=== PATIENT | female | born 1955 | race Caucasian/White ===

== ENCOUNTER 2018-05-11 17:01 | Emergency (ER) | payer OTHER ==
[2018-05-11 17:56] LABS: Urine Blood NEGATIVE (NEG); Urine Glucose NEGATIVE (NEG); Urine Protein NEGATIVE (NEG); Urine pH 5.5 (5.0-7.0)
--- NOTE | 2018-05-11 18:01 | RAD REPORT ---
EXAM DESCRIPTION: CT - Stone Protocol - 05/11/2018 5:38 pm CLINICAL HISTORY: Abdominal pain. Right flank pain COMPARISON: January 2018 TECHNIQUE: Computed axial tomography of the abdomen pelvis was obtained without oral or IV contrast. Lack of IV and oral contrast limits evaluation of solid organs, bowel, and vessels. Coronal reformat hailey images were obtained and reviewed. All CT scans are performed using dose optimization technique as appropriate and may include automated exposure control or mA/KV adjustment according to patient size. FINDINGS: A renal calculus is not seen. An ureteral calculus is not noted. A bladder calculus is not present. A 35 millimeter cystic left renal mass is unchanged. Smaller right renal cystic mass is sta ble. A small hepatic cyst is unchanged. Spleen, pancreas and adrenals appear grossly normal There is no evidence of diverticulitis. A hysterectomy has been performed. The gallbladder has been r emoved IMPRESSION: Negative for a genitourinary calculus
[2018-05-11] MEDS ORDERED: CEFTRIAXONE 1000 MG/VIAL ONE (18:31)
[2018-05-11] MEDS ORDERED: LIDOCAINE 1% MPF 2 ML AMPULE ONE (18:31)
--- NOTE | 2018-05-11 19:10 | EDPHYS ---
Physician Documentation [facility] Name: Priscila Draper Age: 62 yrs Sex: Female : 1955 Arrival Date: 05/11/2018 Time: 17:04 Bed 26 Private MD: Willi Chino ED Physician Varinder Rocha HPI: 05/11 17:23 This 62 yrs old Female presents to ER via Ambulatory with complaints of jmm Urinary Problem. 17:23 The patient presents with pain that is acute, with no known mechanism of injury. The jmm symptoms are located in the right flank. Onset: The symptoms/episode began/occurred gradually, 1 day(s) ago. The pain does not radiate. Associated signs and symptoms: Pertinent positives: nausea, Pertinent negatives: abdominal pain, fever, urinary retention, vomiting. This is a 62 year old female with a history of right renal mass that presents to the ED with right flank pain and nausea beginning last night. Patient denies fever, abdominal pain or vomiting. . Historical: - Allergies: 18:41 Bactrim; mb3 18:41 Demerol; mb3 18:41 Morphine; mb3 18:41 NSAIDS; mb3 18:41 Toradol; mb3 - Home Meds: 18:41 lisinopril 10 mg Oral tab 1 tab once daily [Active]; metformin 500 mg Oral tab 2 tabs 2 mb3 times per day [Active]; metoprolol tartrate 100 mg Oral tab 1 tab 2 times per day [Active]; Zomig Oral [Active]; - PMHx: 18:41 Crohn's; Depression; Diabetes - NIDDM; Hypertension; Migraines; mb3 - Immunization history:: Adult Immunizations up to date. - Social history:: Smoking status: Patient/guardian denies using tobacco, never smoked. - Ebola Screening: : Patient denies travel to an Ebola-affected area in the 21 days before illness onset No symptoms or risks identified at this time. ROS: 17:23 Constitutional: Negative for fever, chills, and weight loss. jmm 17:23 Abdomen/GI: Positive for nausea, flank pain. 17:23 Back: Positive for flank pain, on the right. 17:23 Back: Positive for 17:23 All other systems are negative. Exam: 17:23 Constitutional: This is a well developed, well nourished patient who is awake, alert, jmm and in no acute distress. Chest/axilla: Normal chest wall appearance and motion. Nontender with no deformity. No lesions are appreciated. Cardiovascular: Regular rate and rhythm. No gallops, murmurs, or rubs. Full/Equal distal pulses. Respiratory: Lungs have equal breath sounds bilaterally, clear to auscultation. 17:23 Neuro: Orientation: is normal, Mentation: is normal, Memory: is normal, Gait: is steady. 17:23 Psych: Behavior/mood is pleasant, cooperative. Vital Signs: 17:09 BP 136 / 69; Pulse 64; Resp 17 S; Temp 98.0; Pulse Ox 98% on R/A; Weight 79.83 kg (R); sg Height 5 ft. 4 in. (162.56 cm); Pain 7/10; 19:43 BP 128 / 69; Pulse 62; Resp 18; Pulse Ox 97% on R/A; mb3 17:09 Body Mass Index 30.21 (79.83 kg, 162.56 cm) MDM: 17:22 Patient medically screened. [facility] 19:08 Data reviewed: vital signs, nurses notes, lab test result(s), radiologic studies, CT [facility] scan. Counseling: I had a detailed discussion with the patient and/or guardian regarding: the historical points, exam findings, and any diagnostic results supporting the discharge/admit diagnosis, lab results, radiology results, the need for outpatient follow up, to return to the emergency department if symptoms worsen or persist or if there are any questions or concerns that arise at home. 05/11 17:23 Order name: Urine Culture [facility] 05/11 17:35 Order name: Urine Dipstick--Ancillary (enter results); Complete Time: 18:01 05/11 17:23 Order name: CT Stone Protocol; Complete Time: 18:04 [facility] 05/11 17:23 Order name: Urine Dipstick-Ancillary (obtain specimen); Complete Time: 17:27 [facility] Administered Medications: 18:35 Drug: Rocephin (cefTRIAXone) 1 grams Route: IM; Site: right gluteus; mb3 19:44 Follow up: Response: No adverse reaction mb3 Disposition: 05/12 07:00 Co-signature as Attending Physician, Varinder Rocha MD. rn Disposition: 05/11/18 19:09 Discharged to Home. Impression: Urinary tract infection, site not specified, Flank Pain. - Condition is Stable. - Discharge Instructions: Urinary Tract Infection. - Prescriptions for Cephalexin 500 mg Oral Capsule - take 1 capsule by ORAL route every 12 hours for 10 days; 20 capsule. Ultram 50 mg Oral Tablet - take 1 tablet by ORAL route every 6 hours As needed; 12 tablet. - Medication Reconciliation Form, Thank You Letter, Antibiotic Education, Prescription Opioid Use form. - Follow up: Willi Chino MD; When: 2 - 3 days; Reason: Continuance of care. Signatures: Dispatcher [employer] EDMS Hansel Orozco PA PA jmm Varinder Rocha MD MD rn Barnett, Mark, RN RN mb3 Corrections: (The following items were deleted from the chart) 05/11 19:44 19:09 05/11/2018 19:09 Discharged to Home. Impression: Urinary tract infection, site mb3 not specified; Flank Pain. Condition is Stable. Forms are Medication Reconciliation Form, Thank You Letter, Antibiotic Education, Prescription Opioid Use. Follow up: Willi Chino; When: 2 - 3 days; Reason: Continuance of care. erlin
--- NOTE | 2018-05-11 19:10 | ER ---
Nurse's Notes [facility] Name: Priscila Draper Age: 62 yrs Sex: Female : 1955 Arrival Date: 05/11/2018 Time: 17:04 Bed 26 Private MD: Willi Chino Diagnosis: Urinary tract infection, site not specified;Flank Pain Presentation: 05/11 17:07 Presenting complaint: Patient states: Right side flank pain that began last night, kept sg me awake all night. Denies urinary symptoms, N/V/D, denies fever, reports that she has a mass on right side of kidney, Dr.Nancy Carter is my Independent Crop Consultant. Transition of care: patient was not received from another setting of care. Onset of symptoms was May 11, 2018. Risk Assessment: Do you want to hurt yourself or someone else? Patient reports no desire to harm self or others. Initial Sepsis Screen: Does the patient meet any 2 criteria? No. Patient's initial sepsis screen is negative. Does the patient have a suspected source of infection? No. Patient's initial sepsis screen is negative. Care prior to arrival: None. 17:07 Method Of Arrival: Ambulatory sg 17:07 Acuity: SHIRA 3 sg Historical: - Allergies: 18:41 Bactrim; mb3 18:41 Demerol; mb3 18:41 Morphine; mb3 18:41 NSAIDS; mb3 18:41 Toradol; mb3 - Home Meds: 18:41 lisinopril 10 mg Oral tab 1 tab once daily [Active]; metformin 500 mg Oral tab 2 tabs 2 mb3 times per day [Active]; metoprolol tartrate 100 mg Oral tab 1 tab 2 times per day [Active]; Zomig Oral [Active]; - PMHx: 18:41 Crohn's; Depression; Diabetes - NIDDM; Hypertension; Migraines; mb3 - Immunization history:: Adult Immunizations up to date. - Social history:: Smoking status: Patient/guardian denies using tobacco, never smoked. - Ebola Screening: : Patient denies travel to an Ebola-affected area in the 21 days before illness onset No symptoms or risks identified at this time. Screenin:39 Abuse screen: Denies threats or abuse. Nutritional screening: No deficits noted. mb3 Tuberculosis screening: No symptoms or risk factors identified. Fall Risk None identified. Assessment: 18:37 General: Appears in no apparent distress. comfortable, Behavior is calm, cooperative, mb3 appropriate for age. Pain: Complains of pain in left low back and right low back. Neuro: No deficits noted. Cardiovascular: No deficits noted. Respiratory: No deficits noted. GI: No deficits noted. : Urine is clear, Reports pain flank(s). EENT: No deficits noted. Vital Signs: 17:09 BP 136 / 69; Pulse 64; Resp 17 S; Temp 98.0; Pulse Ox 98% on R/A; Weight 79.83 kg (R); sg Height 5 ft. 4 in. (162.56 cm); Pain 7/10; 19:43 BP 128 / 69; Pulse 62; Resp 18; Pulse Ox 97% on R/A; mb3 17:09 Body Mass Index 30.21 (79.83 kg, 162.56 cm) ED Course: 17:04 Patient arrived in ED. sb2 17:04 Willi Chino MD is Private Physician. sb2 17:07 Arm band placed on. 17:09 Triage completed. 17:13 Hansel Orozco PA is PHCP. [facility] 17:13 Varinder Rocha MD is Attending Physician. [facility] 17:14 Hussein Jules, RN is Primary Nurse. mb3 17:[address] tn 17:37 CT completed. Patient moved back from CT. tn 17:37 CT Stone Protocol In Process Unspecified. EDMS 18:39 No provider procedures requiring assistance completed. Patient did not have IV access mb3 during this emergency room visit. 18:42 Patient has correct armband on for positive identification. Bed in low position. Call mb3 light in reach. Side rails up X 1. 19:09 Willi Chino MD is Referral Physician. [facility] Administered Medications: 18:35 Drug: Rocephin (cefTRIAXone) 1 grams Route: IM; Site: right gluteus; mb3 19:44 Follow up: Response: No adverse reaction mb3 Outcome: 19:09 Discharge ordered by . erlin 19:43 Discharged to home ambulatory. mb3 19:43 Condition: stable 19:43 Discharge instructions given to patient, Instructed on discharge instructions, follow up and referral plans. medication usage, Demonstrated understanding of instructions, follow-up care, medications, Prescriptions given X 2. 19:44 Patient left the ED. mb3 Addendum: 05/14/2018 11:50 Addendum: Culture Results: Positive urine culture. Bacteria is resistant to, has i w intermediate sensitivity, or is not tested against prescribed antibiotics. Report given to [facility] for further evaluation and then to [facility] for follow up with patient. Phone call Attempt #1 pt did not answer, left voice mail. 12:07 Addendum: Culture Results: Phone call Attempt #2 pt called back, asymptomatic, no i w further orders. Signatures: Dispatcher [employer] EDMS Patricio Martino, RN RN sg Hansel Orozco PA PA jmm Williams, Irene, RN RN Thiago Ricardo Sheri sb2 Hussein Jules RN RN mb3
[2018-05-11 19:48] VITALS: TEMP 98
[2018-05-11 19:49] VITALS: BP 128/69; O2SAT 97
== END 2018-05-11 19:44 | disposition home or self-care (01) ==
LOC: ER 17:01
DX: N39.0 Urinary tract infection, site not specified (principal); I10 Essential (primary) hypertension; E11.9 Type 2 diabetes mellitus without complications; F32.9 Major depressive disorder, single episode, unspecified; Z88.1 Allergy status to other antibiotic agents; Z88.5 Allergy status to narcotic agent; Z88.6 Allergy status to analgesic agent
CPT/HCPCS: 74176; 76377; 81003; 87077; 87086; 87088; 87186; 96372; 99284; J2001

== ENCOUNTER 2018-06-14 21:53 | Emergency (ER) | payer OTHER ==
[2018-06-14 22:58] LABS: Urine Blood NEGATIVE (NEG); Urine Glucose NEGATIVE (NEG); Urine Protein NEGATIVE (NEG); Urine Specific Gravity 1.015 (1.005-1.030); Urine pH 7.5 (5.0-7.0)
[2018-06-14 23:01] LABS: Urine Bacteria <20 /HPF (<20); Urine Culture Reflex Order NOT NEEDED; Urine RBC NONE SEEN /HPF (NONE SEEN)
--- NOTE | 2018-06-14 23:19 | EDPHYS ---
Physician Documentation [facility] Name: Priscila Draper Age: 62 yrs Sex: Female : 1955 Arrival Date: 06/14/2018 Time: 21:59 Bed 16 Private MD: Willi Chnio ED Physician Miguel Ángel Castaneda HPI: 06/14 23:12 This 62 yrs old Female presents to ER via Ambulatory with complaints of mimi Headache, Not sleeping (daughter ). 23:12 The patient complains of pain to the forehead, left side of forehead and right side of mimi forehead. The patient describes the headache as aching. Onset: The symptoms/episode began/occurred 2 day(s) ago. Associated signs and symptoms: The patient has no apparent associated signs or symptoms. Severity of symptoms: At its worst the pain was mild, in the emergency department the pain is unchanged. Headache History: Denies prior headaches. The symptoms are alleviated by sleep, the symptoms are aggravated by stress, daughter just . The patient has experienced similar episodes in the past, a few times. Historical: - Allergies: 22:05 Demerol; aj1 22:05 Bactrim; aj1 22:05 Morphine; aj1 22:05 NSAIDS; aj1 22:05 Toradol; aj1 - Home Meds: 22:05 lisinopril 10 mg Oral tab 1 tab once daily [Active]; metformin 500 mg Oral tab 2 tabs 2 aj1 times per day [Active]; metoprolol tartrate 100 mg Oral tab 1 tab 2 times per day [Active]; Zomig Oral [Active]; - PMHx: 22:05 Crohn's; Depression; Diabetes - NIDDM; Hypertension; Migraines; aj1 - Immunization history:: Flu vaccine is up to date. - Social history:: Smoking status: Patient/guardian denies using tobacco. - Ebola Screening: : No symptoms or risks identified at this time. - Family history:: not pertinent. ROS: 23:12 Constitutional: Negative for fever, chills, and weight loss, Eyes: Negative for injury, mimi pain, redness, and discharge, ENT: Negative for injury, pain, and discharge, Neck: Negative for injury, pain, and swelling, Cardiovascular: Negative for chest pain, palpitations, and edema, Respiratory: Negative for shortness of breath, cough, wheezing, and pleuritic chest pain, Abdomen/GI: Negative for abdominal pain, nausea, vomiting, diarrhea, and constipation, Back: Negative for injury and pain, : Negative for injury, bleeding, discharge, and swelling, MS/Extremity: Negative for injury and deformity, Skin: Negative for injury, rash, and discoloration, Psych: Negative for depression, anxiety, suicide ideation, homicidal ideation, and hallucinations, Allergy/Immunology: Negative for hives, rash, and allergies, Endocrine: Negative for neck swelling, polydipsia, polyuria, polyphagia, and marked weight changes. 23:12 Neuro: Positive for headache. Exam: 23:15 Constitutional: This is a well developed, well nourished patient who is awake, alert, mimi and in no acute distress. Head/Face: Normocephalic, atraumatic. Eyes: Pupils equal round and reactive to light, extra-ocular motions intact. Lids and lashes normal. Conjunctiva and sclera are non-icteric and not injected. Cornea within normal limits. Periorbital areas with no swelling, redness, or edema. ENT: Nares patent. No nasal discharge, no septal abnormalities noted. Tympanic membranes are normal and external auditory canals are clear. Oropharynx with no redness, swelling, or masses, exudates, or evidence of obstruction, uvula midline. Mucous membranes moist. Neck: Trachea midline, no thyromegaly or masses palpated, and no cervical lymphadenopathy. Supple, full range of motion without nuchal rigidity, or vertebral point tenderness. No Meningismus. Chest/axilla: Normal chest wall appearance and motion. Nontender with no deformity. No lesions are appreciated. Cardiovascular: Regular rate and rhythm with a normal S1 and S2. No gallops, murmurs, or rubs. Normal PMI, no JVD. No pulse deficits. Respiratory: Lungs have equal breath sounds bilaterally, clear to auscultation and percussion. No rales, rhonchi or wheezes noted. No increased work of breathing, no retractions or nasal flaring. Abdomen/GI: Soft, non-tender, with normal bowel sounds. No distension or tympany. No guarding or rebound. No evidence of tenderness throughout. Back: No spinal tenderness. No costovertebral tenderness. Full range of motion. Female : Normal external genitalia. Skin: Warm, dry with normal turgor. Normal color with no rashes, no lesions, and no evidence of cellulitis. MS/ Extremity: Pulses equal, no cyanosis. Neurovascular intact. Full, normal range of motion. Neuro: Awake and alert, GCS 15, oriented to person, place, time, and situation. Cranial nerves II-XII grossly intact. Motor strength 5/5 in all extremities. Sensory grossly intact. Cerebellar exam normal. Normal gait. Psych: Awake, alert, with orientation to person, place and time. Behavior, mood, and affect are within normal limits. 23:15 Neck: ROM/movement: is normal, no acute changes, Meningeal signs: are not present, Kernig's sign is negative, Brudzinski's sign is negative. Vital Signs: 22:05 BP 140 / 90; Pulse 91; Resp 18; Temp 100.4(O); Pulse Ox 97% on R/A; Weight 79.38 kg aj1 (R); Height 5 ft. 4 in. (162.56 cm) (R); 22:45 BP 148 / 94 RA Sitting (auto/reg); Pulse 94 RA; Resp 18 S; Temp 98(O); cb2 22:05 Body Mass Index 30.04 (79.38 kg, 162.56 cm) aj1 MDM: 22:04 Patient medically screened. [facility] 23:15 Data reviewed: vital signs, nurses notes, lab test result(s). [facility] 06/14 22:25 Order name: Urine Microscopic Only; Complete Time: 23:12 ma 06/14 22:26 Order name: Urine Dipstick--Ancillary (enter results); Complete Time: 23:12 ma 06/14 23:42 Order name: EKG; Complete Time: 23:42 [facility] 06/14 23:42 Order name: EKG - Nurse/Tech; Complete Time: 00:03 [facility] Administered Medications: 23:58 Drug: Zofran 4 mg Route: PO; jl3 06/15 00:04 Follow up: Response: No adverse reaction ak1 00:03 Drug: Cipro 500 mg Route: PO; ak1 00:04 Follow up: Response: No adverse reaction ak1 Disposition: 06/14/18 23:18 Discharged to Home. Impression: Headache, Insomnia. - Condition is Stable. - Discharge Instructions: General Headache Without Cause, General Headache Without Cause, [id number]. - Prescriptions for Cipro 250 mg Oral Tablet - take 1 tablet by ORAL route every 12 hours; 14 tablet. Restoril 15 mg Oral capsule - take 1 capsule by ORAL route once daily at bedtime as needed; 14 capsule. - Medication Reconciliation Form, Thank You Letter, Antibiotic Education, Prescription Opioid Use form. - Follow up: Willi Chino MD; When: 2 - 3 days; Reason: Recheck today's complaints, Continuance of care, Re-evaluation by your physician. - Problem is new. - Symptoms have improved. Signatures: Dispatcher [employer] EDMS Debbie Price RN RN aj1 Miguel Ángel Castaneda MD MD cha Lowman, John, DATA RECOVERY PLANNER DATA RECOVERY PLANNER jl3 Jazlyn Lowe RN RN ak1 Corrections: (The following items were deleted from the chart) 00:06 08 23:18 06/14/2018 23:18 Discharged to Home. Impression: Headache; Insomnia. ak1 Condition is Stable. Forms are Medication Reconciliation Form, Thank You Letter, Antibiotic Education, Prescription Opioid Use. Follow up: Willi Chino; When: 2 - 3 days; Reason: Recheck today's complaints, Continuance of care, Re-evaluation by your physician. Problem is new. Symptoms have improved. mimi
--- NOTE | 2018-06-14 23:19 | ER ---
Nurse's Notes [facility] Name: Priscila Draper Age: 62 yrs Sex: Female : 1955 Arrival Date: 06/14/2018 Time: 21:59 Bed 16 Private MD: Willi Chino Diagnosis: Headache;Insomnia Presentation: 06/14 22:01 Presenting complaint: Patient states: "My daughter May 06 and her son is the next of aj1 kin and he won't go get her. He said when he gets a day off he'll go get her. I have a headache. I can't sleep" Patient is crying in traige. Transition of care: patient was not received from another setting of care. Onset of symptoms was April 2018. Risk Assessment: Do you want to hurt yourself or someone else? Patient reports no desire to harm self or others. Initial Sepsis Screen: Does the patient meet any 2 criteria? HR > 90 bpm. Does the patient have a suspected source of infection? No. Patient's initial sepsis screen is negative. Care prior to arrival: None. 22:01 Method Of Arrival: Ambulatory 1 22:01 Acuity: SHIRA 4 aj1 Triage Assessment: 22:05 General: Appears uncomfortable, Behavior is cooperative, anxious, crying. Pain: aj1 Complains of pain in face and scalp Pain does not radiate. Pain currently is 7 out of 10 on a pain scale. Neuro: Level of Consciousness is awake, alert, obeys commands, Oriented to person, place, time, situation, Speech is normal, Facial symmetry appears normal. Cardiovascular: Patient's skin is warm and dry. Respiratory: Airway is patent Respiratory effort is even, unlabored, Respiratory pattern is regular, symmetrical. 06/15 00:04 Headache History: The patient has had previous headaches and this one is similar to ak1 previous episodes. Pain: Pain began unknown Also complains of sleeplessness. Historical: - Allergies: 06/14 22:05 Demerol; aj1 22:05 Bactrim; aj1 22:05 Morphine; aj1 22:05 NSAIDS; aj1 22:05 Toradol; aj1 - Home Meds: 22:05 lisinopril 10 mg Oral tab 1 tab once daily [Active]; metformin 500 mg Oral tab 2 tabs 2 aj1 times per day [Active]; metoprolol tartrate 100 mg Oral tab 1 tab 2 times per day [Active]; Zomig Oral [Active]; - PMHx: 22:05 Crohn's; Depression; Diabetes - NIDDM; Hypertension; Migraines; aj1 - Immunization history:: Flu vaccine is up to date. - Social history:: Smoking status: Patient/guardian denies using tobacco. - Ebola Screening: : No symptoms or risks identified at this time. - Family history:: not pertinent. Screenin/03 00:04 Abuse screen: Denies threats or abuse. Denies injuries from another. Nutritional ak1 screening: No deficits noted. Tuberculosis screening: No symptoms or risk factors identified. Fall Risk None identified. Vital Signs: 06/14 22:05 BP 140 / 90; Pulse 91; Resp 18; Temp 100.4(O); Pulse Ox 97% on R/A; Weight 79.38 kg aj1 (R); Height 5 ft. 4 in. (162.56 cm) (R); 22:45 BP 148 / 94 RA Sitting (auto/reg); Pulse 94 RA; Resp 18 S; Temp 98(O); cb2 22:05 Body Mass Index 30.04 (79.38 kg, 162.56 cm) aj1 ED Course: 21:59 Patient arrived in ED. es 21:59 Willi Chino MD is Private Physician. 22:03 Jazlyn Lowe, RN is Primary Nurse. ak1 22:04 Triage completed. aj1 22:04 Miguel Ángel Castaneda MD is Attending Physician. [facility] 22:05 Arm band placed on Patient placed in an exam room. aj1 23:16 Willi Chino MD is Referral Physician. [facility] 08 00:05 Patient has correct armband on for positive identification. Bed in low position. Call ak1 light in reach. Side rails up X 1. Pulse ox on. NIBP on. 00:05 No provider procedures requiring assistance completed. Patient did not have IV access ak1 during this emergency room visit. Administered Medications: 06/14 23:58 Drug: Zofran 4 mg Route: PO; jl3 06/15 00:04 Follow up: Response: No adverse reaction ak1 00:03 Drug: Cipro 500 mg Route: PO; ak1 00:04 Follow up: Response: No adverse reaction ak1 Outcome: 06/14 23:18 Discharge ordered by . mimi 06/15 00:05 Discharged to home ambulatory, with family. ak1 Condition: good Discharge instructions given to patient, Instructed on discharge instructions, follow up and referral plans. no drinking with medication, no driving heavy equipment, medication usage, Demonstrated understanding of instructions, follow-up care, medications, Prescriptions given X 2. 00:06 Patient left the ED. ak1 Signatures: Debbie Price RN RN aj1 Miguel Ángel Castaneda MD MD cha Salyer, Edna es Lowman, John, BASKET BOTTOM MACHINE OPERATOR BASKET BOTTOM MACHINE OPERATOR jl3 Jazlyn Lowe, RN RN ak1 Hipolito Casillas cb2
[2018-06-14] MEDS ORDERED: CIPROFLOXACIN HCL 500 MG TAB ONE (23:35)
[2018-06-14] MEDS ORDERED: ONDANSETRON 4 MG (ODT) TAB ONE (23:43)
[2018-06-15 00:22] VITALS: O2SAT 97
[2018-06-15 00:23] VITALS: BP 148/94; TEMP 98
--- NOTE | 2018-06-15 06:45 | EKG ---
Test Date: 2018-06-14 Test Time: 23:50:39 [facility] [place]: RODRICK MEASUREMENT RESULTS: Intervals: Rate: 95 W[place]: 178 QRSD: 74 QT: 366 QTc: 459 [place]: P: 59 W[place]: 178 QRS: 51 T: 55 INTERPRETIVE STATEMENTS: Normal sinus rhythm Low voltage QRS Cannot rule out Anterior infarct, age undetermined Abnormal ECG Compared to ECG 11/13/2015 22:43:13 Low QRS voltage now present Myocardial infarct finding still present Electronically Signed On 06-15-18 06:45:11 CDT by Allen Marcial
== END 2018-06-15 00:06 | disposition home or self-care (01) ==
LOC: ER 21:53
DX: G47.00 Insomnia, unspecified (principal); I10 Essential (primary) hypertension; E11.9 Type 2 diabetes mellitus without complications; F32.9 Major depressive disorder, single episode, unspecified; Z88.1 Allergy status to other antibiotic agents; Z88.5 Allergy status to narcotic agent; Z88.6 Allergy status to analgesic agent
CPT/HCPCS: 81003; 81015; 93005; 99283

== ENCOUNTER 2018-09-25 16:33 | Emergency (ER) | payer OTHER ==
[2018-09-25 17:11] LABS: Urine Blood NEGATIVE (NEG); Urine Glucose NEGATIVE (NEG); Urine Protein NEGATIVE (NEG); Urine Specific Gravity 1.005 (1.005-1.030)
[2018-09-25 17:29] LABS: Urine Bacteria 20-50 /HPF (<20); Urine Culture Reflex Order NOT NEEDED; Urine RBC <5 /HPF (NONE SEEN)
--- NOTE | 2018-09-25 18:15 | EDPHYS ---
Physician Documentation [facility] Name: Priscila Draper Age: 62 yrs Sex: Female : 1955 Arrival Date: 09/25/2018 Time: 16:35 Bed 17 Private MD: Willi Chino ED Physician Miguel Ángel Castaneda HPI: 09/25 19:22 This 62 yrs old Female presents to ER via Ambulatory with complaints of snw Urinary Problem. 19:22 The patient presents with urinary symptoms, dysuria, frequency, urgency. Onset: The snw symptoms/episode began/occurred suddenly, 2 day(s) ago, and became persistent. Modifying factors: The symptoms are alleviated by nothing. Associated signs and symptoms: Pertinent positives: lower back pain. Associated signs and symptoms: Pertinent positives: nausea. Severity of symptoms: At their worst the symptoms were moderate. The patient has experienced similar episodes in the past. It is unknown whether or not the patient has recently seen a physician. Historical: - Allergies: 16:56 Bactrim; ph 16:56 Demerol; ph 16:56 Morphine; ph 16:56 NSAIDS; ph 16:56 Toradol; ph - Home Meds: 17:07 lisinopril 10 mg Oral tab 1 tab once daily [Active]; metformin 500 mg Oral tab 2 tabs 2 hj times per day [Active]; metoprolol tartrate 100 mg Oral tab 1 tab 2 times per day [Active]; Zomig Oral [Active]; - PMHx: 16:56 Crohn's; Depression; Diabetes - NIDDM; Hypertension; Migraines; ph - Immunization history:: Adult Immunizations up to date. - Social history:: Smoking status: Patient/guardian denies using tobacco, Patient/guardian denies using alcohol. - Ebola Screening: : Patient negative for fever greater than or equal to 101.5 degrees Fahrenheit, and additional compatible Ebola Virus Disease symptoms Patient denies exposure to infectious person Patient denies travel to an Ebola-affected area in the 21 days before illness onset. ROS: 19:21 Constitutional: Negative for fever, chills, and weight loss, Eyes: Negative for injury, snw pain, redness, and discharge, ENT: Negative for injury, pain, and discharge, Neck: Negative for injury, pain, and swelling, Cardiovascular: Negative for chest pain, palpitations, and edema, Respiratory: Negative for shortness of breath, cough, wheezing, and pleuritic chest pain, Abdomen/GI: Negative for abdominal pain, nausea, vomiting, diarrhea, and constipation, MS/Extremity: Negative for injury and deformity, Skin: Negative for injury, rash, and discoloration, Neuro: Negative for headache, weakness, numbness, tingling, and seizure. 19:21 Back: Positive for pain at rest. 19:21 : Positive for urinary symptoms. Exam: 19:22 Constitutional: This is a well developed, well nourished patient who is awake, alert, snw and in no acute distress. Head/Face: Normocephalic, atraumatic. Eyes: Pupils equal round and reactive to light, extra-ocular motions intact. Lids and lashes normal. Conjunctiva and sclera are non-icteric and not injected. Cornea within normal limits. Periorbital areas with no swelling, redness, or edema. ENT: Nares patent. No nasal discharge, no septal abnormalities noted. Tympanic membranes are normal and external auditory canals are clear. Oropharynx with no redness, swelling, or masses, exudates, or evidence of obstruction, uvula midline. Mucous membranes moist. Neck: Trachea midline, no thyromegaly or masses palpated, and no cervical lymphadenopathy. Supple, full range of motion without nuchal rigidity, or vertebral point tenderness. No Meningismus. Chest/axilla: Normal chest wall appearance and motion. Nontender with no deformity. No lesions are appreciated. Cardiovascular: Regular rate and rhythm with a normal S1 and S2. No gallops, murmurs, or rubs. Normal PMI, no JVD. No pulse deficits. Respiratory: Lungs have equal breath sounds bilaterally, clear to auscultation and percussion. No rales, rhonchi or wheezes noted. No increased work of breathing, no retractions or nasal flaring. Abdomen/GI: Soft, non-tender, with normal bowel sounds. No distension or tympany. No guarding or rebound. No evidence of tenderness throughout. Back: No spinal tenderness. No costovertebral tenderness. Full range of motion. Skin: Warm, dry with normal turgor. Normal color with no rashes, no lesions, and no evidence of cellulitis. MS/ Extremity: Pulses equal, no cyanosis. Neurovascular intact. Full, normal range of motion. Neuro: Awake and alert, GCS 15, oriented to person, place, time, and situation. Cranial nerves II-XII grossly intact. Motor strength 5/5 in all extremities. Sensory grossly intact. Cerebellar exam normal. Normal gait. Psych: Awake, alert, with orientation to person, place and time. Behavior, mood, and affect are within normal limits. Vital Signs: 16:56 BP 114 / 62; Pulse 73; Resp 16; Temp 97.6(TE); Pulse Ox 98% on R/A; Weight 77.11 kg; ph Height 5 ft. 4 in. (162.56 cm); Pain 7/10; 18:30 BP 115 / 60; Pulse 72; Resp 18; Pulse Ox 100% on R/A; hj 16:56 Body Mass Index 29.18 (77.11 kg, 162.56 cm) ph MDM: 16:49 Patient medically screened. snw 18:13 ED course: pt states she is able to take Tramadol. snw 19:22 Data reviewed: vital signs, nurses notes. Data interpreted: Pulse oximetry: on room air snw is 100 %. Interpretation: normal. Counseling: I had a detailed discussion with the patient and/or guardian regarding: the historical points, exam findings, and any diagnostic results supporting the discharge/admit diagnosis, lab results, the need for outpatient follow up, to return to the emergency department if symptoms worsen or persist or if there are any questions or concerns that arise at home. Special discussion: Based on the history and exam findings, there is no indication for further emergent testing or inpatient evaluation. I discussed with the patient/guardian the need to see the primary care provider for further evaluation of the symptoms. 09/25 16:41 Order name: Urine Culture snw 09/25 16:41 Order name: Urine Microscopic Only; Complete Time: 17:50 snw 09/25 17:04 Order name: Urine Dipstick--Ancillary (enter results) bd 09/25 17:05 Order name: Urine Dipstick-Ancillary; Complete Time: 17:11 EDMS 09/25 16:41 Order name: Urine Dipstick-Ancillary (obtain specimen); Complete Time: 17:00 snw Administered Medications: 18:12 CANCELLED (other intervention used): Phenergan 6.25 mg IVP once snw 18:13 Drug: Zofran 4 mg Route: PO; hj 18:44 Follow up: Response: No adverse reaction hj 18:13 Drug: Rocephin (cefTRIAXone) 1 grams Route: IM; Site: right gluteus; hj 18:43 Follow up: Response: No adverse reaction hj 18:13 Drug: traMADol 50 mg Route: PO; hj 18:43 Follow up: Response: No adverse reaction hj Disposition: 09/26 07:00 Co-signature as Attending Physician, Miguel Ángel Castaneda MD I agree with the assessment and mimi plan of care. Disposition: 09/25/18 18:15 Discharged to Home. Impression: Urinary tract infection, site not specified. - Condition is Stable. - Discharge Instructions: Urinary Tract Infection, Adult, Rehydration, Adult. - Prescriptions for Zofran 4 mg Oral Tablet - take 1 tablet by ORAL route every 12 hours As needed; 20 tablet. Macrobid 100 mg Oral Capsule - take 1 capsule by ORAL route every 12 hours for 10 days; 20 capsule. - Medication Reconciliation Form, Thank You Letter, Antibiotic Education, Prescription Opioid Use form. - Follow up: Willi Chino MD; When: 2 - 3 days; Reason: Recheck today's complaints, Continuance of care, Re-evaluation by your physician. Follow up: Emergency Department; When: As needed; Reason: Worsening of condition. Signatures: Dispatcher [employer] Miguel Ángel Chowdhury MD MD cha Therrien, Shelly, PIEDAD-C CLINICAL PROGRAM MANAGER-Nallely Devlin RN RN Robe Lentz RN RN Corrections: (The following items were deleted from the chart) 09/25 18:12 18:10 Phenergan 6.25 mg IVP once ordered. snw snw 18:12 18:12 Phenergan 6.25 mg IVP once ordered. snw snw 18:44 18:15 09/25/2018 18:15 Discharged to Home. Impression: Urinary tract infection, site hj not specified. Condition is Stable. Discharge Instructions: Urinary Tract Infection, Adult, Rehydration, Adult. Prescriptions for Augmentin 875-125 mg Oral Tablet - take 1 tablet by ORAL route every 12 hours for 10 days; 20 tablet. and Forms are Medication Reconciliation Form, Thank You Letter, Antibiotic Education, Prescription Opioid Use. Follow up: Willi Chino; When: 2 - 3 days; Reason: Recheck today's complaints, Continuance of care, Re-evaluation by your physician. Follow up: Emergency Department; When: As needed; Reason: Worsening of condition. snw
--- NOTE | 2018-09-25 18:15 | ER ---
Nurse's Notes [facility] Name: Priscila Draper Age: 62 yrs Sex: Female : 1955 Arrival Date: 09/25/2018 Time: 16:35 Bed 17 Private MD: Willi Chino Diagnosis: Urinary tract infection, site not specified Presentation: 09/25 16:54 Presenting complaint: Patient states: Burning w/ urination, nausea, and low back pain, ph denies vomiting, diarrhea or fever. Transition of care: patient was not received from another setting of care. Onset of symptoms was September 25, 2018. Risk Assessment: Do you want to hurt yourself or someone else? Patient reports no desire to harm self or others. Care prior to arrival: None. 16:54 Method Of Arrival: Ambulatory ph 16:54 Acuity: SHIRA 4 ph 17:06 Initial Sepsis Screen: Does the patient meet any 2 criteria? No. Patient's initial hj sepsis screen is negative. Does the patient have a suspected source of infection? No. Patient's initial sepsis screen is negative. Triage Assessment: 17:05 General: Appears in no apparent distress. uncomfortable, Behavior is calm, cooperative, hj appropriate for age. Pain: Complains of pain in back. Historical: - Allergies: 16:56 Bactrim; ph 16:56 Demerol; ph 16:56 Morphine; ph 16:56 NSAIDS; ph 16:56 Toradol; ph - Home Meds: 17:07 lisinopril 10 mg Oral tab 1 tab once daily [Active]; metformin 500 mg Oral tab 2 tabs 2 hj times per day [Active]; metoprolol tartrate 100 mg Oral tab 1 tab 2 times per day [Active]; Zomig Oral [Active]; - PMHx: 16:56 Crohn's; Depression; Diabetes - NIDDM; Hypertension; Migraines; ph - Immunization history:: Adult Immunizations up to date. - Social history:: Smoking status: Patient/guardian denies using tobacco, Patient/guardian denies using alcohol. - Ebola Screening: : Patient negative for fever greater than or equal to 101.5 degrees Fahrenheit, and additional compatible Ebola Virus Disease symptoms Patient denies exposure to infectious person Patient denies travel to an Ebola-affected area in the 21 days before illness onset. Screenin:54 Abuse screen: Denies threats or abuse. Denies injuries from another. Nutritional hj screening: No deficits noted. Tuberculosis screening: No symptoms or risk factors identified. Fall Risk None identified. Assessment: 16:56 General: Appears in no apparent distress. uncomfortable, Behavior is calm, cooperative, hj appropriate for age. Pain: Complains of pain in back. Neuro: Level of Consciousness is awake, alert, obeys commands, Oriented to person, place, time, situation, Appropriate for age. Cardiovascular: Capillary refill < 3 seconds Patient's skin is warm and dry. Respiratory: Airway is patent Respiratory effort is even, unlabored, Respiratory pattern is regular, symmetrical. GI: No signs and/or symptoms were reported involving the gastrointestinal system. : No signs and/or symptoms were reported regarding the genitourinary system. EENT: No signs and/or symptoms were reported regarding the EENT system. Derm: No signs and/or symptoms reported regarding the dermatologic system. Musculoskeletal: Reports pain in back. Vital Signs: 16:56 BP 114 / 62; Pulse 73; Resp 16; Temp 97.6(TE); Pulse Ox 98% on R/A; Weight 77.11 kg; ph Height 5 ft. 4 in. (162.56 cm); Pain 7/10; 18:30 BP 115 / 60; Pulse 72; Resp 18; Pulse Ox 100% on R/A; hj 16:56 Body Mass Index 29.18 (77.11 kg, 162.56 cm) ph ED Course: 16:35 Patient arrived in ED. as 16:35 Willi Chino MD is Private Physician. as 16:38 [facility]C [facility]. snw 16:38 Miguel Ángel Castaneda MD is Attending Physician. snw 16:48 Robe Han RN is Primary Nurse. hj 16:55 Triage completed. ph 16:56 Arm band placed on. ph 17:00 Urine Microscopic Only Sent. hj 17:00 Urine Culture Sent. hj 17:06 Patient has correct armband on for positive identification. Bed in low position. Call hj light in reach. Side rails up X 1. 18:14 Willi Chino MD is Referral Physician. snw 18:43 No provider procedures requiring assistance completed. Patient did not have IV access hj during this emergency room visit. Administered Medications: 18:12 CANCELLED (other intervention used): Phenergan 6.25 mg IVP once snw 18:13 Drug: Zofran 4 mg Route: PO; 18:44 Follow up: Response: No adverse reaction hj 18:13 Drug: Rocephin (cefTRIAXone) 1 grams Route: IM; Site: right gluteus; hj 18:43 Follow up: Response: No adverse reaction hj 18:13 Drug: traMADol 50 mg Route: PO; hj 18:43 Follow up: Response: No adverse reaction Outcome: 18:15 Discharge ordered by MD. snw 18:44 Discharged to home ambulatory. hj 18:44 Condition: stable 18:44 Discharge instructions given to patient, Instructed on discharge instructions, follow up and referral plans. medication usage, Demonstrated understanding of instructions, follow-up care, medications, Prescriptions given X 2. 18:44 Patient left the ED. hj Addendum: 09/29/2018 07:27 Addendum: Culture Results: Positive urine culture. No further action required. Bacteria a a5 sensitive to prescribed antibiotic. Signatures: Kimber Flynn, CARE TECHNICIAN-C CARE TECHNICIAN-Csnw Ariadne Dos Santos Audri RN RN aa5 Nallely Del Toro RN RN Robe Han RN RN
[2018-09-25] MEDS ORDERED: LIDOCAINE 1% MPF 2 ML AMPULE ONE (18:23)
[2018-09-25] MEDS ORDERED: TRAMADOL HCL 50 MG TAB ONE (18:23)
[2018-09-25] MEDS ORDERED: CEFTRIAXONE 1000 MG/VIAL ONE (18:23)
[2018-09-25] MEDS ORDERED: ONDANSETRON 4 MG (ODT) TAB ONE (18:23)
[2018-09-25 18:49] VITALS: TEMP 97.6
[2018-09-25 18:50] VITALS: BP 115/60; O2SAT 100
== END 2018-09-25 18:44 | disposition home or self-care (01) ==
LOC: ER 16:33
DX: N39.0 Urinary tract infection, site not specified (principal); K50.90 Crohn's disease, unspecified, without complications; E11.9 Type 2 diabetes mellitus without complications; I10 Essential (primary) hypertension; G43.909 Migraine, unspecified, not intractable, without status migrainosus; Z79.84 Long term (current) use of oral hypoglycemic drugs; Z79.899 Other long term (current) drug therapy
CPT/HCPCS: 81003; 81015; 87077; 87086; 87088; 87186; 96372; 99283; J2001

== ENCOUNTER 2018-10-18 13:56 | Emergency (ER) | payer OTHER ==
[2018-10-18] MEDS ORDERED: NA CHLORIDE 0.9% 1,000 ML ONE (15:49)
[2018-10-18] MEDS ORDERED: METOCLOPRAMIDE 10 MG/2mL INJ ONE (15:49)
[2018-10-18] MEDS ORDERED: HYDROCODONE/APAP 10/325 TAB ONE (15:49)
[2018-10-18] MEDS ORDERED: DIPHENHYDRAMINE 50 MG/ML VIAL ONE (15:49)
--- NOTE | 2018-10-18 17:08 | EDPHYS ---
Physician Documentation [facility] Name: Priscila Draper Age: 62 yrs Sex: Female : 1955 Arrival Date: 10/18/2018 Time: 14:01 Bed 28 Private MD: Willi Chino ED Physician Varinder Rocha HPI: 10/18 15:46 This 62 yrs old Female presents to ER via Ambulatory with complaints of rn Headache. 15:46 The patient complains of pain to the top of head. The patient describes the headache as rn aching. Onset: The symptoms/episode began/occurred last night. Associated signs and symptoms: Pertinent positives: nausea, Pertinent negatives: altered mental status, fever, neck stiffness, vision changes, vision loss. Severity of symptoms: At its worst the pain was moderate, in the emergency department the pain is unchanged. Headache History: The patient has had previous headaches and this one is similar to previous episodes. The patient has experienced similar episodes in the past. The patient has not recently seen a physician. Historical: - Allergies: 14:21 Bactrim; kr2 14:21 Demerol; kr2 14:21 Morphine; kr2 14:21 NSAIDS; kr2 14:21 Toradol; kr2 - Home Meds: 14:21 lisinopril 10 mg Oral tab 1 tab once daily [Active]; metformin 500 mg Oral tab 2 tabs 2 kr2 times per day [Active]; metoprolol tartrate 100 mg Oral tab 1 tab 2 times per day [Active]; Zomig Oral [Active]; Wellbutrin Oral [Active]; - PMHx: 14:21 Crohn's; Depression; Diabetes - NIDDM; Hypertension; Migraines; kr2 - PSHx: 14:21 Hysterectomy; Appendectomy; left knee replacement; kr2 - Immunization history:: Adult Immunizations up to date. - Social history:: Smoking status: Patient/guardian denies using tobacco. - Ebola Screening: : No symptoms or risks identified at this time. - Family history:: not pertinent. - Hospitalizations: : No recent hospitalization is reported. ROS: 15:46 Constitutional: Negative for fever, chills, and weight loss, Eyes: Negative for injury, rn pain, redness, and discharge, Neck: Negative for injury, pain, and swelling, Cardiovascular: Negative for chest pain, palpitations, and edema, Respiratory: Negative for shortness of breath, cough, wheezing, and pleuritic chest pain, Abdomen/GI: Negative for abdominal pain, vomiting, diarrhea, and constipation, MS/Extremity: Negative for injury and deformity, Skin: Negative for injury, rash, and discoloration, Neuro: Negative for weakness, numbness, tingling, and seizure. Exam: 15:46 Constitutional: This is a well developed, well nourished patient who is awake, alert, rn and in no acute distress. Sitting upright with legs crossed. Head/Face: Normocephalic, atraumatic. Eyes: Pupils equal round and reactive to light, extra-ocular motions intact. Lids and lashes normal. Conjunctiva and sclera are non-icteric and not injected. Cornea within normal limits. Periorbital areas with no swelling, redness, or edema. ENT: MMM Skin: Warm, dry with normal turgor. Normal color with no rashes, no lesions, and no evidence of cellulitis. MS/ Extremity: Pulses equal, no cyanosis. Neurovascular intact. Full, normal range of motion. Equal circumference. Neuro: Awake and alert, GCS 15, oriented to person, place, time, and situation. Cranial nerves II-XII grossly intact. Motor strength 5/5 in all extremities. Sensory grossly intact. Psych: Awake, alert, with orientation to person, place and time. Vital Signs: 14:19 BP 126 / 72; Pulse 72; Resp 19; Temp 97.9; Pulse Ox 98% ; Weight 83.91 kg; Height 5 ft. kr2 4 in. (162.56 cm); Pain 7/10; 16:05 BP 134 / 66; Pulse 73; Resp 15; Pulse Ox 99% on R/A; rv 16:52 Pain 4/10; rv 16:54 BP 157 / 80; Pulse 79; Resp 16; Pulse Ox 99% on R/A; Pain 4/10; rv 17:22 BP 127 / 68; Pulse 71; Resp 16; Pulse Ox 99% on R/A; Pain 3/10; rv 14:19 Body Mass Index 31.75 (83.91 kg, 162.56 cm) kr2 Ciara Coma Score: 17:06 Eye Response: spontaneous(4). Verbal Response: oriented(5). Motor Response: obeys rn commands(6). Total: 15. MDM: 14:50 Patient medically screened. rn 17:06 Differential diagnosis: migraine, tension headache. Data reviewed: vital signs, nurses rn notes, and as a result, I will discharge patient. Counseling: I had a detailed discussion with the patient and/or guardian regarding: the historical points, exam findings, and any diagnostic results supporting the discharge/admit diagnosis, the need for outpatient follow up, to return to the emergency department if symptoms worsen or persist or if there are any questions or concerns that arise at home. Special discussion: I discussed with the patient/guardian in detail that at this point there is no indication for admission to the hospital. It is understood, however, that if the symptoms persist or worsen the patient needs to return immediately for re-evaluation. 17:06 Response to treatment: the patient's symptoms have resolved after treatment, the rn patient's condition has returned to base line, the patient is now symptom free, and as a result, I will discharge patient. 12 15:38 Order name: IV Start; Complete Time: 15:55 rn Administered Medications: 15:54 Drug: Benadryl 12.5 mg Route: IVP; Site: left forearm; rv 16:53 Follow up: Response: No adverse reaction rv 15:54 Drug: Bethel 10 mg-325 mg 1 tabs Route: PO; rv 16:52 Follow up: Pain 4/10 Adult; Response: Pain is decreased rv 15:55 Drug: NS 0.9% 1000 ml Route: IV; Rate: 1000 ml; Site: left forearm; rv 16:53 Follow up: IV Status: Completed infusion; IV Intake: 1000ml rv 15:55 Drug: Reglan 10 mg Route: IVP; Site: left forearm; rv 16:53 Follow up: Response: Pain is decreased rv Disposition: 10/18/18 17:07 Discharged to Home. Impression: Migraine. - Condition is Stable. - Discharge Instructions: Migraine Headache. - Medication Reconciliation Form, Thank You Letter, Antibiotic Education, Prescription Opioid Use form. - Follow up: Private Physician; When: As needed; Reason: Recheck today's complaints, Re-evaluation by your physician. - Problem is new. - Symptoms have improved. Signatures: Varinder Rocha MD MD rn Reaves, Karey, RN RN kr2 Perez, Jordin, RN RN rv Corrections: (The following items were deleted from the chart) 17:23 17:07 10/18/2018 17:07 Discharged to Home. Impression: Migraine. Condition is Stable. rv Forms are Medication Reconciliation Form, Thank You Letter, Antibiotic Education, Prescription Opioid Use. Follow up: Private Physician; When: As needed; Reason: Recheck today's complaints, Re-evaluation by your physician. Problem is new. Symptoms have improved. rn
--- NOTE | 2018-10-18 17:08 | ER ---
Nurse's Notes [facility] Name: Priscila Draper Age: 62 yrs Sex: Female : 1955 Arrival Date: 10/18/2018 Time: 14:01 Bed 28 Private MD: Willi Chino Diagnosis: Migraine Presentation: 10/18 14:17 Presenting complaint: Patient states: I woke up with a migraine at about 3:30 this kr2 morning. I have taken my medicine 3 times since then and have not had any relief. Transition of care: patient was not received from another setting of care. Onset of symptoms was October 18, 2018 at 03:30. Risk Assessment: Do you want to hurt yourself or someone else? Patient reports no desire to harm self or others. Initial Sepsis Screen: Does the patient meet any 2 criteria? No. Patient's initial sepsis screen is negative. Does the patient have a suspected source of infection? No. Patient's initial sepsis screen is negative. Care prior to arrival: Medication(s) given: Zomig 5mg x 3 doses. 14:17 Method Of Arrival: Ambulatory kr2 14:17 Acuity: SHIRA 3 kr2 Triage Assessment: 14:21 Headache History: The patient has had previous headaches and this one is less severe kr2 than previous episodes. General: Appears in no apparent distress. uncomfortable, Behavior is calm, cooperative. Pain: Complains of pain in left side of head Pain does not radiate. Pain currently is 7 out of 10 on a pain scale. Quality of pain is described as throbbing, Pain began at 0330 Also complains of nausea, photophobia. Neuro: Level of Consciousness is awake, alert, obeys commands, Oriented to person, place, time, situation, Appropriate for age Cigarette Inspector are equal bilaterally Facial symmetry appears normal. Historical: - Allergies: 14:21 Bactrim; kr2 14:21 Demerol; kr2 14:21 Morphine; kr2 14:21 NSAIDS; kr2 14:21 Toradol; kr2 - Home Meds: 14:21 lisinopril 10 mg Oral tab 1 tab once daily [Active]; metformin 500 mg Oral tab 2 tabs 2 kr2 times per day [Active]; metoprolol tartrate 100 mg Oral tab 1 tab 2 times per day [Active]; Zomig Oral [Active]; Wellbutrin Oral [Active]; - PMHx: 14:21 Crohn's; Depression; Diabetes - NIDDM; Hypertension; Migraines; kr2 - PSHx: 14:21 Hysterectomy; Appendectomy; left knee replacement; kr2 - Immunization history:: Adult Immunizations up to date. - Social history:: Smoking status: Patient/guardian denies using tobacco. - Ebola Screening: : No symptoms or risks identified at this time. - Family history:: not pertinent. - Hospitalizations: : No recent hospitalization is reported. Screenin:00 Abuse screen: Denies threats or abuse. Denies injuries from another. Nutritional rv screening: No deficits noted. Tuberculosis screening: No symptoms or risk factors identified. Fall Risk None identified. Assessment: 14:58 General: Appears in no apparent distress. uncomfortable, Behavior is calm, cooperative. rv Pain: Complains of pain in left side, headache Pain currently is 7 out of 10 on a pain scale. Pain began 0330H. Neuro: Level of Consciousness is awake, alert, obeys commands, Oriented to person, place, time, situation. Cardiovascular: Capillary refill < 3 seconds. Respiratory: Airway is patent. GI: No signs and/or symptoms were reported involving the gastrointestinal system. : No signs and/or symptoms were reported regarding the genitourinary system. EENT: No signs and/or symptoms were reported regarding the EENT system. Derm: Skin is intact. Musculoskeletal: No signs and/or symptoms reported regarding the musculoskeletal system. 16:53 Reassessment: Patient and/or family updated on plan of care and expected duration. Pain rv level reassessed. Patient is alert, oriented x 3, equal unlabored respirations, skin warm/dry/pink. PATIENT'S PAIN IMPROVED AT THIS TIME (4/10). Vital Signs: 14:19 BP 126 / 72; Pulse 72; Resp 19; Temp 97.9; Pulse Ox 98% ; Weight 83.91 kg; Height 5 ft. kr2 4 in. (162.56 cm); Pain 7/10; 16:05 BP 134 / 66; Pulse 73; Resp 15; Pulse Ox 99% on R/A; rv 16:52 Pain 4/10; rv 16:54 BP 157 / 80; Pulse 79; Resp 16; Pulse Ox 99% on R/A; Pain 4/10; rv 17:22 BP 127 / 68; Pulse 71; Resp 16; Pulse Ox 99% on R/A; Pain 3/10; rv 14:19 Body Mass Index 31.75 (83.91 kg, 162.56 cm) kr2 Ciara Coma Score: 17:06 Eye Response: spontaneous(4). Verbal Response: oriented(5). Motor Response: obeys rn commands(6). Total: 15. ED Course: 14:01 Patient arrived in ED. ag5 14:01 Willi Chino MD is Private Physician. ag5 14:19 Triage completed. kr2 14:30 Arm band placed on left wrist. kr2 14:50 Varinder Rocha MD is Attending Physician. rn 15:00 Patient has correct armband on for positive identification. Bed in low position. Call rv light in reach. Side rails up X 1. Pulse ox on. NIBP on. 15:45 Inserted saline lock: 20 gauge in left forearm, using aseptic technique. Missed rv attempt(s): 20 gauge in left antecubital area. 17:23 No provider procedures requiring assistance completed. IV discontinued, bleeding rv controlled, No redness/swelling at site. Pressure dressing applied. Administered Medications: 15:54 Drug: Benadryl 12.5 mg Route: IVP; Site: left forearm; rv 16:53 Follow up: Response: No adverse reaction rv 15:54 Drug: Verdi 10 mg-325 mg 1 tabs Route: PO; rv 16:52 Follow up: Pain 4/10 Adult; Response: Pain is decreased rv 15:55 Drug: NS 0.9% 1000 ml Route: IV; Rate: 1000 ml; Site: left forearm; rv 16:53 Follow up: IV Status: Completed infusion; IV Intake: 1000ml rv 15:55 Drug: Reglan 10 mg Route: IVP; Site: left forearm; rv 16:53 Follow up: Response: Pain is decreased rv Intake: 16:53 IV: 1000ml; Total: 1000ml. rv Outcome: 17:07 Discharge ordered by . rn 17:23 Discharged to home ambulatory. rv 17:23 Condition: improved 17:23 Discharge instructions given to patient, Instructed on discharge instructions, follow up and referral plans. Demonstrated understanding of instructions, follow-up care. 17:23 Patient left the ED. rv Signatures: Varinder Rocha MD MD rn Reaves, Karey, RN RN kr2 Jordin Todd RN RN Jessica Acosta ag5 Corrections: (The following items were deleted from the chart) 14:30 14:17 Acuity: SHIRA 4 kr2 kr2
[2018-10-18 18:38] VITALS: TEMP 97.9
[2018-10-18 18:39] VITALS: O2SAT 99
[2018-10-18 18:43] VITALS: BP 127/68
== END 2018-10-18 17:23 | disposition home or self-care (01) ==
LOC: ER 13:56
DX: G43.909 Migraine, unspecified, not intractable, without status migrainosus (principal); I10 Essential (primary) hypertension; E11.9 Type 2 diabetes mellitus without complications; F32.9 Major depressive disorder, single episode, unspecified; Z88.1 Allergy status to other antibiotic agents; Z88.5 Allergy status to narcotic agent; Z88.6 Allergy status to analgesic agent
CPT/HCPCS: 96361; 96374; 96375; 99284; J2765; J7030

== ENCOUNTER 2018-11-17 12:52 | Emergency (ER) | payer OTHER ==
[2018-11-17] MEDS ORDERED: ACETAMINOPHEN 500 MG TAB ONE (13:26)
[2018-11-17 15:24] LABS: Absolute Monocytes 0.9 K/uL (0.1-1.3); Absolute Neutrophil 9.6 K/uL (1.8-8.0); Basophils % 0.7 % (0-1.3); Eosinophils % 2.9 % (0-4.4); Hematocrit 38.7 % (36.0-45.0); Lymphocytes % 26.4 % (15.3-44.8); MPV 8.4 fL (7.6-11.3); Monocytes % 6.3 % (3.3-12.3); RBC Red Blood Cell Count 4.25 M/uL (3.86-4.86)
[2018-11-17 15:29] LABS: Protime INR 1.05
[2018-11-17 15:57] LABS: ALT/SGPT 73 U/L (12-78); AST/SGOT 15 U/L (15-37); Albumin 3.9 g/dL (3.4-5.0); Alkaline Phosphatase 100 U/L (45-117); BUN Blood Urea Nitrogen 19 mg/dL (7-18); Bicarbonate 24 mmol/L (21-32); Bilirubin Direct < 0.1 mg/dL (0-0.2); Bilirubin Total 0.1 mg/dL (0.2-1.0); Glucose Level 150 mg/dL (74-106); Magnesium 1.6 mg/dL (1.8-2.4); NT PRO-BNP 73 pg/mL (<125); Potassium 4.1 mmol/L (3.5-5.1); Protein, Total 7.6 g/dL (6.4-8.2); Sodium Level 143 mmol/L (136-145); Troponin (Emerg Dept Use Only) < 0.02 ng/mL (0.0-0.045)
[2018-11-17] MEDS ORDERED: CEFTRIAXONE 1000 MG/VIAL ONE (16:22)
[2018-11-17] MEDS ORDERED: NA CHLORIDE 0.9% 1,000 ML ONE (16:23)
[2018-11-17] MEDS ORDERED: AZITHROMYCIN 500 MG/250 ML BAG ONE (16:23)
[2018-11-17] MEDS ORDERED: NA CHLORIDE 0.9% 100 ML IV ONE (16:23)
[2018-11-17] MEDS ORDERED: ONDANSETRON 4 MG/2 ML VIAL ONE (16:44)
--- NOTE | 2018-11-17 18:12 | RAD REPORT ---
EXAM DESCRIPTION: CT - Chest For Pe Angio - 11/17/2018 5:40 pm CLINICAL HISTORY: Cough and shortness of breath COMPARISON: 2014 TECHNIQUE: Dynamically enhanced axial 3 mm thick images of the chest were obtained during administra tion of <100> mL Isovue 370 IV contrast. Coronal and oblique reconstruction images were generated and reviewed. Exam utilizes a protocol for optimal evaluation of pulmonary arterial tree. Maximum intensity projections 3D imaging was utilized All CT scans are performed using dose optimization technique as appropriate and may include automated exposure control or mA/KV adjustment according to patient size. FINDINGS: A pulmonary embolus is not seen. A thoracic aortic aneurysm is not noted. A pleural effusion is not seen. A pericardial effusion is not seen. A lung consolidation is not present. A 15 millimeter nodule within the left lobe of thyroid gland is unchanged IMPRESSION: Negative for a pulmonary embolism.
--- NOTE | 2018-11-17 18:16 | EDPHYS ---
Physician Documentation [facility] Name: Priscila Draper Age: 63 yrs Sex: Female : 1955 Arrival Date: 11/17/2018 Time: 12:54 Bed 7 Private MD: Willi Chino ED Physician Miguel Ángel Castaneda HPI: 11/17 15:20 This 63 yrs old Female presents to ER via Ambulatory with complaints of mimi Breathing Difficulty. 15:20 The patient has shortness of breath at rest, with light activity. Onset: The mimi symptoms/episode began/occurred 2 day(s) ago. Duration: The symptoms are continuous, and are steadily getting worse. The patient's shortness of breath has no apparent modifying factors. Associated signs and symptoms: Pertinent positives: productive cough. Severity of symptoms: At their worst the symptoms were moderate in the emergency department the symptoms are unchanged. The patient has not experienced similar symptoms in the past. Historical: - Allergies: 13:13 Bactrim; aj 13:13 Demerol; aj 13:13 Morphine; aj 13:13 NSAIDS; aj 13:13 Toradol; aj - Home Meds: 13:13 lisinopril 10 mg Oral tab 1 tab once daily [Active]; metformin 500 mg Oral tab 2 tabs 2 aj times per day [Active]; metoprolol tartrate 100 mg Oral tab 1 tab 2 times per day [Active]; Wellbutrin Oral [Active]; Zomig Oral [Active]; Fioricet 50-325-40 mg Oral tab [Active]; - PMHx: 13:13 Crohn's; Depression; Diabetes - NIDDM; Hypertension; Migraines; aj - PSHx: 13:13 Hysterectomy; Appendectomy; left knee replacement; aj - Immunization history:: Adult Immunizations up to date. - Social history:: Smoking status: Patient/guardian denies using tobacco. - Ebola Screening: : Patient negative for fever greater than or equal to 101.5 degrees Fahrenheit, and additional compatible Ebola Virus Disease symptoms Patient denies exposure to infectious person Patient denies travel to an Ebola-affected area in the 21 days before illness onset No symptoms or risks identified at this time. - Family history:: not pertinent. ROS: 15:20 Constitutional: Negative for fever, chills, and weight loss, Eyes: Negative for injury, mimi pain, redness, and discharge, ENT: Negative for injury, pain, and discharge, Neck: Negative for injury, pain, and swelling, Cardiovascular: Negative for chest pain, palpitations, and edema, Abdomen/GI: Negative for abdominal pain, nausea, vomiting, diarrhea, and constipation, Back: Negative for injury and pain, : Negative for injury, bleeding, discharge, and swelling, MS/Extremity: Negative for injury and deformity, Skin: Negative for injury, rash, and discoloration, Neuro: Negative for headache, weakness, numbness, tingling, and seizure, Psych: Negative for depression, anxiety, suicide ideation, homicidal ideation, and hallucinations, Allergy/Immunology: Negative for hives, rash, and allergies, Endocrine: Negative for neck swelling, polydipsia, polyuria, polyphagia, and marked weight changes, Hematologic/Lymphatic: Negative for swollen nodes, abnormal bleeding, and unusual bruising. 15:20 Respiratory: Positive for cough, shortness of breath, at rest. Exam: 15:20 Constitutional: This is a well developed, well nourished patient who is awake, alert, mimi and in no acute distress. Head/Face: Normocephalic, atraumatic. Eyes: Pupils equal round and reactive to light, extra-ocular motions intact. Lids and lashes normal. Conjunctiva and sclera are non-icteric and not injected. Cornea within normal limits. Periorbital areas with no swelling, redness, or edema. ENT: Nares patent. No nasal discharge, no septal abnormalities noted. Tympanic membranes are normal and external auditory canals are clear. Oropharynx with no redness, swelling, or masses, exudates, or evidence of obstruction, uvula midline. Mucous membranes moist. Neck: Trachea midline, no thyromegaly or masses palpated, and no cervical lymphadenopathy. Supple, full range of motion without nuchal rigidity, or vertebral point tenderness. No Meningismus. Chest/axilla: Normal chest wall appearance and motion. Nontender with no deformity. No lesions are appreciated. Cardiovascular: Regular rate and rhythm with a normal S1 and S2. No gallops, murmurs, or rubs. Normal PMI, no JVD. No pulse deficits. Abdomen/GI: Soft, non-tender, with normal bowel sounds. No distension or tympany. No guarding or rebound. No evidence of tenderness throughout. Back: No spinal tenderness. No costovertebral tenderness. Full range of motion. Female : Normal external genitalia. Skin: Warm, dry with normal turgor. Normal color with no rashes, no lesions, and no evidence of cellulitis. MS/ Extremity: Pulses equal, no cyanosis. Neurovascular intact. Full, normal range of motion. Neuro: Awake and alert, GCS 15, oriented to person, place, time, and situation. Cranial nerves II-XII grossly intact. Motor strength 5/5 in all extremities. Sensory grossly intact. Cerebellar exam normal. Normal gait. Psych: Awake, alert, with orientation to person, place and time. Behavior, mood, and affect are within normal limits. 15:20 Respiratory: mild respiratory distress is noted, Respirations: normal, Breath sounds: rhonchi, that are mild, are scattered, Respiratory rate: 20 18:03 Musculoskeletal/extremity: DVT Exam: No signs of deep vein thrombosis. no pain, no mimi swelling, no tenderness, negative Homans' sign noted on exam, no appreciated bluish discoloration, no erythema, no increased warmth. Vital Signs: 13:13 BP 148 / 86; Pulse 126; Resp 20; Temp 99.6(O); Pulse Ox 98% on R/A; Weight 80.29 kg; aj Height 5 ft. 4 in. (162.56 cm); 14:00 BP 153 / 101; Pulse 117; Resp 20; Pulse Ox 96% ; bp 15:00 BP 118 / 79; Pulse 120; Resp 18; Pulse Ox 99% ; bp 16:00 BP 163 / 66; Pulse 97; Resp 23; Pulse Ox 99% ; bp 19:38 BP 137 / 74; Pulse 100; Resp 19 S; Pulse Ox 100% on R/A; jd3 13:13 Body Mass Index 30.38 (80.29 kg, 162.56 cm) aj MDM: 14:16 Patient medically screened. [facility] 15:22 Data reviewed: vital signs, nurses notes, lab test result(s), EKG, radiologic studies, [facility] plain films. 11/17 15:04 Order name: Basic Metabolic Panel; Complete Time: 17:21 [facility] 11/17 15:04 Order name: CBC with Diff; Complete Time: 17:21 [facility] 11/17 15:04 Order name: LFT's; Complete Time: 17:21 jb11/17 15:04 Order name: Magnesium; Complete Time: 17:21 11/17 15:04 Order name: NT PRO-BNP; Complete Time: 17:21 11/17 15:04 Order name: PT-INR; Complete Time: 17:21 11/17 15:04 Order name: Troponin (emerg Dept Use Only); Complete Time: 17:21 11/17 15:04 Order name: XRAY Chest (1 view); Complete Time: 18:37 11/17 15:05 Order name: Blood Culture Adult (2) 11/17 15:13 Order name: Flu; Complete Time: 17:21 ag 11/17 17:22 Order name: CT Chest For PE Angio; Complete Time: 18:14 mimi 11/17 17:22 Order name: ABG mimi 11/17 15:04 Order name: EKG; Complete Time: 15:05 11/17 15:04 Order name: Cardiac monitoring; Complete Time: 15:08 11/17 15:04 Order name: EKG - Nurse/Tech; Complete Time: 15:08 11/17 15:04 Order name: IV Saline Lock; Complete Time: 15:08 11/17 15:04 Order name: Labs collected and sent; Complete Time: 15:08 11/17 15:04 Order name: O2 Per Protocol; Complete Time: 15:08 11/17 15:04 Order name: O2 Sat Monitoring; Complete Time: 15:08 Administered Medications: 13:17 Drug: Tylenol 1000 mg Route: PO; aj 15:30 Drug: Rocephin - (cefTRIAXone) 1 grams Route: IVPB; Infused Over: 30 mins; Site: left bp antecubital; 15:30 Drug: Zithromax 500 mg Route: IVPB; Infused Over: 1 hrs; Site: left antecubital; bp 15:30 Drug: NS 0.9% 1000 ml Route: IV; Rate: 1 bolus; Site: left antecubital; bp 18:00 Drug: Magnesium Sulfate 2 grams Route: IVPB; Infused Over: 2 hrs; Site: left jd3 antecubital; 19:39 Follow up: Response: No adverse reaction; IV Status: Completed infusion jd3 Disposition: 11/17/18 18:15 Discharged to Home. Impression: Dyspnea, Bronchitis, not specified as acute or chronic, Type 2 diabetes mellitus, Hypomagnesemia. - Condition is Stable. - Discharge Instructions: Acute Bronchitis, Adult, Type 2 Diabetes Mellitus, Diagnosis, Adult, Hypomagnesemia, How to Use an Inhaler, Upper Respiratory Infection, Adult, Acute Bronchitis, [id number], Upper Respiratory Infection, Adult, Geuy-gr-Tuvo, Type 2 Diabetes Mellitus, Diagnosis, Adult, [id number]. - Prescriptions for Medrol (Clay) 4 mg Oral Tablets, Dose Pack - take 1 tablet by ORAL route as directed - follow package instructions; 1 packet. Albuterol Sulfate 90 mcg/actuation - inhale 1-2 puff by INHALATION route every 4-6 hours; 1 Inhaler. Zithromax 500 mg Oral Tablet - take 1 tablet by ORAL route once daily for 5 days; 5 tablet. - Medication Reconciliation Form, Thank You Letter, Antibiotic Education, Prescription Opioid Use form. - Follow up: Willi Chino; When: 2 - 3 days; Reason: Recheck today's complaints, Continuance of care, Re-evaluation by your physician. - Problem is new. - Symptoms have improved. Signatures: Dispatcher [employer] [facility] Steve Daniels jb1 Kelly Tipton, [place] RN Miguel Ángel Sim MD MD cha Davies, Jonathon, RN RN Willi Moser, RN RN bp Corrections: (The following items were deleted from the chart) 15:19 13:15 Chest Pa And Lat (2 Views)+[email or web address] ordered. [facility] 19:40 18:15 11/17/2018 18:15 Discharged to Home. Impression: Dyspnea; Bronchitis, not jd3 specified as acute or chronic; Type 2 diabetes mellitus; Hypomagnesemia. Condition is Stable. Discharge Instructions: Acute Bronchitis, Adult, Type 2 Diabetes Mellitus, Diagnosis, Adult, Hypomagnesemia, How to Use an Inhaler, Upper Respiratory Infection, Adult, Acute Bronchitis, Sjka-rh-Ecwa, Upper Respiratory Infection, Adult, Tocl-yp-[id number], Type 2 Diabetes Mellitus, Diagnosis, Adult, Ulvn-gv-[id number]. Prescriptions for Medrol (Clay) 4 mg Oral Tablets, Dose Pack - take 1 tablet by ORAL route as directed - follow package instructions; 1 packet, Albuterol Sulfate 90 mcg/actuation - inhale 1-2 puff by INHALATION route every 4-6 hours; 1 Inhaler, Zithromax 500 mg Oral Tablet - take 1 tablet by ORAL route once daily for 5 days; 5 tablet. and Forms are Medication Reconciliation Form, Thank You Letter, Antibiotic Education, Prescription Opioid Use. Follow up: Willi Chino; When: 2 - 3 days; Reason: Recheck today's complaints, Continuance of care, Re-evaluation by your physician. Problem is new. Symptoms have improved. mimi
--- NOTE | 2018-11-17 18:16 | ER ---
Nurse's Notes [facility] Name: Priscila Draper Age: 63 yrs Sex: Female : 1955 Arrival Date: 11/17/2018 Time: 12:54 Bed 7 Private MD: Willi Chino Diagnosis: Dyspnea;Bronchitis, not specified as acute or chronic;Type 2 diabetes mellitus;Hypomagnesemia Presentation: 11/17 13:10 Presenting complaint: Patient states: Productive cough and SOB for 4 days. Patient is aj in NAD. Transition of care: patient was not received from another setting of care. Onset of symptoms was November 13, 2018. Risk Assessment: Do you want to hurt yourself or someone else? Patient reports no desire to harm self or others. Initial Sepsis Screen: Does the patient meet any 2 criteria? HR > 90 bpm. Does the patient have a suspected source of infection? No. Patient's initial sepsis screen is negative. Care prior to arrival: None. 13:10 Method Of Arrival: Ambulatory aj 13:10 Acuity: SHIRA 3 aj Triage Assessment: 13:13 General: Appears in no apparent distress. comfortable, Behavior is calm, cooperative. aj Pain: Denies pain. Neuro: Level of Consciousness is awake, alert, obeys commands, Oriented to person, place, time, situation, Appropriate for age. Respiratory: Reports shortness of breath cough that is productive, Airway is patent Respiratory effort is even, unlabored, Respiratory pattern is regular, symmetrical, Onset: The symptoms/episode began/occurred gradually, the patient has mild shortness of breath. Derm: Skin is intact, is healthy with good turgor, Skin is pink, warm \T\ dry. normal. Historical: - Allergies: 13:13 Bactrim; aj 13:13 Demerol; aj 13:13 Morphine; aj 13:13 NSAIDS; aj 13:13 Toradol; aj - Home Meds: 13:13 lisinopril 10 mg Oral tab 1 tab once daily [Active]; metformin 500 mg Oral tab 2 tabs 2 aj times per day [Active]; metoprolol tartrate 100 mg Oral tab 1 tab 2 times per day [Active]; Wellbutrin Oral [Active]; Zomig Oral [Active]; Fioricet 50-325-40 mg Oral tab [Active]; - PMHx: 13:13 Crohn's; Depression; Diabetes - NIDDM; Hypertension; Migraines; aj - PSHx: 13:13 Hysterectomy; Appendectomy; left knee replacement; aj - Immunization history:: Adult Immunizations up to date. - Social history:: Smoking status: Patient/guardian denies using tobacco. - Ebola Screening: : Patient negative for fever greater than or equal to 101.5 degrees Fahrenheit, and additional compatible Ebola Virus Disease symptoms Patient denies exposure to infectious person Patient denies travel to an Ebola-affected area in the 21 days before illness onset No symptoms or risks identified at this time. - Family history:: not pertinent. Screenin:15 Abuse screen: Denies threats or abuse. Denies injuries from another. Nutritional bp screening: No deficits noted. Tuberculosis screening: No symptoms or risk factors identified. Fall Risk None identified. Assessment: 14:15 General: Appears in no apparent distress. comfortable, obese, Behavior is calm, bp cooperative, appropriate for age. Pain: Denies pain. Neuro: Level of Consciousness is awake, alert, obeys commands, Oriented to person, place, time, situation, Appropriate for age. Cardiovascular: Rhythm is sinus tachycardia. Respiratory: Airway is patent Respiratory effort is even, unlabored, Respiratory pattern is regular, symmetrical, Breath sounds with crackles bilaterally. GI: No signs and/or symptoms were reported involving the gastrointestinal system. : No signs and/or symptoms were reported regarding the genitourinary system. EENT: No deficits noted. Derm: No deficits noted. Musculoskeletal: Circulation, motion, and sensation intact. Range of motion: intact in all extremities. 16:00 Reassessment: ST NOTED ON MONITOR, PROVIDER NOTIFIED. IVF INFUSING. bp 18:00 Reassessment: IV ABX INFUSING, DISPO PENDING. bp 19:37 Reassessment: Patient appears in no apparent distress at this time. Patient and/or jd3 family updated on plan of care and expected duration. Pain level reassessed. Patient is alert, oriented x 3, equal unlabored respirations, skin warm/dry/pink. Patient denies pain at this time. Vital Signs: 13:13 BP 148 / 86; Pulse 126; Resp 20; Temp 99.6(O); Pulse Ox 98% on R/A; Weight 80.29 kg; aj Height 5 ft. 4 in. (162.56 cm); 14:00 BP 153 / 101; Pulse 117; Resp 20; Pulse Ox 96% ; bp 15:00 BP 118 / 79; Pulse 120; Resp 18; Pulse Ox 99% ; bp 16:00 BP 163 / 66; Pulse 97; Resp 23; Pulse Ox 99% ; bp 19:38 BP 137 / 74; Pulse 100; Resp 19 S; Pulse Ox 100% on R/A; jd3 13:13 Body Mass Index 30.38 (80.29 kg, 162.56 cm) aj ED Course: 12:54 Patient arrived in ED. rg4 12:55 Willi Chino MD is Private Physician. rg4 13:13 Triage completed. aj 13:13 Arm band placed on left wrist. Patient placed in waiting room, Patient notified of wait aj time. Antipyretics given from triage as ordered by an ER provider. X-ray ordered. 14:16 Miguel Ángel Castaneda MD is Attending Physician. mimi 14:17 Willi Keen, RN is Primary Nurse. bp 14:55 First set of blood cultures drawn by me. jb1 15:06 Initial lab(s) drawn, by me. Inserted saline lock: 22 gauge in left antecubital area, jb1 using aseptic technique. Blood collected. 15:23 XRAY Chest (1 view) In Process Unspecified. EDMS 17:40 CT completed. Patient tolerated procedure well. Patient moved back from CT. kw1 17:41 CT Chest For PE Angio In Process Unspecified. EDMS 18:15 Willi Chino MD is Referral Physician. mimi 19:35 Patient has correct armband on for positive identification. Bed in low position. Call jd3 light in reach. Side rails up X 1. 19:35 No provider procedures requiring assistance completed. IV discontinued, intact, jd3 bleeding controlled, No redness/swelling at site. Pressure dressing applied. Administered Medications: 13:17 Drug: Tylenol 1000 mg Route: PO; aj 15:30 Drug: Rocephin - (cefTRIAXone) 1 grams Route: IVPB; Infused Over: 30 mins; Site: left bp antecubital; 15:30 Drug: Zithromax 500 mg Route: IVPB; Infused Over: 1 hrs; Site: left antecubital; bp 15:30 Drug: NS 0.9% 1000 ml Route: IV; Rate: 1 bolus; Site: left antecubital; bp 18:00 Drug: Magnesium Sulfate 2 grams Route: IVPB; Infused Over: 2 hrs; Site: left jd3 antecubital; 19:39 Follow up: Response: No adverse reaction; IV Status: Completed infusion jd3 Outcome: 18:15 Discharge ordered by MD. le 19:36 Discharged to home ambulatory. jd3 19:36 Condition: stable 19:36 Discharge instructions given to patient, Instructed on discharge instructions, follow up and referral plans. medication usage, Demonstrated understanding of instructions, follow-up care, medications, Prescriptions given X 3. 19:40 Patient left the ED. jd3 Signatures: Dispatcher [employer] Marie jb1 Kelly Tipton RN RN aj Anderson, Corey, MD MD cha Garcia, Rubi 4 Pio Duran RN RN jd3 Peltier, Brian, RN RN bp Wilhelm, Kimberly kw1
[2018-11-17] MEDS ORDERED: Magnesium Sulfate 2gm IVPB 2 G/50 ML BAG IV ONE (18:31)
--- NOTE | 2018-11-17 18:33 | RAD REPORT ---
EXAM DESCRIPTION: Dameon Single View11/17/2018 3:23 pm CLINICAL HISTORY: Chest pain COMPARISON: 2017 FINDINGS: The lungs appear clear of acute infiltrate. The heart is normal size IMPRESSION: No acute abnormalities displayed
[2018-11-17 19:50] VITALS: TEMP 99.6
[2018-11-17 19:55] VITALS: BP 137/74; O2SAT 100
--- NOTE | 2018-11-18 13:32 | EKG ---
Test Date: 2018-11-17 Test Time: 16:36:11 Head Bookkeeper: CLAUDETTE MEASUREMENT RESULTS: Intervals: Rate: 103 NC: 146 QRSD: 78 QT: 332 QTc: 434 [place]: P: 30 NC: 146 QRS: 5 T: 46 INTERPRETIVE STATEMENTS: Sinus tachycardia Possible Anterior infarct, age undetermined Abnormal ECG Compared to ECG 06/14/2018 23:50:39 Sinus rhythm no longer present Myocardial infarct finding still present Electronically Signed On 11-18-18 13:21:56 ASBESTOS REMOVAL SUPERVISOR by Saran Shell
== END 2018-11-17 19:40 | disposition home or self-care (01) ==
LOC: ER 12:52
DX: J40 Bronchitis, not specified as acute or chronic (principal); E83.42 Hypomagnesemia; E11.9 Type 2 diabetes mellitus without complications; I10 Essential (primary) hypertension; F32.9 Major depressive disorder, single episode, unspecified; Z88.1 Allergy status to other antibiotic agents; Z88.5 Allergy status to narcotic agent; Z88.6 Allergy status to analgesic agent
CPT/HCPCS: 36415; 71045; 71275; 80048; 80076; 83735; 83880; 84484; 85025; 85610; 87040 ×2; 87804 ×2; 93005; 96365; 96366; 96375; 99285; J0456; J2405; J3475; J7030; Q9967

== ENCOUNTER 2019-05-02 18:07 | Emergency (ER) | payer OTHER ==
[2019-05-02 19:27] LABS: Urine Blood NEGATIVE (NEG); Urine Glucose NEGATIVE (NEG); Urine Protein NEGATIVE (NEG); Urine Specific Gravity <1.005 (1.005-1.030)
[2019-05-02 20:00] LABS: Absolute Lymphocytes (CBC) 4.8 K/uL (0.7-4.9); Basophils % 0.6 % (0-1.3); Eosinophils % 1.8 % (0-4.4); Hematocrit 41.4 % (36.0-45.0); MPV 8.6 fL (7.6-11.3); Monocytes % 6.7 % (3.3-12.3); RBC Red Blood Cell Count 4.42 M/uL (3.86-4.86)
[2019-05-02 20:12] LABS: ALT/SGPT 34 U/L (12-78); AST/SGOT 21 U/L (15-37); Albumin 4.3 g/dL (3.4-5.0); Alkaline Phosphatase 73 U/L (45-117); BUN Blood Urea Nitrogen 23 mg/dL (7-18); Bicarbonate 19 mmol/L (21-32); Bilirubin Direct < 0.1 mg/dL (0-0.2); Bilirubin Total 0.3 mg/dL (0.2-1.0); Glucose Level 112 mg/dL (74-106); Lipase 123 U/L (73-393); Potassium 4.4 mmol/L (3.5-5.1); Protein, Total 7.9 g/dL (6.4-8.2); Sodium Level 135 mmol/L (136-145)
[2019-05-02] MEDS ORDERED: CEFTRIAXONE/SWI 1gm 1 GM/10 ML SYR ONE (21:11)
[2019-05-02] MEDS ORDERED: DEXAMETHASONE 10 MG/ML VIAL ONE (21:11)
[2019-05-02] MEDS ORDERED: PROMETHAZINE 25 MG/ML VIAL ONE (21:11)
[2019-05-02] MEDS ORDERED: NA CHLORIDE 0.9% 1,000 ML ONE (21:12)
[2019-05-02 21:18] LABS: Urine Bacteria <20 /HPF (<20); Urine Culture Reflex Order REFLEXED; Urine RBC NONE SEEN /HPF (NONE SEEN)
--- NOTE | 2019-05-02 21:24 | ER ---
Nurse's Notes [facility] Name: Priscila Draper Age: 63 yrs Sex: Female : 1955 Arrival Date: 05/02/2019 Time: 18:08 Bed 30 Private MD: Willi Chino Diagnosis: Diarrhea, unspecified;Volume depletion;Dysuria Presentation: 05/02 18:19 Presenting complaint: Patient states: "I have a UTI, I am very sick at my stomach and I aj1 have very bad diarrhea" Patient reports dysuria. Denies fever. Transition of care: patient was not received from another setting of care. Onset of symptoms was May 02, 2019. Risk Assessment: Do you want to hurt yourself or someone else? Patient reports no desire to harm self or others. Initial Sepsis Screen: Does the patient meet any 2 criteria? No. Patient's initial sepsis screen is negative. Does the patient have a suspected source of infection? Yes: Dysuria/Frequency/Urgency/UTI. Care prior to arrival: None. 18:19 Method Of Arrival: Ambulatory aj1 18:19 Acuity: SHIRA 3 aj1 Triage Assessment: 18:21 General: Appears in no apparent distress. uncomfortable, Behavior is calm, cooperative, aj1 appropriate for age. Pain: Denies pain. Neuro: Level of Consciousness is awake, alert, obeys commands. Cardiovascular: Patient's skin is warm and dry. Respiratory: Airway is patent Respiratory effort is even, unlabored, Respiratory pattern is regular, symmetrical. GI: Reports cramping, diarrhea. : Reports burning with urination. Historical: - Allergies: 18:21 Bactrim; aj1 18:21 Demerol; aj1 18:21 Morphine; aj1 18:21 NSAIDS; aj1 18:21 Toradol; aj1 18:21 Augmentin; aj1 - Home Meds: 18:21 Fioricet 50-325-40 mg Oral tab [Active]; lisinopril 10 mg Oral tab 1 tab once daily aj1 [Active]; metformin 500 mg Oral tab 2 tabs 2 times per day [Active]; metoprolol tartrate 100 mg Oral tab 1 tab 2 times per day [Active]; Wellbutrin Oral [Active]; Zomig Oral [Active]; - PMHx: 18:21 Crohn's; Depression; Diabetes - NIDDM; Hypertension; Migraines; aj1 - Immunization history:: Flu vaccine is up to date. - Social history:: Smoking status: Patient/guardian denies using tobacco. - Ebola Screening: : Patient denies travel to an Ebola-affected area in the 21 days before illness onset. Screenin:04 Abuse screen: Denies threats or abuse. Denies injuries from another. Nutritional mg2 screening: No deficits noted. Tuberculosis screening: No symptoms or risk factors identified. Fall Risk None identified. Assessment: 19:44 General: Appears in no apparent distress. comfortable, Behavior is calm, cooperative. mg2 Pain: Complains of pain in back and abdomen Pain does not radiate. Pain currently is 5 out of 10 on a pain scale. Quality of pain is described as aching, Pain began gradually, Is intermittent. Neuro: Level of Consciousness is awake, alert, obeys commands, Oriented to person, place, time, situation. Cardiovascular: Capillary refill < 3 seconds Patient's skin is warm and dry. Respiratory: Airway is patent Respiratory effort is even, unlabored, Respiratory pattern is regular, symmetrical. GI: Reports lower abdominal pain, diarrhea, nausea. : Urine is clear. EENT: No signs and/or symptoms were reported regarding the EENT system. Derm: Skin is intact, is healthy with good turgor, Skin is pink, warm \\T\\ dry. normal. Musculoskeletal: Circulation, motion, and sensation intact. Capillary refill < 3 seconds. 22:10 Reassessment: Patient denies pain at this time. Patient states feeling better. Patient mg2 states symptoms have improved. Vital Signs: 18:21 BP 118 / 66; Pulse 80; Resp 18; Temp 98.2; Pulse Ox 98% on R/A; Weight 80.29 kg (R); aj1 Height 5 ft. 3 in. (160.02 cm) (R); Pain 0/10; 19:45 BP 122 / 64; Pulse 81; Resp 18; Pulse Ox 98% on R/A; mg2 21:13 Pulse 73; Resp 18; Temp 98.1; Pulse Ox 100% on R/A; Pain 2/10; mg2 22:10 BP 122 / 74; Pulse 65; Resp 18; Temp 98; Pulse Ox 100% on R/A; Pain 0/10; mg2 18:21 Body Mass Index 31.35 (80.29 kg, 160.02 cm) aj1 ED Course: 18:08 Patient arrived in ED. as 18:08 Wlili Chino MD is Private Physician. as 18:20 Triage completed. aj1 18:21 Arm band placed on Patient placed in waiting room, Patient notified of wait time. aj1 19:01 Bin Hernandez, [place] is Primary Nurse. mg2 19:27 Kimber Flynn FNP-C is [facility]. snw 19:27 Tho Cottrell MD is Attending Physician. snw 19:45 Patient has correct armband on for positive identification. mg2 19:45 No provider procedures requiring assistance completed. Inserted saline lock: 20 gauge mg2 in left forearm, using aseptic technique. Blood collected. 21:22 Willi Chino MD is Referral Physician. snw 22:10 IV discontinued, intact, bleeding controlled, No redness/swelling at site. Pressure mg2 dressing applied. Administered Medications: 21:12 Drug: Rocephin 1 grams Route: IV; Rate: calculated rate; Site: left forearm; mg2 22:09 Follow up: Response: No adverse reaction; IV Status: Completed infusion mg2 21:12 Drug: Phenergan 6.25 mg Route: IVP; Site: left forearm; mg2 22:09 Follow up: Response: No adverse reaction; Marked relief of symptoms mg2 21:13 Drug: NS 0.9% 1000 ml Route: IV; Rate: 1 bolus; Site: left forearm; mg2 22:09 Follow up: Response: No adverse reaction; IV Status: Completed infusion; IV Intake: mg2 1000ml 21:13 Drug: Decadron - Dexamethasone 10 mg Route: IVP; Site: left forearm; mg2 22:09 Follow up: Response: No adverse reaction; Marked relief of symptoms mg2 Intake: 22:09 IV: 1000ml; Total: 1000ml. mg2 Outcome: 21:23 Discharge ordered by . snw 22:10 Discharged to home ambulatory. mg2 22:10 Condition: stable 22:10 Discharge instructions given to patient, Instructed on discharge instructions, follow up and referral plans. medication usage, Demonstrated understanding of instructions, follow-up care, medications, Prescriptions given X 1. 22:10 Patient left the ED. mg2 Addendum: 05/06/2019 10:54 Addendum: Culture Results: Positive urine culture. Patient was not prescribed s s antibiotics at discharge. Report given to FANY for further evaluation and then to speech and language specialist for follow up with patient. Phone call Attempt #1 spoke with patient who reports she is feeling much better at this time, and still plans to follow up with PCP to recheck complaints. Pt denies any urinary s/s. Signatures: Debbie Price RN RN aj1 Kimber Flynn, EXHIBIT CLEANER-C EXHIBIT CLEANER-Ariadne Santizo Shelby, RN RN ss Bin Hernandez RN RN mg2
--- NOTE | 2019-05-02 21:25 | EDPHYS ---
Physician Documentation [facility] Name: Priscila Draper Age: 63 yrs Sex: Female : 1955 Arrival Date: 05/02/2019 Time: 18:08 Bed 30 Private MD: Willi Chino ED Physician Tho Cottrell HPI: 05/02 20:41 This 63 yrs old Female presents to ER via Ambulatory with complaints of snw Urinary Problem, Nausea, Diarrhea. 20:41 The patient presents with urinary symptoms, dysuria, frequency, urgency. Onset: The snw symptoms/episode began/occurred suddenly, 3 day(s) ago, and became persistent. Modifying factors: the symptoms are aggravated by diarrhea. Associated signs and symptoms: The patient has no apparent associated signs or symptoms. Severity of symptoms: At their worst the symptoms were moderate. The patient has experienced similar episodes in the past. The patient has not recently seen a physician. Historical: - Allergies: 18:21 Bactrim; aj1 18:21 Demerol; aj1 18:21 Morphine; aj1 18:21 NSAIDS; aj1 18:21 Toradol; aj1 18:21 Augmentin; aj1 - Home Meds: 18:21 Fioricet 50-325-40 mg Oral tab [Active]; lisinopril 10 mg Oral tab 1 tab once daily aj1 [Active]; metformin 500 mg Oral tab 2 tabs 2 times per day [Active]; metoprolol tartrate 100 mg Oral tab 1 tab 2 times per day [Active]; Wellbutrin Oral [Active]; Zomig Oral [Active]; - PMHx: 18:21 Crohn's; Depression; Diabetes - NIDDM; Hypertension; Migraines; aj1 - Immunization history:: Flu vaccine is up to date. - Social history:: Smoking status: Patient/guardian denies using tobacco. - Ebola Screening: : Patient denies travel to an Ebola-affected area in the 21 days before illness onset. ROS: 20:39 Constitutional: Negative for fever, chills, and weight loss, Eyes: Negative for injury, snw pain, redness, and discharge, ENT: Negative for injury, pain, and discharge, Neck: Negative for injury, pain, and swelling, Cardiovascular: Negative for chest pain, palpitations, and edema, Respiratory: Negative for shortness of breath, cough, wheezing, and pleuritic chest pain, Abdomen/GI: Negative for abdominal pain, nausea, vomiting, and constipation, + diarrhea, denies melena, or mary blood : Negative for injury, bleeding, discharge, and swelling, MS/Extremity: Negative for injury and deformity, Skin: Negative for injury, rash, and discoloration, Neuro: Negative for headache, weakness, numbness, tingling, and seizure. 20:39 Back: Positive for flank pain, on the right. Exam: 20:39 Constitutional: This is a well developed, well nourished patient who is awake, alert, snw and in no acute distress. Head/Face: Normocephalic, atraumatic. Eyes: Pupils equal round and reactive to light, extra-ocular motions intact. Lids and lashes normal. Conjunctiva and sclera are non-icteric and not injected. Cornea within normal limits. Periorbital areas with no swelling, redness, or edema. ENT: Nares patent. No nasal discharge, no septal abnormalities noted. Tympanic membranes are normal and external auditory canals are clear. Oropharynx with no redness, swelling, or masses, exudates, or evidence of obstruction, uvula midline. Mucous membranes moist. Neck: Trachea midline, no thyromegaly or masses palpated, and no cervical lymphadenopathy. Supple, full range of motion without nuchal rigidity, or vertebral point tenderness. No Meningismus. Chest/axilla: Normal chest wall appearance and motion. Nontender with no deformity. No lesions are appreciated. Cardiovascular: Regular rate and rhythm with a normal S1 and S2. No gallops, murmurs, or rubs. Normal PMI, no JVD. No pulse deficits. Respiratory: Lungs have equal breath sounds bilaterally, clear to auscultation and percussion. No rales, rhonchi or wheezes noted. No increased work of breathing, no retractions or nasal flaring. Abdomen/GI: Soft, non-tender, with normal bowel sounds. No distension or tympany. No guarding or rebound. No evidence of tenderness throughout. Back: No spinal tenderness. No costovertebral tenderness. Full range of motion. Skin: Warm, dry with normal turgor. Normal color with no rashes, no lesions, and no evidence of cellulitis. MS/ Extremity: Pulses equal, no cyanosis. Neurovascular intact. Full, normal range of motion. Neuro: Awake and alert, GCS 15, oriented to person, place, time, and situation. Cranial nerves II-XII grossly intact. Motor strength 5/5 in all extremities. Sensory grossly intact. Cerebellar exam normal. Normal gait. Vital Signs: 18:21 BP 118 / 66; Pulse 80; Resp 18; Temp 98.2; Pulse Ox 98% on R/A; Weight 80.29 kg (R); aj1 Height 5 ft. 3 in. (160.02 cm) (R); Pain 0/10; 19:45 BP 122 / 64; Pulse 81; Resp 18; Pulse Ox 98% on R/A; mg2 21:13 Pulse 73; Resp 18; Temp 98.1; Pulse Ox 100% on R/A; Pain 2/10; mg2 22:10 BP 122 / 74; Pulse 65; Resp 18; Temp 98; Pulse Ox 100% on R/A; Pain 0/10; mg2 18:21 Body Mass Index 31.35 (80.29 kg, 160.02 cm) aj1 MDM: 19:29 Patient medically screened. snw 21:24 Data reviewed: vital signs, nurses notes. Data interpreted: Pulse oximetry: on room air snw is 100 %. Interpretation: normal. Counseling: I had a detailed discussion with the patient and/or guardian regarding: the historical points, exam findings, and any diagnostic results supporting the discharge/admit diagnosis, lab results, the need for outpatient follow up, for definitive care, to return to the emergency department if symptoms worsen or persist or if there are any questions or concerns that arise at home. Special discussion: Based on the history and exam findings, there is no indication for further emergent testing or inpatient evaluation. I discussed with the patient/guardian the need to see the primary care provider for further evaluation of the symptoms. 05/02 19:23 Order name: Basic Metabolic Panel; Complete Time: 20:14 mg2 05/02 19:23 Order name: CBC with Diff; Complete Time: 20:14 mg2 05/02 19:23 Order name: Creatinine for Radiology; Complete Time: 20:14 mg2 05/02 19:23 Order name: Hepatic Function; Complete Time: 20:14 mg2 05/02 19:23 Order name: Lipase; Complete Time: 20:14 mg2 05/02 19:24 Order name: Urine Dipstick--Ancillary (enter results); Complete Time: 19:28 ar5 05/02 19:23 Order name: IV Saline Lock; Complete Time: 19:43 mg2 05/02 19:23 Order name: Labs collected and sent; Complete Time: 19:43 mg2 05/02 20:15 Order name: Urine Microscopic Only; Complete Time: 21:21 snw 05/02 21:20 Order name: Urine Culture EDMS 05/02 19:23 Order name: Urine Dipstick-Ancillary (obtain specimen); Complete Time: 19:43 mg2 Administered Medications: 21:12 Drug: Rocephin 1 grams Route: IV; Rate: calculated rate; Site: left forearm; mg2 22:09 Follow up: Response: No adverse reaction; IV Status: Completed infusion mg2 21:12 Drug: Phenergan 6.25 mg Route: IVP; Site: left forearm; mg2 22:09 Follow up: Response: No adverse reaction; Marked relief of symptoms mg2 21:13 Drug: NS 0.9% 1000 ml Route: IV; Rate: 1 bolus; Site: left forearm; mg2 22:09 Follow up: Response: No adverse reaction; IV Status: Completed infusion; IV Intake: mg2 1000ml 21:13 Drug: Decadron - Dexamethasone 10 mg Route: IVP; Site: left forearm; mg2 22:09 Follow up: Response: No adverse reaction; Marked relief of symptoms mg2 Disposition: 05/03 13:54 Co-signature as Attending Physician, Tho Cottrell MD I agree with the assessment and kdr plan of care. Disposition: 05/02/19 21:23 Discharged to Home. Impression: Diarrhea, unspecified, Volume depletion, Dysuria. - Condition is Stable. - Discharge Instructions: Food Choices to Help Relieve Diarrhea, Adult, Diarrhea, Adult, Dysuria, Rehydration, Adult. - Prescriptions for Zofran 4 mg Oral Tablet - take 1 tablet by ORAL route every 12 hours As needed; 20 tablet. - Medication Reconciliation Form, Thank You Letter, Antibiotic Education, Prescription Opioid Use form. - Follow up: Willi Chino MD; When: 1 - 2 days; Reason: Recheck today's complaints, Continuance of care, Re-evaluation by your physician. Follow up: Emergency Department; When: As needed; Reason: Worsening of condition. Signatures: Dispatcher [employer] EDMS Debbie Price RN RN aj1 Tho Cottrell MD MD kdr Kimber Flynn, DENTAL INTERNSHIP-C DENTAL INTERNSHIP-Csnw Bin Hernandez, RN RN mg2 Corrections: (The following items were deleted from the chart) 05/02 22:10 21:23 05/02/2019 21:23 Discharged to Home. Impression: Diarrhea, unspecified; Volume mg2 depletion; Dysuria. Condition is Stable. Forms are Medication Reconciliation Form, Thank You Letter, Antibiotic Education, Prescription Opioid Use. Follow up: Willi Chino; When: 1 - 2 days; Reason: Recheck today's complaints, Continuance of care, Re-evaluation by your physician. Follow up: Emergency Department; When: As needed; Reason: Worsening of condition. snw
[2019-05-03 01:57] VITALS: O2SAT 100
[2019-05-03 01:59] VITALS: BP 122/74; TEMP 98
== END 2019-05-02 22:10 | disposition home or self-care (01) ==
LOC: ER 18:07
DX: E86.9 Volume depletion, unspecified (principal); R19.7 Diarrhea, unspecified; I10 Essential (primary) hypertension; E11.9 Type 2 diabetes mellitus without complications; F32.9 Major depressive disorder, single episode, unspecified; Z88.1 Allergy status to other antibiotic agents; Z88.5 Allergy status to narcotic agent; Z88.6 Allergy status to analgesic agent
CPT/HCPCS: 96365; 87088; 85025; 87086; 80048; 36415; 80076; 87077; 87186; 83690; 96375; 99284; J2550; J1100; J0696; J7030; 81003; 81015

== ENCOUNTER 2019-10-16 02:31 | Emergency (ER) | payer OTHER ==
[2019-10-16] MEDS ORDERED: MAGNE/ALUM HYDROXD 30 ML UCUP ONE (03:29)
[2019-10-16] MEDS ORDERED: PANTOPRAZOLE 40MG TABLET PO ONE (03:29)
[2019-10-16] MEDS ORDERED: LIDOCAINE VISCOUS 2% SOLN 15 ML UDC ONE (03:30)
[2019-10-16 04:34] LABS: Absolute Lymphocytes (CBC) 3.2 K/uL (0.7-4.9); Basophils % 0.6 % (0-1.3); Lymphocytes % 34.8 % (15.3-44.8); MPV 8.7 fL (7.6-11.3); RBC Red Blood Cell Count 3.35 M/uL (3.86-4.86)
[2019-10-16 04:53] LABS: ALT/SGPT 19 U/L (12-78); AST/SGOT 12 U/L (15-37); Albumin 3.3 g/dL (3.4-5.0); Alkaline Phosphatase 62 U/L (45-117); BUN Blood Urea Nitrogen 18 mg/dL (7-18); Bicarbonate 22 mmol/L (21-32); Bilirubin Direct < 0.1 mg/dL (0-0.2); Bilirubin Total 0.2 mg/dL (0.2-1.0); Glucose Level 223 mg/dL (74-106); Magnesium 1.7 mg/dL (1.8-2.4); NT PRO-BNP 166 pg/mL (<125); Potassium 4.5 mmol/L (3.5-5.1); Protein, Total 5.8 g/dL (6.4-8.2); Sodium Level 145 mmol/L (136-145); Troponin (Emerg Dept Use Only) < 0.02 ng/mL (0.0-0.045)
[2019-10-16 04:59] LABS: Protime INR 0.86
--- NOTE | 2019-10-16 06:18 | EKG ---
Test Date: 2019-10-16 Test Time: 04:09:11 Loss Control Manager: SARAN MEASUREMENT RESULTS: Intervals: Rate: 77 [place]: 184 QRSD: 78 QT: 392 QTc: 443 [place]: P: 44 [place]: 184 QRS: 7 T: 51 INTERPRETIVE STATEMENTS: Normal sinus rhythm Low voltage QRS Borderline ECG Compared to ECG 11/17/2018 16:36:11 Low QRS voltage now present Sinus tachycardia no longer present Myocardial infarct finding no longer present Electronically Signed On 10-16-19 06:17:56 MEDICAL LABORATORY ASSISTANT by Allen Marcial
--- NOTE | 2019-10-16 07:07 | ER ---
Nurse's Notes [facility] Name: Priscila Draper Age: 63 yrs Sex: Female : 1955 Arrival Date: 10/16/2019 Time: 02:33 Bed 18 Private MD: Diagnosis: Gastritis, unspecified, without bleeding Presentation: 10/16 02:40 Presenting complaint: Patient states: "Since 2-3 days ago I've been having indigestion, cc3 I've been taking Tums but it's not going away. Since a couple of days I started to have cough and today I began to have sore throat and difficulty swallowing". Transition of care: patient was not received from another setting of care. Onset of symptoms was October 12, 2019. Risk Assessment: Do you want to hurt yourself or someone else? Patient reports no desire to harm self or others. Initial Sepsis Screen: Does the patient meet any 2 criteria? No. Patient's initial sepsis screen is negative. Does the patient have a suspected source of infection? No. Patient's initial sepsis screen is negative. Care prior to arrival: None. 02:40 Method Of Arrival: Ambulatory cc3 02:40 Acuity: SHIRA 4 cc3 Triage Assessment: 02:40 General: Appears in no apparent distress. comfortable, Behavior is calm, cooperative, cc3 appropriate for age. Pain: Complains of pain in epigastric, sore throat. EENT: Reports difficulty swallowing since today. Neuro: Level of Consciousness is awake, alert, obeys commands, Oriented to person, place, time, situation, Appropriate for age. Cardiovascular: Heart tones S1 S2 present Capillary refill < 3 seconds in bilateral fingers Patient's skin is warm and dry. Respiratory: Airway is patent Respiratory effort is even, unlabored, Respiratory pattern is regular, symmetrical, Breath sounds are clear bilaterally. GI: Abdomen is round obese, Bowel sounds present X 4 quads. Abd is soft and non tender X 4 quads. : No signs and/or symptoms were reported regarding the genitourinary system. Derm: Skin is intact, is healthy with good turgor, Skin is pink, warm \\T\\ dry. normal. Musculoskeletal: Circulation, motion, and sensation intact. Range of motion: intact in all extremities. Historical: - Allergies: 02:40 Augmentin; cc3 02:40 Bactrim; cc3 02:40 Demerol; cc3 02:40 Morphine; cc3 02:40 NSAIDS; cc3 02:40 Toradol; cc3 - Home Meds: 02:40 Fioricet 50-325-40 mg Oral tab [Active]; lisinopril 10 mg Oral tab 1 tab once daily cc3 [Active]; metformin 500 mg Oral tab 2 tabs 2 times per day [Active]; metoprolol tartrate 100 mg Oral tab 1 tab 2 times per day [Active]; Wellbutrin Oral [Active]; Zomig Oral [Active]; - PMHx: 02:40 Crohn's; Depression; Diabetes - NIDDM; Hypertension; Migraines; cc3 - PSHx: 02:40 Hysterectomy; Tonsillectomy; Appendectomy; Cholecystectomy; Knee surgery; cc3 - Immunization history:: Adult Immunizations up to date. - Social history:: Smoking status: Patient/guardian denies using tobacco, never smoked. - Ebola Screening: : No symptoms or risks identified at this time. Screenin:40 Abuse screen: Denies threats or abuse. Denies injuries from another. Nutritional cc3 screening: No deficits noted. Tuberculosis screening: No symptoms or risk factors identified. Fall Risk Ambulatory Aid- None/Bed Rest/Nurse Assist (0 pts). Gait- Normal/Bed Rest/Wheelchair (0 pts) Mental Status- Oriented to own ability (0 pts). Assessment: 02:40 EENT: Throat with gag reflex present. cc3 03:18 Reassessment: Patient appears in no apparent distress at this time. Patient and/or cc3 family updated on plan of care and expected duration. Pain level reassessed. Patient is alert, oriented x 3, equal unlabored respirations, skin warm/dry/pink. 04:05 Reassessment: Patient appears in no apparent distress at this time. Patient and/or cc3 family updated on plan of care and expected duration. Pain level reassessed. Patient is alert, oriented x 3, equal unlabored respirations, skin warm/dry/pink. 05:20 Reassessment: Patient appears in no apparent distress at this time. Patient and/or cc3 family updated on plan of care and expected duration. Pain level reassessed. Patient is alert, oriented x 3, equal unlabored respirations, skin warm/dry/pink. 06:03 Reassessment: Patient appears in no apparent distress at this time. Patient and/or cc3 family updated on plan of care and expected duration. Pain level reassessed. Patient is alert, oriented x 3, equal unlabored respirations, skin warm/dry/pink. 07:00 Reassessment: RECD REPORT FROM VIANEY BHARDWAJ. 63YO WF P/W INDIGESTION/REFLUX. ALL CURRENT bp ORDERS COMPLETED. DISPO PENDING. 07:42 Reassessment: PT D/C HOME AMBULATORY, DX WITH GERD. bp Vital Signs: 02:40 BP 132 / 68; Pulse 83; Resp 18 S; Temp 98.2(O); Pulse Ox 99% on R/A; Weight 79.38 kg cc3 (R); Height 5 ft. 3 in. (160.02 cm) (R); 03:15 BP 130 / 67; Pulse 85; Resp 18 S; Pulse Ox 99% on R/A; cc3 04:18 BP 138 / 65; Pulse 79; Resp 16 S; Pulse Ox 99% on R/A; cc3 05:25 BP 125 / 70; Pulse 73; Resp 16 S; Pulse Ox 98% on R/A; cc3 06:37 BP 133 / 75; Pulse 74; Resp 17 S; Pulse Ox 99% on R/A; Pain 0/10; cc3 07:30 BP 140 / 69; Pulse 74; Resp 16; Pulse Ox 99% ; bp 02:40 Body Mass Index 31.00 (79.38 kg, 160.02 cm) cc3 ED Course: 02:33 Patient arrived in ED. ds1 02:40 Arm band placed on right wrist. Patient notified of wait time. cc3 02:40 Patient has correct armband on for positive identification. Bed in low position. Call cc3 light in reach. Side rails up X2. Pulse ox on. NIBP on. 03:00 Vianey Cross is Primary Nurse. cc3 03:06 Greyson Oseguera MD is Attending Physician. tw4 03:06 Triage completed. cc3 04:00 Inserted saline lock: 22 gauge in left antecubital area, using aseptic technique. Blood cc3 collected. 04:24 XRAY Chest (1 view) In Process Unspecified. EDMS 07:00 Report given to BENTON Márquez. cc3 07:04 Attending Physician role handed off by Greyson Oseguera MD ps1 07:04 Jerry Hernandez MD is Attending Physician. ps1 07:06 Primary Nurse role handed off by Vianey Cross bp 07:06 Willi Keen, RN is Primary Nurse. bp 07:42 No provider procedures requiring assistance completed. IV discontinued, intact, bp bleeding controlled, No redness/swelling at site. Pressure dressing applied. Administered Medications: 03:25 CANCELLED (Duplicate Order): GI Cocktail with - (Maalox Suspension 30 ml, cc3 Lidocaine Liquid 2 % 20 ml, Phenobarbital-Belladonna 10 ml) PO once 03:25 Drug: ProTONIX 40 mg Route: PO; cc3 04:13 Follow up: Response: No adverse reaction cc3 03:25 Drug: GI Cocktail without - (Maalox Suspension 30 ml, Lidocaine Liquid 2 % 15 cc3 ml) Route: PO; 04:12 Follow up: Response: No adverse reaction cc3 Outcome: 07:07 Discharge ordered by . ps1 07:43 Discharged to home ambulatory. bp 07:43 Condition: stable 07:43 Discharge instructions given to patient, Instructed on discharge instructions, follow up and referral plans. medication usage, Demonstrated understanding of instructions, follow-up care, medications, Prescriptions given X 1. 07:43 Patient left the ED. bp Addendum: 10/20/2019 10:07 Addendum: Radiology Result: CXR report reviewed by DEENA Garcia, called to check on pt, i w states her symptoms have completely resolved , no further action needed. Signatures: Dispatcher [facility] Suzi Valle ds1 Katya Cerrato RN RN Willi Keen RN RN Jerry Hernandez MD MD ps1 Greyson Oseguera MD MD tw4 Vianey Cross cc3
--- NOTE | 2019-10-16 07:08 | EDPHYS ---
Physician Documentation [facility] Name: Priscila Draper Age: 63 yrs Sex: Female : 1955 Arrival Date: 10/16/2019 Time: 02:33 Bed 18 Private MD: ED Physician Jerry Hernandez HPI: 10/16 03:55 This 63 yrs old Female presents to ER via Ambulatory with complaints of tw4 Indigestion, Sore Throat. 03:55 The patient presents with sore throat, dysphagia, of both solids and liquids. The tw4 patient describes throat pain as raw, scratchy. Severity of symptoms: 2 day(s) ago, At their worst the symptoms were. Modifying factors: The symptoms are alleviated by nothing, the symptoms are aggravated by swallowing. Associated signs and symptoms: The patient has no apparent associated signs or symptoms. The patient has not experienced similar symptoms in the past. Historical: - Allergies: 02:40 Augmentin; cc3 02:40 Bactrim; cc3 02:40 Demerol; cc3 02:40 Morphine; cc3 02:40 NSAIDS; cc3 02:40 Toradol; cc3 - Home Meds: 02:40 Fioricet 50-325-40 mg Oral tab [Active]; lisinopril 10 mg Oral tab 1 tab once daily cc3 [Active]; metformin 500 mg Oral tab 2 tabs 2 times per day [Active]; metoprolol tartrate 100 mg Oral tab 1 tab 2 times per day [Active]; Wellbutrin Oral [Active]; Zomig Oral [Active]; - PMHx: 02:40 Crohn's; Depression; Diabetes - NIDDM; Hypertension; Migraines; cc3 - PSHx: 02:40 Hysterectomy; Tonsillectomy; Appendectomy; Cholecystectomy; Knee surgery; cc3 - Immunization history:: Adult Immunizations up to date. - Social history:: Smoking status: Patient/guardian denies using tobacco, never smoked. - Ebola Screening: : No symptoms or risks identified at this time. ROS: 03:55 Constitutional: Negative for fever, chills, and weight loss, Eyes: Negative for injury, tw4 pain, redness, and discharge. 03:55 Cardiovascular: Negative for chest pain, palpitations, and edema, Respiratory: Negative for shortness of breath, cough, wheezing, and pleuritic chest pain, Abdomen/GI: Negative for abdominal pain, nausea, vomiting, diarrhea, and constipation, Back: Negative for injury and pain, MS/Extremity: Negative for injury and deformity, Skin: Negative for injury, rash, and discoloration, Neuro: Negative for headache, weakness, numbness, tingling, and seizure. 03:55 ENT: Positive for sore throat. Exam: 03:55 Constitutional: This is a well developed, well nourished patient who is awake, alert, tw4 and in no acute distress. Head/Face: Normocephalic, atraumatic. 03:55 Cardiovascular: Regular rate and rhythm with a normal S1 and S2. No gallops, murmurs, or rubs. Normal PMI, no JVD. No pulse deficits. Respiratory: Lungs have equal breath sounds bilaterally, clear to auscultation and percussion. No rales, rhonchi or wheezes noted. No increased work of breathing, no retractions or nasal flaring. Abdomen/GI: Soft, non-tender, with normal bowel sounds. No distension or tympany. No guarding or rebound. No evidence of tenderness throughout. Back: No spinal tenderness. No costovertebral tenderness. Full range of motion. MS/ Extremity: Pulses equal, no cyanosis. Neurovascular intact. Full, normal range of motion. Neuro: Awake and alert, GCS 15, oriented to person, place, time, and situation. Cranial nerves II-XII grossly intact. Motor strength 5/5 in all extremities. Sensory grossly intact. Cerebellar exam normal. Normal gait. 03:55 ENT: Posterior pharynx: Airway: no evidence of obstruction, Tonsils: are normal in appearance, Uvula: edematous. Vital Signs: 02:40 BP 132 / 68; Pulse 83; Resp 18 S; Temp 98.2(O); Pulse Ox 99% on R/A; Weight 79.38 kg cc3 (R); Height 5 ft. 3 in. (160.02 cm) (R); 03:15 BP 130 / 67; Pulse 85; Resp 18 S; Pulse Ox 99% on R/A; cc3 04:18 BP 138 / 65; Pulse 79; Resp 16 S; Pulse Ox 99% on R/A; cc3 05:25 BP 125 / 70; Pulse 73; Resp 16 S; Pulse Ox 98% on R/A; cc3 06:37 BP 133 / 75; Pulse 74; Resp 17 S; Pulse Ox 99% on R/A; Pain 0/10; cc3 07:30 BP 140 / 69; Pulse 74; Resp 16; Pulse Ox 99% ; bp 02:40 Body Mass Index 31.00 (79.38 kg, 160.02 cm) cc3 MDM: 03:06 Patient medically screened. tw4 03:55 Differential diagnosis: epiglottitis, rivas-rivera virus, tonsillitis, viral syndrome. tw4 Data reviewed: vital signs, nurses notes. Data interpreted: Pulse oximetry: Interpretation: normal. Counseling: I had a detailed discussion with the patient and/or guardian regarding: the historical points, exam findings, and any diagnostic results supporting the discharge/admit diagnosis. 10/16 03:50 Order name: Basic Metabolic Panel; Complete Time: 05:12 tw4 10/16 05:13 Interpretation: Normal except: CL 117; GLUC 223; CRE 1.35; GFR 39. tw10/16 03:50 Order name: CBC with Diff; Complete Time: 05:12 4 10/16 05:13 Interpretation: Normal except: RBC 3.35; HGB 10.9; HCT 32.0. tw4 10/16 03:50 Order name: LFT's; Complete Time: 05:12 4 10/16 05:13 Interpretation: Normal except: AST 12; TP 5.8; ALB 3.3. 4 10/16 03:50 Order name: Magnesium; Complete Time: 05:12 4 10/16 05:13 Interpretation: Normal except: MG 1.7. 10/16 03:50 Order name: NT PRO-BNP; Complete Time: 05:12 4 10/16 05:13 Interpretation: Abnormal: NT PRO-BNP 166. 10/16 03:50 Order name: PT-INR; Complete Time: 05:12 4 10/16 05:13 Interpretation: Within normal limits: PT 10.2. tw10/16 03:50 Order name: Troponin (emerg Dept Use Only); Complete Time: 05:12 4 10/16 03:50 Order name: XRAY Chest (1 view) tw10/16 03:50 Order name: EKG; Complete Time: 03:51 tw4 10/16 03:50 Order name: Cardiac monitoring; Complete Time: 04:12 tw4 10/16 06:28 Order name: Troponin (emerg Dept Use Only); Complete Time: 07:06 ds4 10/16 03:50 Order name: EKG - Nurse/Tech; Complete Time: 04:20 tw4 10/16 03:51 Order name: IV Saline Lock; Complete Time: 04:12 tw4 10/16 03:51 Order name: Labs collected and sent; Complete Time: 04:12 tw4 10/16 03:51 Order name: O2 Per Protocol; Complete Time: 03:55 tw4 10/16 03:51 Order name: O2 Sat Monitoring; Complete Time: 03:55 tw4 EC:36 Rate is 77 beats/min. QRS [place] is Normal. AR interval is normal. QRS interval is tw4 normal. QT interval is normal. No Q waves. T waves are Normal. No ST changes noted. Clinical impression: Normal ECG. Interpreted by me. Reviewed by me. Administered Medications: 03:25 CANCELLED (Duplicate Order): GI Cocktail with - (Maalox Suspension 30 ml, cc3 Lidocaine Liquid 2 % 20 ml, Phenobarbital-Belladonna 10 ml) PO once 03:25 Drug: ProTONIX 40 mg Route: PO; cc3 04:13 Follow up: Response: No adverse reaction cc3 03:25 Drug: GI Cocktail without - (Maalox Suspension 30 ml, Lidocaine Liquid 2 % 15 cc3 ml) Route: PO; 04:12 Follow up: Response: No adverse reaction cc3 Disposition: 10/16/19 07:07 Discharged to Home. Impression: Gastritis, unspecified, without bleeding. - Condition is Stable. - Discharge Instructions: Food Choices for Gastroesophageal Reflux Disease, Adult, Gastritis, Adult, [id number]. - Prescriptions for Protonix 40 mg Oral Tablet - take 1 tablet by ORAL route once daily; 30 tablet. - Medication Reconciliation Form, Thank You Letter, Antibiotic Education, Prescription Opioid Use form. - Follow up: Private Physician; When: Upon discharge from the Emergency Department; Reason: Recheck today's complaints, Continuance of care. - Problem is new. - Symptoms have improved. Signatures: Dispatcher [facility] EDKS Willi Keen RN RN bp Jerry Hernandez MD MD ps1 Greyson Oseguera MD MD tw4 Vianey Cross cc3 Corrections: (The following items were deleted from the chart) 03:25 03:25 GI Cocktail with - (Maalox 30 ml, Lidocaine 20 ml, cc3 Phenobarbital-Belladonna 10 ml) PO once ordered. tw4 07:43 07:07 10/16/2019 07:07 Discharged to Home. Impression: Gastritis, unspecified, without bp bleeding. Condition is Stable. Discharge Instructions: Food Choices for Gastroesophageal Reflux Disease, Adult, Gastritis, Adult, [id number]. Prescriptions for Protonix 40 mg Oral Tablet - take 1 tablet by ORAL route once daily; 30 tablet. and Forms are Medication Reconciliation Form, Thank You Letter, Antibiotic Education, Prescription Opioid Use. Follow up: Private Physician; When: Upon discharge from the Emergency Department; Reason: Recheck today's complaints, Continuance of care. Problem is new. Symptoms have improved. ps1
[2019-10-16 07:59] VITALS: O2SAT 99
[2019-10-16 08:00] VITALS: BP 140/69
--- NOTE | 2019-10-16 08:07 | RAD REPORT ---
EXAM DESCRIPTION: [place] Single View10/16/2019 4:23 am CLINICAL HISTORY: Chest pain COMPARISON: November 2018 FINDINGS: The left base is hazy. Right lung appears clear The heart is normal size IMPRESSION: Left base is hazy which could be secondary to overlying soft tissue or a mild infiltrat e. If clinically indicated further evaluation with PA and lateral chest series could be obtained
== END 2019-10-16 07:43 | disposition home or self-care (01) ==
LOC: ER 02:31
DX: K29.70 Gastritis, unspecified, without bleeding (principal); I10 Essential (primary) hypertension; G43.909 Migraine, unspecified, not intractable, without status migrainosus; E11.9 Type 2 diabetes mellitus without complications; Z88.6 Allergy status to analgesic agent; Z88.1 Allergy status to other antibiotic agents
CPT/HCPCS: 36415; 71045; 80048; 80076; 83735; 83880; 84484; 85025; 85610; 93005; 99284

== ENCOUNTER 2019-10-29 07:42 | Emergency (ER) | payer OTHER ==
[2019-10-29] MEDS ORDERED: PHENAZOPYRIDINE 100MG TAB PO ONE (08:18)
[2019-10-29 08:27] LABS: Urine Blood NEGATIVE (NEG); Urine Glucose NEGATIVE (NEG); Urine Protein NEGATIVE (NEG); Urine Specific Gravity 1.015 (1.005-1.030)
[2019-10-29 08:40] LABS: Urine Bacteria 20-50 /HPF (<20); Urine Culture Reflex Order REFLEXED; Urine RBC <5 /HPF (NONE SEEN)
--- NOTE | 2019-10-29 08:44 | EDPHYS ---
Physician Documentation [facility] Name: Priscila Draper Age: 64 yrs Sex: Female : 1955 Arrival Date: 10/29/2019 Time: 07:43 Bed 25 Private MD: Willi Chino ED Physician Grisel Cardoso HPI: 10/29 08:35 This 64 yrs old Female presents to ER via Ambulatory with complaints of Pain kb With Urination. 08:35 The patient presents with urinary symptoms, dysuria, frequency. Onset: The kb symptoms/episode began/occurred yesterday. Modifying factors: The symptoms are alleviated by nothing, the symptoms are aggravated by urinating. Associated signs and symptoms: Pertinent positives: dysuria, urinary frequency. Severity of symptoms: At their worst the symptoms were moderate, in the emergency department the symptoms are unchanged. The patient has experienced similar episodes in the past, a few times. The patient has not recently seen a physician. Historical: - Allergies: 08:00 Augmentin; ss 08:00 Bactrim; ss 08:00 Demerol; ss 08:00 Morphine; ss 08:00 NSAIDS; ss 08:00 Toradol; ss - PMHx: 08:00 Crohn's; Diabetes - NIDDM; Depression; Hypertension; Migraines; ss - PSHx: 08:00 Hysterectomy; Tonsillectomy; Appendectomy; Cholecystectomy; Knee surgery; ss - Immunization history:: Adult Immunizations up to date. - Social history:: Smoking status: Patient/guardian denies using tobacco. - Ebola Screening: : Patient denies exposure to infectious person Patient denies travel to an Ebola-affected area in the 21 days before illness onset. ROS: 08:32 Constitutional: Negative for fever, chills, and weight loss, ENT: Negative for injury, kb pain, and discharge, Neck: Negative for injury, pain, and swelling, Cardiovascular: Negative for chest pain, palpitations, and edema, Respiratory: Negative for shortness of breath, cough, wheezing, and pleuritic chest pain, Abdomen/GI: Negative for abdominal pain, nausea, vomiting, diarrhea, and constipation, Back: Negative for injury and pain, MS/Extremity: Negative for injury and deformity, Skin: Negative for injury, rash, and discoloration, Neuro: Negative for headache, weakness, numbness, tingling, and seizure. 08:32 : Positive for urinary frequency, burning with urination, foul smelling urine. Exam: 08:32 Constitutional: This is a well developed, well nourished patient who is awake, alert, kb and in no acute distress. Head/Face: Normocephalic, atraumatic. ENT: Nares patent. No nasal discharge, no septal abnormalities noted. Tympanic membranes are normal and external auditory canals are clear. Oropharynx with no redness, swelling, or masses, exudates, or evidence of obstruction, uvula midline. Mucous membranes moist. Neck: Trachea midline, no thyromegaly or masses palpated, and no cervical lymphadenopathy. Supple, full range of motion without nuchal rigidity, or vertebral point tenderness. No Meningismus. Chest/axilla: Normal chest wall appearance and motion. Nontender with no deformity. No lesions are appreciated. Cardiovascular: Regular rate and rhythm with a normal S1 and S2. No gallops, murmurs, or rubs. Normal PMI, no JVD. No pulse deficits. Respiratory: Lungs have equal breath sounds bilaterally, clear to auscultation and percussion. No rales, rhonchi or wheezes noted. No increased work of breathing, no retractions or nasal flaring. Abdomen/GI: Soft, non-tender, with normal bowel sounds. No distension or tympany. No guarding or rebound. No evidence of tenderness throughout. Back: No spinal tenderness. No costovertebral tenderness. Full range of motion. Skin: Warm, dry with normal turgor. Normal color with no rashes, no lesions, and no evidence of cellulitis. MS/ Extremity: Pulses equal, no cyanosis. Neurovascular intact. Full, normal range of motion. Neuro: Awake and alert, GCS 15, oriented to person, place, time, and situation. Cranial nerves II-XII grossly intact. Motor strength 5/5 in all extremities. Sensory grossly intact. Cerebellar exam normal. Normal gait. Vital Signs: 08:00 BP 157 / 67; Pulse 62; Resp 16; Temp 97.4(TE); Pulse Ox 100% on R/A; Weight 81.65 kg; ss Height 5 ft. 3 in. (160.02 cm); Pain 0/10; 08:00 Body Mass Index 31.89 (81.65 kg, 160.02 cm) ss MDM: 07:54 Patient medically screened. kb 08:32 Data reviewed: vital signs, nurses notes. Data interpreted: Pulse oximetry: on room air kb is 100 %. Interpretation: normal. Counseling: I had a detailed discussion with the patient and/or guardian regarding: the historical points, exam findings, and any diagnostic results supporting the discharge/admit diagnosis, lab results, the need for outpatient follow up, a family practitioner, to return to the emergency department if symptoms worsen or persist or if there are any questions or concerns that arise at home. 10/29 07:55 Order name: Urine Microscopic Only kb 10/29 08:06 Order name: Urine Dipstick--Ancillary (enter results) bd 10/29 08:27 Order name: Urine Dipstick-Ancillary; Complete Time: 08:30 EDCT 10/29 08:41 Order name: Urine Microscopic Only; Complete Time: 08:42 EDCT 10/29 07:55 Order name: Urine Dipstick-Ancillary (obtain specimen); Complete Time: 08:05 kb Administered Medications: 08:18 Drug: Pyridium 200 mg Route: PO; ss 08:44 Follow up: Response: No adverse reaction em 09:02 Drug: Macrobid 100 mg Route: PO; em 09:02 Follow up: Response: No adverse reaction; Medication administered at discharge. em Disposition: 17:23 Co-signature as Attending Physician, Grisel Cardoso MD. ma2 Disposition: 10/29/19 08:43 Discharged to Home. Impression: Urinary tract infection, site not specified. - Condition is Stable. - Discharge Instructions: Urinary Tract Infection, Adult, Uzwn-[id number]. - Prescriptions for Pyridium 200 mg Oral Tablet - take 1 tablet by ORAL route every 8 hours for 3 days; 9 tablet. Macrobid 100 mg Oral Capsule - take 1 capsule by ORAL route every 12 hours for 10 days; 20 capsule. - Medication Reconciliation Form, Thank You Letter, Antibiotic Education, Prescription Opioid Use form. - Follow up: Emergency Department; When: As needed; Reason: Worsening of condition. Follow up: Private Physician; When: 2 - 3 days; Reason: Recheck today's complaints, Continuance of care, Re-evaluation by your physician. Signatures: [facility] Janice Ram[facility]rez FNP-C FNP-Ckb Indra Jiang, MANAGER OF LOSS PREVENTION OPERATIONS MANAGER OF LOSS PREVENTION OPERATIONS Heather Guevara, Grisel Torres RN, MD MD ma2 Corrections: (The following items were deleted from the chart) 09:04 08:43 10/29/2019 08:43 Discharged to Home. Impression: Urinary tract infection, site em not specified. Condition is Stable. Forms are Medication Reconciliation Form, Thank You Letter, Antibiotic Education, Prescription Opioid Use. Follow up: Emergency Department; When: As needed; Reason: Worsening of condition. Follow up: Private Physician; When: 2 - 3 days; Reason: Recheck today's complaints, Continuance of care, Re-evaluation by your physician. kb
--- NOTE | 2019-10-29 08:44 | ER ---
Nurse's Notes [facility] Name: Priscila Draper Age: 64 yrs Sex: Female : 1955 Arrival Date: 10/29/2019 Time: 07:43 Bed 25 Private MD: Willi Chino Diagnosis: Urinary tract infection, site not specified Presentation: 10/29 07:57 Presenting complaint: Patient states: burning with urination, frequency and foul ss smelling urine that began yesterday. Denies fever. Transition of care: patient was not received from another setting of care. Onset of symptoms was October 28, 2019. Risk Assessment: Do you want to hurt yourself or someone else? Patient reports no desire to harm self or others. Initial Sepsis Screen: Does the patient meet any 2 criteria? No. Patient's initial sepsis screen is negative. Does the patient have a suspected source of infection? Yes: Dysuria/Frequency/Urgency/UTI. Care prior to arrival: None. 07:57 Method Of Arrival: Ambulatory ss 07:57 Acuity: SHIRA 4 ss Historical: - Allergies: 08:00 Augmentin; ss 08:00 Bactrim; ss 08:00 Demerol; ss 08:00 Morphine; ss 08:00 NSAIDS; ss 08:00 Toradol; ss - PMHx: 08:00 Crohn's; Diabetes - NIDDM; Depression; Hypertension; Migraines; ss - PSHx: 08:00 Hysterectomy; Tonsillectomy; Appendectomy; Cholecystectomy; Knee surgery; ss - Immunization history:: Adult Immunizations up to date. - Social history:: Smoking status: Patient/guardian denies using tobacco. - Ebola Screening: : Patient denies exposure to infectious person Patient denies travel to an Ebola-affected area in the 21 days before illness onset. Screenin:05 Abuse screen: Denies threats or abuse. Denies injuries from another. Nutritional ss screening: No deficits noted. Tuberculosis screening: Never had TB. Fall Risk None identified. Assessment: 08:05 General: Appears in no apparent distress. comfortable, Behavior is calm, cooperative. ss Pain: Denies pain. Neuro: Level of Consciousness is awake, alert, obeys commands, Oriented to person, place, time, situation. Cardiovascular: Capillary refill < 3 seconds is brisk. Respiratory: Airway is patent Respiratory effort is even, unlabored, Respiratory pattern is regular, symmetrical. GI: Patient currently denies nausea. : Reports burning with urination, since yesterday urinary frequency, since yesterday with foul smelling urine. EENT: Oral mucosa is moist. Derm: Skin is intact, is healthy with good turgor, Skin is pink, warm \T\ dry. normal. Musculoskeletal: Circulation, motion, and sensation intact. Range of motion: intact in all extremities. Vital Signs: 08:00 BP 157 / 67; Pulse 62; Resp 16; Temp 97.4(TE); Pulse Ox 100% on R/A; Weight 81.65 kg; ss Height 5 ft. 3 in. (160.02 cm); Pain 0/10; 08:00 Body Mass Index 31.89 (81.65 kg, 160.02 cm) ED Course: 07:43 Patient arrived in ED. rg4 07:44 Willi Chino MD is Private Physician. rg4 07:49 Janice Ramírez FNP-C is [facility] kb 07:49 Grisel Cardoso MD is Attending Physician. kb 07:59 Triage completed. ss 08:00 Arm band placed on right wrist. ss 08:05 Heather Naqvi, [place] is Primary Nurse. ss 08:05 Patient has correct armband on for positive identification. Bed in low position. Call ss light in reach. 08:05 Urine Microscopic Only Sent. ss 08:10 No provider procedures requiring assistance completed. Patient did not have IV access ss during this emergency room visit. Administered Medications: 08:18 Drug: Pyridium 200 mg Route: PO; ss 08:44 Follow up: Response: No adverse reaction em 09:02 Drug: Macrobid 100 mg Route: PO; em 09:02 Follow up: Response: No adverse reaction; Medication administered at discharge. em Outcome: 08:43 Discharge ordered by . kb 09:03 Discharged to home ambulatory. em 09:03 Condition: good 09:03 Discharge instructions given to patient, Instructed on discharge instructions, follow up and referral plans. medication usage, Demonstrated understanding of instructions, follow-up care, medications, Prescriptions given X 2. 09:04 Patient left the ED. em Addendum: 11/01/2019 07:21 Addendum: Culture Results: Positive urine culture. No further action required. Bacteria e b sensitive to prescribed antibiotic. Signatures: Janice Ramírez, PIEDAD-Henok FILTER TANK TENDER HELPER HEAD-Indra Richardson, DANE JACOBN Heather Guevara RN RN Radha Suh4 Dian Quinones
[2019-10-29] MEDS ORDERED: NITROFURAN MACRO 100 MG CAP PO ONE (08:59)
[2019-10-29 09:16] VITALS: BP 157/67; TEMP 97.4; O2SAT 100
== END 2019-10-29 09:04 | disposition home or self-care (01) ==
LOC: ER 07:42
DX: N39.0 Urinary tract infection, site not specified (principal); I10 Essential (primary) hypertension; Z88.1 Allergy status to other antibiotic agents; Z88.5 Allergy status to narcotic agent; Z88.6 Allergy status to analgesic agent
CPT/HCPCS: 81003; 81015; 87077; 87086; 87088; 87186; 99283

== ENCOUNTER 2019-11-07 08:57 | Emergency (ER) | payer OTHER ==
--- NOTE | 2019-11-07 09:59 | RAD REPORT ---
EXAM DESCRIPTION: RAD - Chest Pa And Lat (2 Views) - 11/07/2019 9:52 am CLINICAL HISTORY: COUGH Chest pain. COMPARISON: Chest Single View dated 10/16/2019; Chest Single View dated 11/17/2018; Chest Pa And Lat (2 Views) dated 07/22/2017; CHEST SINGLE VIEW dated 12/17/2014 FINDINGS: The lungs are clear. The heart is mildly enlarged in size. No displaced fractures. IMPRESSION: Mild cardiomegaly.
--- NOTE | 2019-11-07 10:05 | EDPHYS ---
Physician Documentation [facility] Name: Priscila Draper Age: 64 yrs Sex: Female : 1955 Arrival Date: 11/07/2019 Time: 09:01 Bed 18 Private MD: Willi hCino ED Physician Varinder Rocha HPI: 11/07 09:19 This 64 yrs old Female presents to ER via Ambulatory with complaints of Flu rn Symptoms. 09:19 The patient or guardian reports cough, flu symptoms. Onset: The symptoms/episode rn began/occurred yesterday. Severity of symptoms: At their worst the symptoms were mild, in the emergency department the symptoms are unchanged. Associated signs and symptoms: Pertinent positives: fever, rhinorrhea, sore throat. The patient has not experienced similar symptoms in the past. Reports fever, chills, fatigue, headache, runny nose, sore throat, cough. . Historical: - Allergies: 09:14 Augmentin; iw 09:14 Bactrim; iw 09:14 Demerol; iw 09:14 Morphine; iw 09:14 NSAIDS; iw 09:14 Toradol; iw - Home Meds: 09:14 Fioricet 50-325-40 mg Oral tab [Active]; lisinopril 10 mg Oral tab 1 tab once daily iw [Active]; metformin 500 mg Oral tab 2 tabs 2 times per day [Active]; metoprolol tartrate 100 mg Oral tab 1 tab 2 times per day [Active]; Wellbutrin Oral [Active]; Zomig Oral [Active]; - PMHx: 09:14 Crohn's; Depression; Diabetes - NIDDM; Hypertension; Migraines; iw - PSHx: 09:14 Hysterectomy; Tonsillectomy; Appendectomy; Cholecystectomy; Knee surgery; iw - Immunization history:: Adult Immunizations up to date. - Social history:: Smoking status: Patient/guardian denies using tobacco. - Ebola Screening: : Patient negative for fever greater than or equal to 101.5 degrees Fahrenheit, and additional compatible Ebola Virus Disease symptoms Patient denies exposure to infectious person Patient denies travel to an Ebola-affected area in the 21 days before illness onset No symptoms or risks identified at this time. - Family history:: not pertinent. - Hospitalizations: : No recent hospitalization is reported. ROS: 09:19 Constitutional: + fever and chills Eyes: Negative for injury, pain, redness, and hospital internship, ENT: + nasal congestion and sore throat Neck: Negative for injury, pain, and swelling, Cardiovascular: Negative for palpitations, and edema, Respiratory: Negative for shortness of breath, wheezing Abdomen/GI: Negative for abdominal pain, nausea, vomiting, diarrhea, and constipation, MS/Extremity: Negative for injury and deformity, Skin: Negative for injury, rash, and discoloration, Neuro: Negative for weakness, numbness, tingling, and seizure. Exam: :19 Constitutional: This is a well developed, well nourished patient who is awake, alert, rn and in no acute distress. Head/Face: Normocephalic, atraumatic. Eyes: Pupils equal round and reactive to light, extra-ocular motions intact. Lids and lashes normal. Conjunctiva and sclera are non-icteric and not injected. Cornea within normal limits. Periorbital areas with no swelling, redness, or edema. ENT: dry MM, no swelling, no exudate Neck: Trachea midline, no thyromegaly or masses palpated, and no cervical lymphadenopathy. Supple, full range of motion without nuchal rigidity, or vertebral point tenderness. No Meningismus. Cardiovascular: Regular rate and rhythm. No pulse deficits. Respiratory: Clear breath sounds bilaterally. No increased work of breathing, no retractions or nasal flaring. MS/ Extremity: Pulses equal, no cyanosis. Neurovascular intact. Full, normal range of motion. Equal circumference. Neuro: Awake and alert, GCS 15 Vital Signs: 09:14 BP 154 / 96; Pulse 85; Resp 18 S; Temp 98.4(TE); Pulse Ox 97% on R/A; Weight 81.65 kg; iw Height 5 ft. 3 in. (160.02 cm); 10:00 BP 142 / 82; Pulse 84; Resp 18; Pulse Ox 99% on R/A; em 09:14 Body Mass Index 31.89 (81.65 kg, 160.02 cm) iw MDM: 09:05 Patient medically screened. rn 10:02 Differential Diagnosis: Bronchitis Influenza Upper Respiratory Infection Sinusitis rn Pharyngitis Viral Syndrome Pneumonia. Data reviewed: vital signs, nurses notes, lab test result(s), radiologic studies, plain films, and as a result, I will discharge patient. Counseling: I had a detailed discussion with the patient and/or guardian regarding: the historical points, exam findings, and any diagnostic results supporting the discharge/admit diagnosis, lab results, radiology results, the need for outpatient follow up, to return to the emergency department if symptoms worsen or persist or if there are any questions or concerns that arise at home. Response to treatment: the patient's symptoms have mildly improved after treatment. Special discussion: I discussed with the patient/guardian in detail that at this point there is no indication for admission to the hospital. It is understood, however, that if the symptoms persist or worsen the patient needs to return immediately for re-evaluation. 11/07 09:17 Order name: Flu; Complete Time: 10: rn 11/07 09:17 Order name: Strep; Complete Time: : rn 11/07 09:17 Order name: XRAY Chest Pa And Lat (2 Views); Complete Time: : rn 11/07 09:42 Order name: Throat Culture EDMS Administered Medications: 10:11 Drug: Zofran 4 mg Route: PO; em 10:16 Follow up: Response: Medication administered at discharge. em Disposition: 11/07/19 10:04 Discharged to Home. Impression: Acute upper respiratory infection, unspecified. - Condition is Stable. - Discharge Instructions: Upper Respiratory Infection, Adult, Viral Respiratory Infection. - Medication Reconciliation Form, Thank You Letter, Antibiotic Education, Prescription Opioid Use form. - Follow up: Private Physician; When: As needed; Reason: Recheck today's complaints, Re-evaluation by your physician. - Problem is new. - Symptoms have improved. Signatures: Dispatcher [employer] EDNE Indra Jiang, HIRED HELP HIRED HELP em Katya Cerrato RN RN Varinder Rocha MD MD rn care transition: (The following items were deleted from the chart) 09:20 09:19 Constitutional: + fever and chills Eyes: Negative for injury, pain, redness, and hospital internship, ENT: + nasal congestion and sore throat Neck: Negative for injury, pain, and swelling, Cardiovascular: Negative for palpitations, and edema, Respiratory: Negative for shortness of breath, wheezing Abdomen/GI: Negative for abdominal pain, nausea, vomiting, diarrhea, and constipation, MS/Extremity: Negative for injury and deformity, Skin: Negative for injury, rash, and discoloration, Neuro: Negative for headache, weakness, numbness, tingling, and seizure, rn 10:16 10:04 11/07/2019 10:04 Discharged to Home. Impression: Acute upper respiratory em infection, unspecified. Condition is Stable. Forms are Medication Reconciliation Form, Thank You Letter, Antibiotic Education, Prescription Opioid Use. Follow up: Private Physician; When: As needed; Reason: Recheck today's complaints, Re-evaluation by your physician. Problem is new. Symptoms have improved. rn
--- NOTE | 2019-11-07 10:05 | ER ---
Nurse's Notes [facility] Name: Priscila Draper Age: 64 yrs Sex: Female : 1955 Arrival Date: 11/07/2019 Time: 09:01 Bed 18 Private MD: Willi Chino Diagnosis: Acute upper respiratory infection, unspecified Presentation: 11/07 09:11 Presenting complaint: Patient states: cough, headache, chest congestion, chest pain iw with cough, since yesterday, throat was raw today, denies fever. Transition of care: patient was not received from another setting of care. Onset of symptoms was November 06, 2019. Risk Assessment: Do you want to hurt yourself or someone else? Patient reports no desire to harm self or others. Initial Sepsis Screen: Does the patient meet any 2 criteria? No. Patient's initial sepsis screen is negative. Does the patient have a suspected source of infection? No. Patient's initial sepsis screen is negative. Care prior to arrival: None. 09:11 Method Of Arrival: Ambulatory iw 09:11 Acuity: SHIRA 3 iw Historical: - Allergies: 09:14 Augmentin; iw 09:14 Bactrim; iw 09:14 Demerol; iw 09:14 Morphine; iw 09:14 NSAIDS; iw 09:14 Toradol; iw - Home Meds: 09:14 Fioricet 50-325-40 mg Oral tab [Active]; lisinopril 10 mg Oral tab 1 tab once daily iw [Active]; metformin 500 mg Oral tab 2 tabs 2 times per day [Active]; metoprolol tartrate 100 mg Oral tab 1 tab 2 times per day [Active]; Wellbutrin Oral [Active]; Zomig Oral [Active]; - PMHx: 09:14 Crohn's; Depression; Diabetes - NIDDM; Hypertension; Migraines; iw - PSHx: 09:14 Hysterectomy; Tonsillectomy; Appendectomy; Cholecystectomy; Knee surgery; iw - Immunization history:: Adult Immunizations up to date. - Social history:: Smoking status: Patient/guardian denies using tobacco. - Ebola Screening: : Patient negative for fever greater than or equal to 101.5 degrees Fahrenheit, and additional compatible Ebola Virus Disease symptoms Patient denies exposure to infectious person Patient denies travel to an Ebola-affected area in the 21 days before illness onset No symptoms or risks identified at this time. - Family history:: not pertinent. - Hospitalizations: : No recent hospitalization is reported. Screenin:53 Abuse screen: Denies threats or abuse. Nutritional screening: No deficits noted. em Tuberculosis screening: No symptoms or risk factors identified. Fall Risk None identified. Assessment: 09:43 General: Appears in no apparent distress. comfortable, Behavior is calm, cooperative, em Denies fever. Pain: Complains of pain in throat Pain currently is 4 out of 10 on a pain scale. Neuro: Level of Consciousness is awake, alert, obeys commands. Cardiovascular: Capillary refill < 3 seconds Patient's skin is warm and dry. Respiratory: Reports cough that is non-productive, Airway is patent Respiratory effort is even, unlabored, Respiratory pattern is regular, symmetrical, Breath sounds are clear bilaterally. Onset: The symptoms/episode began/occurred yesterday. Derm: Skin is intact, is healthy with good turgor, Skin is pink, warm \T\ dry. Musculoskeletal: Capillary refill < 3 seconds, Range of motion: intact in all extremities. 10:00 Reassessment: reports nausea, provider notified, new medication orders received. em Vital Signs: 09:14 BP 154 / 96; Pulse 85; Resp 18 S; Temp 98.4(TE); Pulse Ox 97% on R/A; Weight 81.65 kg; iw Height 5 ft. 3 in. (160.02 cm); 10:00 BP 142 / 82; Pulse 84; Resp 18; Pulse Ox 99% on R/A; em 09:14 Body Mass Index 31.89 (81.65 kg, 160.02 cm) iw ED Course: 09:01 Patient arrived in ED. rg4 09:02 Willi Chino MD is Private Physician. rg4 09:05 Varinder Rocha MD is Attending Physician. rn 09:14 Triage completed. iw 09:16 Arm band placed on. iw 09:29 Flu and/or RSV swab sent to lab. ms 09:51 XRAY Chest Pa And Lat (2 Views) In Process Unspecified. EDMS 09:52 Indra Jiang LVN is Primary Nurse. em 09:53 Patient has correct armband on for positive identification. Bed in low position. Call em light in reach. 10:13 No provider procedures requiring assistance completed. Patient did not have IV access em during this emergency room visit. Administered Medications: 10:11 Drug: Zofran 4 mg Route: PO; em 10:16 Follow up: Response: Medication administered at discharge. em Outcome: 10:04 Discharge ordered by . rn 10:13 Discharged to home ambulatory. em 10:13 Condition: good 10:13 Discharge instructions given to patient, Instructed on discharge instructions, follow up and referral plans. Demonstrated understanding of instructions, follow-up care. 10:16 Patient left the ED. em Signatures: Dispatcher [employer] EDMS Indra Jiang, INTERIOR DECORATOR PAINTING INTERIOR DECORATOR PAINTING em Katya Cerrato RN RN iw Villarreal, Maria ms Nieto, Roman, MD MD rn Garcia, Rubi rg4 Corrections: (The following items were deleted from the chart) 09:16 09:14 BP 154 / 96; Pulse 85bpm; Resp 18bpm; Spontaneous; Pulse Ox 97% RA; Temp 85F; iw 81.65 kg; Height 5 ft. 3 in.; BMI: 31.8; iw
[2019-11-07] MEDS ORDERED: ONDANSETRON 4 MG (ODT) TAB ONE (10:12)
[2019-11-07 10:26] VITALS: TEMP 98.4
[2019-11-07 10:28] VITALS: BP 142/82; O2SAT 99
== END 2019-11-07 10:16 | disposition home or self-care (01) ==
LOC: ER 08:57
DX: J06.9 Acute upper respiratory infection, unspecified (principal); R50.9 Fever, unspecified; I10 Essential (primary) hypertension; E11.9 Type 2 diabetes mellitus without complications; F32.9 Major depressive disorder, single episode, unspecified; Z88.1 Allergy status to other antibiotic agents; Z88.5 Allergy status to narcotic agent; Z88.6 Allergy status to analgesic agent
CPT/HCPCS: 71046; 87070; 87081; 87804; 99283

== ENCOUNTER 2020-02-20 02:42 | Emergency (ER) | payer OTHER ==
--- NOTE | 2020-02-20 03:06 | EDPHYS ---
Physician Documentation [facility] Name: Priscila Draper Age: 64 yrs Sex: Female : 1955 Arrival Date: 02/20/2020 Time: 02:48 Bed 20 Private MD: ED Physician Varinder Rocha HPI: 02/19 03:02 This 64 yrs old Female presents to ER via Unassigned with complaints of Sore rn Throat. 03:02 The patient presents with sore throat. The patient describes throat pain as ball in rn throat. Onset: The symptoms/episode began/occurred just prior to arrival. Severity of symptoms: At their worst the symptoms were mild, in the emergency department the symptoms are unchanged. Modifying factors: The symptoms are alleviated by nothing, the symptoms are aggravated by nothing. Associated signs and symptoms: Pertinent negatives chest pain, cough, fever, flu-like symptoms, headache, rhinorrhea, shortness of breath. The patient has not experienced similar symptoms in the past. Reports feels like ball in back of throat, no fever, no trauma, no choking episode, no cough/sob. . Historical: - Allergies: 03:07 Augmentin; jd3 03:07 Bactrim; jd3 03:07 Demerol; jd3 03:07 Morphine; jd3 03:07 NSAIDS; jd3 03:07 Toradol; jd3 - Home Meds: 03:07 Fioricet 50-325-40 mg Oral tab [Active]; lisinopril 10 mg Oral tab 1 tab once daily jd3 [Active]; metformin 500 mg Oral tab 2 tabs 2 times per day [Active]; metoprolol tartrate 100 mg Oral tab 1 tab 2 times per day [Active]; Wellbutrin Oral [Active]; Zomig Oral [Active]; - PMHx: 03:07 Depression; Diabetes - NIDDM; Hypertension; Migraines; Crohn's; jd3 - PSHx: 03:07 Hysterectomy; Tonsillectomy; Appendectomy; Cholecystectomy; Knee surgery; jd3 - Immunization history:: Adult Immunizations up to date. - Social history:: Smoking status: Patient denies any tobacco usage or history of. - Family history:: not pertinent. - Hospitalizations: : No recent hospitalization is reported. ROS: 03:02 Constitutional: Negative for fever, chills, and weight loss, ENT: + "ball in throat" rn Neck: Negative for injury, pain, and swelling, Cardiovascular: Negative for chest pain, palpitations, and edema, Respiratory: Negative for shortness of breath, cough, wheezing, and pleuritic chest pain. Exam: 03:02 Constitutional: This is a well developed, well nourished patient who is awake, alert, rn and in no acute distress. ENT: + uvula midline with mild swelling, no tongue swelling, no stridor Neck: Trachea midline, no thyromegaly or masses palpated, and no cervical lymphadenopathy. Supple, full range of motion without nuchal rigidity, or vertebral point tenderness. No Meningismus. Respiratory: Speaking full sentences. No increased work of breathing, no retractions or nasal flaring. Vital Signs: 03:07 BP 145 / 70; Pulse 79; Resp 17 S; Temp 98.1(O); Pulse Ox 100% on R/A; Weight 77.11 kg jd3 (R); Height 5 ft. 3 in. (160.02 cm) (R); Pain 0/10; 03:07 Body Mass Index 30.11 (77.11 kg, 160.02 cm) jd3 MDM: 02:52 Patient medically screened. rn 03:02 Differential diagnosis: uvulitis, viral syndrome. Data reviewed: vital signs, nurses rn notes, and as a result, I will discharge patient. Counseling: I had a detailed discussion with the patient and/or guardian regarding: the historical points, exam findings, and any diagnostic results supporting the discharge/admit diagnosis, the need for outpatient follow up, to return to the emergency department if symptoms worsen or persist or if there are any questions or concerns that arise at home. Special discussion: I discussed with the patient/guardian in detail that at this point there is no indication for admission to the hospital. It is understood, however, that if the symptoms persist or worsen the patient needs to return immediately for re-evaluation. 03:06 ED course: Patient states allergy to augmentin but when asked states is just rough on rn her stomach. No true allergy noted. Asked if she has taken amoxicillin with better results ad she states she believes so. . Administered Medications: 03:16 Drug: Decadron 10 mg Route: IM; Site: right deltoid; jd3 03:33 Follow up: Response: No adverse reaction jd3 Disposition: 02/20/20 03:05 Discharged to Home. Impression: Uvulitis. - Condition is Stable. - Discharge Instructions: Uvulitis. - Prescriptions for Amoxicillin 875 mg Oral Tablet - take 1 tablet by ORAL route every 12 hours for 10 days; 20 tablet. Prednisone 20 mg Oral Tablet - take 3 tablet by ORAL route once daily for 5 days; 15 tablet. - Medication Reconciliation Form, Thank You Letter, Antibiotic Education, Prescription Opioid Use form. - Follow up: Private Physician; When: As needed; Reason: Recheck today's complaints, Re-evaluation by your physician. - Problem is new. - Symptoms are unchanged. Signatures: Varinder Rocha MD MD rn Davies, Jonathon, RN RN jd3 Corrections: (The following items were deleted from the chart) 03:34 03:05 02/20/2020 03:05 Discharged to Home. Impression: Uvulitis. Condition is Stable. jd3 Forms are Medication Reconciliation Form, Thank You Letter, Antibiotic Education, Prescription Opioid Use. Follow up: Private Physician; When: As needed; Reason: Recheck today's complaints, Re-evaluation by your physician. Problem is new. Symptoms are unchanged. rn
--- NOTE | 2020-02-20 03:06 | ER ---
Nurse's Notes [facility] Name: Priscila Draper Age: 64 yrs Sex: Female : 1955 Arrival Date: 02/20/2020 Time: 02:48 Bed 20 Private MD: Diagnosis: Uvulitis Presentation: 02/19 03:03 Chief complaint: Patient states: "I feel like I have a ball in the back of my throat, jd3 no real pain unless I am swallowing.". Coronavirus screen: Proceed with normal triage. Ebola Screen: Patient negative for fever greater than or equal to 101.5 degrees Fahrenheit, and additional compatible Ebola Virus Disease symptoms. Initial Sepsis Screen: Does the patient meet any 2 criteria? No. Patient's initial sepsis screen is negative. Does the patient have a suspected source of infection? No. Patient's initial sepsis screen is negative. Risk Assessment: Do you want to hurt yourself or someone else? Patient reports no desire to harm self or others. Onset of symptoms was February 20, 2020. 03:03 Method Of Arrival: Ambulatory jd3 03:03 Acuity: SHIRA 4 jd3 Historical: - Allergies: 03:07 Augmentin; jd3 03:07 Bactrim; jd3 03:07 Demerol; jd3 03:07 Morphine; jd3 03:07 NSAIDS; jd3 03:07 Toradol; jd3 - Home Meds: 03:07 Fioricet 50-325-40 mg Oral tab [Active]; lisinopril 10 mg Oral tab 1 tab once daily jd3 [Active]; metformin 500 mg Oral tab 2 tabs 2 times per day [Active]; metoprolol tartrate 100 mg Oral tab 1 tab 2 times per day [Active]; Wellbutrin Oral [Active]; Zomig Oral [Active]; - PMHx: 03:07 Depression; Diabetes - NIDDM; Hypertension; Migraines; Crohn's; jd3 - PSHx: 03:07 Hysterectomy; Tonsillectomy; Appendectomy; Cholecystectomy; Knee surgery; jd3 - Immunization history:: Adult Immunizations up to date. - Social history:: Smoking status: Patient denies any tobacco usage or history of. - Family history:: not pertinent. - Hospitalizations: : No recent hospitalization is reported. Screenin:10 Abuse screen: Denies threats or abuse. Nutritional screening: No deficits noted. jd3 Tuberculosis screening: No symptoms or risk factors identified. Fall Risk Ambulatory Aid- None/Bed Rest/Nurse Assist (0 pts). Gait- Normal/Bed Rest/Wheelchair (0 pts) Mental Status- Oriented to own ability (0 pts). Total Oliver Fall Scale indicates No Risk (0-24 pts). Assessment: 03:08 General: Appears in no apparent distress. comfortable, Behavior is calm, cooperative, jd3 appropriate for age. Pain: Complains of pain in throat Quality of pain is described as aching. Neuro: Level of Consciousness is awake, alert, obeys commands, Oriented to person, place, time, situation. Cardiovascular: Denies chest pain, Capillary refill < 3 seconds Patient's skin is warm and dry. Respiratory: Airway is patent Respiratory effort is even, unlabored, Respiratory pattern is regular, symmetrical, Denies cough, shortness of breath. GI: No signs and/or symptoms were reported involving the gastrointestinal system. : No signs and/or symptoms were reported regarding the genitourinary system. EENT: Throat is reddened swollen Uvula noted. Derm: Skin is intact, Skin is dry, Skin is normal, Skin temperature is warm. Musculoskeletal: Circulation, motion, and sensation intact. Range of motion: intact in all extremities. 03:33 Reassessment: Patient appears in no apparent distress at this time. Patient and/or jd3 family updated on plan of care and expected duration. Pain level reassessed. Patient is alert, oriented x 3, equal unlabored respirations, skin warm/dry/pink. reported understanding of discharge instructions, even and steady gait upon discharge. Vital Signs: 03:07 BP 145 / 70; Pulse 79; Resp 17 S; Temp 98.1(O); Pulse Ox 100% on R/A; Weight 77.11 kg jd3 (R); Height 5 ft. 3 in. (160.02 cm) (R); Pain 0/10; 03:07 Body Mass Index 30.11 (77.11 kg, 160.02 cm) jd3 ED Course: 02:48 Patient arrived in ED. ag3 02:52 Varinder Rocha MD is Attending Physician. rn 02:53 Pio Duran RN is Primary Nurse. jd3 03:05 Triage completed. jd3 03:08 Arm band placed on. jd3 03:11 Patient has correct armband on for positive identification. Bed in low position. Call jd3 light in reach. Side rails up X 1. Pulse ox on. NIBP on. 03:31 No provider procedures requiring assistance completed. Patient did not have IV access jd3 during this emergency room visit. Administered Medications: 03:16 Drug: Decadron 10 mg Route: IM; Site: right deltoid; jd3 03:33 Follow up: Response: No adverse reaction jd3 Outcome: 03:05 Discharge ordered by . rn 03:32 Discharged to home ambulatory. jd3 03:32 Condition: stable 03:32 Discharge instructions given to patient, Instructed on discharge instructions, follow up and referral plans. medication usage, Demonstrated understanding of instructions, follow-up care, medications, Prescriptions given X 2. 03:34 Patient left the ED. jd3 Signatures: Varinder Rocha MD MD rn Davies, Jonathon, RN RN jd3 Gomez, Alice ag3 Corrections: (The following items were deleted from the chart) 03:33 03:19 Decadron 10 mg IM in right deltoid jd3 jd3
[2020-02-20] MEDS ORDERED: dexAMETHasone 10 MG/ML VIAL ONE (03:21)
[2020-02-20 03:44] VITALS: BP 145/70; TEMP 98.1; O2SAT 100
== END 2020-02-20 03:34 | disposition home or self-care (01) ==
LOC: ER 02:42
DX: K12.2 Cellulitis and abscess of mouth (principal); I10 Essential (primary) hypertension; E11.9 Type 2 diabetes mellitus without complications; F32.9 Major depressive disorder, single episode, unspecified; Z88.1 Allergy status to other antibiotic agents; Z88.5 Allergy status to narcotic agent; Z88.6 Allergy status to analgesic agent
CPT/HCPCS: 96372; 99283; J1100

== ENCOUNTER 2020-10-16 02:40 | Emergency (ER) | payer OTHER ==
[2020-10-16] MEDS ORDERED: NA CHLORIDE 0.9% 1,000 ML ONE (04:24)
[2020-10-16 04:46] LABS: Absolute Lymphocytes (CBC) 3.3 K/uL (0.7-4.9); Basophils % 0.5 % (0-1.3); Lymphocytes % 22.2 % (15.3-44.8); MPV 8.8 fL (7.6-11.3); RBC Red Blood Cell Count 3.59 M/uL (3.86-4.86)
[2020-10-16 05:01] LABS: Potassium 4.4 mmol/L (3.5-5.1)
[2020-10-16 05:15] LABS: Urine Blood 3+ (NEG); Urine Glucose NEGATIVE (NEG); Urine Protein 1+ (NEG); Urine Specific Gravity 1.015 (1.005-1.030); Urine pH 5.5 (5.0-7.0)
[2020-10-16 05:23] LABS: Urine Bacteria 20-50 /HPF (<20); Urine Mucus 2+ /HPF (NONE SEEN); Urine RBC >50 /HPF (NONE SEEN)
[2020-10-16] MEDS ORDERED: ONDANSETRON 4 MG/2 ML VIAL ONE (05:23)
--- NOTE | 2020-10-16 06:09 | EDPHYS ---
Physician Documentation [facility] Name: Priscila Draper Age: 64 yrs Sex: Female : 1955 Arrival Date: 10/16/2020 Time: 02:45 Bed 15 Private MD: ED Physician Eliel Jones HPI: 10/16 04:42 This 64 yrs old Female presents to ER via Ambulatory with complaints of pkl Vaginal Bleeding. 04:42 The patient presents with urinary symptoms, dysuria, frequency, hematuria, vaginal pkl bleeding that is light. Onset: The symptoms/episode began/occurred 2 day(s) ago. Saw PCP yesterday and started on Microbid. Historical: - Allergies: 03:27 Augmentin; sg 03:27 Bactrim; sg 03:27 Demerol; sg 03:27 Morphine; sg 03:27 NSAIDS; sg 03:27 Toradol; sg - PMHx: 03:27 Crohn's; Depression; Diabetes - NIDDM; Hypertension; Migraines; sg - PSHx: 03:27 Hysterectomy; Tonsillectomy; Appendectomy; Cholecystectomy; Knee surgery; sg - Immunization history:: Adult Immunizations up to date. - Social history:: Smoking status: Patient denies any tobacco usage or history of. ROS: 04:42 Positive for urinary symptoms, urinary frequency, hematuria, vaginal bleeding. pkl 04:42 Eyes: Negative for injury, pain, redness, and discharge, ENT: Negative for injury, pain, and discharge, Neck: Negative for injury, pain, and swelling, Cardiovascular: Negative for chest pain, palpitations, and edema, Respiratory: Negative for shortness of breath, cough, wheezing, and pleuritic chest pain, Abdomen/GI: Negative for abdominal pain, nausea, vomiting, diarrhea, and constipation, Back: Negative for injury and pain, MS/Extremity: Negative for injury and deformity, Skin: Negative for injury, rash, and discoloration, Neuro: Negative for headache, weakness, numbness, tingling, and seizure. Exam: 04:48 Head/Face: Normocephalic, atraumatic. Eyes: Pupils equal round and reactive to light, pkl extra-ocular motions intact. Lids and lashes normal. Conjunctiva and sclera are non-icteric and not injected. Cornea within normal limits. Periorbital areas with no swelling, redness, or edema. ENT: Nares patent. No nasal discharge, no septal abnormalities noted. Tympanic membranes are normal and external auditory canals are clear. Oropharynx with no redness, swelling, or masses, exudates, or evidence of obstruction, uvula midline. Mucous membranes moist. Neck: Trachea midline, no thyromegaly or masses palpated, and no cervical lymphadenopathy. Supple, full range of motion without nuchal rigidity, or vertebral point tenderness. No Meningismus. Chest/axilla: Normal chest wall appearance and motion. Nontender with no deformity. No lesions are appreciated. Cardiovascular: Regular rate and rhythm with a normal S1 and S2. No gallops, murmurs, or rubs. Normal PMI, no JVD. No pulse deficits. Respiratory: Lungs have equal breath sounds bilaterally, clear to auscultation and percussion. No rales, rhonchi or wheezes noted. No increased work of breathing, no retractions or nasal flaring. Abdomen/GI: Soft, non-tender, with normal bowel sounds. No distension or tympany. No guarding or rebound. No evidence of tenderness throughout. Back: No spinal tenderness. No costovertebral tenderness. Full range of motion. 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 04:48 Musculoskeletal/extremity: Exam is negative for acute changes. 04:48 Skin: Exam negative for rash. 04:48 Neuro: Orientation: is normal, Mentation: is normal, Cranial nerves: grossly normal, Motor: is normal. Vital Signs: 03:27 BP 132 / 77; Pulse 72; Resp 16; Temp 97.7; Pulse Ox 97% on R/A; Pain 0/10; sg 04:30 BP 141 / 85; Pulse 70; Resp 19; Pulse Ox 99% ; rr5 05:30 BP 141 / 80; Pulse 80; Resp 17; Pulse Ox 98% ; rr5 06:15 BP 137 / 80; Pulse 79; Resp 16; Pulse Ox 99% ; rr5 MDM: 03:58 Patient medically screened. pkl 06:03 Data reviewed: vital signs, nurses notes, lab test result(s), radiologic studies, CT pkl scan. ED course: Patient feeling better. Discussed lab and CT Scan results. Avised to follow up with Dr. Arnold ( Ob / Stem Frazer ) in 2 to 3 days. Patient understood instructions. 10/16 04:08 Order name: CBC with Diff; Complete Time: 05:04 pkl 10/16 04:08 Order name: Chem 7; Complete Time: 05:03 pkl 10/16 04:18 Order name: Urine Microscopic Only; Complete Time: 05:28 rr5 10/16 04:18 Order name: Urine Culture rr5 10/16 04:39 Order name: Urine Dipstick--Ancillary (enter results); Complete Time: 05:16 tt3 10/16 05:04 Order name: CT Abd/Pelvis - IV Contrast Only pkl 10/16 04:14 Order name: Straight Cath - Urine; Complete Time: 04:18 ea 10/16 04:18 Order name: Urine Dipstick-Ancillary (obtain specimen); Complete Time: 04:18 rr5 Administered Medications: 04:35 Drug: NS 0.9% 1000 ml Route: IV; Rate: 125 ml/hr; Site: right forearm; rr5 06:15 Follow up: Response: No adverse reaction; IV Status: Order to discontinue infusion; IV rr5 Intake: 250ml 05:00 Drug: Zofran (Ondansetron) 4 mg Route: IVP; Site: right forearm; rr5 06:00 Follow up: Response: No adverse reaction rr5 06:00 Drug: Ciprofloxacin 500 mg Route: PO; rr5 06:15 Follow up: Response: No adverse reaction rr5 06:00 Drug: Pyridium 200 mg Route: PO; rr5 06:15 Follow up: Response: No adverse reaction rr5 Disposition: 10/16/20 06:08 Discharged to Home. Impression: Cystitis. Vaginal bleeding. - Condition is Stable. - Prescriptions for Pyridium 200 mg Oral Tablet - take 1 tablet by ORAL route every 8 hours for 3 days; 9 tablet. Cipro 500 mg Oral Tablet - take 1 tablet by ORAL route every 12 hours for 7 days; 14 tablet. - Medication Reconciliation Form, Thank You Letter, Antibiotic Education, Prescription Opioid Use form. - Follow up: Brock Arnold MD; When: 2 - 3 days; Reason: Re-evaluation by your physician. - Problem is new. - Symptoms have improved. Signatures: Dispatcher [employer] EDDE Patricio Martino, [place] Eliel Sampson MD MD pkl Natalie Pinto RN RN Raad Dent RN RN rr5 Corrections: (The following items were deleted from the chart) 06:16 06:08 10/16/2020 06:08 Discharged to Home. Impression: Cystitis. Vaginal bleeding. rr5 Condition is Stable. Forms are Medication Reconciliation Form, Thank You Letter, Antibiotic Education, Prescription Opioid Use. Follow up: Brock Arnold; When: 2 - 3 days; Reason: Re-evaluation by your physician. Problem is new. Symptoms have improved. pkl
--- NOTE | 2020-10-16 06:09 | ER ---
Nurse's Notes [facility] Name: Priscila Draper Age: 64 yrs Sex: Female : 1955 Arrival Date: 10/16/2020 Time: 02:45 Bed 15 Private MD: Diagnosis: Cystitis. Vaginal bleeding Presentation: 10/16 03:27 Chief complaint: Patient states: pt reports having vaginal bleeding with bright red sg clots, states for 1 day now. Also reports having nausea and vomiting, no other symptoms reported for triage at this time. Coronavirus screen: Client denies travel out of the [place] in the last 14 days. At this time, the client does not indicate any symptoms associated with coronavirus-19. Ebola Screen: Patient negative for fever greater than or equal to 101.5 degrees Fahrenheit, and additional compatible Ebola Virus Disease symptoms Patient denies exposure to infectious person. Patient denies travel to an Ebola-affected area in the 21 days before illness onset. No symptoms or risks identified at this time. Initial Sepsis Screen: Does the patient meet any 2 criteria? No. Patient's initial sepsis screen is negative. Does the patient have a suspected source of infection? No. Patient's initial sepsis screen is negative. Risk Assessment: Do you want to hurt yourself or someone else? Patient reports no desire to harm self or others. Onset of symptoms was October 16, 2020. Care prior to arrival: None. Activity prior to arrival: None. Transition of care: patient was not received from another setting of care. 03:27 Acuity: SHIRA 3 sg 03:27 Method Of Arrival: Ambulatory sg 03:27 Note pt reports starting Bactrim yesterday after being seen by PCP and dx with UTI, but sg the bleeding frightened the pt so she wanted to be seen in the ED this morning for evaluation. Historical: - Allergies: 03:27 Augmentin; sg 03:27 Bactrim; sg 03:27 Demerol; sg 03:27 Morphine; sg 03:27 NSAIDS; sg 03:27 Toradol; sg - PMHx: 03:27 Crohn's; Depression; Diabetes - NIDDM; Hypertension; Migraines; sg - PSHx: 03:27 Hysterectomy; Tonsillectomy; Appendectomy; Cholecystectomy; Knee surgery; sg - Immunization history:: Adult Immunizations up to date. - Social history:: Smoking status: Patient denies any tobacco usage or history of. Screenin:15 Abuse screen: Denies threats or abuse. Nutritional screening: No deficits noted. ea Tuberculosis screening: No symptoms or risk factors identified. Fall Risk None identified. Assessment: 03:40 General: Appears in no apparent distress. comfortable, Behavior is calm, cooperative, rr5 appropriate for age. 03:40 Pain: Denies pain. Neuro: Level of Consciousness is awake, alert, obeys commands, rr5 Oriented to person, place, time. Cardiovascular: Capillary refill < 3 seconds Patient's skin is warm and dry. 03:40 Respiratory: Airway is patent Respiratory effort is even, unlabored, Respiratory rr5 pattern is regular, symmetrical. GI: No signs and/or symptoms were reported involving the gastrointestinal system. : Urine is cloudy, Reports vaginal bleeding that is. EENT: No signs and/or symptoms were reported regarding the EENT system. Derm: Skin is intact, is healthy with good turgor, Skin temperature is warm. Musculoskeletal: Circulation, motion, and sensation intact. Capillary refill < 3 seconds. 04:30 Reassessment: Patient appears in no apparent distress at this time. Patient is alert, rr5 oriented x 3, equal unlabored respirations, skin warm/dry/pink. 05:20 Reassessment: Patient appears in no apparent distress at this time. Patient is alert, rr5 oriented x 3, equal unlabored respirations, skin warm/dry/pink. back from Ct scan. 06:15 Reassessment: Patient appears in no apparent distress at this time. Patient is alert, rr5 oriented x 3, equal unlabored respirations, skin warm/dry/pink. discharge instruction given and explained without complaints made. Vital Signs: 03:27 BP 132 / 77; Pulse 72; Resp 16; Temp 97.7; Pulse Ox 97% on R/A; Pain 0/10; sg 04:30 BP 141 / 85; Pulse 70; Resp 19; Pulse Ox 99% ; rr5 05:30 BP 141 / 80; Pulse 80; Resp 17; Pulse Ox 98% ; rr5 06:15 BP 137 / 80; Pulse 79; Resp 16; Pulse Ox 99% ; rr5 ED Course: 02:45 Patient arrived in ED. ag3 03:26 Patricio Martino, RN is Primary Nurse. sg 03:26 Arm band placed on. sg 03:29 Triage completed. sg 03:58 Eliel Jones MD is Attending Physician. pkl 04:14 Straight cath inserted, using sterile technique, 16 Fr. Specimen obtained. ea 04:15 Patient has correct armband on for positive identification. Placed in gown. Bed in low ea position. Call light in reach. Side rails up X 1. Pulse ox on. NIBP on. 04:24 Assist provider with pelvic exam: Set up pelvic tray. Performed by Eliel Jones MD Patient ea tolerated well. 04:35 Inserted saline lock: 20 gauge in right forearm, using aseptic technique. Blood rr5 collected. 05:33 CT Abd/Pelvis - IV Contrast Only In Process Unspecified. EDMS 06:06 Brock Arnold MD is Referral Physician. pkl 06:15 IV discontinued, intact, bleeding controlled, No redness/swelling at site. Pressure rr5 dressing applied. Administered Medications: 04:35 Drug: NS 0.9% 1000 ml Route: IV; Rate: 125 ml/hr; Site: right forearm; rr5 06:15 Follow up: Response: No adverse reaction; IV Status: Order to discontinue infusion; IV rr5 Intake: 250ml 05:00 Drug: Zofran (Ondansetron) 4 mg Route: IVP; Site: right forearm; rr5 06:00 Follow up: Response: No adverse reaction rr5 06:00 Drug: Ciprofloxacin 500 mg Route: PO; rr5 06:15 Follow up: Response: No adverse reaction rr5 06:00 Drug: Pyridium 200 mg Route: PO; rr5 06:15 Follow up: Response: No adverse reaction rr5 Intake: 06:15 IV: 250ml; Total: 250ml. rr5 Outcome: 06:08 Discharge ordered by . pkl 06:15 Discharged to home ambulatory. rr5 06:15 Condition: stable 06:15 Discharge instructions given to patient, Instructed on discharge instructions, follow up and referral plans. medication usage, Demonstrated understanding of instructions, follow-up care, medications, Prescriptions given X 2. 06:16 Patient left the ED. rr5 Signatures: Dispatcher [employer] EDMS Patricio Martino RN RN sg Lam, Pin, MD MD pkNatalie Aguayo RN RN ea Gomez, Alice ag3 Roque, Raymond, RN RN rr5
[2020-10-16] MEDS ORDERED: PHENAZOPYRIDINE 100MG TAB PO ONE (06:18)
[2020-10-16] MEDS ORDERED: CIPROFLOXACIN HCL 500 MG TAB ONE (06:19)
--- NOTE | 2020-10-17 09:31 | RAD REPORT ---
EXAM DESCRIPTION: CT - Abdomen Pelvis W Contrast - 10/16/2020 6:56 am CLINICAL HISTORY: The patient is 64 years old and is Female; ABD PAIN TECHNIQUE: Axial computed tomography images of the abdomen and pelvis with intravenous contrast. S agittal and coronal reformatted images were created and reviewed. This CT exam was performed using one or more of the following dose reduction techniques: automated exposure control, adjustment of t he mA and/or kV according to patient size, and/or use of iterative reconstruction technique. COMPARISON: No relevant prior studies available. FINDINGS: LUNG BASES: Unremarkable. No mass. No consolidation. ABDOMEN: LIVER: Unremarkable. No mass. GALLBLADDER AND BILE DUCTS: Surgical clips are present in the right upper quadrant, consistent wi th previous cholecystectomy. PANCREAS: Mild fatty atrophy of the pancreas is noted. SPLEEN: Unremarkable. ADRENALS: Unremarkable. No mass. KIDNEYS AND URETERS: Exophytic left renal cyst measuring 3 cm is present. The kidneys enhance sym metrically. There is no hydronephrosis or hydroureter of either kidney. No obstructing renal or urete ral calculus is seen. STOMACH AND BOWEL: The stomach is distended with food contents. The small bowel is normal in thelma doreen. A moderate amount of stool is present throughout the colon. There is no mucosal thickening or ev idence of bowel obstruction. PELVIS: APPENDIX: No findings to suggest acute appendicitis. BLADDER: The bladder is well distended. Mild bladder wall thickening is suggested. REPRODUCTIVE: The patient is status post hysterectomy. ABDOMEN and PELVIS: INTRAPERITONEAL SPACE: Unremarkable. No free air. No significant fluid collection. BONES/JOINTS: No acute fracture. SOFT TISSUES: The soft tissues are normal. VASCULATURE: Minimal atherosclerosis of the vasculature is present. No abdominal aortic aneurys m. LYMPH NODES: Unremarkable. No enlarged lymph nodes. IMPRESSION: 1. Mild bladder wall thickening with surrounding inflammatory stranding suggestive of cystitis. 2. Moderate stool burden without obstruction. Electronically signed by: Xiomy Abreu MD 10/16/2020 5:48 AM DOUBLE END PRODUCTION GRINDER Due to temporary technical issues with the PACS/Fluency reporting system, reports are being signed by the in house radiologists without review as a courtesy to insure prompt reporting. The interpreting radiologist is fully responsible for the content of the report.
[2020-10-21 15:59] VITALS: TEMP 97.7
[2020-10-21 16:02] VITALS: BP 137/80; O2SAT 99
== END 2020-10-16 06:16 | disposition home or self-care (01) ==
LOC: ER 02:40
DX: N30.90 Cystitis, unspecified without hematuria (principal); I10 Essential (primary) hypertension; Z88.1 Allergy status to other antibiotic agents; Z88.5 Allergy status to narcotic agent; Z88.6 Allergy status to analgesic agent
CPT/HCPCS: 96361; 87088; 85025; 87086; 80048; 36415; 74177; 51702; 96374; 99284; Q9967; J7030; J2405; 81003; 81015

== ENCOUNTER 2021-02-14 12:00 | Emergency (ER) | payer OTHER ==
[2021-02-14] MEDS ORDERED: HYDROCODONE/APAP 5/325 MG TAB ONE (13:49)
--- NOTE | 2021-02-14 15:14 | RAD REPORT ---
EXAM DESCRIPTION: RAD - Hip Left 2 View - 02/14/2021 2:32 pm CLINICAL HISTORY: PAIN COMPARISON: Hip Left 2 View dated 01/03/2018 FINDINGS: Mild osteoarthritis affects the left hip. No fracture, dislocation or AVN pattern.
--- NOTE | 2021-02-14 15:15 | RAD REPORT ---
EXAM DESCRIPTION: RAD - Chest Pa And Lat (2 Views) - 02/14/2021 2:37 pm CLINICAL HISTORY: CHEST PAIN Chest pain. COMPARISON: Chest Pa And Lat (2 Views) dated 11/07/2019; Chest Single View dated 10/16/2019; Chest Si ngle View dated 11/17/2018; Chest Pa And Lat (2 Views) dated 07/22/2017 FINDINGS: The lungs are clear. The heart is normal in size. No displaced fractures. IMPRESSION: No acute or concerning finding suspected.
[2021-02-14 16:15] LABS: SARS-COV-2 RT PCR NEGATIVE (NEGATIVE)
--- NOTE | 2021-02-14 16:22 | ER ---
Nurse's Notes [facility] Name: Priscila Draper Age: 65 yrs Sex: Female : 1955 Arrival Date: 02/14/2021 Time: 12:01 Bed 8 Private MD: Diagnosis: Acute pharyngitis;Contusion of left hip;Contusion of front wall of thorax;Fall on same level, unspecified Presentation: 02/14 12:31 Chief complaint: Patient states: "I fell and I hit my left side of my chest and abdomen jd3 and now it feels a little harder to breath. I am having a sore throat as well. no LOC reported due to fall.". Coronavirus screen: At this time, the client does not indicate any symptoms associated with coronavirus-19. Ebola Screen: Patient negative for fever greater than or equal to 101.5 degrees Fahrenheit, and additional compatible Ebola Virus Disease symptoms. Initial Sepsis Screen: Does the patient meet any 2 criteria? No. Patient's initial sepsis screen is negative. Does the patient have a suspected source of infection? No. Patient's initial sepsis screen is negative. Risk Assessment: Do you want to hurt yourself or someone else? Patient reports no desire to harm self or others. Onset of symptoms was February 14, 2021. 12:31 Method Of Arrival: Ambulatory jd3 12:31 Acuity: SHIRA 3 jd3 Triage Assessment: 13:00 General: Appears distressed, uncomfortable, Behavior is cooperative, appropriate for bp age, anxious. Pain: Complains of pain in chest and abdomen. EENT: No deficits noted. Neuro: No deficits noted. Cardiovascular: No deficits noted. Respiratory: No deficits noted. GI: No signs and/or symptoms were reported involving the gastrointestinal system. : No signs and/or symptoms were reported regarding the genitourinary system. Derm: No deficits noted. Musculoskeletal: Reports pain in chest and abdomen. Historical: - Allergies: 12:33 Augmentin; jd3 12:33 Demerol; jd3 12:33 Bactrim; jd3 12:33 Morphine; jd3 12:33 NSAIDS; jd3 12:33 Toradol; jd3 - PMHx: 12:33 Crohn's; Depression; Diabetes - NIDDM; Hypertension; Migraines; jd3 - PSHx: 12:33 Hysterectomy; Tonsillectomy; Appendectomy; Cholecystectomy; Knee surgery; jd3 - Immunization history:: Adult Immunizations up to date. - Social history:: Smoking status: Patient denies any tobacco usage or history of. Screenin:36 Abuse screen: Denies threats or abuse. Denies injuries from another. Nutritional bp screening: No deficits noted. Tuberculosis screening: No symptoms or risk factors identified. Fall Risk None identified. Assessment: 13:00 General: SEE TRIAGE NOTE. bp 14:00 Reassessment: No changes from previously documented assessment. Patient and/or family bp updated on plan of care and expected duration. Pain level reassessed. Patient is alert, oriented x 3, equal unlabored respirations, skin warm/dry/pink. 16:00 Reassessment: No changes from previously documented assessment. Patient and/or family bp updated on plan of care and expected duration. Pain level reassessed. Patient is alert, oriented x 3, equal unlabored respirations, skin warm/dry/pink. SWAB RESULTS PENDING. Vital Signs: 12:33 BP 162 / 98; Pulse 102; Resp 18 S; Temp 98.1(O); Pulse Ox 98% on R/A; Weight 72.57 kg jd3 (R); Height 5 ft. 3 in. (160.02 cm) (R); Pain 10/10; 14:00 BP 170 / 93; Pulse 88; Resp 16; Pulse Ox 100% ; bp 16:00 BP 169 / 88; Pulse 81; Resp 15; Pulse Ox 99% ; bp 17:00 BP 117 / 89; Pulse 88; Resp 17; Temp 98.2; Pulse Ox 97% ; bp 12:33 Body Mass Index 28.34 (72.57 kg, 160.02 cm) jd3 ED Course: 12:01 Patient arrived in ED. ds1 12:32 Triage completed. jd3 12:34 Arm band placed on. jd3 13:04 Jose Strange NP is PHCP. pm1 13:04 Grisel Cardoso MD is Attending Physician. pm1 13:33 Willi Keen, [place] is Primary Nurse. bp 13:36 Patient has correct armband on for positive identification. Bed in low position. Call bp light in reach. Side rails up X2. 14:31 Hip Left 2 View XRAY In Process Unspecified. EDMS 14:34 Chest Pa And Lat (2 Views) XRAY In Process Unspecified. EDMS 17:00 No provider procedures requiring assistance completed. Patient did not have IV access bp during this emergency room visit. Administered Medications: 13:30 Drug: Kiel (HYDROcodone-acetaminophen) 5 mg-325 mg 1 tabs Route: PO; bp 16:05 Follow up: Response: Pain is decreased bp Outcome: 16:21 Discharge ordered by MD. pm1 17:00 Discharged to home ambulatory. bp 17:00 Condition: stable 17:00 Discharge instructions given to patient, Instructed on discharge instructions, follow up and referral plans. medication usage, Demonstrated understanding of instructions, follow-up care, medications, Prescriptions given X 1. 17:19 Patient left the ED. bp Signatures: Dispatcher [employer] EDDC Suzi Valle ds1 Jose Strange, DEENA GRID CASTER pm1 Pio Duran RN RN Willi Moser RN RN bp Corrections: (The following items were deleted from the chart) 12:42 12:31 Chief complaint: Patient states: "I fell and I hit my left side of my chest and jd3 abdomen and now it feels a little harder to breath. I am having a sore throat as well." jd3
--- NOTE | 2021-02-14 16:22 | EDPHYS ---
Physician Documentation [facility] Name: Priscila Draper Age: 65 yrs Sex: Female : 1955 Arrival Date: 02/14/2021 Time: 12:01 Bed 8 Private MD: ED Physician Grisel Cardoso HPI: 02/14 13:42 This 65 yrs old Female presents to ER via Ambulatory with complaints of Fall pm1 injury. 13:42 Details of fall: The patient fell from an upright position, while walking. Onset: The pm1 symptoms/episode began/occurred today. Associated injuries: The patient sustained chest, left hip. Severity of symptoms: in the emergency department the symptoms are unchanged. The patient has not experienced similar symptoms in the past. Patient tripped on her cat and fell on to her left side. Pain to ribs underneath her left breast and left hip pain. No headache, head injury, neck pain, or LOC. Historical: - Allergies: 12:33 Augmentin; jd3 12:33 Demerol; jd3 12:33 Bactrim; jd3 12:33 Morphine; jd3 12:33 NSAIDS; jd3 12:33 Toradol; jd3 - PMHx: 12:33 Crohn's; Depression; Diabetes - NIDDM; Hypertension; Migraines; jd3 - PSHx: 12:33 Hysterectomy; Tonsillectomy; Appendectomy; Cholecystectomy; Knee surgery; jd3 - Immunization history:: Adult Immunizations up to date. - Social history:: Smoking status: Patient denies any tobacco usage or history of. ROS: 13:43 Constitutional: Negative for fever, chills, and weight loss. pm1 13:43 Respiratory: Negative for shortness of breath, cough, wheezing, and pleuritic chest pain, Abdomen/GI: Negative for abdominal pain, nausea, vomiting, diarrhea, and constipation, Back: Negative for injury and pain. 13:43 Neck: Negative for injury, pain, and swelling, Skin: Negative for injury, rash, and discoloration, Neuro: Negative for headache, weakness, numbness, tingling, and seizure. 13:43 ENT: Positive for sore throat, Negative for ear pain, rhinorrhea. 13:43 Cardiovascular: Positive for rib pain under left breast. 13:43 MS/extremity: Positive for pain, of the left hip. Exam: 13:42 Constitutional: This is a well developed, well nourished patient who is awake, alert, pm1 and in no acute distress. MS/ Extremity: Pulses equal, no cyanosis. Neurovascular intact. Full, normal range of motion. 13:42 Head/Face: Normocephalic, atraumatic. 13:42 Skin: Warm, dry with normal turgor. Normal color with no rashes, no lesions, and no evidence of cellulitis. 13:42 Neck: Exam negative for acute changes, External neck: is normal, no swelling, no tenderness, C-spine: vertebral tenderness, is not appreciated, ROM/movement: is normal, is supple. 13:42 Chest/axilla: Inspection: normal, Palpation: crepitus, is not appreciated, tenderness, of the focal point tenderness to left of sternum in rib 5 area and left lateral rib rib 7 area, Breasts: tenderness, is not appreciated, of the left breast, Katherine automated equipment engineer technician present for evaluation. 13:42 Cardiovascular: Exam negative for acute changes, Rate: normal, Rhythm: regular, Pulses: no pulse deficits are appreciated. 13:42 Respiratory: Exam negative for acute changes, respiratory distress, shortness of breath. 13:42 Neuro: Orientation: is normal, Mentation: is normal, Motor: is normal, moves all fours, strength is normal, strength is 5/5 in all extremities, Gait: is steady, at a normal pace, without difficulty, Patient able to stand and walk at bedside without difficulty. Vital Signs: 12:33 BP 162 / 98; Pulse 102; Resp 18 S; Temp 98.1(O); Pulse Ox 98% on R/A; Weight 72.57 kg jd3 (R); Height 5 ft. 3 in. (160.02 cm) (R); Pain 10/10; 14:00 BP 170 / 93; Pulse 88; Resp 16; Pulse Ox 100% ; bp 16:00 BP 169 / 88; Pulse 81; Resp 15; Pulse Ox 99% ; bp 17:00 BP 117 / 89; Pulse 88; Resp 17; Temp 98.2; Pulse Ox 97% ; bp 12:33 Body Mass Index 28.34 (72.57 kg, 160.02 cm) jd3 MDM: 13:11 Patient medically screened. pm1 16:20 Data reviewed: vital signs. Data interpreted: Pulse oximetry: on room air is 99 %. pm1 Interpretation: normal. Counseling: I had a detailed discussion with the patient and/or guardian regarding: the historical points, exam findings, and any diagnostic results supporting the discharge/admit diagnosis, lab results, radiology results, the need for outpatient follow up, for definitive care, a family practitioner, to return to the emergency department if symptoms worsen or persist or if there are any questions or concerns that arise at home. 02/14 13:56 Order name: Strep pm1 02/14 13:56 Order name: Flu pm1 02/14 13:56 Order name: COVID-19 : Document "Date of Symptom Onset" if Symptomatic. pm1 02/14 13:57 Order name: Group A Streptococcus Rapid Sc; Complete Time: 16:15 EDMS 02/14 12:35 Order name: Chest Pa And Lat (2 Views) XRAY; Complete Time: 15:19 jd3 02/14 13:26 Order name: Hip Left 2 View XRAY; Complete Time: 15:19 pm1 02/14 16:07 Order name: Throat Culture EDMS 02/14 16:16 Order name: COVID-19/FLU A+B; Complete Time: 16:19 EDMS Administered Medications: 13:30 Drug: [place] (HYDROcodone-acetaminophen) 5 mg-325 mg 1 tabs Route: PO; bp 16:05 Follow up: Response: Pain is decreased bp Disposition: 18:51 Co-signature as Attending Physician, Grisel Cardoso MD. ma2 Disposition: 02/14/21 16:21 Discharged to Home. Impression: Contusion of front wall of thorax, Acute pharyngitis, Contusion of left hip, Fall on same level, unspecified. - Condition is Stable. - Discharge Instructions: Contusion, Rib Contusion, Fall Prevention in the Home, Pharyngitis. - Prescriptions for Tylenol- Codeine #3 300-30 mg Oral Tablet - take 2 tablets by ORAL route every 4-6 hours As needed; 20 tablet. - Medication Reconciliation Form, Thank You Letter, Antibiotic Education, Prescription Opioid Use form. - Follow up: Emergency Department; When: As needed; Reason: Worsening of condition. Follow up: Private Physician; When: 2 - 3 days; Reason: Recheck today's complaints, Continuance of care, Re-evaluation by your physician. - Problem is new. - Symptoms have improved. Signatures: Dispatcher [employer] EDNE Jose Strange, CLINICAL TRIALS MANAGER CLINICAL TRIALS MANAGER pm1 Pio Duran RN RN Willi Moser RN RN Grisel Munoz MD MD ma2 Corrections: (The following items were deleted from the chart) 15:24 13:57 Influenza Screen (A ordered. EDNE EDNE 15:24 13:57 CORONAVIRUS ordered. [facility] EDNE 17:19 16:21 02/14/2021 16:21 Discharged to Home. Impression: Contusion of front wall of bp thoraxAcute pharyngitis; Contusion of left hip; Fall on same level, unspecified. Condition is Stable. Forms are Medication Reconciliation Form, Thank You Letter, Antibiotic Education, Prescription Opioid Use. Follow up: Emergency Department; When: As needed; Reason: Worsening of condition. Follow up: Private Physician; When: 2 - 3 days; Reason: Recheck today's complaints, Continuance of care, Re-evaluation by your physician. Problem is new. Symptoms have improved. pm1
[2021-02-14 17:46] VITALS: BP 117/89; TEMP 98.2; O2SAT 97
== END 2021-02-14 17:19 | disposition home or self-care (01) ==
LOC: ER 12:00
DX: S20.212A Contusion of left front wall of thorax, initial encounter (principal); S70.02XA Contusion of left hip, initial encounter; J02.9 Acute pharyngitis, unspecified; W18.30XA Fall on same level, unspecified, initial encounter; Y93.01 Activity, walking, marching and hiking; Y92.9 Unspecified place or not applicable; Z20.822 Contact with and (suspected) exposure to COVID-19; Z88.1 Allergy status to other antibiotic agents; Z88.5 Allergy status to narcotic agent; Z88.6 Allergy status to analgesic agent; I10 Essential (primary) hypertension
CPT/HCPCS: 87070; 87081; 0240U; 71046; 73502; 99283

== ENCOUNTER 2021-07-22 07:36 | Inpatient (IN) | payer OTHER ==
--- OUTSIDE RECORDS SUMMARY | 2021-07-22 07:39 | XMS REPORT | Continuity of Care Document ---
:1955 Author Organization [facility] t Address [address] [place] [address] Dr. Ulloa[address] [place] [id number] Care Team Providers Name Role Phone Unavailable Unavailable Unavailable Problems This patient has no known problems. Allergies, Adverse Reactions, Alerts This patient has no known allergies or adverse reactions. Medications This patient has no known medications. Procedures This patient has no known procedures. Results This patient has no known results.
--- NOTE | 2021-07-22 08:45 | RAD REPORT ---
EXAM DESCRIPTION: CT - CTHCSPWOC - 07/22/2021 8:26 am CLINICAL HISTORY: AMS, fall, head and neck injury COMPARISON: No comparisons TECHNIQUE: Axial 5 mm thick images of the head were obtained. Axial 2 mm thick images of the cervic al spine were obtained with sagittal and coronal reconstruction images generated and reviewed. All CT scans are performed using dose optimization technique as appropriate and may include automated exposure control or mA/KV adjustment according to patient size. FINDINGS: No intracranial hemorrhage, mass, edema or acute intracranial finding. No suspicion for ac douglas infarction. No cortical edema or sulcal effacement identified. Mild atrophy changes are present. Ventricles are normal size. Mastoid air cells are clear. Small air-fluid level present in the left ma xillary sinus. No additional finding that would suggest this is trauma related. No globe or orbit abn ormality seen. No skull fracture seen. Patient has a small to moderate-sized posterior left parietal scalp hematoma. Cervical body height and alignment are normal. No disk space narrowing. No fracture or acute bony abn ormality. Minimal endplate spurring changes are present. No bony foraminal encroachment from the mild facet degenerative change. Central canal detail is inherently limited. No paraspinal mass or hematoma. IMPRESSION: Posterior left parietal scalp small to moderate hematoma present. Skull is intact. No ac douglas intracranial finding. Negative CT cervical spine examination for acute or significant finding.
[2021-07-22 09:35] LABS: Absolute Lymphocytes (CBC) 1.6 K/uL (0.7-4.9); Basophils % 0.2 % (0-1.3); Hematocrit 37.7 % (36.0-45.0); Lymphocytes % 8.7 % (15.3-44.8); MPV 8.4 fL (7.6-11.3); RBC Red Blood Cell Count 4.21 M/uL (3.86-4.86)
[2021-07-22 09:39] LABS: Protime INR 0.96
--- NOTE | 2021-07-22 09:47 | RAD REPORT ---
EXAM DESCRIPTION: RAD - Chest Single View - 07/22/2021 8:50 am CLINICAL HISTORY: AMS COMPARISON: Two view chest February 2021 TECHNIQUE: AP portable chest image was obtained 07/22/2021 8:50 am . FINDINGS: No peripheral mass or consolidation. Interstitial pattern is accentuated by the low lung v olumes. Heart and vasculature are normal. No measurable pleural effusion and no pneumothorax. No acut e bony abnormality seen. No acute aortic findings suspected. IMPRESSION: Shallow inspiration exam with no acute cardiopulmonary finding. No significant change from comparison study.
--- NOTE | 2021-07-22 09:50 | RAD REPORT ---
EXAM DESCRIPTION: RAD - Humerus Left - 07/22/2021 8:50 am CLINICAL HISTORY: PAIN, fall COMPARISON: No comparisons FINDINGS: Transverse fracture of surgical neck is present with the shaft of the humerus displaced 1 full shaft width anterior and medial to the humeral head. Greater tuberosity fracture is present with several small fracture lines seen. No displacement of the fracture fragments. No dislocation of the humeral head seen. AC joint degenerative changes minimal. No gross rib abnormality seen. IMPRESSION: Left humerus transverse fracture surgical neck with 1 full shaft width displacement of t he distal fracture fragment. Comminuted, nondisplaced greater tuberosity fracture.
[2021-07-22 10:05] LABS: Urine Blood Negative (Negative); Urine Glucose 2+ (Negative); Urine Protein Negative (Negative); Urine Specific Gravity 1.015 (1.005-1.030)
[2021-07-22 10:09] LABS: Urine Appearance CLEAR (Clear); Urine Bilirubin NEGATIVE (Negative); Urine Blood NEGATIVE (Negative); Urine Color YELLOW (Yellow); Urine Glucose 3+ (Negative); Urine Protein NEGATIVE (Negative); Urine Urobilinogen 0.2 mg/dL (0.2-1.0)
[2021-07-22 10:10] LABS: Urine Microscopic Reflex NO UMIC
[2021-07-22 10:16] LABS: ALT/SGPT 26 U/L (12-78); AST/SGOT 16 U/L (15-37); Albumin 4.1 g/dL (3.4-5.0); Alkaline Phosphatase 77 U/L (45-117); BUN Blood Urea Nitrogen 16 mg/dL (7-18); Bicarbonate 23 mmol/L (21-32); Bilirubin Direct < 0.1 mg/dL (0-0.2); Bilirubin Total 0.3 mg/dL (0.2-1.0); Glucose Level 212 mg/dL (74-106); Magnesium 1.5 mg/dL (1.8-2.4); NT PRO-BNP 119 pg/mL (<125); Potassium 3.9 mmol/L (3.5-5.1); Protein, Total 7.8 g/dL (6.4-8.2); Sodium Level 141 mmol/L (136-145); Troponin (Emerg Dept Use Only) < 0.02 ng/mL (0.0-0.045)
[2021-07-22 10:17] LABS: Barbiturates POSITIVE (NEGATIVE); Benzodiazepines NEGATIVE (NEGATIVE); Cocaine NEGATIVE (NEGATIVE); METHAMPHETAM NEGATIVE (NEGATIVE); Methadone NEGATIVE (NEGATIVE); Opiates NEGATIVE (NEGATIVE); Phencyclidine NEGATIVE (NEGATIVE); THC Cannibis POSITIVE (NEGATIVE)
[2021-07-22 10:21] LABS: Blood Morphology Comment NOT SEEN (NOT SEEN); Platelet Estimate ADEQ
[2021-07-22] MEDS ORDERED: ONDANSETRON 4 MG/2 ML VIAL ONE (12:16)
[2021-07-22] MEDS ORDERED: MORPHINE 4 MG/ML SYR ONE (12:16)
[2021-07-22] MEDS ORDERED: FENTANYL CITR 100 MCG/2 ML ONE ×2 (12:20→13:51)
--- NOTE | 2021-07-22 12:55 | ER ---
Nurse's Notes [facility] Name: Priscila Draper Age: 65 yrs Sex: Female : 1955 Arrival Date: 07/22/2021 Time: 07:44 Bed 7 Private MD: Diagnosis: Altered mental status, proximal left comminuted closed humerus fracture, closed head injury, substance abuse (THC, barbiturates) Presentation: 07/22 07:44 Chief complaint: EMS states: FOUND DOWN IN HALLWAY AT [facility]. SPEECH bp SLURRED, NO FOCAL NEURO DEFICITS, H/O ETOH AND RX ABUSE. Coronavirus screen: At this time, the client does not indicate any symptoms associated with coronavirus-19. Ebola Screen: No symptoms or risks identified at this time. Initial Sepsis Screen: Does the patient meet any 2 criteria? Altered Mental Status. No. Patient's initial sepsis screen is negative. Does the patient have a suspected source of infection? No. Patient's initial sepsis screen is negative. Risk Assessment: Do you want to hurt yourself or someone else? Patient reports no desire to harm self or others. Onset of symptoms is unknown. Care prior to arrival: Glucose check: 297. 07:44 Method Of Arrival: EMS: [facility] bp 07:44 Acuity: SHIRA 2 bp Triage Assessment: 07:48 General: Appears distressed, comfortable, obese, Behavior is drowsy. Pain: Unable to bp use pain scale. Does not appear to understand pain scale. EENT: No deficits noted. Neuro: Level of Consciousness is obeys commands, confused, lethargic, Oriented to person, place. Cardiovascular: No deficits noted. Respiratory: No deficits noted. GI: No signs and/or symptoms were reported involving the gastrointestinal system. : No signs and/or symptoms were reported regarding the genitourinary system. Derm: No deficits noted. Musculoskeletal: No deficits noted. Injury Description: NONE FOUND. Historical: - Allergies: 07:48 Augmentin; bp 07:48 Bactrim; bp 07:48 Demerol; bp 07:48 Morphine; bp 07:48 NSAIDS; bp 07:48 Toradol; bp - Home Meds: 07:48 Fioricet 50-325-40 mg Oral tab [Active]; lisinopril 10 mg Oral tab 1 tab once daily bp [Active]; metformin 500 mg Oral tab 2 tabs 2 times per day [Active]; metoprolol tartrate 100 mg Oral tab 1 tab 2 times per day [Active]; Zomig Oral [Active]; Wellbutrin Oral [Active]; - PMHx: 07:48 Crohn's; Depression; Diabetes - NIDDM; Hypertension; Migraines; bp - Immunization history:: Adult Immunizations up to date. - Social history:: Smoking status: unknown. Screenin:55 Abuse screen: Denies threats or abuse. Denies injuries from another. Nutritional bp screening: No deficits noted. Tuberculosis screening: No symptoms or risk factors identified. Fall Risk No fall in past 12 months (0 pts). Assessment: 07:55 General: SEE TRIAGE NOTE. bp 09:32 Reassessment: PT RETURNED FROM RADIOLOGY. LEFT SHOULDER XRAY GROSSLY ABNORMAL. PT bp REMAINS SOMNOLENT. 12:00 Reassessment: No changes from previously documented assessment. Patient and/or family bp updated on plan of care and expected duration. Pain level reassessed. PT INCREASINGLY ALERT BUT REMAINS CONFUSED, STATING HER CAT MUST'VE DRAGGED HER INTO THE GRUBBS FROM INSIDE HER ROOM. Vital Signs: 07:44 BP 140 / 85; Pulse 90; Resp 17; Temp 97.9; Pulse Ox 99% on R/A; bp 10:00 BP 140 / 71; Pulse 79; Resp 16; Pulse Ox 100% ; bp 11:00 BP 135 / 84; Pulse 81; Resp 16; Pulse Ox 100% ; bp 12:00 BP 177 / 79; Pulse 91; Resp 16; Pulse Ox 100% ; bp NIH Stroke Scale Scores: 07:48 NIHSS Score: 3 bp ED Course: 07:44 Patient arrived in ED. bp 07:44 Tho Cottrell MD is Attending Physician. kdr 07:46 Triage completed. bp 07:48 Arm band placed on right wrist. bp 07:55 Patient has correct armband on for positive identification. Bed in low position. Call bp light in reach. Side rails up X2. 07:56 Willi Keen, RN is Primary Nurse. bp 08:26 CT Head C Spine In Process Unspecified. EDMS 08:49 XRAY Chest (1 view) In Process Unspecified. EDMS 08:49 Humerus Left XRAY In Process Unspecified. EDMS 09:15 Inserted saline lock: 18 gauge in right EJ, using aseptic technique. Blood collected. bp 12:53 Raad Rocha MD is Hospitalizing Provider. kdr Administered Medications: 12:01 Not Given (Other Intervention Used): morphine 4 mg IVP once; RASS on ADMIN: Combtv4, bp Very Agttd3, Agttd2, Rstlss1, AlertClm0, Drwsy-1, Lt Sdtn-2, Mod Sdtn-3, Dp Sdtn-4, UnArsble-5 12:01 Drug: fentaNYL (PF) 25 mcg Route: IVP; Site: right jugular; bp 13:34 Follow up: Response: Pain is decreased bp 13:15 Drug: fentaNYL (PF) 50 mcg Route: IVP; Site: right jugular; bp 16:17 Follow up: Response: Pain is decreased bp 14:00 Drug: Ativan (LORazepam) 1 mg Route: IVP; Site: right jugular; bp 16:18 Follow up: Response: Anxiety decreased bp Outcome: 12:55 Decision to Hospitalize by Provider. kdr 20:08 Patient left the ED. mw2 NIH Stroke Scale - NIH Stroke Score Date: 07/22/2021 Time: 07:48 Total Score = 3 1a. Level of Consciousness (LOC) - 1(Not Alert) 1b. Level of Consciousness (LOC) (Month \T\ Age) - 1(One) 1c. LOC Commands (Open \T\ Closes Eyes/Assistant Professor) - 0(Both) 2. Best Gaze (Lateral Gaze Paresis) - 0(Normal) 3. Visual Field Loss - 0(No visual loss) 4. Facial Palsy - 0(Normal) 5a. Left Arm: Motor (10-second hold) - 0(No drift) 5b. Right Arm: Motor (10-second hold) - 0(No drift) 6a. Left Leg: Motor (5-second hold - always test supine) - 0(No drift) 6b. Right Leg: Motor (5-second hold - always test supine) - 0(No drift) 7. Limb Ataxia (finger/nose \T\ heel/mcgovern - test with eyes open) - 0(Absent) 8. Sensory Loss (pinprick arms/legs/face) - 0(Normal) 9. Best Language: Aphasia (description/naming/reading) - 0(No aphasia) 10. Dysarthria (speech clarity - read or repeat words) - 1(Mild to Moderate) 11. Extinction and Inattention (visual/tactile/auditory/spatial/personal) - 0(No abnormality) Initials: bp Signatures: Dispatcher [employer] Tho Guzman MD MD kdr Peltier, Brian, RN RN bp Miguel Koenig mw2
--- NOTE | 2021-07-22 12:56 | EDPHYS ---
Physician Documentation [facility] Name: Priscila Draper Age: 65 yrs Sex: Female : 1955 Arrival Date: 07/22/2021 Time: 07:44 Bed 7 Private MD: ED Physician Tho Cottrell HPI: 07/22 07:57 This 65 yrs old Female presents to ER via EMS with complaints of Altered kdr Mental Status. 07:57 The patient presents with decreased mental status, decreased responsiveness, EMS kdr reports that the patient was found on the ground in her living quarters. Patient is a resident at [facility]. There is no known history of trauma. Patient is reported to have a history of substance abuse, prescription drugs, and alcohol. Onset: The symptoms/episode began/occurred at an unknown time. Possible causes: CVA or TIA, drug use, alcohol, head injury, low blood sugar. Associated signs and symptoms: Pertinent positives: confusion. Current symptoms: In the emergency department the patient's symptoms are unchanged from the initial presentation. Patient's baseline: Neuro: alert and fully oriented, Motor: no deficits, Ambulation: Patient's actual home circumstances are unknown at this time.. The patient has experienced similar episodes in the past, several times. It is unknown whether or not the patient has recently seen a physician. Historical: - Allergies: 07:48 Augmentin; bp 07:48 Bactrim; bp 07:48 Demerol; bp 07:48 Morphine; bp 07:48 NSAIDS; bp 07:48 Toradol; bp - Home Meds: 07:48 Fioricet 50-325-40 mg Oral tab [Active]; lisinopril 10 mg Oral tab 1 tab once daily bp [Active]; metformin 500 mg Oral tab 2 tabs 2 times per day [Active]; metoprolol tartrate 100 mg Oral tab 1 tab 2 times per day [Active]; Zomig Oral [Active]; Wellbutrin Oral [Active]; - PMHx: 07:48 Crohn's; Depression; Diabetes - NIDDM; Hypertension; Migraines; bp - Immunization history:: Adult Immunizations up to date. - Social history:: Smoking status: unknown. ROS: 07:57 Constitutional: Negative for fever, chills, and weight loss -due to the patient's kdr altered mental status, patient is very difficult to interview 07:57 Unable to obtain ROS due to altered mental status. Exam: 07:57 Constitutional: This is a well developed, well nourished patient who is awake, alert, kdr and in no acute distress. Head/Face: Normocephalic, atraumatic. Eyes: Pupils equal round and reactive to light, extra-ocular motions intact. Lids and lashes normal. Conjunctiva and sclera are non-icteric and not injected. Cornea within normal limits. Periorbital areas with no swelling, redness, or edema. Neck: Trachea midline, no thyromegaly or masses palpated, and no cervical lymphadenopathy. Supple, full range of motion without nuchal rigidity, or vertebral point tenderness. No Meningismus. Chest/axilla: Normal chest wall appearance and motion. Nontender with no deformity. No lesions are appreciated. Cardiovascular: Regular rate and rhythm with a normal S1 and S2. No gallops, murmurs, or rubs. Normal PMI, no JVD. No pulse deficits. Respiratory: Lungs have equal breath sounds bilaterally, clear to auscultation and percussion. No rales, rhonchi or wheezes noted. No increased work of breathing, no retractions or nasal flaring. Abdomen/GI: Soft, non-tender, with normal bowel sounds. No distension or tympany. No guarding or rebound. No evidence of tenderness throughout. Back: No spinal tenderness. No costovertebral tenderness. Full range of motion. Skin: Warm, dry with normal turgor. Normal color with no rashes, no lesions, and no evidence of cellulitis. MS/ Extremity: Pulses equal, no cyanosis. Neurovascular intact. Full, normal range of motion except for the left upper extremity. With range of motion, she complains of pain in her upper left humerus region. She is able to move her extremity below the elbow without pain. 07:57 Neuro: Orientation: to person, place, Not oriented to time, situation. 07:57 Psych: Affect is flat, Patient is not awake enough to give coherent answers to questions. Vital Signs: 07:44 BP 140 / 85; Pulse 90; Resp 17; Temp 97.9; Pulse Ox 99% on R/A; bp 10:00 BP 140 / 71; Pulse 79; Resp 16; Pulse Ox 100% ; bp 11:00 BP 135 / 84; Pulse 81; Resp 16; Pulse Ox 100% ; bp 12:00 BP 177 / 79; Pulse 91; Resp 16; Pulse Ox 100% ; bp NIH Stroke Scale Scores: 07:48 NIHSS Score: 3 bp MDM: 07:57 Data reviewed: vital signs, nurses notes, lab test result(s), radiologic studies. kdr Counseling: I had a detailed discussion with the patient and/or guardian regarding: the historical points, exam findings, and any diagnostic results supporting the discharge/admit diagnosis, lab results, radiology results. 12:55 Patient medically screened. kdr 07/22 07:56 Order name: Basic Metabolic Panel kdr 07/22 07:56 Order name: CBC with Diff kdr 07/22 07:56 Order name: LFT's; Complete Time: 11:41 kdr 07/22 07:56 Order name: Magnesium; Complete Time: 11:41 kdr 07/22 07:56 Order name: NT PRO-BNP; Complete Time: 11:41 kdr 07/22 07:56 Order name: PT-INR; Complete Time: 10:12 kdr 07/22 07:56 Order name: Troponin (emerg Dept Use Only); Complete Time: 11:41 kdr 07/22 07:56 Order name: Acetaminophen; Complete Time: 11:41 kdr 07/22 07:56 Order name: ETOH Level; Complete Time: 10:12 kdr 07/22 07:56 Order name: Ptt, Activated; Complete Time: 10:12 kdr 07/22 07:56 Order name: Salicylate; Complete Time: 11:41 kdr 07/22 07:56 Order name: Urine Drug Screen; Complete Time: 11:41 kdr 07/22 07:56 Order name: Urinalysis; Complete Time: 10:12 kdr 07/22 07:56 Order name: Basic Metabolic Panel; Complete Time: 11:41 EDMS 07/22 07:56 Order name: XRAY Chest (1 view); Complete Time: 10:12 kdr 07/22 07:56 Order name: EKG; Complete Time: 07:57 kdr 07/22 07:56 Order name: Cardiac monitoring; Complete Time: 09:31 kdr 07/22 07:56 Order name: CT Head C Spine; Complete Time: 10:12 kdr 07/22 07:56 Order name: Humerus Left XRAY; Complete Time: 10:12 kdr 07/22 07:56 Order name: CBC with Automated Diff; Complete Time: 11:41 EDMS 07/22 10:04 Order name: Urine Dipstick-Ancillary; Complete Time: 10:12 EDMS 07/22 10:20 Order name: SARS-COV-2 RT PCR; Complete Time: 11:41 EDMS 07/22 10:20 Order name: Manual Differential; Complete Time: 11:41 EDMS 07/22 17:26 Order name: Glucose, Ancillary Testing EDMS 07/22 07:56 Order name: IV Saline Lock; Complete Time: 09:31 kdr 07/22 07:56 Order name: Labs collected and sent; Complete Time: 09:31 kdr 07/22 07:56 Order name: O2 Per Protocol; Complete Time: 07:57 kdr 07/22 07:56 Order name: O2 Sat Monitoring; Complete Time: 07:57 kdr 07/22 07:56 Order name: Suicide Screening ([place]); Complete Time: 09:31 kdr 07/22 07:56 Order name: Urine Dipstick-Ancillary (obtain specimen); Complete Time: 16:18 kdr Administered Medications: 12:01 Not Given (Other Intervention Used): morphine 4 mg IVP once; RASS on ADMIN: Combtv4, bp Very Agttd3, Agttd2, Rstlss1, AlertClm0, Drwsy-1, Lt Sdtn-2, Mod Sdtn-3, Dp Sdtn-4, UnArsble-5 12:01 Drug: fentaNYL (PF) 25 mcg Route: IVP; Site: right jugular; bp 13:34 Follow up: Response: Pain is decreased bp 13:15 Drug: fentaNYL (PF) 50 mcg Route: IVP; Site: right jugular; bp 16:17 Follow up: Response: Pain is decreased bp 14:00 Drug: Ativan (LORazepam) 1 mg Route: IVP; Site: right jugular; bp 16:18 Follow up: Response: Anxiety decreased bp Disposition Summary: 07/22/21 12:55 Hospitalization Ordered Hospitalization Status: Observation kdr Provider: Raad Rocha Condition: Fair kdr Problem: new kdr Symptoms: are unchanged kdr Bed/Room Type: Standard kdr Location: Telemetry/MedSurg (observation)(07/22/21 17:09) Room Assignment: 206(07/22/21 17:09) dw Diagnosis - Altered mental status, proximal left comminuted closed humerus fracture, closed kdr head injury, substance abuse (THC, barbiturates) Forms: - Medication Reconciliation Form kdr - SBAR form kdr NIH Stroke Scale - NIH Stroke Score Date: 07/22/2021 Time: 07:48 Total Score = 3 1a. Level of Consciousness (LOC) - 1(Not Alert) 1b. Level of Consciousness (LOC) (Month \T\ Age) - 1(One) 1c. LOC Commands (Open \T\ Closes Eyes/Skiver Welt End) - 0(Both) 2. Best Gaze (Lateral Gaze Paresis) - 0(Normal) 3. Visual Field Loss - 0(No visual loss) 4. Facial Palsy - 0(Normal) 5a. Left Arm: Motor (10-second hold) - 0(No drift) 5b. Right Arm: Motor (10-second hold) - 0(No drift) 6a. Left Leg: Motor (5-second hold - always test supine) - 0(No drift) 6b. Right Leg: Motor (5-second hold - always test supine) - 0(No drift) 7. Limb Ataxia (finger/nose \T\ heel/mcgovern - test with eyes open) - 0(Absent) 8. Sensory Loss (pinprick arms/legs/face) - 0(Normal) 9. Best Language: Aphasia (description/naming/reading) - 0(No aphasia) 10. Dysarthria (speech clarity - read or repeat words) - 1(Mild to Moderate) 11. Extinction and Inattention (visual/tactile/auditory/spatial/personal) - 0(No abnormality) Initials: bp Signatures: Dispatcher [employer] EDMS Marcy Mendez, RN RN Tho Cottrell MD MD kdr Levon, Yash em1 Vero Bateman replaced by [facility] Willi Keen, RN RN bp Corrections: (The following items were deleted from the chart) 08:50 07:57 Shoulder 1 View+RAD.RAD.BRZ ordered. EDLA EDMS 09:25 07:58 CORONAVIRUS+MR.LAB.BRZ ordered. EDLA EDMS 14:57 12:55 Telemetry/MedSurg (observation) [facility] em1 14:57 12:55 kdr em1 17:09 14:57 [facility] ER HOLD em1 3 17: 14:57 ERHOLD- em1 3 17: 17:09 Telemetry/MedSurg (observation) 3 dw 17: 206 3 dw
[2021-07-22] MEDS ORDERED: LORazepam 2 MG/ML VIAL ONE (13:50)
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
[2021-07-22] MEDS ORDERED: ACETAMINOPHEN 500 MG TAB PO PRN (16:10)
[2021-07-22] MEDS: NA CHLORIDE 0.9% 1,000 ML IV SCH ×2 (16:10→23:31)
[2021-07-22] MEDS ORDERED: ONDANSETRON 4 MG/2 ML VIAL IV PRN (16:10)
[2021-07-22] MEDS ORDERED: HYDROCODONE/APAP 5/325 MG TAB PO PRN (16:10)
[2021-07-22] MEDS: INSULIN -REGULAR HUMAN 50 UNIT/0.5 ML ML SQ SCH ×2 (16:30→20:47)
[2021-07-22] MEDS: ENOXAPARIN 40 MG/0.4 ML SQ SCH (17:00)
[2021-07-22] MEDS ORDERED: NA CHLORIDE 0.9% 1,000 ML ONE (18:05)
[2021-07-22] MEDS ORDERED: ENOXAPARIN 40 MG/0.4 ML SQ ONE (18:05)
[2021-07-22 19:07] VITALS: BMI 26.6
[2021-07-23] MEDS ORDERED: FENTANYL CITR 100 MCG/2 ML IV ONE (00:27)
[2021-07-23] MEDS: HYDRALAZINE HCL 20 MG/ML VIAL IV PRN (00:39)
[2021-07-23] MEDS: NA CHLORIDE 0.9% 1,000 ML IV SCH ×3 (02:10→22:10)
[2021-07-23] MEDS: HYDROCODONE/APAP 10/325 TAB PO PRN ×4 (04:18→20:27)
[2021-07-23 06:02] LABS: Absolute Lymphocytes (CBC) 3.5 K/uL (0.7-4.9); Basophils % 0.5 % (0-1.3); Hematocrit 33.2 % (36.0-45.0); Lymphocytes % 29.5 % (15.3-44.8); MPV 8.2 fL (7.6-11.3); RBC Red Blood Cell Count 3.71 M/uL (3.86-4.86)
[2021-07-23 06:11] LABS: Phosphorus 2.4 mg/dL (2.5-4.9); Potassium 3.9 mmol/L (3.5-5.1)
[2021-07-23 06:16] LABS: Magnesium 1.4 mg/dL (1.8-2.4)
[2021-07-23] MEDS: INSULIN -REGULAR HUMAN 50 UNIT/0.5 ML ML SQ SCH ×4 (07:30→20:32)
[2021-07-23] MEDS ORDERED: Magnesium Sulfate 2gm IVPB 2 G/50 ML BAG IV ONE (07:30)
[2021-07-23] MEDS: POTASS/SODIUM PHOSPHATE 1 PKT POWD.PACK PO SCH ×3 (07:49→10:23)
[2021-07-23] MEDS: ENOXAPARIN 40 MG/0.4 ML SQ SCH (07:51)
[2021-07-23] MEDS ORDERED: POTASSIUM CL SA 10 MEQ TAB PO ONE (09:00)
[2021-07-23] MEDS ORDERED: HOME MED 1 EA UNK (Metoprolol Tartrate [Lopressor] 100 MG Tablet) PO SCH (13:36)
[2021-07-23] MEDS ORDERED: ZOLMITRIPTAN 5 MG PO PRN (13:36)
[2021-07-23] MEDS: METOPROLOL TAR 50 MG TAB PO SCH (14:22)
[2021-07-23] MEDS: METFORMIN HCL 500 MG TAB PO SCH (16:23)
--- NOTE | 2021-07-23 18:10 | P.PN ---
Subjective Date of Service: 07/23/21 Chief Complaint: AMS, left humerus fracture Patient has no new complain. I am told a relative reported patient was suicidal. Patient endorsed suicidal ideation. Physical Examination - Vital Signs Temperature: 98.4 F Blood Pressure: 135/76 Pulse: 75 Respirations: 20 Pulse Ox (%): 98 - Physical Exam General: Alert, In no apparent distress HEENT: Mucous membr. moist/pink Neck: Supple, JVD not distended Respiratory: Clear to auscultation bilaterally, Normal air movement Cardiovascular: No edema, Regular rate/rhythm, Normal S1 S2 Gastrointestinal: Normal bowel sounds, Soft and benign, Non-distended, No tenderness Integumentary: No rashes, No erythema Neurological: Normal strength at 5/5 x4 extr Assessment And Plan Physician Review Additional Text: Problem list Acute encephalopathy, likely secondary to drug intoxication/overmedicated Left proximal humeral fracture involving surgical neck, nondisplaced greater tuberosity fracture Hypertension Aft-tqguclk-vfapqkkgf diabetes mellitus type 2 Depression Crohn's disease Suicidal ideation Urine toxicology positive for barbiturates and THC. Nonoperative management for the humerus fracture per Dr. Vallejo. Arm in Sling, nonweightbearing, pain control. Seen by physical therapy. Patient is independent. Requested mental health examination for disposition. Patient may need inpatient psychiatry. Resume home medications including antihypertensives and metformin. VTE: Lovenox Code: full
[2021-07-23] MEDS ORDERED: HOME MED 1 EA UNK (Metformin Hcl [Metformin Hcl] 1,000 MG Tablet) PO SCH (21:00)
[2021-07-24] MEDS: HYDROCODONE/APAP 10/325 TAB PO PRN ×4 (01:11→21:13)
[2021-07-24] MEDS: NA CHLORIDE 0.9% 1,000 ML IV SCH (04:39)
[2021-07-24 06:07] LABS: BUN Blood Urea Nitrogen 11 mg/dL (7-18); Bicarbonate 24 mmol/L (21-32); Glucose Level 124 mg/dL (74-106); Phosphorus 1.8 mg/dL (2.5-4.9); Potassium 4.2 mmol/L (3.5-5.1); Sodium Level 142 mmol/L (136-145)
[2021-07-24] MEDS: INSULIN -REGULAR HUMAN 50 UNIT/0.5 ML ML SQ SCH ×4 (07:23→21:00)
[2021-07-24] MEDS: clonazePAM 1 MG TAB PO PRN ×2 (08:00→21:14)
[2021-07-24] MEDS: METFORMIN HCL 500 MG TAB PO SCH ×2 (08:00→16:59)
[2021-07-24] MEDS: POTASS/SODIUM PHOSPHATE 1 PKT POWD.PACK PO SCH ×3 (08:00→09:54)
[2021-07-24] MEDS: ENOXAPARIN 40 MG/0.4 ML SQ SCH (08:00)
[2021-07-24] MEDS: METOPROLOL TAR 50 MG TAB PO SCH (08:00)
--- NOTE | 2021-07-24 12:46 | P.PN ---
Subjective Date of Service: 07/24/21 Chief Complaint: AMS, left humerus fracture Patient has no new complain today. She ambulated independently with physical therapy and has no physical therapy needs. Physical Examination - Vital Signs Temperature: 98.3 F Blood Pressure: 156/85 Pulse: 64 Respirations: 17 Pulse Ox (%): 100 - Physical Exam General: Alert, In no apparent distress HEENT: Mucous membr. moist/pink Neck: JVD not distended Respiratory: Clear to auscultation bilaterally, Normal air movement Cardiovascular: Regular rate/rhythm, Normal S1 S2 Gastrointestinal: Soft and benign, Non-distended, No tenderness Musculoskeletal: Other (Left arm in a sling) Integumentary: No rashes Neurological: Normal strength at 5/5 x4 extr - Studies Laboratory Data (last 24 hrs) 07/23/21 14:14: Magnesium 2.1 D Assessment And Plan Physician Review Additional Text: Problem list Acute encephalopathy, likely secondary to drug intoxication/overmedicated Left proximal humeral fracture involving surgical neck, nondisplaced greater tuberosity fracture Hypertension Eow-qfyywqw-ajsytspez diabetes mellitus type 2 Depression Crohn's disease Suicidal ideation Urine toxicology positive for barbiturates and THC. Nonoperative management for the humerus fracture per Dr. Vallejo. Arm in Sling, nonweightbearing, pain control. Seen by physical therapy. Patient is independent. Seen by mental health who recommended inpatient psychiatry. Awaiting for substance to inpatient psychiatry. Continue home medications. VTE: Lovenox Code: full
[2021-07-24 18:56] LABS: Urine Appearance CLOUDY (Clear); Urine Bilirubin NEGATIVE (Negative); Urine Blood 1+ (Negative); Urine Color YELLOW (Yellow); Urine Glucose NEGATIVE (Negative); Urine Protein NEGATIVE (Negative); Urine Specific Gravity 1.015 (1.005-1.030); Urine pH 5.5 (5.0-7.0)
[2021-07-24 19:04] LABS: Urine Microscopic Reflex ORDER UMIC
[2021-07-24 20:07] LABS: Urine Bacteria >50 /HPF (<20); Urine RBC <5 /HPF (NONE SEEN)
[2021-07-24] MEDS: HYDRALAZINE HCL 20 MG/ML VIAL IV PRN (21:14)
[2021-07-24] MEDS: lisinopriL 10 MG TAB PO SCH (21:48)
[2021-07-25] MEDS: HYDROCODONE/APAP 10/325 TAB PO PRN ×4 (04:50→21:07)
[2021-07-25 05:47] LABS: Absolute Lymphocytes (CBC) 3.4 K/uL (0.7-4.9); Basophils % 0.6 % (0-1.3); Hematocrit 30.9 % (36.0-45.0); Lymphocytes % 33.3 % (15.3-44.8); MPV 8.5 fL (7.6-11.3); RBC Red Blood Cell Count 3.38 M/uL (3.86-4.86)
[2021-07-25 06:08] LABS: Phosphorus 2.1 mg/dL (2.5-4.9); Potassium 3.9 mmol/L (3.5-5.1)
[2021-07-25] MEDS: INSULIN -REGULAR HUMAN 50 UNIT/0.5 ML ML SQ SCH ×4 (07:30→21:00)
[2021-07-25] MEDS: METFORMIN HCL 500 MG TAB PO SCH ×2 (08:01→16:39)
[2021-07-25] MEDS: ENOXAPARIN 40 MG/0.4 ML SQ SCH (08:20)
[2021-07-25] MEDS: METOPROLOL TAR 50 MG TAB PO SCH (08:20)
[2021-07-25] MEDS: lisinopriL 10 MG TAB PO SCH (08:21)
[2021-07-25] MEDS: POTASS/SODIUM PHOSPHATE 1 PKT POWD.PACK PO SCH ×3 (08:40→10:49)
[2021-07-25] MEDS ORDERED: POTASSIUM CL SA 10 MEQ TAB PO ONE (09:00)
[2021-07-25] MEDS: clonazePAM 1 MG TAB PO PRN ×2 (10:19→21:07)
--- NOTE | 2021-07-25 11:46 | P.PN ---
Subjective Date of Service: 07/25/21 Chief Complaint: AMS, left humerus fracture Patient complaining of dysuria. UA done last night suggested presence of UTI. No fever. Physical Examination - Vital Signs Temperature: 98.0 F Blood Pressure: 153/63 Pulse: 81 Respirations: 18 Pulse Ox (%): 98 - Physical Exam General: Alert, In no apparent distress, Oriented x3 HEENT: Mucous membr. moist/pink Respiratory: Clear to auscultation bilaterally, Normal air movement Cardiovascular: No edema, Regular rate/rhythm, Normal S1 S2 Gastrointestinal: Soft and benign, Non-distended Musculoskeletal: No swelling Integumentary: No rashes Neurological: Other (No focal motor deficit) Assessment And Plan Physician Review Additional Text: Problem list Acute encephalopathy, likely secondary to drug intoxication/overmedicated Left proximal humeral fracture involving surgical neck, nondisplaced greater tuberosity fracture Hypertension Hym-reeuckq-ixyuzrpdl diabetes mellitus type 2 Depression Crohn's disease Suicidal ideation UTI Urine toxicology positive for barbiturates and THC. Nonoperative management for the humerus fracture per Dr. Vallejo. Arm in Sling, nonweightbearing, pain control. Seen by physical therapy. Patient is independent. Seen by mental health who recommended inpatient psychiatry. Awaiting for acceptance to inpatient psychiatry. Continue home medications. Start Levaquin for UTI. Follow urine culture. VTE: Lovenox Code: full
[2021-07-25] MEDS ORDERED: Levofloxacin 750mg IV 750 MG/150 ML BAG IV SCH (12:00)
[2021-07-25] MEDS: levoFLOXacin 750 MG TAB PO SCH (13:52)
[2021-07-25] MEDS ORDERED: ZOLMITRIPTAN 5 MG PO PRN (16:00)
[2021-07-25 22:01] VITALS: O2SAT 98
[2021-07-26 05:53] LABS: BUN Blood Urea Nitrogen 10 mg/dL (7-18); Bicarbonate 24 mmol/L (21-32); Glucose Level 113 mg/dL (74-106); Phosphorus 2.9 mg/dL (2.5-4.9); Potassium 4.3 mmol/L (3.5-5.1); Sodium Level 140 mmol/L (136-145)
[2021-07-26] MEDS: HYDROCODONE/APAP 10/325 TAB PO PRN ×2 (07:10→11:25)
[2021-07-26] MEDS: INSULIN -REGULAR HUMAN 50 UNIT/0.5 ML ML SQ SCH ×2 (07:30→11:30)
[2021-07-26] MEDS: clonazePAM 1 MG TAB PO PRN (08:52)
[2021-07-26] MEDS: METFORMIN HCL 500 MG TAB PO SCH (08:53)
[2021-07-26] MEDS: levoFLOXacin 750 MG TAB PO SCH (08:53)
[2021-07-26] MEDS: lisinopriL 10 MG TAB PO SCH (08:53)
[2021-07-26] MEDS: METOPROLOL TAR 50 MG TAB PO SCH (08:53)
[2021-07-26] MEDS: ENOXAPARIN 40 MG/0.4 ML SQ SCH (08:54)
--- NOTE | 2021-07-26 11:26 | P.DS ---
Admission Date: 07/23/21 Discharge Date: 07/26/21 Disposition: TRANSFR TO OTHER-PSY/CD/REHAB Discharge Condition: FAIR Reason for Admission: AMS, left humerus fracture - Problems (1) Fall Status: Acute (2) Left humeral fracture Status: Acute (3) Acute cystitis without hematuria Status: Acute (4) Suicidal ideation Status: Acute Brief History of Present Illness: 65-year-old woman with a history of hypertension, diabetes mellitus type 2, migraine depression and Crohn's disease was brought to department with a complaint of altered mental status. Patient is a resident in a [facility]. She was found on the floor in her apartment and minimally responsive. Her urine toxicology screen was positive for marijuana and barbiturates. Patient was more awake in the emergency department. She reported her daughter committed suicide a few months ago. She had no recollection of the events that led to her fall. X-ray done in the emergency department demonstrated displaced surgical neck fracture of the left humerus. The patient was hospitalized for further management. Hospital Course: Acute encephalopathy, likely secondary to drug intoxication/overmedicated Left proximal humeral fracture involving surgical neck, nondisplaced greater tuberosity fracture Hypertension Fwt-jjyoibs-voqezccgw diabetes mellitus type 2 Depression Crohn's disease Suicidal ideation UTI Urine toxicology positive for barbiturates and THC. Nonoperative management for the humerus fracture per Dr. Vallejo. Arm was put in a Sling, nonweightbearing, pain control. Seen by physical therapy. Patient noted to be independent with mobility. Her friend reported suicidal ideation. Seen by mental health who recommended inpatient psychiatry. Patient has been accepted to inpatient psychiatry. She is clinically stable for transfer Noted her urine culture grew E. coli. The patient is being treated with Levaquin. Vital Signs/Physical Exam: Temp Pulse Resp BP Pulse Ox 97.8 F 86 16 170/71 H 100 07/26/21 07:59 07/26/21 07:59 07/26/21 11:25 07/26/21 07:59 07/26/21 11:25 General: Alert, In no apparent distress, Oriented x3 HEENT: Mucous membr. moist/pink Neck: JVD not distended Respiratory: Clear to auscultation bilaterally, Normal air movement Cardiovascular: No edema, Regular rate/rhythm, Normal S1 S2 Gastrointestinal: Soft and benign, Non-distended, No tenderness Musculoskeletal: No swelling, Other (Left arm in a sling.) Integumentary: No rashes, No erythema Neurological: Normal strength at 5/5 x4 extr Laboratory Data at Discharge: WBC 10.30 K/uL (4.3-10.9) D 07/25/21 05:09 Hgb 10.4 g/dL (12.0-15.0) L 07/25/21 05:09 Hct 30.9 % (36.0-45.0) L 07/25/21 05:09 Plt Count 267 K/uL (152-406) 07/25/21 05:09 PT 11.0 SECONDS (9.5-12.5) 07/22/21 09:20 INR 0.96 07/22/21 09:20 APTT 18.3 SECONDS (24.3-36.9) L 07/22/21 09:20 Sodium 140 mmol/L (136-145) 07/26/21 05:11 Potassium 4.3 mmol/L (3.5-5.1) 07/26/21 05:11 BUN 10 mg/dL (7-18) 07/26/21 05:11 Creatinine 0.63 mg/dL (0.55-1.3) 07/26/21 05:11 Glucose 113 mg/dL (74-106) H 07/26/21 05:11 Phosphorus 2.9 mg/dL (2.5-4.9) 07/26/21 05:11 Magnesium Cancelled 07/24/21 13:00 Total Bilirubin 0.3 mg/dL (0.2-1.0) 07/22/21 09:20 AST 16 U/L (15-37) 07/22/21 09:20 ALT 26 U/L (12-78) 07/22/21 09:20 Alkaline Phosphatase 77 U/L (45-117) 07/22/21 09:20 Home Medications: Metformin HCl 2,000 mg PO BID 07/23/21 Metoprolol Tartrate [Lopressor] 100 mg PO BID 07/23/21 ZOLMitriptan [Zolmitriptan Odt] 5 mg PO BIDP PRN 07/23/21 clonazePAM [Clonazepam] 0.5 mg PO BIDP PRN 07/23/21 Bupropion *Xl* [Wellbutrin XL*] 300 mg PO DAILY 07/24/21 Lisinopril [Zestril] 10 mg PO DAILY 07/24/21 levoFLOXacin [Levaquin] 500 mg PO DAILY #4 tab 07/26/21 New Medications: levoFLOXacin [Levaquin] 500 mg PO DAILY #4 tab Diet: ADA Activity: Ad alfredo Followup: Edin Hoskins MD [Primary Care Provider] - 1-2 Weeks Time spent managing pt's care (in minutes): 38
[2021-07-26 12:25] VITALS: BP 147/56; TEMP 97.6
== END 2021-07-26 12:01 | DRG 92 ==
LOC: ER 07:36 → ERHOLD 14:42 → 2ND 20:09 → OBSVTOIN 07-23 18:17
PROVIDERS: ADMIT Hospitalist; ATTEND Hospitalist
DX: G92 Toxic encephalopathy (principal); S42.215A Unspecified nondisplaced fracture of surgical neck of left humerus, initial encounter for closed fracture; S42.255A Nondisplaced fracture of greater tuberosity of left humerus, initial encounter for closed fracture; K50.90 Crohn's disease, unspecified, without complications; R45.851 Suicidal ideations; N39.0 Urinary tract infection, site not specified; T40.7X5A Adverse effect of cannabis (derivatives), initial encounter; F13.129 Sedative, hypnotic or anxiolytic abuse with intoxication, unspecified; W06.XXXA Fall from bed, initial encounter; Y92.009 Unspecified place in unspecified non-institutional (private) residence as the place of occurrence of the external cause; I10 Essential (primary) hypertension; E11.9 Type 2 diabetes mellitus without complications; F32.9 Major depressive disorder, single episode, unspecified; B96.20 Unspecified Escherichia coli [E. coli] as the cause of diseases classified elsewhere; Z88.2 Allergy status to sulfonamides; Z20.822 Contact with and (suspected) exposure to COVID-19
CPT/HCPCS: 36415; 70450; 71045; 72125; 80048; 80076; 80307; 80320; 80329; 81003; 81015; 82947; 83735; 83880; 84100; 84145; 84484; 85025; 85610; 85730; 87077; 87086; 87088; 87186; 96374; 96375; 97161; 99284; G0378; J0360; J1650; J2405; J3010; J3475; J7030; U0003

== ENCOUNTER 2022-01-12 12:17 | Inpatient (IN) | payer OTHER ==
--- OUTSIDE RECORDS SUMMARY | 2022-01-12 12:21 | XMS REPORT | Continuity of Care Document ---
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 ZOSTER VACCINE (1 of [facility] Test 21:21:53 2) [code = ZOSTER of Medicin e VACCINE (1 of 2)] Future Scheduled 2021-08-16 Screening for [facility] Col [facility]ge Test 21:21:53 osteoporosis of Medicine (procedure) [code = 616452151] Future Scheduled 2021-08-16 PNEUMOVAX >=65 [facility] Test 21:21:53 (PPSV23) [code = of Medicine PNEUMOVAX >=65 (PPSV23)] Future Scheduled 2021-08-16 MEDICARE IPPE [facility] Col lege Test 21:21:53 (WELCOME TO of Medicine MEDICARE) [code = MEDICARE IPPE (WELCOME TO MEDICARE)] Future Scheduled 2021-08-16 FLU VACCINE > 6 Postponed from [facility] Test 21:21:53 MONTHS [code = FLU 06/13/2021 of Medici ne VACCINE > 6 MONTHS] (Postpone Reason: Patient declined today) Future Scheduled 2021-08-16 FALL SCREEN [code = [facility] [place] Test 21:21:53 FALL SCREEN] of Medicine Future Scheduled 2021-08-13 ID SLINGS [code = Ordered: [facility] Test 08:55:33 A4565] 08/13/2021 of Medicine Future Scheduled 2021-08-13 ID SLINGS [code = Ordered: [facility] Test 08:55:33 A4565] 08/13/2021 of Medicine Future Scheduled 2021-08-12 ORT - XR HUMERUS Ordered: [facility] Test 15:25:08 LEFT 2V (CHARGE 08/12/2021 of Medicine ONLY) [code = 80365] Future Scheduled 2021-08-12 ORT - XR FOREARM Ordered: [facility] Test 15:25:08 LEFT 2V (CHARGE 08/12/2021 of Medicine ONLY) [code = 80176] Future Scheduled 2021-08-12 ORT - XR HUMERUS Ordered: [facility] Test 15:25:08 LEFT 2V (CHARGE 08/12/2021 of Medicine ONLY) [code = 30381] Future Scheduled 2021-08-12 ORT - XR FOREARM Ordered: [facility] Test 15:25:08 LEFT 2V (CHARGE 08/12/2021 of Medicine ONLY) [code = 35545] Encounters Start End Encounter Admission Attending Care Care Encounter Source Date/Time Date/Time Type Type Clinicians Facility Department ID 2021-12-08 [facility] [id number] [facility] 13:53:41 Willi [address] [facility] 2021-11-04 2021-11-04 Office Antonii, BCM [id number] [facility] 14:10:00 15:25:35 Visit Tha Aicha AMBULATOR 350.1.13.21 College Y 0.2.7.2.686 of [id number] Medi mann 600 e 2021-09-30 2021-09-30 Office ANTONII, [facility] [id number] [facility] 13:47:14 16:16:55 Visit THA AMBULATOR 350.1.13.21 College Y 0.2.7.2.686 of [id number] Medi mann 600 e 2021-09-30 2021-09-30 Outpatient [facility] [id number] [facility] 14:05:28 14:05:28 Colleg e of Medicin e 2021-09-09 2021-09-09 Office Antonii, [facility] [id number] [facility] 14:00:34 15:47:31 Visit Tha Aicha AMBULATOR 350.1.13.21 College Y 0.2.7.2.686 of [id number] Medi mann 600 e 2021-09-09 2021-09-09 Outpatient [facility] [id number] [facility] 14:23:58 14:23:58 Colleg e of Medicin e 2021-08-19 2021-08-21 Outpatient EL ATASSI, [facility] Surgery [id number] [facility] 05:55:00 09:56:00 THA 2021-08-19 2021-08-19 Outpatient [facility] [id number] [facility] 05:55:00 23:59:00 Colleg e of Medicin e 2021-08-19 2021-08-19 Outpatient [facility] [id number] [facility] 00:00:00 05:54:00 Colleg e of Medicin e 2021-08-12 2021-08-12 Office MICHEL [facility] [id number] [facility] 15:07:25 16:23:59 Visit THA AMBULATOR 350.1.13.21 College Y 0.2.7.2.686 [id number] [facility] mann 600 e 2021-08-12 2021-08-12 Outpatient [facility] [id number] [facility] 15:27:40 15:27:40 Colleg e of Medicin e 2021-06-19 2021-06-20 Emergency [facility] [id number] [facility] 22:50:00 07:02:00 [facility] [id number] [facility] 084 Branch 2021-06-19 2021-06-19 Emergency X [facility] ERT [id number] [facility] 22:50:00 22:50:00 GRISELDA [facility] 2020-06-23 2020-06-23 Outpatient Raju_P [facility] [id number] [place] 12:25:00 12:25:00 08[facility] Results Test Description Test Time Test Comments Results Result Comments Source POCT-GLUCOSE METER 2021-08-20 22:34:45 Test Item Value Reference Range Interpretation Comme nts POC-GLUCOSE METER (BEAKER) 110 mg/dL 70-110 : TESTED AT [facility] [address]TAY (test code = 1538) JOHN [place], [address]: Inspector Salvage/Techni dante ID = [id number] for NIKOLE PAIGE HEMOGLOBIN AND [id number] 21:10:22 Test Item Value Reference Range Interpretation Comments HEMOGLOBIN (JULIENNE) (test code = 9.8 GM/DL 11.2-15.7 L 410) HEMATOCRIT (JULIENNE) (test code = 30.5 % 34.1-44.9 L 411) Inspector Salvage ID - [id number]-GLUCOSE [id number] 23:24:02 Test Item Value Reference Range Interpretation Comments POC-GLUCOSE METER 152 mg/dL 70-110 H : TESTED A T [facility] 67[address] (JULIENNE) (test code = JUNAID [place], 1538) [address]: Inspector Salvage/Techni danet ID = [id number] for No rman, Fernando [place], FLUORO, NON-SPECIFIC, UP TO 1 [id number] 11:28:00Reason for exam:- >[facility] : 1955 Sex: FFluoroscopic unit utilized for a procedure performed in the OR. No interpretation was requested. Refer to the operative report for findings. Refer to PACS for patient radiation dose information.SARS-COV2/RT-PCR ([facility])2021-08-19 07:59:00 Test Item Value Reference Range Interpretation Comments SARS-COV2/RT-PCR Negative Negative The SARS-Co V-2 target (test code = nucleic acids a re not 4087483) detected in thi s specimen. Negative result s do not preclude SARS-C oV-2 infection and s hould not be used as the colin e basis for patient managem ent decisions. Nega tive results must be combine d with clinical observ ations, patient history , and epidemiological information. A false negativ e result may occur if a spec imen is improperly tito ected, transported or handled. This SARS CoV-2 test is a rapid, real-zoila e RT-PCR test intended for th e qualitative detection of nu cleic acid from SARS-CoV-2 in a nasopharyngeal swab specimen collected from individuals suspected of CO VID-19 by their healthcar e provider. This test has been authorized by FDA under an EUA for use by authorized laboratories. This test is only authorized for the duration of the declaration that circumstances exist justifying the authorization of emergency use of in vitro diagnostic tests for detection and/or diagnosis of COVID-19 under Section 564(b)(1) of the Federal Food, Drug and Cosmetic Act, 21 U.S.C. 360bbb- 3(b)(1), unless the authorization is terminated or revoked sooner. Fact Sheet for Healthcare Providers: https://www.[employer]/Documents/Xpert%20Xpress%20SARS%20CoV-2/Fact%20Sheets/302-3802%20SARS-COV -2%20HEALTHCARE%20PROVIDERS%20FACT%20SHEET.pdf Fact Sheet for Healthcare Patients: https://www.[employer]/Documents/Xpert %20Xpress%20SARS%20CoV-2/Fact%20Sheets/302-3801%10HLQL-BGN-2%20PATIENT%20FACT%20 SHEET.pdfBASI METABOLIC [id number] 07:57:58 Test Item Value Reference Range Interpretation Comments SODIUM (BEAKER) 138 meq/L 136-145 (test code = 381) POTASSIUM (BEAKER) 4.2 meq/L 3.5-5.1 (test code = 379) CHLORIDE (BEAKER) 107 meq/L 98-107 (test code = 382) CO2 (BEAKER) (test 21 meq/L 22-29 L code = 355) BLOOD UREA NITROGEN 14 mg/dL 7-21 (BEAKER) (test code = 354) CREATININE (BEAKER) 0.93 mg/dL 0.57-1.25 (test code = 358) GLUCOSE RANDOM 110 mg/dL 70-105 H (BEAKER) (test code = 652) CALCIUM (BEAKER) 8.9 mg/dL 8.4-10.2 (test code = 697) EGFR (BEAKER) (test 60 mL/min/1.73 ESTIMA CHARI GFR IS code = 1092) sq m NOT ACCURATE CREATININE CLEARANCE IN PREDICTING GLOMERULAR FILTRATION RATE . ESTIMATED GFR I S NOT APPLICABLE FOR DIALYSIS PATIEN TS. Inspector Salvage ID - PIAYA LPOCT-GLUCOSE [id number] 07:51:17 Test Item Value Reference Range Interpretation Comments POC-GLUCOSE METER 100 mg/dL 70-110 : TESTED A T [facility] 6720 (BEAKER) (test code = JUNAID [place], 1538) [address]: Inspector Salvage/Techni dante ID = [id number] for MONSTER BARILLAS [id number] 07:35:31 Test Item Value Reference Range Interpretation Comments HEMOGLOBIN (BEAKER) (test code = 10.6 GM/DL 11.2-15.7 L 410) Inspector Salvage ID - [id number] 10:59:30 Test Item Value Reference Range Interpretation Comments APPEARANCE (test code = Clear Clear 6541968245) COLOR (test code = Yellow Yellow 5631848672) PH (test code = 4.8-8.0 3442939851) SP GRAVITY (test code = 1.003-1.030 9781347240) GLU U QUAL (test code = Normal Normal 6990196838) BLOOD (test code = Negative Negative 1160973175) KETONES (test code = Negative Negative 3528954033) PROTEIN (test code = Negative Negative 2887-8) UROBILIN (test code = Normal Normal 1755171042) BILIRUBIN (test code = Negative Negative 7966381837) NITRITE (test code = Negative Negative 0726762494) LEUK ALE (test code = Negative Negative 9359129935) RBC/HPF (test code = See_Comment [Autom ated message] 7445946819) The system [employer] generated this result transmitted ref erence range: 0 - 3 HP F. The reference range was not used to int erpret this result as normal/abnormal . WBC/HPF (test code = See_Comment [Autom ated message] 0536662476) The system [employer] generated this result transmitted ref erence range: 0 - 5 HP F. The reference range was not used to int erpret this result as normal/abnormal . BACTERIA (test code = Negative Negative 4967317238) MUCOUS (test code = Slight Negative LPF A 7989152305) Lab Interpretation (test Abnormal code = 83464-4) [facility] [id number] 05:32:53 Test Item Value Reference Interpretation Comments Range TROPONIN I (test 0.001 ng/mL See_Comment [Automated code = 7880592367) message] The system which generated this result transmitted reference range : <=0.034. The reference range was not used to interpret this result as normal/abnormal . PATRICIA (test code = Reference (Normal) PATRICIA) Range (defined by the 99th percentile reference limit): <= 0.034 ng/mL Note: Cardiac troponin begins to rise 3-4 hours after the onset of ischemia. Repeat in 4-6 hours if the sample was drawn within 3-4 hours of the onset of the symptom and found normal. Diagnosis of myocardial injury is made with acute changes in cTn concentrations with at least one serial sample above the 99th percentile upper reference limit (URL), taken together with the patient's clinical presentation. Biotin has been reported to cause a negative bias, interpret results relative to patient's use of biotin. Lab Interpretation Normal (test code = 68729-2) [facility] WITH [id number] 05:21:59 Test Item Value Reference Range Interpretation Comments WBC (test code = See_Comment [Automated 2385-2) message] The sy stem which generated this result transmitted reference range : 4.30 - 11.10 10*3/?L. The reference range was not used to interpret this result as normal/abnormal . RBC (test code = See_Comment [Automated 599-8) message] The sy stem which generated this result transmitted reference range : 3.93 - 5.25 10*6/?L. The reference range was not used to interpret this result as normal/abnormal . HGB (test code = 14.1 g/dL 11.6-15.0 718-7) HCT (test code = 44.1 % 35.7-45.2 4544-3) MCV (test code = 91.9 fL 80.6-95.5 787-2) MCH (test code = 29.4 pg 25.9-32.8 785-6) MCHC (test code = 32.0 g/dL 31.6-35.1 786-4) RDW-SD (test code = 49.1 fL 39.0-49.9 62174-6) RDW-CV (test code = 14.6 % 12.0-15.5 788-0) PLT (test code = See_Comment [Automated 777-3) message] The sy stem which generated this result transmitted reference range : 166 - 358 10*3/ ?L. The reference r francheska was not used to interpret this result as normal/abnormal . MPV (test code = 9.8 fL 9.5-12.9 33195-9) NRBC/100 WBC (test See_Comment [Automat ed code = 0631856547) message] The system which generated this result transmitted reference range : 0.0 - 10.0 /100 WBCs. The refer ence range was not u sed to interpret th is result as normal/abnormal . NRBC x10^3 (test code <0.01 See_Comment [Auto mated = 2421573507) message] The s ystem which generated this result transmitted reference range : 10*3/?L. The reference range was not used to interpret this result as normal/abnormal . GRAN MAT (NEUT) % 40.1 % (test code = 770-8) IMM GRAN % (test code 0.10 % = 8714393101) LYMPH % (test code = 49.7 % 736-9) MONO % (test code = 6.7 % 5905-5) EOS % (test code = 2.9 % 713-8) BASO % (test code = 0.5 % 706-2) GRAN MAT x10^3(ANC) 3.35 10*3/uL 1.88-7.09 (test code = 3888615709) IMM GRAN x10^3 (test <0.03 0.00-0.06 code = 9294360153) LYMPH x10^3 (test code 4.15 10*3/uL 1.32-3.29 H = 731-0) MONO x10^3 (test code 0.56 10*3/uL 0.33-0.92 = 742-7) EOS x10^3 (test code = 0.24 10*3/uL 0.03-0.39 711-2) BASO x10^3 (test code 0.04 10*3/uL 0.01-0.07 = 704-7) Lab Interpretation Abnormal (test code = 77065-6) [facility]. METABOLIC PANEL (85268)2021-06-20 05:21:34 Test Item Value Reference Range Interpretation Comments NA (test code = 143 mmol/L 135-145 3339917365) K (test code = 4.1 mmol/L 3.5-5.0 6946471198) CL (test code = 106 mmol/L 98-108 0103767683) CO2 TOTAL (test code = 27 mmol/L 23-31 8744631672) AGAP (test code = 2-16 4963870260) BUN (test code = 17 mg/dL 7-23 1027905676) GLUCOSE (test code = 130 mg/dL 70-110 H 3938819815) CREATININE (test code = 1.11 mg/dL 0.50-1.04 H 8395042103) TOTAL BILI (test code = 0.4 mg/dL 0.1-1.1 6460886572) CALCIUM (test code = 10.1 mg/dL 8.6-10.6 1668041628) T PROTEIN (test code = 7.9 g/dL 6.3-8.2 1050835772) ALBUMIN (test code = 4.8 g/dL 3.5-5.0 7636208285) ALK PHOS (test code = 91 U/L 34-122 3000448128) ALTv (test code = 17 U/L 5-35 1742-6) AST(SGOT) (test code = 22 U/L 13-40 7000261468) eGFR (test code = mL/min/1.73m2 0928696648) PATRICIA (test code = PATRICIA) Association of Glomerular Filtration Rate (GFR) and Staging of Kidney Disease* + --+ --+ ------+| GFR (mL/min/1.73 m2) ?| With Kidney Damage ?| ?Without Kidney Damage+ --------+ --------+ +| ?>90 ?| ?Stage one ?| ? Normal ?+ ---+ ---+ -------+| ?60-89 ?| ?Stage two ?| ? Decreased GFR ? + --+ --+ ------+| ?30-59 ?| ?Stage three ?| ? Stage three ? + --+ --+ ------+| ?15-29 ?| ?Stage four ? | ? Stage four ?+ ---+ ---+ -------+| ?<15 (or dialysis) ? ?| ?Stage five ? | ? Stage five ?+ ---+ ---+ -------+ *Each stage assumes the associated GFR level has been in effect for at least three months. ?Stages 1 to 5, with or without kidney disease, indicate chronic kidney disease. Notes: Determination of stages one and two (with eGFR >59mL/min/1.73 m2) requires estimation of kidney damage for at least three months as defined by structural or functional abnormalities of the kidney, manifested by either:Pathological abnormalities or Markers of kidney damage (including abnormalities in the composition of the blood or urine or abnormalities in imaging tests). Lab Interpretation Abnormal (test code = 24413-4) [facility] 05:20:54 Test Item Value Reference Range Interpretation Comments LIPASE (test code = 6188286543) 34 U/L 0-220 Lab Interpretation (test code = Normal 62328-6) [facility] AllianceCOVID-19 (ID NOW RAPID TESTING)2021-06-20 05:07:29 Test Item Value Reference Range Interpretation Comments SARS-CoV-2 Rapid ID NOW Not Detected Not Detected (test code = 53975-5) PATRICIA (test code = PATRICIA) ID NOW COVID-19 Assay is an isothermal nucleic acid amplification test intended for the qualitative detection of nucleic acid from SARS-CoV-2 viral RNA in nasopharyngeal (DUMPSTER OPERATOR) specimens. It is used under Emergency Use Authorization (EUA) by FDA. The limit of detection (LOD) of the assay is 125 Genome Equivalents/mL. A positive result is indicative of the presence of SARS-CoV-2 RNA. ?Clinical correlation with patient history and other diagnostic information is necessary to determine patient infection status. A negative (Not Detected) result does not preclude SARS-CoV-2 infection. In patients with clinical symptoms and other tests that are consistent with SARS-CoV-2 infection, negative results should be treated as presumptive negative and a new specimen should be tested with alternative PCR molecular test. Invalid: Please collect a new specimen for repeat patient testing if clinically indicated. Lab Interpretation Normal (test code = 79209-3) [facility] GLUCOSE (AUTOMATED)2021-06-20 05:02:02 Test Item Value Reference Range Interpretation Comments POCT GLU (test code = 0277272724) 132 mg/dL 70-110 H Lab Interpretation (test code = Abnormal 62763-1) [facility] GLUCOSE(AGE >30DAYS)2021-06-20 05:02:00 Test Item Value Reference Range Interpretation Comments POCT Glu (age>30days) (test code = 132 mg/dL 70-110 A 3342) Lab Interpretation (test code = Abnormal 40223-5) [facility]
[2022-01-12 13:03] LABS: Urine Blood Negative (Negative); Urine Glucose Trace (Negative); Urine Protein Negative (Negative); Urine pH 5.5 (5.0-7.0)
[2022-01-12 13:13] LABS: Absolute Lymphocytes (CBC) 2.5 K/uL (0.7-4.9); Hematocrit 30.7 % (36.0-45.0); Lymphocytes % 32.9 % (15.3-44.8); MPV 8.7 fL (7.6-11.3); RBC Red Blood Cell Count 3.81 M/uL (3.86-4.86)
[2022-01-12 13:23] LABS: Protime INR 0.94
--- NOTE | 2022-01-12 13:25 | RAD REPORT ---
EXAM DESCRIPTION: CT - Head Brain Wo Cont - 01/12/2022 1:14 pm CLINICAL HISTORY: HEADACHE Headache, drowsiness. COMPARISON: HEAD BRAIN W O CONTRAST dated 03/26/2014; HEAD BRAIN W O CONTRAST dated 06/04/2008 TECHNIQUE: All CT scans are performed using dose optimization technique as appropriate and may inclu de automated exposure control or mA/KV adjustment according to patient size. FINDINGS: No intracranial hemorrhage, hydrocephalus or extra-axial fluid collection.Moderate general ized brain atrophy.No areas of brain edema or evidence of midline shift. The paranasal sinuses and mastoids are clear. The calvarium is intact. IMPRESSION: No acute intracranial abnormality.
[2022-01-12 13:33] LABS: ALT/SGPT 19 U/L (12-78); AST/SGOT 10 U/L (15-37); Albumin 3.4 g/dL (3.4-5.0); Alkaline Phosphatase 76 U/L (45-117); BUN Blood Urea Nitrogen 22 mg/dL (7-18); Bicarbonate 23 mmol/L (21-32); Bilirubin Total 0.2 mg/dL (0.2-1.0); Glucose Level 157 mg/dL (74-106); Magnesium 1.8 mg/dL (1.8-2.4); NT PRO-BNP 235 pg/mL (<125); Potassium 4.5 mmol/L (3.5-5.1); Protein, Total 6.6 g/dL (6.4-8.2); Sodium Level 143 mmol/L (136-145)
--- NOTE | 2022-01-12 13:36 | RAD REPORT ---
EXAM DESCRIPTION: RAD - Chest Single View - 01/12/2022 1:20 pm CLINICAL HISTORY: CHEST PAIN Chest pain. COMPARISON: Chest Single View dated 07/22/2021; Chest Pa And Lat (2 Views) dated 02/14/2021; Chest Pa An d Lat (2 Views) dated 11/07/2019; Chest Single View dated 10/16/2019 FINDINGS: Portable technique limits examination quality. The lungs are grossly clear. The heart is upper limit of normal in size. No displaced fractures.Hardw are is present proximal left humerus. IMPRESSION: No acute intrathoracic process suspected.
[2022-01-12 13:37] LABS: Bilirubin Direct < 0.1 mg/dL (0-0.2)
[2022-01-12] MEDS ORDERED: CEFTRIAXONE 1000 MG/VIAL ONE (13:56)
[2022-01-12] MEDS ORDERED: NA CHLORIDE 0.9% 1,000 ML ONE (13:57)
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
[2022-01-12] MEDS ORDERED: ACETAMINOPHEN 500 MG TAB PO PRN (16:17)
[2022-01-12] MEDS ORDERED: ONDANSETRON 4 MG/2 ML VIAL IV PRN (16:17)
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
[2022-01-12] MEDS ORDERED: INSULIN -REGULAR HUMAN 50 UNIT/0.5 ML ML SQ SCH (16:30)
[2022-01-12 16:35] LABS: Barbiturates NEGATIVE (NEGATIVE); Benzodiazepines NEGATIVE (NEGATIVE); Cocaine NEGATIVE (NEGATIVE); METHAMPHETAM NEGATIVE (NEGATIVE); Methadone NEGATIVE (NEGATIVE); Opiates NEGATIVE (NEGATIVE); Phencyclidine NEGATIVE (NEGATIVE); THC Cannibis POSITIVE (NEGATIVE)
--- NOTE | 2022-01-12 16:54 | RAD REPORT ---
EXAM DESCRIPTION: CTAbdomen Pelvis W Contrast - 01/12/2022 4:35 pm CLINICAL HISTORY: Abdominal pain. lower back pain. IV contrast only, no PO COMPARISON: Abdomen Pelvis W Contrast dated 10/16/2020 TECHNIQUE: Biphasic CT imaging of the abdomen and pelvis was performed with 100 ml non-ionic IV cont rast. All CT scans are performed using dose optimization technique as appropriate and may include automated exposure control or mA/KV adjustment according to patient size. FINDINGS: The lung bases are clear.Cholecystectomy clips. The liver, spleen, pancreas, adrenal glands are within normal limits. Benign appearing right renal cy sts are noted. Slightly complex appearing left renal cystic lesion is noted measuring 27 mm laterally . This does not appear significantly different in 2020 comparative study. No bowel obstruction, free air, free fluid or abscess. Appendectomy. Prominent fecal retention is se en throughout the colon. There is a mild thickened appearance to the rectosigmoid colon. No evidence of significant lymphadenopathy. No suspicious bony findings. IMPRESSION: Mild rectosigmoid colitis is possible. There is significant fecal retention proximal col on.
[2022-01-12] MEDS ORDERED: LORazepam 2 MG/ML VIAL ONE (16:59)
[2022-01-12] MEDS ORDERED: NA CHLORIDE 0.9% 1,000 ML IV SCH (17:00)
[2022-01-12] MEDS ORDERED: ENOXAPARIN 40 MG/0.4 ML SQ SCH ×2 (17:00→21:00)
[2022-01-12] MEDS ORDERED: Levofloxacin 750mg IV 750 MG/150 ML BAG IV SCH ×2 (17:00→22:00)
[2022-01-12 21:44] VITALS: O2SAT 100
[2022-01-12] MEDS ORDERED: TRAMADOL HCL 50 MG TAB PO ONE (22:03)
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
[2022-01-12 23:25] VITALS: BP 170/87; TEMP 97.9
== END 2022-01-12 22:15 | disposition left against medical advice (07) | DRG 690 ==
LOC: ER 12:17 → ERHOLD 17:02 → 2ND 20:58
PROVIDERS: ADMIT Hospitalist; ATTEND Hospitalist
DX: N39.0 Urinary tract infection, site not specified (principal); K50.90 Crohn's disease, unspecified, without complications; E11.9 Type 2 diabetes mellitus without complications; F32.A Depression, unspecified; I10 Essential (primary) hypertension; Z88.1 Allergy status to other antibiotic agents; Z88.5 Allergy status to narcotic agent; Z88.8 Allergy status to other drugs, medicaments and biological substances; Z79.84 Long term (current) use of oral hypoglycemic drugs; Z79.899 Other long term (current) drug therapy; Z53.29 Procedure and treatment not carried out because of patient's decision for other reasons; Z90.710 Acquired absence of both cervix and uterus; Z87.891 Personal history of nicotine dependence; Z20.822 Contact with and (suspected) exposure to COVID-19; Z66 Do not resuscitate
CPT/HCPCS: 36415; 70450; 71045; 74177; 80048; 80076; 80307; 81003; 82947; 83735; 83880; 84145; 84484; 85025; 85610; 87086; 87088; 93005; 96365; 99285; J1650; J7030; U0003

== ENCOUNTER 2022-08-04 09:34 | Observation (INO) | payer OTHER ==
--- OUTSIDE RECORDS SUMMARY | 2022-08-04 09:41 | XMS REPORT | Continuity of Care Document ---
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 Scheduled 2021-08-16 COVID-19 Vaccine (1) [facility] Test 21:21:53 [code = COVID-19 of Medicine Vaccine (1)] Future Scheduled 2021-08-16 TETANUS SHOT (ADULT) [facility] Test 21:21:53 [code = TETANUS SHOT of Medi cine (ADULT)] Future Scheduled 2021-08-16 BMI FOLLOW UP PLAN [facility] Test 21:21:53 [code = BMI FOLLOW UP of Med icine PLAN] Future Scheduled 2021-08-16 Hepatitis C screening [facility] Test 21:21:53 (procedure) [code = of Medic ine 062467870] Future Scheduled 2021-08-16 ZOSTER VACCINE (1 of [facility] Test 21:21:53 2) [code = ZOSTER of Medicin e VACCINE (1 of 2)] Future Scheduled 2021-08-16 Screening for [facility] Test 21:21:53 osteoporosis of Medicine (procedure) [code = 695138820] Future Scheduled 2021-08-16 PNEUMOVAX >=65 [facility] [employer] Test 21:21:53 (PPSV23) [code = of Medicine PNEUMOVAX >=65 (PPSV23)] Future Scheduled 2021-08-16 MEDICARE IPPE [facility] Test 21:21:53 (WELCOME TO MEDICARE) of Med icine [code = MEDICARE IPPE (WELCOME TO MEDICARE)] Future Scheduled 2021-08-16 FLU VACCINE > 6 Postponed from [facility] Test 21:21:53 MONTHS [code = FLU 06/13/2021 of Medici ne VACCINE > 6 MONTHS] (Postpone Reason: Patient declined today) Future Scheduled 2021-08-16 FALL SCREEN [code = [employer] [facility] 21:21:53 FALL SCREEN] of Medicine Future Scheduled 2021-08-13 OH SLINGS [code = Ordered: [facility] Test 08:55:33 A4565] 08/13/2021 of Medicine Future Scheduled 2021-08-13 [place] SLINGS [code = Ordered: [facility] Test 08:55:33 A4565] 08/13/2021 of Medicine Future Scheduled 2021-08-12 ORT - XR HUMERUS LEFT Ordered: [employer] [facility] [employer] Test 15:25:08 2V (CHARGE ONLY) 08/12/2021 of Medicine [code = 71606] Future Scheduled 2021-08-12 ORT - XR FOREARM LEFT Ordered: [employer] [employer] Test 15:25:08 2V (CHARGE ONLY) 08/12/2021 of Medicine [code = 29244] Future Scheduled 2021-08-12 ORT - XR HUMERUS LEFT Ordered: [employer] [employer] Test 15:25:08 2V (CHARGE ONLY) 08/12/2021 of Medicine [code = 28271] Future Scheduled 2021-08-12 ORT - XR FOREARM LEFT Ordered: [employer] [employer] Test 15:25:08 2V (CHARGE ONLY) 08/12/2021 of Medicine [code = 40265] Future Scheduled 2018 PNEUMOCOCCAL 65+ YRS [facility] Test 00:00:00 (1 - PCV) [code = Medical Ce nter PNEUMOCOCCAL 65+ YRS (1 - PCV)] Future Scheduled 2003 SHINGLES VACCINES ([address] [facility] Test 00:00:00 of 2) [code = Medical Center SHINGLES VACCINES (1 of 2)] Future Scheduled 1972 DTAP/TDAP/TD VACCINES [facility] Test 00:00:00 (1 - Tdap) [code = Medical C enter DTAP/TDAP/TD VACCINES (1 - Tdap)] Future Scheduled 1971 HEPATITIS C SCRE[facility]ING [facility] Test 00:00:00 [code = HEPATITIS C [facility] SCREENING] Future Scheduled 1954-04-20 COVID-19 VACCINE (#1) [facility] Test 00:00:00 [code = COVID-[address] VACCINE (#1)] Future Scheduled [address] [facility] Test 00:00:00 malignant neoplasm of Medica l Center breast (procedure) [code = 158309721] Future Scheduled [address] [facility] Test 00:00:00 (combo) [code = CT Medical C enter Colonography (combo)] Future Scheduled [address] [facility] Test 00:00:00 malignant neoplasm of Medica l Center colon (procedure) [code = 563001407] Future Scheduled [address] [facility] Test 00:00:00 malignant neoplasm of Medica l Center colon (procedure) [code = 613707444] Future Scheduled 1955 DXA SCAN [code = DXA [facility] Test 00:00:00 SCAN] [facility] Future Scheduled [address] [facility] Test 00:00:00 malignant neoplasm of Medica l Center colon (procedure) [code = 370675164] Future Scheduled [address] [facility] Test 00:00:00 malignant neoplasm of Medica l Center colon (procedure) [code = 182346819] Future Scheduled 1955 Sigmoidoscopy [code = [facility] Test 00:00:00 Sigmoidoscopy] Medical Cente r Encounters Start End Encounter Admission Attending Care Care Encounter Source Date/Time Date/Time Type Type Clinicians Facility Department ID 2021-12-08 Outpatient Matti, STLMLC [facility] [id number] Common 13:53:41 Willi [id number] [facility] - [facility] 2021-11-04 2021-11-04 Office NIYAH Hitchcock [id number] [facility] 14:10:00 15:25:35 Visit Thamarc Alexandre AMBULATOR 350.1.13.21 College Y 0.2.7.2.686 of [id number] Medi mann 600 e 2021-09-30 2021-09-30 Office NIYAH HITCHCOCK [id number] [facility] 13:47:14 16:16:55 Visit THA AMBULATOR 350.1.13.21 College Y 0.2.7.2.686 of [id number] Medi mann 600 e 2021-09-30 2021-09-30 Outpatient BCM BCM [id number] [facility] 14:05:28 14:05:28 Colleg e of Medicin e 2021-09-09 2021-09-09 Office NIYAH Hitchcock [id number] [facility] 14:00:34 15:47:31 Visit Tha Alexandre AMBULATOR 350.1.13.21 College Y 0.2.7.2.686 of [id number] [facility] mann 600 e 2021-09-09 2021-09-09 Outpatient BCM [facility] [id number] [facility] 14:23:58 14:23:58 Colleg e of Medicin e 2021-08-19 2021-08-21 [facility] [id number] 05:55:00 09:56:00 Encounter [facility] 2021-08-19 2021-08-21 Outpatient [facility] Surgery [id number] [facility] 05:55:00 09:56:00 BOOKER 2021-08-19 2021-08-19 Outpatient BCM [facility] [id number] [facility] 05:55:00 23:59:00 [facility] Medicin e 2021-08-19 2021-08-19 Anesthesia Landy Guillen [facility] [id number] [facility] 08[facility]44[facility]00 12:55[facility]00 [facility]-19 2021-08-19 Surgery [facility] [id number] 09:00:00 12:41:00 [facility] 2021-08-19 2021-08-19 Outpatient BCM [facility] [id number] [facility] 00:00:00 05:54:00 [facility] Medicin e 2021-08-19 2021-08-19 Travel [facility] [id number] [facility] 00:00:00 00:00:00 [facility] 2021-08-12 2021-08-12 Office NALDO NIYAH [id number] [facility] 15:07:25 16:23:59 Visit THA AMBULATOR 350.1.13.21 College Y 0.2.7.2.686 [id number] [facility] mann 600 e 2021-08-12 2021-08-12 Outpatient [facility] [id number] [facility] 15:27:40 15:27:40 [facility] Medicin e 2021-06-19 2021-06-20 Emergency [facility] [id number] [id number] [facility] 22:50:00 07:02:00 Griselda Rose [place] [facility].10 [facility] 4.2.7.2.686 [facility] [id number] [facility] [address] 2021-06-19 2021-06-19 Emergency X [facility] ERT [id number] [facility] 22:50:00 22:50:00 GRISELDA gilmore [facility] 2020-06-23 2020-06-23 Outpatient Raju_P MMG MMG [id number] [place] 12:25:00 12:25:00 0811 [facility] Results Test Description Test Time Test Comments Results Result Comments Source POC-Glucose meter 2021-08-20 22:34:45 Test Item Value Reference Range Interpretation Comme nts POC-Glucose Meter (test code = 110 mg/dL 70-110 : TESTED AT [facility] [address] 1538) [facility], 770 30: Network Programmer/Techni dante ID = [id number] for NKIOLE PAIGE Lab Interpretation (test code = Normal 08063-8) [facility] [id number] 22:34:45 Test Item Value Reference Range Interpretation Comments POC-GLUCOSE METER 110 mg/dL 70-110 : TESTED A T [facility] [address]20 (BEAKER) (test code = JUNAID Adames [facility], 1538) [address]: Network Programmer/Techni dante ID = [id number] for [place] NIKOLE HERNÁNDEZ Hemoglobin and [id number] 21:10:22 Test Item Value Reference Range Interpretation Comments Hemoglobin (test code 9.8 See_Comment L [Auto mated = 786-4) message] The system which generated this result transmit chari reference range : 11.2 - 15.7 GM/ DL. The reference range was not u sed to interpret th is result as normal/abnormal . Hematocrit (test code 30.5 % 34.1-44.9 L = 4544-3) PATRICIA (test code = PATRICIA) Network Programmer ID - [id number] Lab Interpretation Abnormal (test code = 25070-6) [facility] AND [id number] 21:10:22 Test Item Value Reference Range Interpretation Comments HEMOGLOBIN (BEAKER) (test code = 9.8 GM/DL 11.2-15.7 L 410) HEMATOCRIT (BEAKER) (test code = 30.5 % 34.1-44.9 L 411) Network Programmer ID - [id number]-GLUCOSE [id number] 23:24:02 Test Item Value Reference Range Interpretation Comments POC-GLUCOSE METER 152 mg/dL 70-110 H : TESTED A T [facility] 6720 (BEAKER) (test code = BERTSID Adames [facility], 1538) [address]: Network Programmer/Techni datne ID = [id number] for No rman, Fernando [place], FLUORO, NON-SPECIFIC, UP TO 1 [id number] 11:28:00Reason for exam:- >ORIF [facility] : 1955 Sex: FFluoroscopic unit utilized for a procedure performed in the OR. No interpretation was requested. Refer tothe operative report for findings. Refer to PACS for patient radiation dose information.ABORH, [id number] 10:52:00 Test Item Value Reference Range Interpretation Comments ABO Grouping (test code = 2588) A Rh Factor (test code = 2589) POS [facility]Type and screen, [id number] 08:19:00 Test Item Value Reference Range Interpretation Comments ABO/RH AUTOMATED (BEAKER) (test A POSITIVE code = 2260) Ab Scrn (test code = 890-4) NEGATIVE [facility] (Asymptomatic ONLY)2021-08-19 07:59:00 Test Item Value Reference Interpretation Comments Range SARS-COV2/RT-PCR Negative Negative The SARS-Co V-2 (test code = target nucleic 64172-4) acids are not detected in thi s specimen. Negat sharri results do not preclude SARS-C oV-2 infection and should not be u sed as the sole bas is for patient management decisions. Nega tive results must be combined with clinical observations, patient history , and epidemiolog ical information. A false negative result may occu r if a specimen is improperly collected, transported or handled. This S ARS CoV-2 test is a rapid, real-zoila e RT-PCR test intended for th e qualitative detection of nucleic acid fr om SARS-CoV-2 in a nasopharyngeal swab specimen collec chari from individual s suspected of COVID-19 by the ir healthcare provider. PATRICIA (test code = This test has been PATRICIA) authorized by FDA under an EUA for use by authorized laboratories. This test is only authorized for the duration of the declaration that circumstances exist justifying the authorization of emergency use of in vitro diagnostic tests for detection and/or diagnosis of COVID-19 under Section 564(b)(1) of the Federal Food, Drug and Cosmetic Act, 21 U.S.C. 360bbb-3(b)(1), unless the authorization is terminated or revoked sooner. Fact Sheet for Healthcare Providers: https://www.Akimbo.com/Documents/Xp ert%20Xpress%20SAR S%20CoV-2/Fact%20S heets/302-3802%20S ARS-COV-2%20HEALTH CARE%20PROVIDERS%2 0FACT%20SHEET.pdf Fact Sheet for Healthcare Patients: https://www.Kibin/Documents/Xp ert%20Xpress%20SAR S%20CoV-2/Fact%20S heets/302-3801%20S ARS-COV-2%20PATIEN T%20FACT%20SHEET.p df Lab Interpretation Normal (test code = 47084-3) [facility] ([facility])2021-08-19 07:59:00 Test Item Value Reference Range Interpretation Comments SARS-COV2/RT-PCR Negative Negative The SARS-Co V-2 target (test code = nucleic acids a re not 8910825) detected in thi s specimen. Negative result [...] This SARS CoV-2 test is a rapid, real-time RT-PC R test intended for th e qualitative detection [...] Food, Drug and Cosmetic Act, 21 U.S.C. 360bbb-3(b)(1), unless the authorization is terminated or revoked sooner. Fact Sheet for Healthcare Providers: https://www.Xray Imatek m/Documents/Xpert%20Xpress%20SARS%20CoV-2/Fact%20Sheets/302-3802%15DEAR-NLL-7%20 HEALTHCARE%20PROVIDERS%20FACT%20SHEET.pdf Fact Sheet for Healthcare Patients: https://www.[employer]/Documents/Xpert%20Xp ress%20SARS%20CoV-2/Fact%20Sheets/302-3801%83EZWV-AMJ-7%20PATIENT%20FACT%20SHEET .pdfNatchaug Hospital Metabolic [id number] 07:57:58 Test Item Value Reference Range Interpretation Comments Sodium (test code = 138 meq/L 337-828 8698-2) Potassium (test code = 4.2 meq/L 3.5-5.1 2823-3) Chloride (test code = 107 meq/L 98-107 2075-0) CO2 (test code = 21 meq/L 22-29 L 2028-9) BUN (test code = 14 mg/dL 7-21 3094-0) Creatinine (test code 0.93 mg/dL 0.57-1.25 = 2160-0) Glucose (test code = 110 mg/dL 70-105 H 2345-7) Calcium (test code = 8.9 mg/dL 8.4-10.2 16400-2) EGFR (test code = 60 mL/min/1.73 [place] [address]-0) NOT ACCURATE CREATININE CLEARANCE IN PREDICTING GLOMERULAR FILTRATION RATE . ESTIMATED GFR I S NOT APPLICABLE FOR DIALYSIS PATIENTS. PATRICIA (test code = PATRICIA) Network Programmer ID - PIAYA L Lab Interpretation Abnormal (test code = 55817-6) [facility] METABOLIC [id number] 07:57:58 Test Item Value Reference Range Interpretation [...] S NOT APPLICABLE FOR DIALYSIS PATIEN TS. Network Programmer ID - PIPIPPA LPOCT-GLUCOSE [id number] 07:51:17 Test Item Value Reference Range Interpretation Comments POC-GLUCOSE METER 100 mg/dL 70-110 : TESTED A T [facility] 6720 (BEAKER) (test code = JUNAID LOPEZ [place], 1538) [address]: Network Programmer/Techni dante ID = [id number] for MONSTER BARILLAS [id number] 07:35:31 Test Item Value Reference Range Interpretation Comments Hemoglobin (test code 10.6 See_Comment L [Auto mated = 786-4) message] The system which generated this result transmit chari reference range : 11.2 - 15.7 GM/ DL. The reference range was not u sed to interpret th is result as normal/abnormal . PATRICIA (test code = PATRICIA) Network Programmer ID - [id number] Lab Interpretation Abnormal (test code = 93473-2) [facility]IN2021-10-07 07:35:31 Test Item Value Reference Range Interpretation Comments HEMOGLOBIN (BEAKER) (test code = 10.6 GM/DL 11.2-15.7 L 410) Network Programmer ID - [id number] 10:59:30 Test Item Value Reference Range Interpretation Comments APPEARANCE (test code = Clear Clear 3889525805) COLOR (test code = Yellow Yellow 1643240219) PH (test code = 4.8-8.0 4238892866) SP GRAVITY (test code = 1.003-1.030 5191471426) GLU U QUAL (test code = Normal Normal 8083840654) BLOOD (test code = Negative Negative 2235770569) KETONES (test code = Negative Negative 4961587258) PROTEIN (test code = Negative Negative 2887-8) UROBILIN (test code = Normal Normal 9551232193) BILIRUBIN (test code = Negative Negative 4153130438) NITRITE (test code = Negative Negative 2646236006) LEUK ALE (test code = Negative Negative 9612951878) RBC/HPF (test code = See_Comment [Autom ated message] 3762169749) The system Axial generated this result transmitted ref erence range: 0 - 3 HP F. The reference range was not used to int erpret this result as normal/abnormal . WBC/HPF (test code = See_Comment [Autom ated message] 8330931642) The system Axial generated this result transmitted ref erence range: 0 - 5 HP F. The reference range was not used to int erpret this result as normal/abnormal . BACTERIA (test code = Negative Negative 6371057109) MUCOUS (test code = Slight Negative LPF A 0512161220) Lab Interpretation (test Abnormal code = 56948-7) [facility] [id number] 05:32:53 Test Item Value Reference Interpretation Comments Range TROPONIN I (test 0.001 ng/mL See_Comment [Automated code = 6940289419) message] The system which generated this result [...] biotin. Lab Interpretation Normal (test code = 18611-6) [facility] WITH [id number] 05:21:59 Test Item Value Reference Range Interpretation Comments WBC (test code = See_Comment [Automated 6690-2) message] The sy stem which generated this result transmitted reference range : 4.30 - 11.10 10*3/?L. The reference range was not used to interpret this result as normal/abnormal . RBC (test code = See_Comment [Automated 789-8) message] The sy stem which generated this [...] RDW-SD (test code = 49.1 fL 39.0-49.9 78137-9) RDW-CV (test code = 14.6 % 12.0-15.5 788-0) PLT (test code = See_Comment [Automated 777-3) message] The sy stem which generated this result transmitted reference range : 166 - 358 10*3/ ?L. The reference r francheska was not used to interpret this result as normal/abnormal . MPV (test code = 9.8 fL 9.5-12.9 77540-5) NRBC/100 WBC (test See_Comment [Automat ed code = 6839217849) message] The system which generated this result transmitted reference range : 0.0 - 10.0 /100 WBCs. The refer ence range was not u sed to interpret th is result as normal/abnormal . NRBC x10^3 (test code <0.01 See_Comment [Auto mated = 4086477996) message] The s ystem which generated this result transmitted reference range : 10*3/?L. The reference range was not used to interpret this result as normal/abnormal . GRAN MAT (NEUT) % 40.1 % (test code = 770-8) IMM GRAN % (test code 0.10 % = 9890416708) LYMPH % (test code = 49.7 % 736-9) MONO % (test code = 6.7 % 5905-5) EOS % (test code = 2.9 % 713-8) BASO % (test code = 0.5 % 706-2) GRAN MAT x10^3(ANC) 3.35 10*3/uL 1.88-7.09 (test code = 9544677851) IMM GRAN x10^3 (test <0.03 0.00-0.06 code = 9675160467) LYMPH x10^3 (test code 4.15 10*3/uL 1.32-3.29 H = 731-0) MONO x10^3 (test code 0.56 10*3/uL 0.33-0.92 = 742-7) EOS x10^3 (test code = 0.24 10*3/uL 0.03-0.39 711-2) BASO x10^3 (test code 0.04 10*3/uL 0.01-0.07 = 704-7) Lab Interpretation Abnormal (test code = 05315-3) [facility]. METABOLIC PANEL (93183)2021-06-20 05:21:34 Test Item Value Reference Range Interpretation Comments NA (test code = 143 mmol/L 135-145 3510568777) K (test code = 4.1 mmol/L 3.5-5.0 4216223861) CL (test code = 106 mmol/L 98-108 3243119471) CO2 TOTAL (test code = 27 mmol/L 23-31 6203150872) AGAP (test code = 2-16 7573954606) BUN (test code = 17 mg/dL 7-23 1422608851) GLUCOSE (test code = 130 mg/dL 70-110 H 7852675019) CREATININE (test code = 1.11 mg/dL 0.50-1.04 H 6116259590) TOTAL BILI (test code = 0.4 mg/dL 0.1-1.3 0986544707) CALCIUM (test code = 10.1 mg/dL 8.6-10.6 4674668561) T PROTEIN (test code = 7.9 g/dL 6.3-8.2 1492209311) ALBUMIN (test code = 4.8 g/dL 3.5-5.0 9860812913) ALK PHOS (test code = 91 U/L 34-122 1523696433) ALTv (test code = 17 U/L 5-35 1742-6) AST(SGOT) (test code = 22 U/L 13-40 0553220633) eGFR (test code = mL/min/1.73m2 2738838176) PATRICIA (test code = PATRICIA) Association of [...] tests). Lab Interpretation Abnormal (test code = 31500-0) [facility] 05:20:54 Test Item Value Reference Range Interpretation Comments LIPASE (test code = 5138928687) 34 U/L 0-220 Lab Interpretation (test code = Normal 52814-9) [facility] (ID NOW RAPID TESTING)2021-06-20 05:07:29 Test Item Value Reference Range Interpretation Comments SARS-CoV-2 Rapid ID NOW Not Detected Not Detected (test code = 81031-1) PTARICIA (test code = PATRICIA) ID NOW COVID-19 Assay is an isothermal nucleic acid amplification test intended for the qualitative detection of nucleic acid from SARS-CoV-2 viral RNA in nasopharyngeal (ALTERNATIVE MEDICINE PRACTITIONER) specimens. It is used under Emergency Use [...] indicated. Lab Interpretation Normal (test code = 46849-1) [facility] GLUCOSE (AUTOMATED)2021-06-20 05:02:02 Test Item Value Reference Range Interpretation Comments POCT GLU (test code = 9129508502) 132 mg/dL 70-110 H Lab Interpretation (test code = Abnormal 45576-6) [facility] GLUCOSE(AGE >30DAYS)2021-06-20 05:02:00 Test Item Value Reference Range Interpretation Comments POCT Glu (age>30days) (test code = 132 mg/dL 70-110 A 3342) Lab Interpretation (test code = Abnormal 71988-2) [facility]
[2022-08-04] MEDS ORDERED: FAMOTIDINE 20 MG/2 ML VIAL IV ONE (10:24)
[2022-08-04] MEDS ORDERED: ONDANSETRON 4 MG/2 ML VIAL ONE ×3 (10:24→20:36)
[2022-08-04] MEDS ORDERED: NA CHLORIDE 0.9% 1,000 ML ONE (10:24)
[2022-08-04 10:37] LABS: SARS-CoV-2 Antigen Rapid Res Negative (Negative)
[2022-08-04 10:40] LABS: Absolute Lymphocytes (CBC) 1.6 K/uL (0.7-4.9); Hematocrit 41.8 % (36.0-45.0); Lymphocytes % 12.4 % (15.3-44.8); MCV 89.5 fL (80-100); MPV 8.7 fL (7.6-11.3); RBC Red Blood Cell Count 4.67 M/uL (3.86-4.86)
[2022-08-04 10:56] LABS: Protime INR 0.93
--- NOTE | 2022-08-04 11:00 | RAD REPORT ---
EXAM DESCRIPTION: RAD - Chest Single View - 08/04/2022 10:25 am CLINICAL HISTORY: ABDOMINAL DISTENTION Chest pain. COMPARISON: Chest Single View dated 01/12/2022; Chest Single View dated 07/22/2021; Chest Pa And Lat (2 Views) dated 02/14/2021; Chest Pa And Lat (2 Views) dated 11/07/2019 FINDINGS: Portable technique limits examination quality. The lungs are grossly clear. The heart is normal in size. No displaced fractures. Hardware is present proximal left humerus. IMPRESSION: No acute intrathoracic process suspected.
[2022-08-04 11:05] LABS: Albumin 3.9 g/dL (3.4-5.0); Bilirubin Direct 0.1 mg/dL (0-0.2); Bilirubin Total 0.2 mg/dL (0.2-1.0); Magnesium 1.8 mg/dL (1.8-2.4); Potassium 4.4 mmol/L (3.5-5.1); Protein, Total 7.9 g/dL (6.4-8.2); Troponin High Sensitivity 9.2 pg/mL (<58.9)
--- NOTE | 2022-08-04 11:42 | RAD REPORT ---
EXAM DESCRIPTION: CTAbdomen Pelvis W Contrast - 08/04/2022 11:28 am CLINICAL HISTORY: Abdominal pain. Abdominal pain, acute, nonlocalized COMPARISON: Abdomen Pelvis W Contrast dated 01/12/2022; Abdomen Pelvis W Contrast dated 10/16/2020 TECHNIQUE: Biphasic CT imaging of the abdomen and pelvis was performed with 100 ml non-ionic IV cont rast. All CT scans are performed using dose optimization technique as appropriate and may include automated exposure control or mA/KV adjustment according to patient size. FINDINGS: The lung bases are clear. Tiny low-density hepatic lesions are likely benign cysts. Cholecystectomy. Common bile duct measures up to 7 mm. The spleen, adrenal glands are normal. Pancreatic parenchyma is unremarkable. Kidneys susu w bilateral renal cysts. No solid mass or hydronephrosis. There is moderate edema in the wall of the duodenal C-loop which appears thickened up to 11 mm with s urrounding inflammation. No bowel obstruction, free air, free fluid or abscess. Appendectomy. No evidence of significant lym phadenopathy. No suspicious bony findings. IMPRESSION: There is moderate inflammation and thickening involving the duodenal C-loop. This may be related to infection or inflammation. Although no ulcer is seen, ulcer disease or could also result in this appearance. Recommend upper endoscopy for direct visualization of this region.
--- NOTE | 2022-08-04 12:43 | ER ---
Nurse's Notes [facility] Name: Priscila Draper Age: 66 yrs Sex: Female : 1955 Arrival Date: 08/04/2022 Time: 09:38 Bed 28 Private MD: Diagnosis: Acute peptic ulcer, site unspecified, without hemorrhage or perforation;Epigastric abdominal tenderness;Vomiting Presentation: 08/04 09:45 Chief complaint: Patient states: unable to tolerate food for 2 days, pt reports nausea aa5 and vomiting since Monday, reports diarrhea the first few days but none for 2 days. Pt states "my stomach feels like there is gas trapped in there". 09:45 Coronavirus screen: nausea, vomiting. Ebola Screen: Patient denies travel to an [facility] Ebola-affected area in the 21 days before illness onset. Initial Sepsis Screen: Does the patient meet any 2 criteria? No. Patient's initial sepsis screen is negative. Does the patient have a suspected source of infection? No. Patient's initial sepsis screen is negative. Risk Assessment: Do you want to hurt yourself or someone else? Patient reports no desire to harm self or others. Onset of symptoms was July 2022. 09:45 Method Of Arrival: Ambulatory aa5 09:45 Acuity: SHIRA 3 aa5 Historical: - Allergies: 09:51 Augmentin; aa5 09:51 Bactrim; aa5 09:51 Demerol; aa5 09:51 Morphine; aa5 09:51 NSAIDS; aa5 09:51 Toradol; aa5 - PMHx: 09:51 Crohn's; Depression; Diabetes - NIDDM; Hypertension; Migraines; Schizophrenia; aa5 - PSHx: 09:52 Tonsillectomy; Appendectomy; hysterectomy; Cholecystectomy; knee sx; aa5 - Immunization history:: Adult Immunizations unknown. - Social history:: Smoking status: Patient denies any tobacco usage or history of. - Family history:: not pertinent. Screenin:00 Abuse screen: Denies threats or abuse. Denies injuries from another. Nutritional mb8 screening: No deficits noted. Tuberculosis screening: No symptoms or risk factors identified. Fall Risk None identified. Assessment: 10:00 Pain: Complains of pain in abdomen. GI: Abdomen is flat, non-distended, Abd is soft and mb8 non tender Reports nausea, vomiting. 10:01 General: Appears uncomfortable, Behavior is calm, cooperative, appropriate for age. mb8 12:04 Reassessment: Patient and/or family updated on plan of care and expected duration. Pain mb8 level reassessed. Patient is alert, oriented x 3, equal unlabored respirations, skin warm/dry/pink. 16:43 Reassessment: Patient and/or family updated on plan of care and expected duration. Pain mb8 level reassessed. Patient is alert, oriented x 3, equal unlabored respirations, skin warm/dry/pink. Patient states feeling better. 17:06 Reassessment: Patient and/or family updated on plan of care and expected duration. Pain mb8 level reassessed. Patient is alert, oriented x 3, equal unlabored respirations, skin warm/dry/pink. Patient states feeling better. Vital Signs: 09:45 BP 186 / 87; Pulse 68; Resp 18 S; Temp 97.6(O); Pulse Ox 99% on R/A; Weight 75.3 kg aa5 (R); Height 5 ft. 3 in. (160.02 cm) (R); 12:03 BP 157 / 67; Pulse 59; Resp 16; Pulse Ox 100% ; mb8 14:56 BP 139 / 56; Pulse 57; Resp 16; Pulse Ox 99% ; Pain 8/10; mb8 17:06 BP 190 / 75; Pulse 54; Resp 16; Temp 98.7; Pulse Ox 99% ; Pain 4/10; mb8 09:45 Body Mass Index 29.41 (75.30 kg, 160.02 cm) aa5 ED Course: 09:38 Patient arrived in ED. rg4 09:45 Arm band placed on Patient placed in an exam room, on a stretcher. aa5 09:46 Miguel Ángel Castaneda MD is Attending Physician. mimi 09:48 Emile Flores RN is Primary Nurse. mb8 09:51 Triage completed. aa5 10:00 Patient has correct armband on for positive identification. mb8 10:00 No provider procedures requiring assistance completed. mb8 10:00 Missed attempt(s): 20 gauge in right forearm. mb8 10:05 Missed attempt(s): 20 gauge in right forearm. mb8 10:27 XRAY Chest (1 view) In Process Unspecified. EDMS 10:27 SARS RAPID Sent. mb8 10:30 Missed attempt(s): 22 gauge in left forearm. Bleeding controlled, band aid applied, aa5 catheter tip intact. 10:30 Initial lab(s) drawn, by me, sent to lab. aa5 10:35 Missed attempt(s): 22 gauge in right forearm. Bleeding controlled, band aid applied, aa5 catheter tip intact. 10:40 Missed attempt(s): 22 gauge in right forearm. Bleeding controlled, band aid applied, iw catheter tip intact. 11:18 Inserted saline lock: 22 gauge in right antecubital area, using aseptic technique. iw 11:30 CT Abd/Pelvis - IV Contrast Only In Process Unspecified. EDMS 12:41 Grisel Kunz MD is Hospitalizing Provider. mimi 19:28 Primary Nurse role handed off by Emile Flores RN ll3 19:28 Keegan Jones RN is Primary Nurse. ll3 08/05 08:22 Primary Nurse role handed off by Keegan Jones RN eb 14:52 Mary Martínez RN is Primary Nurse. kr3 16:16 Patient admitted, IV remains in place. kr3 Administered Medications: 08/04 11:20 Drug: Zofran (Ondansetron) 4 mg Route: IVP; Site: right antecubital; mb8 12:44 Follow up: Response: No adverse reaction mb8 11:20 Drug: Pepcid (famotidine) 20 mg Route: IVP; Site: right antecubital; mb8 12:44 Follow up: Response: No adverse reaction mb8 11:21 Drug: NS 0.9% 1000 ml Route: IV; Rate: 1 bolus; Site: right antecubital; mb8 14:40 Follow up: IV Status: Infusion continued mb8 13:17 Drug: ProTONIX (pantoprazole) 40 mg Route: IVP; Site: right antecubital; mb8 14:39 Follow up: Response: No adverse reaction mb8 13:18 Drug: Cipro (ciprofloxacin) 400 mg Volume: 200 ml; Route: IVPB; Infused Over: 60 mins; mb8 Site: right antecubital; 14:40 Follow up: IV Status: Completed infusion mb8 13:18 Drug: ProTONIX (pantoprazole) 40 mg Route: IVP; Site: right antecubital; mb8 14:39 Follow up: Response: No adverse reaction mb8 14:39 Drug: Flagyl (metroNIDAZOLE) 500 mg Volume: 100 ml; Route: IVPB; Rate: 200 ml/hr; mb8 Infused Over: 30 mins; Site: left antecubital; 15:44 Follow up: IV Status: Infusion continued mb8 15:05 Drug: Dilaudid (HYDROmorphone) 0.5 mg Route: IVP; Site: left antecubital; mb8 15:44 Follow up: Response: No adverse reaction; Pain is decreased mb8 15:05 Drug: Zofran (Ondansetron) 4 mg Route: IVP; Site: left antecubital; mb8 15:43 Follow up: Response: No adverse reaction; Nausea is decreased mb8 08/05 00:59 Not Given (not given by previos shiftt): Dilaudid (HYDROmorphone) 0.5 mg IVP once tw5 Medication: 08/04 10:00 VIS not applicable for this client. mb8 Outcome: 12:42 Decision to Hospitalize by Provider. mimi 08/05 15:50 Admitted to Med/surg accompanied by tech, via stretcher, Report called to Charles 3 15:50 Instructed on the need for admit. kr3 16:00 Patient left the ED. ll1 16:16 Condition: stable kr3 Signatures: Dispatcher [employer] Miguel Ángel Chowdhury MD MD cha Williams, Irene, RN Kaylee Gregg RN RN Radha Fierro Elizabeth eb Lewis, Lynsay, RN RN ll1 Keegan Jones RN RN ll3 Mary Martínez RN RN kr3 Emile Flores RN RN mb8 Landy Neves tw5
--- NOTE | 2022-08-04 12:43 | EDPHYS ---
Physician Documentation [facility] Name: Priscila Draper Age: 66 yrs Sex: Female : 1955 Arrival Date: 08/04/2022 Time: 09:38 Bed 28 Private MD: Miguel Ángel Watkins HPI: 08/04 11:16 This 66 yrs old Female presents to ER via Ambulatory with complaints of mimi Vomiting/Diarrhea. 11:16 The patient presents to the emergency department with nausea, vomiting, abdominal pain, mimi of the right upper quadrant, left upper quadrant, right lower quadrant and left lower quadrant. Onset: The symptoms/episode began/occurred 2 day(s) ago. Possible causes: unknown. The symptoms are aggravated by nothing. The symptoms are alleviated by nothing. Associated signs and symptoms: The patient has no apparent associated signs or symptoms. Severity of symptoms: At their worst the symptoms were. The patient has experienced similar episodes in the past, a few times. Historical: - Allergies: 09:51 Augmentin; aa5 09:51 Bactrim; aa5 09:51 Demerol; aa5 09:51 Morphine; aa5 09:51 NSAIDS; aa5 09:51 Toradol; aa5 - PMHx: 09:51 Crohn's; Depression; Diabetes - NIDDM; Hypertension; Migraines; Schizophrenia; aa5 - PSHx: 09:52 Tonsillectomy; Appendectomy; hysterectomy; Cholecystectomy; knee sx; aa5 - Immunization history:: Adult Immunizations unknown. - Social history:: Smoking status: Patient denies any tobacco usage or history of. - Family history:: not pertinent. ROS: 11:16 Constitutional: Negative for fever, chills, and weight loss, Eyes: Negative for injury, mimi pain, redness, and discharge, ENT: Negative for injury, pain, and discharge, Neck: Negative for injury, pain, and swelling, Cardiovascular: Negative for chest pain, palpitations, and edema, Respiratory: Negative for shortness of breath, cough, wheezing, and pleuritic chest pain, Back: Negative for injury and pain, : Negative for injury, bleeding, discharge, and swelling, MS/Extremity: Negative for injury and deformity, Skin: Negative for injury, rash, and discoloration, Neuro: Negative for headache, weakness, numbness, tingling, and seizure, Psych: Negative for depression, anxiety, suicide ideation, homicidal ideation, and hallucinations, Allergy/Immunology: Negative for hives, rash, and allergies, Endocrine: Negative for neck swelling, polydipsia, polyuria, polyphagia, and marked weight changes, Hematologic/Lymphatic: Negative for swollen nodes, abnormal bleeding, and unusual bruising. 11:16 Abdomen/GI: Positive for abdominal pain, nausea and vomiting. Exam: 11:16 Constitutional: This is a well developed, well nourished patient who is awake, alert, mimi and in no acute distress. Head/Face: Normocephalic, atraumatic. Eyes: Pupils equal round and reactive to light, extra-ocular motions intact. Lids and lashes normal. Conjunctiva and sclera are non-icteric and not injected. Cornea within normal limits. Periorbital areas with no swelling, redness, or edema. ENT: Nares patent. No nasal discharge, no septal abnormalities noted. Tympanic membranes are normal and external auditory canals are clear. Oropharynx with no redness, swelling, or masses, exudates, or evidence of obstruction, uvula midline. Mucous membranes moist. Neck: Trachea midline, no thyromegaly or masses palpated, and no cervical lymphadenopathy. Supple, full range of motion without nuchal rigidity, or vertebral point tenderness. No Meningismus. Chest/axilla: Normal chest wall appearance and motion. Nontender with no deformity. No lesions are appreciated. Cardiovascular: Regular rate and rhythm with a normal S1 and S2. No gallops, murmurs, or rubs. Normal PMI, no JVD. No pulse deficits. Respiratory: Lungs have equal breath sounds bilaterally, clear to auscultation and percussion. No rales, rhonchi or wheezes noted. No increased work of breathing, no retractions or nasal flaring. Back: No spinal tenderness. No costovertebral tenderness. Full range of motion. Female : Normal external genitalia. Skin: Warm, dry with normal turgor. Normal color with no rashes, no lesions, and no evidence of cellulitis. MS/ Extremity: Pulses equal, no cyanosis. Neurovascular intact. Full, normal range of motion. Neuro: Awake and alert, GCS 15, oriented to person, place, time, and situation. Cranial nerves II-XII grossly intact. Motor strength 5/5 in all extremities. Sensory grossly intact. Cerebellar exam normal. Normal gait. Psych: Awake, alert, with orientation to person, place and time. Behavior, mood, and affect are within normal limits. 11:16 Abdomen/GI: Inspection: abdomen appears normal, distension, that is mild, Bowel sounds: normal, Palpation: soft, mild abdominal tenderness, in the right upper quadrant and left upper quadrant, mass, is not appreciated. 11:24 ECG was reviewed by the Attending Physician. [facility] Vital Signs: 09:45 BP 186 / 87; Pulse 68; Resp 18 S; Temp 97.6(O); Pulse Ox 99% on R/A; Weight 75.3 kg aa5 (R); Height 5 ft. 3 in. (160.02 cm) (R); 12:03 BP 157 / 67; Pulse 59; Resp 16; Pulse Ox 100% ; mb8 14:56 BP 139 / 56; Pulse 57; Resp 16; Pulse Ox 99% ; Pain 8/10; mb8 17:06 BP 190 / 75; Pulse 54; Resp 16; Temp 98.7; Pulse Ox 99% ; Pain 4/10; mb8 09:45 Body Mass Index 29.41 (75.30 kg, 160.02 cm) aa5 MDM: 09:46 Patient medically screened. [facility] 11:19 Differential diagnosis: Nonspecific abd pain, gastritis, cholecystitis, diverticulitis, mimi viral gastroenteritis, gastroenteritis. Data reviewed: vital signs, nurses notes, lab test result(s), EKG, radiologic studies, CT scan, plain films. Data interpreted: compress engineer: rate is 68 beats/min, rhythm is regular, Pulse oximetry: on room air is 99 %. Test interpretation: by ED physician or midlevel provider: ECG, plain radiologic studies. Counseling: I had a detailed discussion with the patient and/or guardian regarding: the historical points, exam findings, and any diagnostic results supporting the discharge/admit diagnosis, lab results, radiology results. 08/04 09:58 Order name: Basic Metabolic Panel; Complete Time: 11:15 [facility] 08/04 09:58 Order name: CBC with Diff; Complete Time: 11:15 [facility] 08/04 09:58 Order name: LFT's; Complete Time: 11:15 [facility] 08/04 09:58 Order name: Magnesium; Complete Time: 11:15 [facility] 08/04 09:58 Order name: NT PRO-BNP; Complete Time: 11:15 [facility] 08/04 09:58 Order name: PT-INR; Complete Time: 11:15 [facility] 08/04 09:58 Order name: Troponin HS; Complete Time: 11:15 [facility] 08/04 09:58 Order name: Lipase; Complete Time: 11:15 [facility] 08/04 09:58 Order name: SARS RAPID; Complete Time: 11:15 [facility] 08/04 13:18 Order name: Urine Dipstick-Ancillary; Complete Time: 14:58 [facility] 08/04 16:57 Order name: CBC with Automated Diff [facility] 08/04 16:57 Order name: CBC with Automated Diff [facility] 08/04 16:57 Order name: Comprehensive Metabolic Panel [facility] 08/04 16:57 Order name: Comprehensive Metabolic Panel [facility] 08/04 09:58 Order name: XRAY Chest (1 view); Complete Time: 11:15 [facility] 08/04 09:58 Order name: EKG; Complete Time: 09:59 [facility] 08/04 09:58 Order name: Cardiac monitoring; Complete Time: 10:27 [facility] 08/04 09:58 Order name: CT Abd/Pelvis - IV Contrast Only; Complete Time: 12:32 [facility] 08/04 16:57 Order name: Clear Liquid [facility] 08/04 16:57 Order name: CONS Physician Consult [facility] 08/04 09:58 Order name: EKG - Nurse/Tech; Complete Time: 10:47 [facility] 08/04 09:58 Order name: IV Saline Lock; Complete Time: 10:27 [facility] 08/04 09:58 Order name: Labs collected and sent; Complete Time: 10:40 [facility] 08/04 09:58 Order name: O2 Per Protocol; Complete Time: 10:27 [facility] 08/04 09:58 Order name: O2 Sat Monitoring; Complete Time: 10:28 [facility] 08/04 09:58 Order name: Urine Dipstick-Ancillary (obtain specimen); Complete Time: 14:54 [facility] EC:24 Rate is 57 beats/min. Rhythm is regular. QRS [place] is Normal. [place] interval is normal. QRS mimi interval is normal. QT interval is normal. No Q waves. T waves are Normal. No ST changes noted. Clinical impression: Sinus bradycardia. Interpreted by me. Reviewed by me. Administered Medications: 11:20 Drug: Zofran (Ondansetron) 4 mg Route: IVP; Site: right antecubital; mb8 12:44 Follow up: Response: No adverse reaction mb8 11:20 Drug: Pepcid (famotidine) 20 mg Route: IVP; Site: right antecubital; mb8 12:44 Follow up: Response: No adverse reaction mb8 11:21 Drug: NS 0.9% 1000 ml Route: IV; Rate: 1 bolus; Site: right antecubital; mb8 14:40 Follow up: IV Status: Infusion continued mb8 13:17 Drug: ProTONIX (pantoprazole) 40 mg Route: IVP; Site: right antecubital; mb8 14:39 Follow up: Response: No adverse reaction mb8 13:18 Drug: Cipro (ciprofloxacin) 400 mg Volume: 200 ml; Route: IVPB; Infused Over: 60 mins; mb8 Site: right antecubital; 14:40 Follow up: IV Status: Completed infusion mb8 13:18 Drug: ProTONIX (pantoprazole) 40 mg Route: IVP; Site: right antecubital; mb8 14:39 Follow up: Response: No adverse reaction mb8 14:39 Drug: Flagyl (metroNIDAZOLE) 500 mg Volume: 100 ml; Route: IVPB; Rate: 200 ml/hr; mb8 Infused Over: 30 mins; Site: left antecubital; 15:44 Follow up: IV Status: Infusion continued mb8 15:05 Drug: Dilaudid (HYDROmorphone) 0.5 mg Route: IVP; Site: left antecubital; mb8 15:44 Follow up: Response: No adverse reaction; Pain is decreased mb8 15:05 Drug: Zofran (Ondansetron) 4 mg Route: IVP; Site: left antecubital; mb8 15:43 Follow up: Response: No adverse reaction; Nausea is decreased mb8 08/05 00:59 Not Given (not given by previos shiftt): Dilaudid (HYDROmorphone) 0.5 mg IVP once tw5 Disposition Summary: 08/04/22 12:42 Hospitalization Ordered Hospitalization Status: Inpatient Admission mimi Provider: Grisel Kunz cha Condition: Fair mimi Problem: new mimi Symptoms: have improved mimi Bed/Room Type: Standard mmii Location: Telemetry/MedSurg (Inpatient)(08/05/22 14:36) dw Room Assignment: 425(08/05/22 14:36) dw Diagnosis - Acute peptic ulcer, site unspecified, without hemorrhage or perforation mimi - Epigastric abdominal tenderness mimi - Vomiting mimi Forms: - Medication Reconciliation Form mimi - SBAR form mimi Signatures: Dispatcher [employer] Marcy Peterson RN RN Miguel Ángel Williamson MD MD cha Calderon, Audri, RN RN aa5 Miguel Koenig 2 Emile Flores RN RN mb8 Landy Neves 5 Corrections: (The following items were deleted from the chart) 08/04 23:01 12:42 Telemetry/MedSurg (Inpatient) mimi 2 23: 12:42 mimi 2 08/05 14:36 08/04 23:01 [facility] ER HOLD mw2 dw 08/05 14:36 08/04 23:01 ERHOLD- mw2 dw
[2022-08-04] MEDS ORDERED: PANTOPRAZOLE 40 MG INJ ONE (13:14)
[2022-08-04] MEDS ORDERED: METRONIDAZOLE 500mg IVPB 500 MG/100 ML BAG IV ONE (13:14)
[2022-08-04] MEDS ORDERED: CIPROFLOXACIN 400mg IV 400 MG/200 ML BAG IV ONE (13:14)
[2022-08-04] MEDS ORDERED: NA CHLORIDE 0.9% 100 ML ONE (13:14)
[2022-08-04 13:18] LABS: Urine Blood Negative (Negative); Urine Glucose Negative (Negative); Urine Protein Negative (Negative)
--- NOTE | 2022-08-04 13:36 | EKG ---
Test Date: 2022-08-04 Test Time: 10:44:13 German Tutor: MEASUREMENT RESULTS: Intervals: Rate: 57 LA: 158 QRSD: 76 QT: 460 QTc: 447 [place]: P: 47 LA: 158 QRS: 10 T: 6 INTERPRETIVE STATEMENTS: Sinus bradycardia Low voltage QRS Cannot rule out Anterior infarct, age undetermined Abnormal ECG Compared to ECG 01/12/2022 12:36:42 Low QRS voltage now present Sinus rhythm no longer present Fusion complex(es) no longer present Ventricular premature complex(es) no longer present Myocardial infarct finding still present Electronically Signed On 08-04-22 13:36:07 CDT by Vijay Medeiros
[2022-08-04] MEDS ORDERED: HYDROMORPHONE HCL 0.5 MG/0.5 ML INJ ONE (15:09)
[2022-08-04] MEDS ORDERED: ACETAMINOPHEN 500 MG TAB PO PRN (16:54)
[2022-08-04] MEDS: NA CHLORIDE 0.9% 1,000 ML IV SCH (17:00)
[2022-08-04 17:10] VITALS: BMI 29.4
[2022-08-04] MEDS ORDERED: ACETAMINOPHEN 500 MG TAB ONE ×2 (20:19→22:26)
[2022-08-04] MEDS: HYDRALAZINE HCL 20 MG/ML VIAL IV PRN (20:34)
[2022-08-04] MEDS: ONDANSETRON 4 MG/2 ML VIAL IV PRN (20:34)
[2022-08-04] MEDS: clonazePAM 0.5 MG TAB PO PRN (20:34)
[2022-08-04] MEDS ORDERED: clonazePAM 0.5 MG TAB ONE (20:36)
[2022-08-04] MEDS ORDERED: HYDRALAZINE HCL 20 MG/ML VIAL ONE (20:36)
[2022-08-05] MEDS: DIPHENHYDRAMINE 50 MG/ML VIAL IV ONE ×2 (01:05→01:10)
[2022-08-05] MEDS: MORPHINE 2 MG/ML SYR IV PRN ×2 (01:10→20:13)
[2022-08-05] MEDS ORDERED: DIPHENHYDRAMINE 50 MG/ML VIAL ONE (01:21)
[2022-08-05] MEDS ORDERED: MORPHINE 2 MG/ML SYR ONE (01:21)
[2022-08-05] MEDS: NA CHLORIDE 0.9% 1,000 ML IV SCH (03:00)
[2022-08-05] MEDS ORDERED: NA CHLORIDE 0.9% 1,000 ML ONE ×2 (04:33→16:56)
[2022-08-05 04:39] LABS: Absolute Lymphocytes (CBC) 3.6 K/uL (0.7-4.9); Hematocrit 33.9 % (36.0-45.0); Lymphocytes % 39.9 % (15.3-44.8); MPV 8.5 fL (7.6-11.3); RBC Red Blood Cell Count 3.72 M/uL (3.86-4.86)
[2022-08-05 04:56] LABS: Albumin 3.2 g/dL (3.4-5.0); Bilirubin Total 0.3 mg/dL (0.2-1.0); Potassium 3.9 mmol/L (3.5-5.1); Protein, Total 6.5 g/dL (6.4-8.2)
[2022-08-05] MEDS ORDERED: HYDRALAZINE HCL 20 MG/ML VIAL ONE (05:48)
[2022-08-05] MEDS ORDERED: clonazePAM 0.5 MG TAB ONE (08:29)
[2022-08-05] MEDS: METOPROLOL TAR 25 MG TAB PO SCH ×2 (10:22→18:00)
[2022-08-05] MEDS ORDERED: clonazePAM 0.5 MG TAB PO ONE (10:23)
[2022-08-05] MEDS ORDERED: HYDROCODONE/APAP 10/325 TAB PO PRN (10:23)
[2022-08-05] MEDS ORDERED: SODIUM CHLORIDE 0.9% 10ML INJ IV PRN (10:24)
[2022-08-05] MEDS ORDERED: PANTOPRAZOLE 40 MG INJ IVP ONE (10:24)
[2022-08-05] MEDS: metroNIDAZOLE 500 MG TABLET PO SCH ×2 (12:00→18:00)
[2022-08-05] MEDS ORDERED: METOPROLOL TAR 25 MG TAB ONE (14:22)
[2022-08-05] MEDS ORDERED: PANTOPRAZOLE 40 MG INJ ONE (14:22)
[2022-08-05] MEDS ORDERED: metroNIDAZOLE 500 MG TABLET ONE (14:24)
[2022-08-05] MEDS: PANTOPRAZOLE 40MG TABLET PO SCH (16:30)
[2022-08-05] MEDS ORDERED: propofoL 200 MG/20 ML VIAL IV ONE (18:25)
--- NOTE | 2022-08-05 19:29 | ENDO RPT ---
[address], [address] EGD PROCEDURE REPORT EXAM DATE: 08/05/2022 PATIENT NAME: Priscila Draper MR#: [id number] BIRTHDATE: 1955 ATTENDING: Edin Sandoval Dr STATUS: inpatient - 7 PACKAGING LINE ATTENDANT: Petra Martel RN and Evy Mccrary INDICATIONS: The patient is a 66 yr old Female here for an EGD due to mid epigastric > general abdominal pain, nausea, and abnormal CT abdomen/pelvis -> revealing moderate inflammation of the duodenal C-loop PROCEDURE PERFORMED: EGD with biopsy MEDICATIONS: Per Anesthesia. TOPICAL ANESTHETIC: none CONSENT: The patient understands the risks and benefits of the procedure and understands that these risks include, but are not limited to: sedation, allergic reaction, infection, perforation and/or bleeding. Alternative means of evaluation and treatment include, among others: physical exam, x-rays, and/or surgical intervention. The patient elects to proceed with this endoscopic procedure. DESCRIPTION OF PROCEDURE: During intra-op preparation period all mechanical medical equipment was checked for proper function. Hand hygiene and appropriate measures for infection prevention was taken. Procedure, possible complications, and alternatives including but not limited to the possibility of bleeding, perforation, tear, infection, sepsis, need for surgery, need for blood transfusion, and anesthesia related complications were explained to the patient. After the risks, benefits and alternatives of the procedure were thoroughly explained, Informed consent was verified, confirmed and timeout was successfully executed by the treatment team. The patient was placed in the left lateral position. The patient was anesthetized with topical anesthesia. Through the anesthetized oropharyngeal area, the scope was passed without any difficulty. The EC-[id number] ([id number]) and [id number] ([id number]) endoscope was introduced through the mouth and advanced to the third portion of the duodenum. Retroflexed views revealed a small hiatal hernia. The gastroscope was then slowly withdrawn and removed. A small hiatal hernia was found Mild gastritis was found in the body and the antrum of the stomach. Multiple biopsies were obtained and sent to pathology. Duodenitis was found in the bulb and descending duodenum. Multiple (6) 4-7 mm clean-based ulcers with minor bleeding after abrasion with endoscope were found in the bulb and descending duodenum. ADVERSE EVENTS: There were no complications. IMPRESSIONS: 1. Small hiatal hernia 2. Mild gastritis in the body and the antrum of the stomach, s/p biopsies 3. Duodenitis in the bulb and descending duodenum 4. Multiple (6) 4-7 mm clean-based ulcers with minor bleeding after abrasion with endoscope in the bulb and descending duodenum RECOMMENDATIONS: 1. await biopsy results 2. acid suppression therapy REPEAT EXAM: Edin Sandoval Dr eSigned: Edin Sandoval Dr 08/05/2022 7:28 PM cc: Grisel Kunz M.D. CPT CODES: ICD9 CODES: PATIENT NAME: Priscila Draper MR#: [id number]
[2022-08-05] MEDS: ONDANSETRON 4 MG/2 ML VIAL IV PRN (20:11)
[2022-08-05] MEDS: HYDRALAZINE HCL 20 MG/ML VIAL IV PRN (20:14)
[2022-08-05] MEDS: clonazePAM 0.5 MG TAB PO PRN (21:44)
[2022-08-06] MEDS ORDERED: MELATONIN 5 MG TABLET PO PRN (00:02)
[2022-08-06] MEDS: metroNIDAZOLE 500 MG TABLET PO SCH ×3 (00:34→12:49)
[2022-08-06] MEDS: METOPROLOL TAR 25 MG TAB PO SCH (05:45)
[2022-08-06] MEDS: PANTOPRAZOLE 40MG TABLET PO SCH (08:03)
[2022-08-06] MEDS: HYDRALAZINE HCL 20 MG/ML VIAL IV PRN (08:04)
--- NOTE | 2022-08-06 14:05 | P.HP ---
Certification for Inpatient Patient admitted to: Observation With expected LOS: <2 Midnights Patient will require the following post-hospital care: None Practitioner: I am a practitioner with admitting privileges, knowledge of patient current condition, hospital course, and medical plan of care. Services: Services provided to patient in accordance with Admission requirements found in Title 42 Section 412.3 of the Code of Federal Regulations Patient History Date of Service: 08/04/22 Reason for admission: Intractable nausea and vomiting History of Present Illness: Patient is a 66-year-old female who came to the hospital with abdominal pain and intractable nausea and vomiting. Patient symptoms were mainly in the epigastric region. She was not feeling well so she came to the ER for further evaluation. CT scan revealed possible duodenal ulcer. Also with possible duodenal lesion. Patient will be admitted to the hospital for further evaluation. Having a hard time eating at this time. We will consult GI for direct visualization. Allergies cephalexin [From Keflex] Allergy (Verified 07/22/21 20:49) unknown ketorolac tromethamine [From Toradol] Allergy (Verified 07/22/21 20:31) Hives meperidine HCl [From Demerol] Allergy (Verified 07/22/21 20:31) Nausea/Vomiting morphine Allergy (Verified 07/22/21 20:31) Unknown NSAIDS (Non-Steroidal Anti-Inflamma Allergy (Verified 07/22/21 20:31) Shortness of breath Sulfa (Sulfonamide Antibiotics) Allergy (Verified 07/22/21 20:31) Unknown sulfamethoxazole [From Bactrim] Allergy (Verified 07/22/21 20:31) Hives/Rash trimethoprim [From Bactrim] Allergy (Verified 07/22/21 20:31) Hives/Rash Home Medications: Metformin HCl 1,000 mg PO BID 07/23/21 Metoprolol Tartrate [Lopressor] 100 mg PO BID 07/23/21 ZOLMitriptan [Zolmitriptan Odt] 5 mg PO BIDP PRN 07/23/21 clonazePAM [Clonazepam] 0.5 mg PO BIDP PRN 07/23/21 Bupropion *Xl* [Wellbutrin XL*] 300 mg PO DAILY 07/24/21 Lisinopril [Zestril] 10 mg PO DAILY 07/24/21 levoFLOXacin [Levaquin*] 500 mg PO DAILY #4 tab 07/26/21 - Past Medical/Surgical History Diabetic: Yes -: HTN -: DEPRESSION -: PREVIOUS OD/DRUG ABUSE/POISONING -: MIGRAINES -: DM -: CROHNS -: TONSILLECTOMY -: HYSTERECTOMY -: APPY -: LEFT KNEE SX - Family History Father Family History: Reviewed- Non-Contributory - Social History Smoking Status: Former smoker Alcohol use: No CD- Drugs: No Caffeine use: Yes Review of Systems 10-point ROS is otherwise unremarkable Physical Examination - Vital Signs Temperature: 97.2 F Blood Pressure: 148/60 Pulse: 86 Respirations: 14 Pulse Ox (%): 98 - Physical Exam General: Alert, In no apparent distress, Oriented x3 HEENT: Atraumatic, PERRLA, Mucous membr. moist/pink, EOMI, Sclerae nonicteric Neck: Supple, 2+ carotid pulse no bruit, No LAD, Without JVD or thyroid abnormality Respiratory: Clear to auscultation bilaterally, Normal air movement Cardiovascular: Regular rate/rhythm, Normal S1 S2, No murmurs Gastrointestinal: Normal bowel sounds, Soft and benign, Non-distended, Tenderness Musculoskeletal: No clubbing, No swelling, No tenderness Integumentary: No rashes Neurological: Normal gait, Normal speech, Normal strength at 5/5 x4 extr, Normal tone, Cranial nerves 3-12 intact, Normal affect Lymphatics: No axilla or inguinal lymphadenopathy Assessment & Plan - Problems (Diagnosis) (1) Duodenal ulcer Current Visit: Yes Status: Acute (2) Diabetes Current Visit: No Status: Acute - Plan -IV PPI -IV fluids -GI consultation -CBC, CMP, lipase, stool cultures -N.p.o. -Repeat abdominal film -Antiemetics Discharge Plan: Home Plan to discharge in: Greater than 2 days - Advance Directives Does patient have a Living Will: No Does patient have a Durable POA for Healthcare: No - Code Status/Comfort Care Code Status Assessed: Yes Code Status: Full Code Critical Care: No Time Spent Managing PTS Care (In Minutes): 45
--- NOTE | 2022-08-06 14:07 | P.PN ---
Subjective Date of Service: 08/05/22 Subjective: No new changes, No C/O voiced, Improving Review of Systems 10-point ROS is otherwise unremarkable Physical Examination - Vital Signs Temperature: 97.2 F Blood Pressure: 148/60 Pulse: 86 Respirations: 14 Pulse Ox (%): 98 - Physical Exam General: Alert, In no apparent distress, Oriented x3 HEENT: Atraumatic, PERRLA, EOMI Neck: Supple, JVD not distended Respiratory: Clear to auscultation bilaterally, Normal air movement Cardiovascular: Regular rate/rhythm, Normal S1 S2 Gastrointestinal: Normal bowel sounds, No tenderness Musculoskeletal: No tenderness Integumentary: No rashes Neurological: Normal speech, Normal tone, Normal affect Lymphatics: No axilla or inguinal lymphadenopathy - Studies Medications List Reviewed: Yes Assessment & Plan - Problems (Diagnosis) (1) Duodenal ulcer Current Visit: Yes Status: Acute (2) Diabetes Current Visit: No Status: Acute - Plan -IV PPI -IV fluids -GI consultation appreciated; endoscopy today -Start clear liquid diet if no worrisome findings on EGD -Antiemetics as needed Discharge Plan: Home Plan to discharge in: 24 Hours - Advance Directives Does patient have a Living Will: No Does patient have a Durable POA for Healthcare: No - Code Status/Comfort Care Code Status: Full Code Critical Care: No Time Spent Managing PTS Care (In Minutes): 45
--- NOTE | 2022-08-06 14:14 | P.DS ---
Discharge Date: 08/06/22 Disposition: ROUTINE DISCHARGE Discharge Condition: GOOD Reason for Admission: Intractable nausea and vomiting Consultations: Gastroenterology - Problems (1) Duodenal ulcer Current Visit: Yes Status: Acute (2) Diabetes Current Visit: No Status: Acute Brief History of Present Illness: Patient is a 66-year-old female who came to the hospital with abdominal pain and intractable nausea and vomiting. Patient symptoms were mainly in the epigastric region. She was not feeling well so she came to the ER for further evaluation. CT scan revealed possible duodenal ulcer. Also with possible duodenal lesion. Patient will be admitted to the hospital for further evaluation. Having a hard time eating at this time. We will consult GI for direct visualization. Hospital Course: Patient has done well during hospital stay. EGD revealed multiple ulcers as well as a bleeding ulcer. We will small. Hemoglobin is stable. Patient tolerating liquid diet. Advised to be on liquid diet for the next 48 hours. Patient is stable for discharge with outpatient follow-up. Vital Signs/Physical Exam: Temp Pulse Resp BP Pulse Ox 97.2 F 86 14 148/60 H 98 08/06/22 14:07 08/06/22 14:07 08/06/22 14:07 08/06/22 14:07 08/06/22 14:07 General: Alert, In no apparent distress, Oriented x3 Laboratory Data at Discharge: WBC 9.00 K/uL (4.3-10.9) 08/05/22 04:03 Hgb 11.9 g/dL (12.0-15.0) L D 08/05/22 04:03 Hct 33.9 % (36.0-45.0) L 08/05/22 04:03 Plt Count 216 K/uL (152-406) 08/05/22 04:03 PT 11.1 SECONDS (9.2-12.8) 08/04/22 10:30 INR 0.93 08/04/22 10:30 Sodium 139 mmol/L (136-145) 08/05/22 04:03 Potassium 3.9 mmol/L (3.5-5.1) 08/05/22 04:03 BUN 18 mg/dL (7-18) 08/05/22 04:03 Creatinine 0.72 mg/dL (0.55-1.3) 08/05/22 04:03 Glucose 97 mg/dL (74-106) 08/05/22 04:03 Magnesium 1.8 mg/dL (1.8-2.4) 08/04/22 10:30 Total Bilirubin 0.3 mg/dL (0.2-1.0) 08/05/22 04:03 AST 16 U/L (15-37) 08/05/22 04:03 ALT 19 U/L (12-78) 08/05/22 04:03 Alkaline Phosphatase 64 U/L (45-117) D 08/05/22 04:03 Lipase 144 U/L (73-393) 08/04/22 10:30 Home Medications: Metformin HCl 1,000 mg PO BID 07/23/21 Metoprolol Tartrate [Lopressor] 100 mg PO BID 07/23/21 ZOLMitriptan [Zolmitriptan Odt] 5 mg PO BIDP PRN 07/23/21 clonazePAM [Clonazepam] 0.5 mg PO BIDP PRN 07/23/21 Bupropion *Xl* [Wellbutrin XL*] 300 mg PO DAILY 07/24/21 Lisinopril [Zestril] 10 mg PO DAILY 07/24/21 levoFLOXacin [Levaquin*] 500 mg PO DAILY #4 tab 07/26/21 Clarithromycin 250 mg PO Q12H #28 tab 08/06/22 Pantoprazole [Protonix Tab*] 40 mg PO BIDAC #60 tab 08/06/22 metroNIDAZOLE [Metronidazole] 250 mg PO Q12H #28 tab 08/06/22 New Medications: Clarithromycin 250 mg PO Q12H #28 tab metroNIDAZOLE [Metronidazole] 250 mg PO Q12H #28 tab Pantoprazole [Protonix Tab*] 40 mg PO BIDAC #60 tab Physician Discharge Instructions: -DC IV and DC home -Follow-up with PCP in 1 to 2 weeks -Follow-up with GI in 1 to 2 weeks -Please call Dr. Kunz at [phone] if any questions regarding hospital stay -Please call nursing station at [phone] if any nursing or medication questions -Return to the emergency room if symptoms worsen Diet: ADA Activity: Fall precautions Followup: Edin Hoskins MD [Primary Care Provider] - Time spent managing pt's care (in minutes): 35
--- NOTE | 2022-08-06 19:55 | CON ---
Date of Consultation: 08/05/2022 Reason For Consultation: Midepigastric pain, greater than right upper quadrant pain with nausea. History Of Present Illness: The patient was admitted to the hospital due to intractable nausea and v omiting. She states now she does not have much in way of vomiting currently or much before admission , it was mainly nausea. In the emergency room a CT scan revealed moderate inflammation of the duoden al C loop and the patient was admitted to hospital for further evaluation and therapy. GI is consult ed. Past Medical History: Significant for diabetes, hypertension, hyperlipidemia, hysterectomy, appendec luke, cholecystectomy, left total knee replacement and left upper extremity plate and pin from what l ooks like some type of accident in the past. Also previous overdose and drug abuse and poisoning, it appears by chart review. Depression and also possible Crohn's as well on her chart review. Home Medications: Include metformin, Lopressor, zolmitriptan, clonazepam, Wellbutrin, lisinopril, an d Levaquin. Allergies: KEFLEX, TORADOL, DEMEROL, MORPHINE, NSAID, SULFA, AND BACTRIM. Social History: She is , 2 children. Daughter of suicide in the past 3 years and works at the [employer]. No tobacco. No alcohol. She also reports that her sister's recently and she had to console her sister and her divorce was 6 years ago and still having problems with that. Family History: Father is alive at 88 of diabetes. Mother is alive with hypertension, chronic kidne y disease, and back degenerative joint disease. Review of Systems: The patient has midepigastric greater than right upper quadrant pain, nausea, vomiting though she say s mainly nausea. No vomiting currently. No melena, hematochezia, hematemesis, coffee-ground emesis, hematuria, dysuria, polydipsia, chest pain, shortness of breath, seizure, syncope. She does have so me muscle aches and backache from her degenerative joint back pain that she reports and she has depre ssion and anxiety as well. Physical Examination: Vital Signs: Patient is 5 feet, 366 pounds. BMI of 29.4 kg/sq m. She has a temperature of 98.8 deg aman Fahrenheit, pulse 70, respirations 16, blood pressure 158/70, O2 saturation 99%. General: Obese female lying in bed, in no acute distress. HEENT: Normocephalic, atraumatic. Anicteric. Pupils are equal, round, and reactive to light. Extr aocular movements are intact. Oropharynx is clear. Neck: Supple. No masses. Respirations: Clear to auscultation bilaterally. Cardiac: Regular rate and rhythm. Gastrointestinal: Positive bowel sounds. Soft, nondistended, obese. Pain generalized, mainly in th e midepigastric area, but also in the right and left upper quadrants and right and left lower quadran ts as well. No peritoneal signs, but she did have some mild guarding. No hepatosplenomegaly, but ob michele. Extremities: No clubbing, cyanosis, or edema. 2+ pulses. Neuro: Oriented x3. Grossly nonfocal. 5/5 motor. Sensation is intact to light touch. Laboratory Data: The patient has a white count of 9.0 down from 12.9 yesterday, hemoglobin 11.9 down from 14.5 yesterday, hematocrit 33.9, MCV of 91, platelet count of 216, polys of 51%, lymphocytes 4% , monocytes 8%, eosinophils 0.3%. PT of 11.1, INR 0.93. Chemistry: Sodium 139, potassium 3.9, chlo ride 111, bicarb 20, BUN 18, creatinine of 0.72, glucose of 97, calcium 8.5, total bilirubin 0.3, AST 16, ALT of 19, alkaline phosphatase 64. Troponin I of 9.2. B-type natriuretic peptide 676. Total protein 6.5, albumin 3.2, globulin 3.3. Lipase normal at 144. UA: Trace ketones, positive nitrites , trace leukocyte esterase otherwise negative. Serology: COVID-19 testing negative. Imaging: CT abdomen and pelvis showed moderate inflammation of the duodenal C loop otherwise negativ e. Impression: 1.Midepigastric pain, greater than right upper quadrant pain with nausea and report of emesis per art review, probably due to duodenal inflammation. 2.Abnormal CT scan revealing moderate inflammation in the duodenal C loop. Of note, patient's last EGD was approximately 10 years ago, which was negative in [place] with Dr. Ferro. She says l ast colonoscopy about 6 years ago revealed colon polyps. Recommendation: 1.We will proceed with EGD. 2.Continue PPI therapy. 3.IV fluids. 4.Continue p.r.n. pain medications and antiemetics. AUGUSTINE/OLY Voice ID: [id number] Report ID: [id number]
[2022-08-07 04:26] VITALS: O2SAT 99
[2022-08-07 04:29] VITALS: BP 190/75; TEMP 98.7
== END 2022-08-06 16:09 | disposition home or self-care (01) ==
LOC: ER 09:34 → ERHOLD 16:54 → 4TH 08-05 15:16
PROVIDERS: ADMIT Hospitalist; ATTEND Hospitalist
PROC: 0DB68ZX Excision of Stomach, Via Natural or Artificial Opening Endoscopic, Diagnostic (ICD-10-PCS; principal; 2022-08-05 17:45)
DX: K29.50 Unspecified chronic gastritis without bleeding (principal); K26.9 Duodenal ulcer, unspecified as acute or chronic, without hemorrhage or perforation; K29.80 Duodenitis without bleeding; K44.9 Diaphragmatic hernia without obstruction or gangrene; E11.9 Type 2 diabetes mellitus without complications; Z88.6 Allergy status to analgesic agent; Z88.2 Allergy status to sulfonamides; Z88.8 Allergy status to other drugs, medicaments and biological substances; Z88.1 Allergy status to other antibiotic agents
CPT/HCPCS: 93005; 85025 ×2; 80048; 36415; 83735; 88312; 85610; 82947 ×4; 80076; 88305; 81003; 84484; 83690; 80053; 83880; 74177; 71045; 99285; 87811; 43239; Q9967; J0360 ×3; J2704; J1200; C9113 ×2; J2270 ×2; J1170; G0378 ×5; J7030 ×4; J2405 ×4; J0744

== ENCOUNTER 2024-07-14 16:56 | Emergency (ER) | payer OTHER ==
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
[2024-07-14 17:52] VITALS: BP 131/67; TEMP 98.1; O2SAT 98
== END 2024-07-14 17:21 | disposition home or self-care (01) ==
LOC: ER 16:56
DX: L03.115 Cellulitis of right lower limb (principal)
CPT/HCPCS: 99283

== ENCOUNTER 2024-07-18 07:28 | Emergency (ER) | payer OTHER ==
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
[2024-07-18] MEDS ORDERED: LIDOCAINE HCL JELLY 2% 6 ML SYRINGE TOP ONE (08:05)
[2024-07-18 08:36] VITALS: BP 176/91; TEMP 97.8; O2SAT 100
== END 2024-07-18 07:51 | disposition home or self-care (01) ==
LOC: ER 07:28
DX: T24.201A Burn of second degree of unspecified site of right lower limb, except ankle and foot, initial encounter (principal)
CPT/HCPCS: 99282

== ENCOUNTER 2024-11-21 08:38 | Emergency (ER) | payer OTHER ==
[2024-11-21] MEDS ORDERED: ONDANSETRON 4 MG/2 ML VIAL ONE (09:14)
[2024-11-21 09:20] LABS: Absolute Basophils 0.1 K/uL (0-0.5); Absolute Eosinophils 0.3 K/uL (0-0.5); Absolute Lymphocytes (CBC) 3.1 K/uL (0.7-4.9); Absolute Monocytes 0.5 K/uL (0.1-1.3); Absolute Neutrophil 3.4 K/uL (1.8-8.0); Basophils % 0.7 % (0-1.3); Eosinophils % 4.6 % (0-4.4); Hematocrit 27.8 % (36.0-45.0); Lymphocytes % 41.7 % (15.3-44.8); MCH 25.6 pg (27.0-35.0); MCHC 32.3 g/dL (32.0-36.0); MCV 79.3 fL (80-100); MPV 7.7 fL (7.6-11.3); Monocytes % 7.3 % (3.3-12.3); Neutrophils % 45.7 % (41.7-73.7); Nucleated Red Blood Cells % 0.1 % (0-0); Platelets 328 thou/uL (152-406); RBC Red Blood Cell Count 3.51 M/uL (3.86-4.86); Red Cell Distribution Width 16.2 % (12.1-15.2)
[2024-11-21 09:34] LABS: Albumin 3.2 g/dL (3.4-5.0); Albumin/Globulin Ratio 0.9 (1.1-1.8); Anion Gap 11.7 mEq/L (5.0-15.0); Bilirubin Total 0.2 mg/dL (0.2-1.0); Globulin 3.6 g/dL (2.3-3.5); Potassium 3.7 mEq/L (3.5-5.1); Protein, Total 6.8 g/dL (6.4-8.2)
[2024-11-21] MEDS ORDERED: NA CHLORIDE 0.9% 1,000 ML ONE (09:47)
--- NOTE | 2024-11-21 10:27 | RAD REPORT ---
EXAMINATION: CT Abdomen Pelvis W Contrast CLINICAL INDICATION: Female, 69 years old. lower abd pain, nausea, diarrhea TECHNIQUE: CT abdomen and pelvis was performed, after the administration of IV contrast, as per [facility] protocol. Axial, sagittal and coronal reconstructions were obtained. One or more of the following dose reduction techniques were used: Automated exposure control, adjustment of the mA and k V according to patient size, and iterative reconstruction. Unless otherwise specified, incidental findings do not require dedicated imaging follow-up. COMPARISON: 07/19/2024 FINDINGS: LOWER CHEST: The visualized lung bases are clear. LIVER: Normal in size and contour. Peripheral right lobe 6-7 mm lesion on axial image 14 stable, prob ably benign. No other suspicious focal lesion. BILIARY SYSTEM: Diffuse prominence of the common bile duct and central intrahepatic biliary radicals, probably relates to status post cholecystectomy. SPLEEN: Normal size. No focal lesion. PANCREAS: No mass, ductal dilation, or kelly-pancreatic fluid. ADRENALS: Normal; no mass. KIDNEYS: Normal size and contour. No hydronephrosis. Exophytic left renal interpolar 3.2 cm cyst and other subcentimeter cortical hypoattenuating lesions, difficult to characterize, but overall stable. URINARY BLADDER: Unremarkable. GASTROINTESTINAL TRACT: Wall prominence of the sigmoid colon and rectum with mild adjacent fat strand ing, findings which could relate to underdistention or segmental colitis No evidence of free air, significant intra-abdominal free fluid, bowel obstruction or abscess. APPENDIX: Appendix not visualized, but no inflammatory changes in region of appendix. LYMPH NODES: No lymphadenopathy. MUSCULOSKELETAL: No acute or suspicious osseous abnormality. ADDITIONAL FINDINGS: None. IMPRESSION: Segmental wall prominence of the sigmoid colon and rectum, could relate to underdistention or segment al infectious or inflammatory colitis. Other stable findings as above.
--- NOTE | 2024-11-21 11:07 | EDPHYS ---
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 09:57 The patient presents to the emergency department with nausea, diarrhea, abdominal pain. rn Onset: The symptoms/episode began/occurred 4 day(s) ago. Possible causes: unknown. The symptoms are aggravated by nothing. The symptoms are alleviated by nothing. Severity of symptoms: At their worst the symptoms were moderate in the emergency department the symptoms have improved. The patient has not experienced similar symptoms in the past. Patient reports sent by PCP for IV fluids and to check her blood work again. Patient reports 4 days of nonbloody diarrhea and nausea with lower abdominal pain and cramping. PCP obtained blood work yesterday that showed anemia and dehydration so directed here for evaluation. Patient reports has had hemorrhoids and small amount of intermittent bleeding when wiping for years now, sees Dr. Sandoval for this, no intervention recommended. Has been anemic before and no active bleeding at this time. Patient reports feeling generalized weakness and dizziness but no syncope. No shortness of breath or chest pain.. Historical: - Allergies: 08:55 Augmentin; ss 08:55 Bactrim; ss 08:55 Demerol; ss 08:55 Morphine; ss 08:55 NSAIDS; ss 08:55 Toradol; ss - PMHx: 08:55 Crohn's; Depression; Diabetes - NIDDM; Hypertension; Migraines; ss - PSHx: 08:55 Appendectomy; Cholecystectomy; hysterectomy; knee sx; Tonsillectomy; ss - Family history:: not pertinent. - Hospitalizations: : No recent hospitalization is reported. ROS: 09:57 Constitutional: Negative for fever, chills, and weight loss, Cardiovascular: Negative rn for chest pain, palpitations, and edema, Respiratory: Negative for shortness of breath, cough, wheezing, and pleuritic chest pain, Abdomen/GI: + for abd pain with nausea/diarrhea MS/Extremity: Negative for injury and deformity, Neuro: Negative for headache, numbness, tingling, and seizure, Exam: 10:00 Constitutional: This is a well developed, well nourished patient who is awake, alert, rn and in no acute distress. Ambulatory to room without difficulty or assistance. Cardiovascular: Regular rate and rhythm. No pulse deficits. Respiratory: No increased work of breathing, no retractions or nasal flaring. Abdomen/GI: soft, mild suprapubic tenderness, no rebound, no masses MS/ Extremity: Pulses equal, no cyanosis. Neuro: Awake and alert, GCS 15 Vital Signs: 08:53 BP 148 / 77; Pulse 69; Resp 16; Temp 97.9(TE); Pulse Ox 100% on R/A; ss 09:08 Weight 71.21 kg; Height 5 ft. 3 in. ; Pain 5/10; ss 09:53 BP 111 / 61; Pulse 60; Resp 16 S; Pulse Ox 100% on R/A; kc6 09:08 Body Mass Index 27.81 (71.21 kg, 160.02 cm) ss 09:08 Pain Scale: Adult ss MDM: 08:44 Medical Screening Exam initiated rn 11:05 Differential diagnosis: Nonspecific abd pain, viral gastroenteritis, gastroenteritis, rn Colitis, dehydration, anemia. Data reviewed: vital signs, nurses notes, lab test result(s), radiologic studies, CT scan, and as a result, I will discharge patient. Counseling: I had a detailed discussion with the patient and/or guardian regarding the historical points, exam findings, and any diagnostic results supporting the discharge/admit diagnosis, lab results, radiology results, the need for outpatient follow up, to return to the emergency department if symptoms worsen or persist or if there are any questions or concerns that arise at home. Response to treatment: the patient's symptoms have markedly improved after treatment, and as a result, I will discharge patient. Special discussion: I discussed with the patient/guardian in detail that at this point there is no indication for admission to the hospital. It is understood, however, that if the symptoms persist or worsen the patient needs to return immediately for re-evaluation. ED course: CT shows mild colitis. Hemoglobin is 9, does not require blood transfusion. Feels much better after symptomatic treatment and IV fluids. Will discharge home with return precautions.. 11/21 09:00 Order name: CBC with Diff; Complete Time: 09:31 rn 11/21 09:00 Order name: CMP; Complete Time: 09:34 rn 11/21 09:00 Order name: Lipase; Complete Time: 09:34 rn 11/21 09:00 Order name: CT Abd/Pelvis - IV Contrast Only; Complete Time: 10:38 rn 11/21 09:00 Order name: IV Start; Complete Time: 09:12 rn 11/21 09:00 Order name: Labs collected and sent; Complete Time: 09:11 rn Administered Medications: 09:17 Drug: Ondansetron IVP 4 mg IVP once; over 2 minutes Route: IVP; Site: right forearm; kc6 09:53 Follow up: Response: No adverse reaction; Nausea is decreased kc6 09:53 Drug: NS 0.9% IV 1000 ml IV at 1000 ml once; to be given as a bolus over 60 minutes kc6 Route: IV; Rate: 1000 ml; Site: right wrist; 12:03 Follow up: Response: No adverse reaction; IV Status: Completed infusion; IV Intake: kc6 1000ml 12:02 Drug: Ciprofloxacin PO 500 mg PO once Route: PO; kc6 12:03 Drug: metroNIDAZOLE PO 500 mg PO once Route: PO; kc6 Disposition Summary: 11/21/24 11:06 Discharge Ordered Notes: Location: Home rn Problem: new rn Symptoms: have improved rn Condition: Stable rn Diagnosis - Left sided colitis without complications rn - Anemia, unspecified rn Followup: rn - With: Private Physician - When: As needed - Reason: Recheck today's complaints, Re-evaluation by your physician Discharge Instructions: - Discharge Summary Sheet rn - Anemia rn - Colitis rn Forms: - Medication Reconciliation Form rn - Antibiotic laborer car barn - Prescription Opioid Use rn - Patient Portal Instructions rn - Leadership Thank You Letter rn Prescriptions: - ondansetron 4 mg Oral Tablet,disintegrating - take 1 tablet ORAL route every 8 hours As needed; 12 tablet; Refills: 0, rn Product Selection Permitted - Cipro 500 mg Oral Tablet - take 1 tablet ORAL route every 12 hours for 10 days; 20 tablet; Refills: 0, rn Product Selection Permitted - Flagyl 500 mg Oral Tablet - take 1 tablet ORAL route every 8 hours for 10 days; 30 tablet; Refills: 0, rn Product Selection Permitted Signatures: Dispatcher MedHoPresbyterian HospitalVarinder uMrphy MD MD rn Blanchard, Shelby, RN RN ss Marcelina Cottrell, RN RN kc6
--- NOTE | 2024-11-21 11:07 | ER ---
[facility] Name: Priscila Draper Age: 69 yrs Sex: Female : 1955 Arrival Date: 11/21/2024 Time: 08:38 Bed 7 Private MD: Diagnosis: Left sided colitis without complications;Anemia, unspecified Presentation: 11/21 08:53 Chief complaint: Patient states: diarrhea since Monday. Sent by PCP for evaluation and ss treatment of dehydration and possible anemia. Pt reports her hemorrhoid has been irritated with some bleeding. Coronavirus screen: Client denies travel out of the [place] in the last 14 days. Ebola Screen: Patient denies exposure to infectious person. Patient denies travel to an Ebola-affected area in the 21 days before illness onset. Initial Sepsis Screen: Does the patient meet any 2 criteria? No. Patient's initial sepsis screen is negative. Does the patient have a suspected source of infection? No. Patient's initial sepsis screen is negative. Risk Assessment: Do you want to hurt yourself or someone else? Patient reports no desire to harm self or others. Onset of symptoms was November 17, 2024. 08:53 Method Of Arrival: Ambulatory ss 08:53 Acuity: SHIRA 3 ss Historical: - Allergies: 08:55 Augmentin; ss 08:55 Bactrim; ss 08:55 Demerol; ss 08:55 Morphine; ss 08:55 NSAIDS; ss 08:55 Toradol; ss - PMHx: 08:55 Crohn's; Depression; Diabetes - NIDDM; Hypertension; Migraines; ss - PSHx: 08:55 Appendectomy; Cholecystectomy; hysterectomy; knee sx; Tonsillectomy; ss - Family history:: not pertinent. - Hospitalizations: : No recent hospitalization is reported. Screenin:12 [facility] ED Fall Risk Assessment (Adult) History of falling in the last 3 months, kc6 including since admission No falls in past 3 months (0 pts) Confusion or Disorientation No (0 pts) Intoxicated or Sedated No (0 pts) Impaired Gait No (0 pts) Mobility Assist Device Used No (0 pt) Altered Elimination No (0 pt) Score/Fall Risk Level 0 - 2 = Low Risk Oriented to surroundings, Maintained a safe environment, Educated pt \T\ family on fall prevention, incl call for assistance when getting out of bed. Abuse screen: Denies threats or abuse. Denies injuries from another. Nutritional screening: No deficits noted. Tuberculosis screening: No symptoms or risk factors identified. Vital Signs: 08:53 BP 148 / 77; Pulse 69; Resp 16; Temp 97.9(TE); Pulse Ox 100% on R/A; ss 09:08 Weight 71.21 kg; Height 5 ft. 3 in. ; Pain 5/10; ss 09:53 BP 111 / 61; Pulse 60; Resp 16 S; Pulse Ox 100% on R/A; kc6 09:08 Body Mass Index 27.81 (71.21 kg, 160.02 cm) ss 09:08 Pain Scale: Adult ss ED Course: 08:42 Patient arrived in ED. ra3 08:44 Varinder Rocha MD is Attending Physician. rn 08:46 Willi Keen RN is Primary Nurse. bp 08:55 Triage completed. ss 08:55 Arm band placed on right wrist. ss 09:12 Patient has correct armband on for positive identification. Placed in gown. Bed in low kc6 position. Call light in reach. Side rails up X 1. Pulse ox on. NIBP on. Door closed. Noise minimized. Lights dimmed. Warm blanket given. Pillow given. 09:12 Inserted saline lock: 20 gauge in right forearm, using aseptic technique. Blood kc6 collected. Flushed with 10 mL NS. Patient maintains SpO2 saturation greater than 95% on room air. 09:50 CT Abd/Pelvis - IV Contrast Only In Process Unspecified. EDMS 12:25 No provider procedures requiring assistance completed. IV discontinued, intact, kc6 bleeding controlled, No redness/swelling at site. Pressure dressing applied. Administered Medications: 09:17 Drug: Ondansetron IVP 4 mg IVP once; over 2 minutes Route: IVP; Site: right forearm; kc6 09:53 Follow up: Response: No adverse reaction; Nausea is decreased kc6 09:53 Drug: NS 0.9% IV 1000 ml IV at 1000 ml once; to be given as a bolus over 60 minutes kc6 Route: IV; Rate: 1000 ml; Site: right wrist; 12:03 Follow up: Response: No adverse reaction; IV Status: Completed infusion; IV Intake: kc6 1000ml 12:02 Drug: Ciprofloxacin PO 500 mg PO once Route: PO; kc6 12:03 Drug: metroNIDAZOLE PO 500 mg PO once Route: PO; kc6 Medication: 12:25 VIS not applicable for this client. kc6 Intake: 12:03 IV: 1000ml; Total: 1000ml. kc6 Outcome: 11:06 Discharge ordered by . rn 12:25 Discharged to home ambulatory, kc6 12:25 Condition: good 12:25 Discharge instructions given to patient, Instructed on discharge instructions, follow up and referral plans. medication usage, Demonstrated understanding of instructions, follow-up care, medications, Prescriptions given X 3, 12:25 Patient left the ED. kc6 Signatures: Dispatcher [employer] EDMS Varinder Rocha MD MD rn Blanchard, Shelby, RN RN ss Peltier, Brian, RN RN bp Campbell, Kaitlyn, RN RN kc6 Sophia Bustamante ra3
[2024-11-21] MEDS ORDERED: CIPROFLOXACIN HCL 500 MG TAB ONE (11:52)
[2024-11-21] MEDS ORDERED: metroNIDAZOLE 500 MG TABLET ONE (11:52)
[2024-11-21 12:31] VITALS: TEMP 97.9; O2SAT 100
[2024-11-21 12:33] VITALS: BP 111/61
== END 2024-11-21 12:25 | disposition home or self-care (01) ==
LOC: ER 08:38
DX: K51.50 Left sided colitis without complications (principal); D64.9 Anemia, unspecified
CPT/HCPCS: 96361; 85025; 36415; 83690; 80053; 74177; 96374; 99284; Q9967; J2405; J7030

== ENCOUNTER 2024-11-26 09:25 | Emergency (ER) | payer OTHER ==
[2024-11-26] MEDS ORDERED: ONDANSETRON 4 MG (ODT) TAB ONE (09:53)
[2024-11-26] MEDS ORDERED: HYDROCODONE/APAP 7.5/325 MG TAB ONE (09:53)
--- NOTE | 2024-11-26 11:26 | EDPHYS ---
Physician Documentation [facility] Name: Priscila Draper Age: 69 yrs Sex: Female : 1955 Arrival Date: 11/26/2024 Time: 09:25 Bed 8 Private MD: ARIEL Physician Miguel Ángel Castaneda HPI: 11/26 10:45 This 69 yrs old Female presents to ER via Wheelchair with complaints of Knee mimi Pain - After pop, Leg Pain. 10:45 The patient presents with decreased range of motion, pain, that is acute. The mimi complaints affect the right knee. Context: resulted from a mis-step, the patient can partially bear weight, the patient is able to ambulate, with mild difficulty. Onset: The symptoms/episode began/occurred yesterday. Modifying factors: The symptoms are alleviated by elevating leg, remaining still, the symptoms are aggravated by movement, weight bearing. Associated signs and symptoms: The patient has no apparent associated signs or symptoms. Severity of symptoms: At their worst the symptoms were moderate, in the emergency department the symptoms are unchanged. Historical: - Allergies: 09:44 Augmentin; ph 09:44 Bactrim; ph 09:44 Demerol; ph 09:44 Morphine; ph 09:44 NSAIDS; ph 09:44 Toradol; ph - PMHx: 09:44 Crohn's; Depression; Diabetes - NIDDM; Hypertension; Migraines; ph - PSHx: 09:44 Appendectomy; Cholecystectomy; hysterectomy; knee sx; Tonsillectomy; ph - Immunization history:: Adult Immunizations unknown. - Infectious Disease History:: Denies. - Social history:: Smoking status: unknown. - Family history:: not pertinent. ROS: 10:45 Constitutional: Negative for fever, chills, and weight loss, Eyes: Negative for injury, mimi pain, redness, and discharge, ENT: Negative for injury, pain, and discharge, Neck: Negative for injury, pain, and swelling, Cardiovascular: Negative for chest pain, palpitations, and edema, Respiratory: Negative for shortness of breath, cough, wheezing, and pleuritic chest pain, Abdomen/GI: Negative for abdominal pain, nausea, vomiting, diarrhea, and constipation, Back: Negative for injury and pain, : Negative for injury, bleeding, discharge, and swelling, Skin: Negative for injury, rash, and discoloration, Neuro: Negative for headache, weakness, numbness, tingling, and seizure, Psych: Negative for depression, anxiety, suicide ideation, homicidal ideation, and hallucinations, Allergy/Immunology: Negative for hives, rash, and allergies, Endocrine: Negative for neck swelling, polydipsia, polyuria, polyphagia, and marked weight changes, Hematologic/Lymphatic: Negative for swollen nodes, abnormal bleeding, and unusual bruising, 10:45 MS/extremity: Positive for decreased range of motion, pain, swelling, tenderness, of the right knee, Exam: 10:45 Constitutional: This is a well developed, well nourished patient who is awake, alert, mimi and in no acute distress. Head/Face: Normocephalic, atraumatic. Eyes: Pupils equal round and reactive to light, extra-ocular motions intact. Lids and lashes normal. Conjunctiva and sclera are non-icteric and not injected. Cornea within normal limits. Periorbital areas with no swelling, redness, or edema. ENT: Nares patent. No nasal discharge, no septal abnormalities noted. Tympanic membranes are normal and external auditory canals are clear. Oropharynx with no redness, swelling, or masses, exudates, or evidence of obstruction, uvula midline. Mucous membranes moist. Neck: Trachea midline, no thyromegaly or masses palpated, and no cervical lymphadenopathy. Supple, full range of motion without nuchal rigidity, or vertebral point tenderness. No Meningismus. Chest/axilla: Normal chest wall appearance and motion. Nontender with no deformity. No lesions are appreciated. Cardiovascular: Regular rate and rhythm with a normal S1 and S2. No gallops, murmurs, or rubs. Normal PMI, no JVD. No pulse deficits. Respiratory: Lungs have equal breath sounds bilaterally, clear to auscultation and percussion. No rales, rhonchi or wheezes noted. No increased work of breathing, no retractions or nasal flaring. Abdomen/GI: Soft, non-tender, with normal bowel sounds. No distension or tympany. No guarding or rebound. No evidence of tenderness throughout. Back: No spinal tenderness. No costovertebral tenderness. Full range of motion. Skin: Warm, dry with normal turgor. Normal color with no rashes, no lesions, and no evidence of cellulitis. Neuro: Awake and alert, GCS 15, oriented to person, place, time, and situation. Cranial nerves II-XII grossly intact. Motor strength 5/5 in all extremities. Sensory grossly intact. Cerebellar exam normal. Normal gait. Psych: Awake, alert, with orientation to person, place and time. Behavior, mood, and affect are within normal limits. 10:45 Musculoskeletal/extremity: ROM: limited active range of motion due to pain, limited passive range of motion due to pain, in the right knee, Compartment Syndrome exam of affected extremity: is normal. 10:45 Neuro: Orientation: is normal, appropriate for stated age, no acute changes, Mentation: is normal, appropriate for stated age, no acute changes, Memory: is normal, appropriate for stated age, no acute changes, Cranial nerves: grossly normal, is grossly normal based on the patient's age, no acute changes, Vital Signs: 09:41 BP 113 / 54; Pulse 69; Resp 18; Temp 97.8; Pulse Ox 99% on R/A; Weight 77.11 kg; Height ph 5 ft. 3 in. ; 12:08 BP 114 / 56; Pulse 67; Resp 18; Temp 97.5; Pulse Ox 100% on R/A; ph 09:41 Body Mass Index 30.11 (77.11 kg, 160.02 cm) ph MDM: 09:31 Medical Screening Exam initiated mimi 10:47 Differential diagnosis: closed fracture, contusion, tendonitis. Data reviewed: vital mimi signs, nurses notes, radiologic studies. Consideration of Admission/Observation Escalation of care including admission/observation considered. I considered the following discharge prescriptions or medication management in the emergency department Medications were administered in the Emergency Department. See MAR. Independent interpretation of the following test(s) in the Emergency Department X-Ray: My interpretation is right knee. Historians other than the Patient: Spouse/Significant Other: well informed. Care significantly affected by the following chronic conditions: Diabetes, Hypertension, Obesity, crohns , migraines. 11/26 10:55 Order name: Knee Right 3 View EDSC 11/26 09:50 Order name: Ice pack; Complete Time: 09:59 mimi 11/26 09:50 Order name: Knee Immobilizer; Complete Time: 11:27 mimi 11/26 10:51 Order name: Greg wrap-joint; Complete Time: 11:27 mimi Administered Medications: 09:59 Drug: Hydrocodone-Acetaminophen PO (7.5 mg-325 mg) 1 tabs PO once Route: PO; ph 10:30 Follow up: Response: No adverse reaction ph 09:59 Drug: Ondansetron Oral Disintegrating Tablet Oral Disintegrating Tablet 4 mg PO once ph Route: PO; 10:30 Follow up: Response: No adverse reaction ph Disposition Summary: 11/26/24 11:25 Discharge Ordered Notes: Location: Home [facility] Problem: new [facility] Symptoms: have improved [facility] Condition: Stable [facility] Diagnosis - Pain in right knee mimi - Other internal derangements of right knee [facility] Followup: mimi - With: Private Physician - When: 2 - 3 days - Reason: Recheck today's complaints, Continuance of care, Re-evaluation by your physician Followup: [facility] - With: Patricio Mackay MD - When: 2 - 3 days - Reason: Recheck today's complaints, Re-evaluation by your physician Discharge Instructions: - Discharge Summary Sheet [facility] - Joint Pain [facility] - Arthritis [facility] - How to Use a Knee Brace [facility] - Musculoskeletal Pain [facility] - RICE Therapy for Routine Care of Injuries [facility] - RICE Therapy for Routine Care of Injuries, Vduf-yh-Qwae [facility] - Arthritis, Dyyi-kc-Vrhz [facility] - Acute Knee Pain, Adult, Xoht-mg-Yney [facility] Forms: - Medication Reconciliation Form [facility] - Antibiotic Education [facility] - Prescription Opioid Use [facility] - Patient Portal Instructions [facility] - Leadership Thank You Letter [facility] Prescriptions: - Tylenol 325 mg Oral tablet - take 2 tablets ORAL route every 6 hours as needed; 36 tablet; Refills: 0, mimi Product Selection Permitted Signatures: Dispatcher [employer] Miguel Ángel Chowdhury MD MD cha Hall, Patricia, RN RN ph
--- NOTE | 2024-11-26 11:26 | ER ---
Nurse's Notes [facility] Name: Priscila Draper Age: 69 yrs Sex: Female : 1955 Arrival Date: 11/26/2024 Time: 09:25 Bed 8 Private MD: Diagnosis: Pain in right knee;Other internal derangements of right knee Presentation: 11/26 09:41 Chief complaint: Patient states: Was walking upstairs, felt and heard a loud pop in the ph R knee, now unable to bear weight on R leg d/t pain 08/22. Coronavirus screen: Vaccine status: Patient reports receiving the 2nd dose of the covid vaccine. Ebola Screen: No symptoms or risks identified at this time. Initial Sepsis Screen: Does the patient meet any 2 criteria? No. Patient's initial sepsis screen is negative. Does the patient have a suspected source of infection? No. Patient's initial sepsis screen is negative. Risk Assessment: Do you want to hurt yourself or someone else? Patient reports no desire to harm self or others. Onset of symptoms was November 26, 2024. 09:41 Method Of Arrival: Wheelchair 09:41 Acuity: SHIRA 4 ph Triage Assessment: 09:44 General: Appears in no apparent distress. Behavior is calm, cooperative. Pain: ph Complains of pain in right knee. Neuro: Level of Consciousness is awake, alert, obeys commands, Oriented to person, place, time, situation. Derm: Skin is pink, warm \T\ dry. Musculoskeletal: Circulation, motion, and sensation intact. Range of motion: intact in all extremities. Historical: - Allergies: 09:44 Augmentin; ph 09:44 Bactrim; ph 09:44 Demerol; ph 09:44 Morphine; ph 09:44 NSAIDS; ph 09:44 Toradol; ph - PMHx: 09:44 Crohn's; Depression; Diabetes - NIDDM; Hypertension; Migraines; ph - PSHx: 09:44 Appendectomy; Cholecystectomy; hysterectomy; knee sx; Tonsillectomy; ph - Immunization history:: Adult Immunizations unknown. - Infectious Disease History:: Denies. - Social history:: Smoking status: unknown. - Family history:: not pertinent. Screenin:45 [facility] ED Fall Risk Assessment (Adult) History of falling in the last 3 months, ph including since admission No falls in past 3 months (0 pts) Confusion or Disorientation No (0 pts) Intoxicated or Sedated No (0 pts) Impaired Gait Yes (1 pt) Mobility Assist Device Used Yes (1 pt) Altered Elimination No (0 pt) Score/Fall Risk Level 0 - 2 = Low Risk Oriented to surroundings, Maintained a safe environment, Hourly rounding (assess needs \T\ fall precautionary measures) done, Used ambulatory aids as needed (educated on \T\ assisted with). Abuse screen: Denies threats or abuse. Denies injuries from another. Nutritional screening: No deficits noted. Tuberculosis screening: No symptoms or risk factors identified. Assessment: 11:00 General: SEE TRIAGE ASSESSMET. ph Vital Signs: 09:41 BP 113 / 54; Pulse 69; Resp 18; Temp 97.8; Pulse Ox 99% on R/A; Weight 77.11 kg; Height ph 5 ft. 3 in. ; 12:08 BP 114 / 56; Pulse 67; Resp 18; Temp 97.5; Pulse Ox 100% on R/A; ph 09:41 Body Mass Index 30.11 (77.11 kg, 160.02 cm) ph ED Course: 09:29 Patient arrived in ED. ra3 09:31 Miguel Ángel Castaneda MD is Attending Physician. mimi 09:41 Nallely Del Toro RN is Primary Nurse. ph 09:44 Triage completed. ph 09:45 Arm band placed on Patient placed in an exam room, on a stretcher, on pulse oximetry. ph 09:59 Patient has correct armband on for positive identification. Bed in low position. Call ph light in reach. Side rails up X 1. Pulse ox on. NIBP on. Door closed. Noise minimized. Warm blanket given. Pillow given. Ice pack to injury. 11:25 Patricio Mackay MD is Referral Physician. mimi 11:44 Knee Right 3 View In Process Unspecified. EDMS 12:07 No provider procedures requiring assistance completed. Patient did not have IV access ph during this emergency room visit. Knee immobilizer applied on right knee. Administered Medications: 09:59 Drug: Hydrocodone-Acetaminophen PO (7.5 mg-325 mg) 1 tabs PO once Route: PO; ph 10:30 Follow up: Response: No adverse reaction ph 09:59 Drug: Ondansetron Oral Disintegrating Tablet Oral Disintegrating Tablet 4 mg PO once ph Route: PO; 10:30 Follow up: Response: No adverse reaction ph Medication: 09:59 VIS not applicable for this client. ph Outcome: 11:25 Discharge ordered by . mimi 12:08 Discharged to home via wheelchair, with significant other, ph 12:08 Condition: good 12:08 Discharge instructions given to patient, Instructed on discharge instructions, follow up and referral plans. medication usage, Demonstrated understanding of instructions, follow-up care, medications, Prescriptions given X 1, 12:08 Patient left the ED. ph Signatures: Dispatcher [employer] EDNJ Miguel Ángel Castaneda MD MD cha Hall, Patricia, RN RN Sophia Subramanian ra3
--- NOTE | 2024-11-26 12:10 | RAD REPORT ---
EXAMINATION: XR RIGHT KNEE CLINICAL INDICATION: Female, 69 years old. RT KNEE PAIN TECHNIQUE: Multiple views of the right knee were obtained. COMPARISON: 02/18/2013 FINDINGS: [id number] medial joint compartment space narrowing most compatible with osteoarthrit is. Small suprapatellar joint effusion. No acute fracture or dislocation seen. Nonemergent MRI follow-up would be suggested to assess for internal derangement.
[2024-11-29 01:18] VITALS: BP 114/56; TEMP 97.5; O2SAT 100
== END 2024-11-26 12:08 | disposition home or self-care (01) ==
LOC: ER 09:25
DX: M23.8X1 Other internal derangements of right knee (principal)
CPT/HCPCS: 73562; 99284; Q0162

== ENCOUNTER 2024-12-22 15:07 | Inpatient (IN) | payer OTHER ==
[2024-12-22] MEDS ORDERED: NA CHLORIDE 0.9% 1,000 ML ONE ×2 (15:40→17:07)
[2024-12-22] MEDS ORDERED: FAMOTIDINE 20 MG/2 ML VIAL IV ONE (15:40)
[2024-12-22] MEDS ORDERED: ONDANSETRON 4 MG/2 ML VIAL ONE (15:40)
[2024-12-22 15:42] LABS: Absolute Lymphocytes (CBC) 1.1 K/uL (0.7-4.9); Absolute Monocytes 0.7 K/uL (0.1-1.3); Basophils % 0.2 % (0-1.3); Hematocrit 35.3 % (36.0-45.0); Hemoglobin 11.3 g/dL (12.0-15.0); Lymphocytes % 9.6 % (15.3-44.8); MCH 24.6 pg (27.0-35.0); MCHC 32.1 g/dL (32.0-36.0); MCV 76.6 fL (80-100); MPV 8.1 fL (7.6-11.3); Monocytes % 5.6 % (3.3-12.3); Neutrophils % 84.6 % (41.7-73.7); Nucleated Red Blood Cells % 0.1 % (0-0); Platelets 414 thou/uL (152-406); RBC Red Blood Cell Count 4.61 M/uL (3.86-4.86); Red Cell Distribution Width 17.2 % (12.1-15.2)
[2024-12-22 15:55] LABS: PT Prothrombin Time 12.4 SECONDS (9.4-12.5); PTT, Activated Partial Thromb 26.8 SECONDS (24.3-36.9); Protime INR 1.18
[2024-12-22 16:04] LABS: ALT/SGPT 34 U/L (13-56); AST/SGOT 22 U/L (15-37); Albumin 3.6 g/dL (3.4-5.0); Albumin/Globulin Ratio 0.8 (1.1-1.8); Alkaline Phosphatase 125 U/L (45-117); Anion Gap 17.2 mEq/L (5.0-15.0); BUN Blood Urea Nitrogen 15 mg/dL (7-18); Bicarbonate 18 mEq/L (21-32); Bilirubin Total 0.3 mg/dL (0.2-1.0); Globulin 4.8 g/dL (2.3-3.5); Glomerular Filtration Rate 44 ml/min (=/>90); Glucose Level 312 mg/dL (74-106); Lipase 23 U/L (13-75); Potassium 3.2 mEq/L (3.5-5.1); Protein, Total 8.4 g/dL (6.4-8.2); Sodium Level 134 mEq/L (136-145)
[2024-12-22 16:05] LABS: Bilirubin Direct < 0.2 mg/dL (0-0.2); Bilirubin Indirect, Calculated 0.1 mg/dL (0.2-0.8)
[2024-12-22] MEDS ORDERED: droPERidol 5 MG/2 ML VIAL ONE (17:06)
[2024-12-22] MEDS ORDERED: INSULIN REGULAR (HUMAN) 100 UNIT/ML ONE ×2 (17:07→19:01)
--- NOTE | 2024-12-22 17:38 | RAD REPORT ---
EXAM: CT brain without contrast HISTORY: AMS, vomiting COMPARISON: None TECHNIQUE: Multiple contiguous axial images were obtained and a CT of the brain without contrast. Sag ittal and coronal reformats were performed. One or more of the following dose reduction techniques were used: Automated exposure control, adjust ment of the mA and/or kV according to patient size, and/or iterative reconstruction. FINDINGS: No evidence of hydrocephalus, intracranial hemorrhage, or extra-axial fluid collection. Kgpq-ua-[id number] frontal atrophy. No evidence of midline shift or areas of brain edema. The calvarium is intact. The visualized paranasal sinuses and mastoid air cells are essentially clear . IMPRESSION: No evidence of acute intracranial abnormality.
--- NOTE | 2024-12-22 17:45 | RAD REPORT ---
EXAMINATION: CT ABDOMEN AND PELVIS WITH CONTRAST CLINICAL INDICATION: ABD PAIN TECHNIQUE: CT abdomen and pelvis was performed, after the administration of IV contrast, as per [facility] protocol. Axial, sagittal and coronal reconstructions were obtained. One or more of the following dose reduction techniques were used: Automated exposure control, adjustment of the mA and k V according to patient size, and iterative reconstruction. Unless otherwise specified, incidental findings do not require dedicated imaging follow-up. COMPARISON: No prior exam. FINDINGS: LOWER CHEST: The visualized lung bases are clear. Moderate thickening of the distal esophagus. LIVER: Mild fatty liver is present. Small low-density lesions in the right lobe of the liver likely b enign. No pathologic biliary dilatation is seen. Cholecystectomy clips. SPLEEN: Normal size. No focal lesion. PANCREAS: No mass, ductal dilation, or kelly-pancreatic fluid. ADRENALS: Normal; no mass. KIDNEYS: Normal size and contour. No hydronephrosis. 3.2 cm benign left renal cyst. GASTROINTESTINAL TRACT: No evidence of free air, significant intra-abdominal free fluid, bowel obstru ction or abscess. APPENDIX: Appendix not visualized, but no inflammatory changes in region of appendix. LYMPH NODES: No lymphadenopathy. MUSCULOSKELETAL: Mild multilevel spinal degenerative changes. ADDITIONAL FINDINGS: None. IMPRESSION: No acute or concerning abnormalities seen in the abdomen or pelvis. There is significant thickening of the distal esophagus. This would suggest esophagitis. Follow-up up per endoscopy recommended. Mild fatty liver.
--- NOTE | 2024-12-22 18:27 | ER ---
Nurse's Notes [facility] Name: Priscila Draper Age: 69 yrs Sex: Female : 1955 Arrival Date: 12/22/2024 Time: 15:07 Bed 6 Private MD: Diagnosis: Intractable vomiting;Esophagitis, unspecified;Diabetes mellitus due to underlying condition with hyperglycemia;Acidosis Presentation: 12/22 15:26 Chief complaint: EMS states: EMS called for lift assist, pt found outside of apartment, ph prone on the ground in a unresponsive/catatonic state. Bystander reports that pt's wrejlfdl-[id number]-khf was taken off of life support yesterday. Pt's only complaint was nausea, pt is also known to reportedly use barbiturates and THC. VSS other than tachycardia, 25 mg phenergan given IV. Coronavirus screen: Vaccine status: unable to obtain. Ebola Screen: No symptoms or risks identified at this time. Initial Sepsis Screen: Does the patient meet any 2 criteria? No. Patient's initial sepsis screen is negative. Does the patient have a suspected source of infection? No. Patient's initial sepsis screen is negative. Risk Assessment: Do you want to hurt yourself or someone else? Patient reports no desire to harm self or others. Onset of symptoms was December 22, 2024. 15:26 Method Of Arrival: EMS: [facility] ph 15:26 Acuity: SHIRA 2 ph Historical: - Allergies: 15:30 Augmentin; ph 15:30 Bactrim; ph 15:30 Demerol; ph 15:30 Morphine; ph 15:30 NSAIDS; ph 15:30 Toradol; ph - PMHx: 15:30 Crohn's; Depression; Diabetes - NIDDM; Hypertension; Migraines; ph - PSHx: 15:30 Appendectomy; Cholecystectomy; hysterectomy; knee sx; Tonsillectomy; ph - Immunization history:: Adult Immunizations unknown. - Infectious Disease History:: Denies. - Family history:: not pertinent. - Social history:: Smoking status: unknown. - Hospitalizations: : No recent hospitalization is reported. Screenin:30 [facility] ED Fall Risk Assessment (Adult) History of falling in the last 3 months, jb4 including since admission No falls in past 3 months (0 pts) Confusion or Disorientation No (0 pts) Intoxicated or Sedated No (0 pts) Impaired Gait Yes (1 pt) Mobility Assist Device Used No (0 pt) Altered Elimination No (0 pt) Score/Fall Risk Level 0 - 2 = Low Risk Oriented to surroundings, Maintained a safe environment. Abuse screen: Denies threats or abuse. Nutritional screening: No deficits noted. Tuberculosis screening: No symptoms or risk factors identified. Assessment: 15:30 General: Appears in no apparent distress. uncomfortable, Behavior is calm, cooperative. jb4 Pain: Denies pain. Neuro: Level of Consciousness is awake, alert, obeys commands, Oriented to person, place, time, situation. Cardiovascular: Patient's skin is warm and dry. Respiratory: Airway is patent Respiratory effort is even, unlabored, Respiratory pattern is regular, symmetrical. GI: Reports nausea, dry heaves. Derm: Skin is intact, Skin is pink, warm \T\ dry. Musculoskeletal: Circulation, motion, and sensation intact. Range of motion: intact in all extremities. Vital Signs: 15:26 BP 183 / 77; Pulse 125; Resp 18; Pulse Ox 98% on R/A; ph 16:13 BP 156 / 72; Pulse 121; Resp 24; Pulse Ox 98% on R/A; jb4 19:17 BP 156 / 74; Pulse 116; Resp 18; Pulse Ox 99% ; cp4 ED Course: 15:08 Patient arrived in ED. rn 15:08 Varinder Rocha MD is Attending Physician. rn 15:30 Triage completed. ph 15:30 Patient has correct armband on for positive identification. Bed in low position. Call jb4 light in reach. Side rails up X 1. Provided Education on: plan of care. 15:30 Maintain EMS IV. Dressing intact. Good blood return noted. Site clean \T\ dry. Gauge \T\ gage 4 site: 20g left hand. 15:31 Arm band placed on Patient placed in an exam room, on a stretcher. ph 15:49 Acetaminophen Sent. jb4 15:49 ETOH Level Sent. jb4 15:49 Hepatic Function Sent. jb4 15:49 PT-INR Sent. jb4 15:49 Ptt, Activated Sent. jb4 15:49 Salicylate Sent. jb4 15:49 CMP Sent. jb4 15:49 Lipase Sent. jb4 15:50 Matt Hawley, [place] is Primary Nurse. jb4 16:42 Radiology exam delayed due to IV insertion attempt and/or patient not having sm9 appropriate IV at this time. 17:30 CT Abd/Pelvis - IV Contrast Only In Process Unspecified. EDMS 17:30 CT Head Brain wo Cont In Process Unspecified. EDMS 18:25 Doug Ku MD is Hospitalizing Provider. rn 19:13 No provider procedures requiring assistance completed. Patient admitted, IV remains in cp4 place. Administered Medications: 15:50 Drug: Famotidine IVP 20 mg IVP once; dilute with 10 mL 0.9% NaCl; give over 2 minutes jb4 Route: IVP; Site: left hand; 15:50 Drug: Ondansetron IVP 4 mg IVP once; over 2 minutes Route: IVP; Site: left hand; jb4 15:50 Drug: NS 0.9% IV 1000 ml IV at 1 bolus Per protocol; to be given as a bolus over 60 jb4 minutes Route: IV; Rate: 1 bolus; Site: left hand; 17:15 Drug: Insulin Regular Human Sub-Q 5 units Sub-Q once {Co-Signature: iw (Katya Cerrato4 RN).} Route: Sub-Q; Site: right lower abdomen; 17:15 Drug: Droperidol IVP 1.25 mg IVP once Route: IVP; Site: left hand; jb4 17:43 Drug: NS 0.9% IV 1000 ml IV at 1000 ml once; to be given as a bolus over 60 minutes jb4 Route: IV; Rate: 1000 ml; Site: left antecubital; 19:06 Drug: Insulin Regular Human Sub-Q 5 units Sub-Q once {Co-Signature: br2 (L[facility] Sylvia RN).} Route: Sub-Q; Site: left upper abdomen; Medication: 15:30 VIS not applicable for this client. jb4 Outcome: 18:26 Decision to Hospitalize by Provider. rn 21:00 Admitted to Med/surg accompanied by tech, via stretcher, with chart, cp4 21:00 Condition: stable 21:00 Instructed on the need for admit, 21:05 Patient left the ED. cp4 Signatures: Dispatcher [employer] EDMS Varinder Rocha MD MD rn Hall, Patricia, RN RN ph Bryson, James, RN RN jb4 Cherri High cp4 Mary Ashby sm9 Katya Cerrato RN iw Sylvia Pimentel RN br2
--- NOTE | 2024-12-22 18:27 | EDPHYS ---
Physician Documentation [facility] Name: Priscila Draper Age: 69 yrs Sex: Female : 1955 Arrival Date: 12/22/2024 Time: 15:07 Bed 6 Private MD: ED Physician Varinder Rocha HPI: 12/22 15:19 This 69 yrs old Female presents to ER via Unassigned with complaints of AMS, nausea. rn 15:19 The patient presents with decreased responsiveness. Onset: The symptoms/episode rn began/occurred at an unknown time. Possible causes: Bad news. Associated signs and symptoms: Pertinent positives: nausea. Current symptoms: In the emergency department the patient's symptoms have improved. The patient has not experienced similar symptoms in the past. Patient reports just found out recently that her family member . Patient states felt fine prior to the news and after the news started to feel sick to her stomach. Reports feeling nauseated but no vomiting. Reports mild abdominal pain. No trauma. Today found prone on floor with decreased responsiveness and without intervention is waking up now. Denies focal neurological deficit. Denies attempt to harm herself or overdose.. Historical: - Allergies: 15:30 Augmentin; ph 15:30 Bactrim; ph 15:30 Demerol; ph 15:30 Morphine; ph 15:30 NSAIDS; ph 15:30 Toradol; ph - PMHx: 15:30 Crohn's; Depression; Diabetes - NIDDM; Hypertension; Migraines; ph - PSHx: 15:30 Appendectomy; Cholecystectomy; hysterectomy; knee sx; Tonsillectomy; ph - Immunization history:: Adult Immunizations unknown. - Infectious Disease History:: Denies. - Family history:: not pertinent. - Social history:: Smoking status: unknown. - Hospitalizations: : No recent hospitalization is reported. ROS: 15:19 Constitutional: Negative for fever, chills, and weight loss, Neck: Negative for injury, rn pain, and swelling, Cardiovascular: Negative for chest pain, palpitations, and edema, Respiratory: Negative for shortness of breath, cough, wheezing, and pleuritic chest pain, Abdomen/GI: Positive for nausea MS/Extremity: Negative for injury and deformity, Skin: Negative for injury, rash, and discoloration, Neuro: Positive for generalized weakness Exam: 15:19 Constitutional: This is a well developed, well nourished patient who is awake, alert, rn and in no acute distress. Cardiovascular: Regular rate and rhythm. No pulse deficits. Respiratory: No increased work of breathing, no retractions or nasal flaring. Abdomen/GI: Soft, non-tender MS/ Extremity: Pulses equal, no cyanosis. Neuro: Awake and alert, GCS 15, oriented to person, place, and situation. Cranial nerves II-XII grossly intact. Motor strength 4/5 in all extremities. Sensory grossly intact. 19:22 ECG was reviewed by the Attending Physician. mimi Vital Signs: 15:26 BP 183 / 77; Pulse 125; Resp 18; Pulse Ox 98% on R/A; ph 16:13 BP 156 / 72; Pulse 121; Resp 24; Pulse Ox 98% on R/A; jb4 19:17 BP 156 / 74; Pulse 116; Resp 18; Pulse Ox 99% ; cp4 MDM: 15:08 Medical Screening Exam initiated rn 18:23 Differential Diagnosis: volume depletion, Esophagitis, gastritis, acute stress rn disorder. Data reviewed: vital signs, nurses notes, lab test result(s), radiologic studies, CT scan, and as a result, I will admit patient. Consideration of Admission/Observation Patient was admitted/placed on observation. Escalation of care including admission/observation considered. Counseling: I had a detailed discussion with the patient and/or guardian regarding the historical points, exam findings, and any diagnostic results supporting the discharge/admit diagnosis, lab results, radiology results, the need for further work-up and treatment in the hospital. Response to treatment: the patient's symptoms have mildly improved after treatment, and as a result, I will admit patient. ED course: CT shows esophagitis, still vomiting, is hyperglycemic with mild acidosis and anion gap of 14. Will admit to hospitalist service for further care. Given insulin subcutaneous. Will defer insulin drip to hospitalist service.. 12/22 15:16 Order name: CBC with Diff; Complete Time: 16:52 rn 12/22 15:16 Order name: CMP; Complete Time: 16:52 rn 12/22 15:16 Order name: Lipase; Complete Time: 16:52 rn 12/22 15:16 Order name: Urinalysis w/ reflexes rn 12/22 15:16 Order name: Urine Drug Screen rn 12/22 15:16 Order name: Acetaminophen; Complete Time: 16:52 rn 02/ 15:16 Order name: ETOH Level; Complete Time: 16:52 rn 12/22 15:16 Order name: Hepatic Function; Complete Time: 16:52 rn / 15:16 Order name: PT-INR; Complete Time: 16:52 rn 12/22 15:16 Order name: Ptt, Activated; Complete Time: 16:52 rn 12/22 15:16 Order name: Salicylate; Complete Time: 16:52 rn 12/22 17:19 Order name: Glucose, Ancillary Testing; Complete Time: 17:49 EDMS 12/22 18:34 Order name: Basic Metabolic Panel EDMS 12/22 18:34 Order name: Urinalysis w/ reflexes EDMS 12/22 18:34 Order name: CBC with Automated Diff EDMS 12/22 18:34 Order name: CBC with Automated Diff EDMS 12/22 18:34 Order name: Comprehensive Metabolic Panel EDMS 12/22 18:34 Order name: Comprehensive Metabolic Panel EDMS 12/22 18:34 Order name: Magnesium EDMS 12/22 18:34 Order name: Magnesium EDMS 12/22 18:34 Order name: Phosphorus EDMS 12/22 18:34 Order name: Phosphorus EDMS 12/22 19:02 Order name: Glucose, Ancillary Testing EDMS 12/22 20:33 Order name: Glucose, Ancillary Testing EDMS 12/22 15:16 Order name: CT Abd/Pelvis - IV Contrast Only; Complete Time: 17:49 rn 12/22 15:16 Order name: CT Head Brain wo Cont; Complete Time: 17:49 rn 12/22 15:16 Order name: EKG; Complete Time: 15:17 rn 12/22 18:35 Order name: CONS Physician Consult EDMS 12/22 15:16 Order name: IV Saline Lock; Complete Time: 15:49 rn 12/22 15:16 Order name: Labs collected and sent; Complete Time: 15:49 rn 12/22 15:16 Order name: EKG - Nurse/Tech; Complete Time: 15:49 rn EC:22 Rate is 128 beats/min. Rhythm is regular. QRS Refugio is Normal. NC interval is shortened mimi at 80 msec. QRS interval is normal. QT interval is normal. No Q waves. T waves are Normal. No ST changes noted. Clinical impression: Sinus tachycardia and No evidence of ischemia. Interpreted by me. Reviewed by me. Administered Medications: 15:50 Drug: Famotidine IVP 20 mg IVP once; dilute with 10 mL 0.9% NaCl; give over 2 minutes jb4 Route: IVP; Site: left hand; 15:50 Drug: Ondansetron IVP 4 mg IVP once; over 2 minutes Route: IVP; Site: left hand; jb4 15:50 Drug: NS 0.9% IV 1000 ml IV at 1 bolus Per protocol; to be given as a bolus over 60 jb4 minutes Route: IV; Rate: 1 bolus; Site: left hand; 17:15 Drug: Insulin Regular Human Sub-Q 5 units Sub-Q once {Co-Signature: iw (Katya Cerrato RN).} Route: Sub-Q; Site: right lower abdomen; 17:15 Drug: Droperidol IVP 1.25 mg IVP once Route: IVP; Site: left hand; jb4 17:43 Drug: NS 0.9% IV 1000 ml IV at 1000 ml once; to be given as a bolus over 60 minutes jb4 Route: IV; Rate: 1000 ml; Site: left antecubital; 19:06 Drug: Insulin Regular Human Sub-Q 5 units Sub-Q once {Co-Signature: br2 (azra Pimentel RN).} Route: Sub-Q; Site: left upper abdomen; Disposition Summary: 12/22/24 18:26 Hospitalization Ordered Notes: Hospitalization Status: Inpatient Admission rn Provider: Doug Ku [facility]n [facility] Condition: Stable rn Problem: new rn Symptoms: are unchanged rn Bed/Room Type: Standard rn Room Assignment: 409(12/22/24 18:46) eb Diagnosis - Intractable vomiting rn - Esophagitis, unspecified rn - Diabetes mellitus due to underlying condition with hyperglycemia rn - Acidosis rn Forms: - Medication Reconciliation Form rn - SBAR form rn - Leadership Thank You Letter rn Signatures: Dispatcher [employer] Miguel Ángel Chowdhury MD MD cha Nieto, Roman, MD MD rn Hall, Patricia, RN RN Matt Fernandez RN RN [email or web address] Dian Quinones Irene RN iw Sylvia Pimentel RN br2 Corrections: (The following items were deleted from the chart) 18:46 18:26 rn eb
[2024-12-22] MEDS ORDERED: SODIUM CHLORIDE 0.9% 10ML INJ IV PRN (18:33)
[2024-12-22] MEDS ORDERED: GLUCAGON 1 MG/VIAL IM PRN (18:34)
[2024-12-22] MEDS ORDERED: D10W 125 ML IV PRN (18:34)
--- NOTE | 2024-12-22 18:35 | P.HP ---
Certification for Inpatient Patient admitted to: Inpatient With expected LOS: >2 Midnights Practitioner: I am a practitioner with admitting privileges, knowledge of patient current condition, hospital course, and medical plan of care. Services: Services provided to patient in accordance with Admission requirements found in Title 42 Section 412.3 of the Code of Federal Regulations Patient History Date of Service: 12/22/24 Reason for admission: Intractable Nausea and Vomiting History of Present Illness: 69 yrs old Female with past medical history of diabetes, hypertension, migraines, Crohn's disease, depression was brought to ER with altered mental status and nausea . Patient reports just found out recently that her family member . Patient states felt fine prior to the news and after the news started to feel sick to her stomach. Reports feeling nauseated but no vomiting . Complains of abdominal pain and decreased responsiveness associated with generalized weakness and fatigue. Denies any focal neurologic deficit Patient was assessed in the ER and is admitted for further management . Allergies cephalexin [From Keflex] Allergy (Verified 07/22/21 20:49) unknown ketorolac tromethamine [From Toradol] Allergy (Verified 07/22/21 20:31) Hives meperidine HCl [From Demerol] Allergy (Verified 07/22/21 20:31) Nausea/Vomiting morphine Allergy (Verified 07/22/21 20:31) Unknown NSAIDS (Non-Steroidal Anti-Inflamma Allergy (Verified 07/22/21 20:31) Shortness of breath Sulfa (Sulfonamide Antibiotics) Allergy (Verified 07/22/21 20:31) Unknown sulfamethoxazole [From Bactrim] Allergy (Verified 07/22/21 20:31) Hives/Rash trimethoprim [From Bactrim] Allergy (Verified 07/22/21 20:31) Hives/Rash Home medications list reviewed: Yes Home Medications: Metformin HCl 1,000 mg PO BID 07/23/21 Metoprolol Tartrate [Lopressor] 100 mg PO BID 07/23/21 ZOLMitriptan [Zolmitriptan Odt] 5 mg PO BIDP PRN 07/23/21 clonazePAM [Clonazepam] 0.5 mg PO BIDP PRN 07/23/21 Bupropion *Xl* [Wellbutrin XL*] 300 mg PO DAILY 07/24/21 Lisinopril [Zestril] 10 mg PO DAILY 07/24/21 Pantoprazole [Protonix Tab*] 40 mg PO BIDAC #60 tab 08/06/22 - Past Medical/Surgical History Diabetic: Yes Past Medical History: Reviewed- Non-Contributory -: HTN -: DEPRESSION -: PREVIOUS OD/DRUG ABUSE/POISONING -: MIGRAINES -: DM -: CROHNS Past Surgical History: Reviewed- Non-Contributory -: TONSILLECTOMY -: HYSTERECTOMY -: APPY -: LEFT KNEE SX - Family History Family History: Reviewed- Non-Contributory - Social History Smoking Status: Never smoker Alcohol use: No CD- Drugs: No Caffeine use: Yes Review of Systems 10-point ROS is otherwise unremarkable Physical Examination - Vital Signs Temperature: 98.2 F Blood Pressure: 182/78 Pulse: 118 Respirations: 18 Pulse Ox (%): 94 - Physical Exam General: Alert, Oriented x2, Mild distress, Confused HEENT: Atraumatic, Normocephalic Neck: Supple, 2+ carotid pulse no bruit Respiratory: Clear to auscultation bilaterally, Normal air movement Cardiovascular: Normal pulses, Regular rate/rhythm, Normal S1 S2 Capillary refill: <2 Seconds Gastrointestinal: Soft and benign, W/out hepatosplenomegaly Musculoskeletal: No clubbing, No swelling Integumentary: No rashes Neurological: Other (Drowsy, Arousable ) Lymphatics: No axilla or inguinal lymphadenopathy - Studies Laboratory Data (last 24 hrs) 12/22/24 12/22/24 12/22/24 15:34 15:34 15:34 WBC 11.80 H Hgb 11.3 L Hct 35.3 L Plt Count 414 H PT 12.4 INR 1.18 APTT 26.8 Sodium 134 L Potassium 3.2 L BUN 15 Creatinine 1.31 H Glucose 312 H Total Bilirubin 0.3 AST 22 ALT 34 Alkaline Phosphatase 125 H Lipase 23 Assessment and Plan - Plan Esophagitis Started on Protonix Monitor closely IV fluids GI consulted Hypokalemia Hyponatremia Electrolytes monitor and replace accordingly Hypertension Antihypertensives titrated Continue home medications and titrate as needed Hydralazine as needed WILLI Monitor renal parameters Electrolytes monitor and replace accordingly Diabetes Insulin sliding scale Accu-Chek before every meal and at bedtime GI/DVT prophylaxis Advanced directive full code Discharge Plan: Home Plan to discharge in: 48 Hours - Advance Directives Does patient have a Living Will: No Does patient have a Durable POA for Healthcare: No - Code Status/Comfort Care Code Status: Full Code Time Spent Managing Pts Care (In Minutes): 48
[2024-12-22 20:33] VITALS: BMI 31.4
[2024-12-22] MEDS: PANTOPRAZOLE 40 MG INJ IVP SCH (22:08)
[2024-12-22] MEDS: METOPROLOL TAR 50 MG TAB PO SCH (22:08)
[2024-12-22] MEDS: ONDANSETRON 4 MG/2 ML VIAL IV PRN (22:08)
[2024-12-23] MEDS: INSULIN REGULAR (HUMAN) 100 UNIT/ML SQ SCH
[2024-12-23 00:48] LABS: Anion Gap 12.5 mEq/L (5.0-15.0); Potassium 3.5 mEq/L (3.5-5.1)
[2024-12-23] MEDS: METOCLOPRAMIDE 10 MG/2mL INJ IV PRN (01:54)
[2024-12-23 06:13] LABS: Absolute Lymphocytes (CBC) 1.9 K/uL (0.7-4.9); Absolute Monocytes 0.9 K/uL (0.1-1.3); Absolute Neutrophil 10.4 K/uL (1.8-8.0); Basophils % 0.2 % (0-1.3); Hematocrit 28.5 % (36.0-45.0); Hemoglobin 9.1 g/dL (12.0-15.0); Lymphocytes % 14.1 % (15.3-44.8); MCH 24.5 pg (27.0-35.0); MCV 76.7 fL (80-100); MPV 7.8 fL (7.6-11.3); Monocytes % 7.1 % (3.3-12.3); Neutrophils % 78.6 % (41.7-73.7); Nucleated Red Blood Cells % 0.1 % (0-0); Platelets 399 thou/uL (152-406); RBC Red Blood Cell Count 3.71 M/uL (3.86-4.86); Red Cell Distribution Width 17.3 % (12.1-15.2)
[2024-12-23 06:25] LABS: Albumin 3.1 g/dL (3.4-5.0); Albumin/Globulin Ratio 0.8 (1.1-1.8); Anion Gap 11.5 mEq/L (5.0-15.0); Bilirubin Total 0.4 mg/dL (0.2-1.0); Globulin 3.7 g/dL (2.3-3.5); Magnesium 1.5 mg/dL (1.6-2.4); Potassium 3.5 mEq/L (3.5-5.1); Protein, Total 6.8 g/dL (6.4-8.2)
[2024-12-23 06:27] LABS: Phosphorus 1.2 mg/dL (2.5-4.9)
[2024-12-23] MEDS: clonazePAM 0.5 MG TAB PO PRN (06:29)
[2024-12-23] MEDS: POTASSIUM PHOS IN 0.9 % NACL 15 MMOL/250 ML BAG IV ONE (08:44)
[2024-12-23] MEDS: Magnesium Sulfate 2gm IVPB 2 G/50 ML BAG IV ONE (08:44)
[2024-12-23] MEDS: ENOXAPARIN 40 MG/0.4 ML SQ SCH (08:44)
[2024-12-23] MEDS: ACETAMINOPHEN 325 MG TABLET PO PRN (12:14)
[2024-12-23] MEDS: NA CHLORIDE 0.9% 500 ML ONE (14:15)
[2024-12-23] MEDS ORDERED: propofoL 200 MG/20 ML VIAL IV ONE (14:20)
--- NOTE | 2024-12-23 16:33 | P.PN ---
Date of Service: 12/23/24 Subjective Awake, feeling sad about the loss of her daughter in-law EGD today, CLD started ROS 10 point ROS as noted above, otherwise negative Physical Exam General: Alert, Oriented x2, NAD HEENT: Atraumatic, Normocephalic Neck: Supple, 2+ carotid pulse no bruit Respiratory: Clear to auscultation bilaterally, Normal air movement, on RA Cardiovascular: Normal pulses, RRR, Normal S1 S2 Capillary refill: <2 Seconds Gastrointestinal: Soft and benign on palpation, ND/NT Musculoskeletal: No clubbing, No swelling Integumentary: No rashes Neurological: Other (Drowsy, Arousable ) Lymphatics: No axilla or inguinal lymphadenopathy Vitals Reviewed Problem list Esophagitis History of Crohn's disease Hypokalemia Hyponatremia Hypophosphatemia Hypertension WILLI Diabetes Mellitus Assessment and Plan Esophagitis History of Crohn's disease Continue Protonix Dr. Sandoval -EGD reports esophagitis and hemorrhagic gastritis Monitor H/H Continue IV fluids Hypokalemia Hyponatremia Hypophosphatemia Electrolytes monitor replace PRN Hypertension Continue home medications and titrate as needed Hydralazine as needed WILLI Monitor renal parameters Electrolytes monitor and replace accordingly Diabetes Mellitus Insulin sliding scale Accu-Chek before every meal and at bedtime DVT prophylaxis SCD Advanced directive full code Discharge Plan: Home Plan to discharge in: 48 Hours
[2024-12-23] MEDS: HYDRALAZINE HCL 20 MG/ML VIAL IV PRN (16:36)
[2024-12-23] MEDS ORDERED: HYDRALAZINE HCL 20 MG/ML VIAL IV PRN (18:37)
--- NOTE | 2024-12-23 19:28 | CON ---
Date of Consultation: 12/23/2024 Reason For Consultation: Intractable nausea, vomiting, esophagitis with abnormal CT. History Of Present Illness: The patient is a 69-year-old white female with history of diabetes, hype rtension, depression, migraine headaches, Crohn's disease. The patient presented to the hospital wit h intractable nausea, vomiting, and pain in the midepigastric right upper quadrant and left upper ariadna drant area, 7/10, now down to [address] abdomen and pelvis revealed esophagitis in the distal esophagus with recommendation of upper endoscopy for further evaluation. Also mild fatty live r and small low attenuation lesions within the liver. Past Medical History: Significant for diabetes, hypertension, depression, migraine headaches, Crohn' s disease, tonsillectomy, hysterectomy, appendectomy, left knee surgery. Allergies: TO KEFLEX, TORADOL, DEMEROL, MORPHINE, NSAIDS, SULFA, AND BACTRIM. Home Medications: Include metformin, metoprolol, sumatriptan, clonazepam, Wellbutrin, Zestril, lisin opril, and Protonix. Social History: She is , 2 children, 1 of myocardial infarction at age 39, her daughter . No tobacco. She has rare alcohol on her birthdays with [employer] [employer]. She says she takes 1 to 2 sip s and gives to her father after that. Family History: Father alive with hyperlipidemia. Mother alive with hypertension, hyperlipidemia, c ongestive heart failure. Review of Systems: The patient has midepigastric right upper quadrant and left upper quadrant pain with intractable naus ea, vomiting. No melena, hematochezia, hematemesis, coffee-ground emesis, chest pain, shortness of b reath, seizure, syncope, muscle aches, joint aches, backaches, anxiety, depression. Physical Examination: Vital Signs: The patient is 5 foot 2 inches, 171 pounds, BMI of 31.4 kg m. Temperature is 98.2 degr ees Fahrenheit, pulse 63, respirations 16, blood pressure 145/66, O2 saturation 99%. HEENT: Normocephalic, atraumatic. Anicteric. Pupils equal, round, and reactive to light. Extraocu lar movements intact. Oropharynx is clear. Neck: Supple. No masses. Respirations: Clear to auscultation bilaterally. Cardiac: Regular rate and rhythm. Gastrointestinal: Positive bowel sounds. Soft. Some mild tenderness in the midepigastric area. No peritoneal or Gallardo sign. No rebound. No guarding. Extremities: No clubbing, cyanosis, or edema. 2+ pulses. Neuro: Alert and oriented x3. Grossly nonfocal. 5/5 motor. Sensation intact to light touch. Laboratory Data: The patient has white count of 13.3, up from 11.8 yesterday, hemoglobin of 9.1 down from 11.3 yesterday, hematocrit of 29, MCV of 77 which is low, platelet count 399, polys of 79% down from 85% yesterday, lymphocytes 14%, monocytes 7%, PT of 12.4, INR of 1.2, PTT of 26.8. The patient has sodium of 139, potassium 3.5, chloride 111, bicarb 20, BUN 13, creatinine of 1.0, glucose of 160 , calcium 7.5, phosphorus 1.2 low, magnesium 1.5 low, total bilirubin 0.4, AST 20, ALT 28, alkaline p hosphatase 93, total protein 6.8, albumin 3.1, lipase 23 yesterday. UA is pending. Toxicology; no T ylenol, no salicylates, otherwise negative. Plasma alcohol level less than 10. CT abdomen and pelvi s reveals esophagitis in the distal esophagus, mild fatty liver, and small low density lesions within the liver. Impression: 1. Esophagitis with CT revealing esophagitis in distal esophagus. Recommendation for upper endoscopy for further evaluation. Also mild fatty liver disease and small low density lesions within the live r. 2. Intractable nausea and vomiting with midepigastric right upper quadrant and left upper quadrant pa in, maximum 7/10, now down to 0, on pain medicines and antiemetics in hospital. 3. Many low density lesions within the liver. 4. Fatty liver. 5. History of diabetes, hypertension, depression, migraine headaches, Crohn's disease, tonsillectomy, hysterectomy, appendectomy, left knee surgery. Recommendations: 1. Continue IV fluids. 2. Continue p.r.n. pain medicines and antiemetics. 3. Keep the patient n.p.o. 4. EGD. 5. Workup fatty liver as outpatient. 6. Check MRI of liver and alpha-fetoprotein due to many low density lesions in the liver of unknown s ignificance. WS/MODL Voice ID: [id number] Report ID: [id number]
[2024-12-24] MEDS: clonazePAM 0.5 MG TAB PO ONE (03:34)
[2024-12-24 06:26] LABS: Anion Gap 11.6 mEq/L (5.0-15.0); Magnesium 2.2 mg/dL (1.6-2.4); Phosphorus 1.9 mg/dL (2.5-4.9); Potassium 3.6 mEq/L (3.5-5.1)
[2024-12-24] MEDS: INSULIN REGULAR (HUMAN) 100 UNIT/ML SQ SCH (07:27)
[2024-12-24] MEDS: POTASSIUM PHOS IN 0.9 % NACL 15 MMOL/250 ML BAG IV ONE (08:39)
[2024-12-24] MEDS: VALACYCLOVIR 500 MG TAB PO SCH (11:35)
--- NOTE | 2024-12-24 11:47 | P.PN ---
Date of Service: 12/24/24 Subjective Awake, tolerating liquids No acute events overnight ROS 10 point ROS as noted above, otherwise negative Physical Exam General: Alert, Oriented x2, NAD HEENT: Atraumatic, Normocephalic Neck: Supple, 2+ carotid pulse no bruit Respiratory: Clear to auscultation bilaterally, Normal air movement, on RA Cardiovascular: Normal pulses, RRR, Normal S1 S2 Capillary refill: <2 Seconds Gastrointestinal: Soft and benign on palpation, ND/NT Musculoskeletal: No clubbing, No swelling Integumentary: No rashes Neurological: Other (Drowsy, Arousable ) Lymphatics: No axilla or inguinal lymphadenopathy Vitals Reviewed Problem list Hemorrhagic gastritis/esophagitis History of Crohn's disease Hypokalemia Hyponatremia Hypophosphatemia Hypertension WILLI Diabetes Mellitus Plan Hemorrhagic gastritis/esophagitis History of Crohn's disease Continue Protonix BID Dr. Sandoval -EGD reports esophagitis and hemorrhagic gastritis Monitor H/H, repeat this afternoon Advance diet as tolerated Hypokalemia Hyponatremia Hypophosphatemia Electrolytes monitor replace PRN Hypertension Continue home medications and titrate as needed Hydralazine as needed WILLI Improving Monitor renal parameters Diabetes Mellitus Insulin sliding scale Accu-Chek before every meal and at bedtime DVT prophylaxis SCD Advanced directive full code Discharge Plan: Home Plan to discharge in: 48 Hours
--- NOTE | 2024-12-24 12:47 | EKG ---
Test Date: 2024-12-22 Test Time: 15:47:14 Squirrel Worker: LUDIVINA MEASUREMENT RESULTS: Intervals: Rate: 128 FL: 80 QRSD: 68 QT: 402 QTc: 586 [place]: P: FL: 80 QRS: -3 T: 57 INTERPRETIVE STATEMENTS: Sinus tachycardia with short FL Low voltage QRS Nonspecific ST and T wave abnormality Abnormal ECG Compared to ECG 08/04/2022 10:44:13 Short FL interval now present ST (T wave) deviation now present Sinus bradycardia no longer present Myocardial infarct finding no longer present Electronically Signed On 12-24-24 12:42:41 LUMBER SORTER MACHINE by Omega White
--- NOTE | 2024-12-24 15:38 | RAD REPORT ---
EXAMINATION: MRI ABDOMEN WITHOUT AND WITH CONTRAST CLINICAL INDICATION: Female, 69 years old. Many low density lesions in liver TECHNIQUE: Multiplanar, multi sequence imaging of the abdomen was performed before and after administ ration of gadolinium-based IV contrast. Unless otherwise specified, incidental findings do not require dedicated imaging follow-up. Unless otherwise specified, incidental findings do not require d edicated imaging follow-up. [id number]. COMPARISON: 12/22/2016, CT 08/21/2025 FINDINGS: LOWER CHEST: No pleural effusion or consolidation. LIVER: Subcentimeter T2 hyperintense lesions present in the right hepatic lobe, the largest measuring 7 mm. These lesions do not enhance.. They are consistent with cysts. GALLBLADDER: Surgically absent. BILE DUCTS: Mild extrahepatic biliary duct dilatation is likely related to the post cholecystectomy s reeves. PANCREAS: Normal T1 hyperintense signal. No mass, ductal dilation, or eklly-pancreatic fluid. SPLEEN: Normal size. No focal lesion. ADRENALS: Normal; no mass. KIDNEYS AND URETERS: Multiple T2 hyperintense renal lesions bilaterally. The largest measures 3.1 cm and left kidney. These are consistent with either simple or minimally complicated cysts. No hydronephrosis. VISUALIZED GASTROINTESTINAL TRACT: Normal course and caliber. LYMPH NODES: No lymphadenopathy. ABDOMINAL AORTA AND OTHER VESSELS: Normal caliber aorta. IVC patent. MUSCULOSKELETAL: No marrow signal abnormality. ADDITIONAL FINDINGS: None. IMPRESSION: Benign liver and renal lesions. No imaging follow-up required.
[2024-12-24] MEDS: MAGNESIUM HYDROXIDE 8% 30 ML PO ONE (17:44)
[2024-12-24 18:21] LABS: Specific Gravity 1.023 (1.005-1.030); Sqamous Epithelial <5 /HPF (None Seen); Urine Bacteria None Seen /HPF (<20); Urine Bilirubin NEGATIVE (Negative); Urine Blood Negative (Negative); Urine Clarity Extremely Turbid (Clear); Urine Color Light-Yellow (Yellow); Urine Crystals Unidentified Few /HPF (None Seen); Urine Culture Reflex Order REFLEXED; Urine Glucose NEGATIVE (Negative); Urine Ketones NEGATIVE (Negative); Urine Microscopic Reflex YN ORDER UMIC; Urine Mucus Slight /HPF (None Seen); Urine Nitrite 2+ (Negative); Urine Protein TRACE (Negative); Urine RBC <5 /HPF (None Seen); Urine Urobilinogen Normal (Normal); Urine WBC >50 /HPF (<5); Urine WBC Clump Occasional /HPF (None Seen); Urine Yeast (Budding) Trace /HPF (None Seen)
[2024-12-24] MEDS: LOPERAMIDE HCL 2 MG CAPSULE PO PRN (22:40)
[2024-12-25 06:16] LABS: Hematocrit 30.9 % (36.0-45.0); Hemoglobin 9.8 g/dL (12.0-15.0); MCH 24.4 pg (27.0-35.0); MCHC 31.6 g/dL (32.0-36.0); MCV 77.2 fL (80-100); MPV 7.6 fL (7.6-11.3); Platelets 395 thou/uL (152-406); Red Cell Distribution Width 17.5 % (12.1-15.2)
[2024-12-25 06:36] LABS: Anion Gap 9.7 mEq/L (5.0-15.0); Magnesium 2.3 mg/dL (1.6-2.4); Phosphorus 2.3 mg/dL (2.5-4.9); Potassium 3.7 mEq/L (3.5-5.1)
[2024-12-25 08:05] VITALS: TEMP 98.6
[2024-12-25] MEDS: POTASSIUM PHOS IN 0.9 % NACL 15 MMOL/250 ML BAG IV ONE (08:50)
[2024-12-25] MEDS: POTASSIUM CL SA 10 MEQ TAB PO ONE (09:34)
[2024-12-25] MEDS: POTASS/SODIUM PHOSPHATE 1 PKT POWD.PACK PO SCH (09:35)
[2024-12-25 11:59] VITALS: BP 174/74
[2024-12-25 12:26] VITALS: O2SAT 98
--- NOTE | 2024-12-25 14:27 | P.PN ---
Subjective Date of Service: 12/25/24 Chief Complaint: Intractable Nausea and Vomiting, KIAN/RUQ/LUQ pain, abn CT esophagitis Subjective: Improving (Feels much better. No N/V. Much improved mood, somewhat cheerful. Tolerating po diet.) Review of Systems 10-point ROS is otherwise unremarkable Gastrointestinal: Abdominal Pain (Improved.) Physical Examination - Vital Signs Temperature: 98.6 F Blood Pressure: 174/74 Pulse: 70 Respirations: 17 Pulse Ox (%): 97 - Physical Exam General: Alert, In no apparent distress, Oriented x3, Cooperative HEENT: Atraumatic, Normocephalic, PERRLA, EOMI Neck: Supple Respiratory: Normal air movement Cardiovascular: Normal pulses, Regular rate/rhythm Gastrointestinal: Soft and benign, No tenderness, No rebound, No guarding Neurological: Normal speech, Normal strength at 5/5 x4 extr Assessment And Plan - Current Problems (Diagnosis) (1) Intractable nausea and vomiting Status: Acute Comment: Improved. Better mood today. Extreme stress/distraught over of daughter in law on day before admission and prior of her daugter. (2) Epigastric abdominal pain Status: Acute (3) RUQ abdominal pain Status: Acute (4) LUQ abdominal pain Status: Acute - Plan REC: 1) continue PPI therapy 2) grief counseling
--- NOTE | 2024-12-25 16:01 | P.DS ---
Admission Date: 12/22/24 Discharge Date: 12/25/24 Disposition: ROUTINE DISCHARGE Discharge Condition: GOOD Reason for Admission: Intractable Nausea and Vomiting, KIAN/RUQ/LUQ pain, abn CT esophagitis Brief History of Present Illness: 69 yrs old Female with past medical history of diabetes, hypertension, migraines, Crohn's disease, depression was brought to ER with altered mental status and nausea . Patient reports just found out recently that her family member . Patient states felt fine prior to the news and after the news started to feel sick to her stomach. Reports feeling nauseated but no vomiting . Complains of abdominal pain and decreased responsiveness associated with generalized weakness and fatigue. Denies any focal neurologic deficit Patient was assessed in the ER and is admitted for further management . Hospital Course: Problem list Hemorrhagic gastritis/esophagitis History of Crohn's disease Hypokalemia Hyponatremia Hypophosphatemia Hypertension WILLI Diabetes Mellitus Patient was admitted to the hospital for intractable nausea and vomiting. CT of her abdomen and pelvis showed significant thickening of the distal esophagus whi ch would suggest esophagitis. She was seen by GI who performed EGD, EGD showed reflux esophagitis, moderate striped acute hemorrhagic gastritis. Biopsies were taken and results are pending, GI recommends acid suppression therapy with twice daily PPI/Protonix. After this patient's diet was slowly advanced, she has been tolerating a soft diet now. Additionally there were some small cyst noted on the CT, follow-up abdominal MRI was ordered by gastroenterology which showed benign liver and renal lesions with no imaging follow-up required. Patient did develop some loose stools overnight which she reports she has intermittently/chronically at home secondary her to Crohn's. She took her home medication hyoscyamine with improvement in her symptoms as well as Imodium. Her hemoglobin has been stable and she is stable for discharge and outpatient follow-up with GI. Continue your home medications including Protonix twice daily Call Dr. Reynoso's office to schedule follow-up appointment Vital Signs/Physical Exam: Temp Pulse Resp BP Pulse Ox 98.6 F 70 17 174/74 H 97 12/25/24 14:27 12/25/24 14:27 12/25/24 14:27 12/25/24 14:27 12/25/24 14:27 General: Alert, In no apparent distress, Oriented x3 HEENT: Atraumatic, PERRLA Neck: Supple, JVD not distended Respiratory: Clear to auscultation bilaterally, Normal air movement Cardiovascular: Regular rate/rhythm, Normal S1 S2 Gastrointestinal: Normal bowel sounds, No tenderness Musculoskeletal: No tenderness Integumentary: No rashes Neurological: Normal speech, Normal affect Laboratory Data at Discharge: WBC 7.10 thou/uL (4.3-10.9) 12/25/24 05:48 Hgb 9.8 g/dL (12.0-15.0) L 12/25/24 05:48 Hct 30.9 % (36.0-45.0) L 12/25/24 05:48 Plt Count 395 thou/uL (152-406) 12/25/24 05:48 PT 12.4 SECONDS (9.4-12.5) 12/22/24 15:34 INR 1.18 12/22/24 15:34 APTT 26.8 SECONDS (24.3-36.9) 12/22/24 15:34 Sodium 139 mEq/L (136-145) 12/25/24 05:48 Potassium 3.7 mEq/L (3.5-5.1) 12/25/24 05:48 BUN 10 mg/dL (7-18) 12/25/24 05:48 Creatinine 0.90 mg/dL (0.55-1.02) 12/25/24 05:48 Glucose 139 mg/dL (74-106) H 12/25/24 05:48 Phosphorus 2.3 mg/dL (2.5-4.9) L 12/25/24 05:48 Magnesium 2.3 mg/dL (1.6-2.4) 12/25/24 05:48 Total Bilirubin 0.4 mg/dL (0.2-1.0) 12/23/24 05:38 AST 20 U/L (15-37) 12/23/24 05:38 ALT 28 U/L (13-56) 12/23/24 05:38 Alkaline Phosphatase 93 U/L (45-117) D 12/23/24 05:38 Lipase 23 U/L (13-75) 12/22/24 15:34 Home Medications: Metformin HCl 1,000 mg PO BID 07/23/21 Metoprolol Tartrate [Lopressor] 100 mg PO BID 07/23/21 ZOLMitriptan [Zolmitriptan Odt] 5 mg PO BIDP PRN 07/23/21 clonazePAM [Clonazepam] 0.5 mg PO BIDP PRN 07/23/21 Bupropion *Xl* [Wellbutrin XL*] 300 mg PO DAILY 07/24/21 lisinopriL [Zestril] 10 mg PO DAILY 07/24/21 Hyoscyamine Sulfate 0.125 mg PO Q4H PRN 12/25/24 Pantoprazole [Protonix Tab*] 40 mg PO BIDAC #60 tab 12/25/24 New Medications: Pantoprazole [Protonix Tab*] 40 mg PO BIDAC #60 tab Physician Discharge Instructions: Patient was admitted to the hospital for intractable nausea and vomiting. CT of her abdomen and pelvis showed significant thickening of the distal esophagus which would suggest esophagitis. She was seen by GI who performed EGD, EGD showed reflux esophagitis, moderate striped acute hemorrhagic gastritis. Biopsies were taken and results are pending, GI recommends acid suppression therapy with twice daily PPI/Protonix. After this patient's diet was slowly advanced, she has been tolerating a soft diet now. Additionally there were some small cyst noted on the CT, follow-up abdominal MRI was ordered by gastroenterology which showed benign liver and renal lesions with no imaging follow-up required. Patient did develop some loose stools overnight which she reports she has intermittently/chronically at home secondary her to Crohn's. She took her home medication hyoscyamine with improvement in her symptoms as well as Imodium. Her hemoglobin has been stable and she is stable for discharge and outpatient follow-up with GI. Continue your home medications including Protonix twice daily Call Dr. Reynoso's office to schedule follow-up appointment Diet: Regular Activity: Ad alfredo Followup: NONE,NONE [Primary Care Provider] - 1-2 Weeks Edin Sandoval MD [ASSOCIATE-ACTIVE - CAN ADMIT] - 1-2 Weeks Time spent managing pt's care (in minutes): 45
== END 2024-12-25 12:45 | disposition home or self-care (01) | DRG 368 ==
LOC: ER 15:07 → ERHOLD 18:29 → 4TH 19:43
PROVIDERS: ADMIT Family Medicine; ATTEND Hospitalist
PROC: 0DB78ZX Excision of Stomach, Pylorus, Via Natural or Artificial Opening Endoscopic, Diagnostic (ICD-10-PCS; 2024-12-23)
PROC: 0DB68ZX Excision of Stomach, Via Natural or Artificial Opening Endoscopic, Diagnostic (ICD-10-PCS; principal; 2024-12-23 14:00)
DX: K21.01 Gastro-esophageal reflux disease with esophagitis, with bleeding (principal); K29.01 Acute gastritis with bleeding; E87.20 Acidosis, unspecified; E87.1 Hypo-osmolality and hyponatremia; N17.9 Acute kidney failure, unspecified; K50.90 Crohn's disease, unspecified, without complications; I10 Essential (primary) hypertension; E11.65 Type 2 diabetes mellitus with hyperglycemia; E87.6 Hypokalemia; K76.0 Fatty (change of) liver, not elsewhere classified; E83.39 Other disorders of phosphorus metabolism; Z88.5 Allergy status to narcotic agent; Z88.1 Allergy status to other antibiotic agents; Z63.4 Disappearance and death of family member; Z79.84 Long term (current) use of oral hypoglycemic drugs; Z90.49 Acquired absence of other specified parts of digestive tract; Z79.899 Other long term (current) drug therapy; Z90.710 Acquired absence of both cervix and uterus
CPT/HCPCS: 36415; 70450; 74177; 74183; 80048; 80053; 80143; 80179; 81001; 82077; 82105; 82248; 82378; 82947; 83690; 83735; 84100; 85018; 85025; 85027; 85610; 85730; 87077; 87086; 87088; 87186; 88305; 88312; 93005; 96372; 96374; 96375; 99285; A9577; J0360; J1650; J1790; J2405; J2470; J2704; J2765; J3475; J7030; J7040; Q9967

== ENCOUNTER 2025-01-24 06:44 | Emergency (ER) | payer OTHER ==
[2025-01-24] MEDS ORDERED: FENTANYL CITR 100 MCG/2 ML ONE (07:37)
--- NOTE | 2025-01-24 07:49 | RAD REPORT ---
EXAMINATION: XR RIGHT HUMERUS HISTORY: RT SHOULDER PAIN TECHNIQUE: Multiple views of the right humerus performed. COMPARISON: None FINDINGS: Moderately displaced fracture proximal right humerus with overriding. No dislocation seen.
--- NOTE | 2025-01-24 08:05 | EDPHYS ---
Physician Documentation [facility] Name: Priscila Draper Age: 69 yrs Sex: Female : 1955 Arrival Date: 01/24/2025 Time: 06:44 Bed 5 Private MD: ED Physician Mahin Lassiter HPI: 01/24 07:16 This 69 yrs old Female presents to ER via Ambulatory with complaints of Fall Injury, rt Arm Injury, RT ARM. 07:16 Patient presents to the ED with an injury to the right shoulder. Patient had trip and rt fall, landing on the shoulder. Denies other injury, other acute complaints, is concerned that she broke her arm. Symptoms are moderate in severity, aching nature, nonradiating, no other aggravating or alleviating factors.. Historical: - Allergies: 06:58 Augmentin; bm8 06:58 Bactrim; bm8 06:58 Demerol; bm8 06:58 Morphine; bm8 06:58 NSAIDS; bm8 06:58 Toradol; bm8 - Home Meds: 06:58 Fioricet 50-325-40 mg Oral tab [Active]; lisinopril 10 mg Oral tab 1 tab once daily bm8 [Active]; metformin 500 mg Oral tab 2 tabs 2 times per day [Active]; metoprolol tartrate 100 mg Oral tab 1 tab 2 times per day [Active]; Wellbutrin Oral [Active]; Zomig Oral [Active]; - PMHx: 06:58 Crohn's; Depression; Diabetes - NIDDM; Hypertension; Migraines; bm8 - PSHx: 06:58 Appendectomy; hysterectomy; Cholecystectomy; knee sx; Tonsillectomy; bm8 - Immunization history:: Adult Immunizations up to date. - Infectious Disease History:: Denies. - Social history:: Smoking status: Patient denies any tobacco usage or history of. - Family history:: not pertinent. ROS: 07:16 Constitutional: Negative for fever, chills, and weight loss, Cardiovascular: Negative rt for chest pain, palpitations, and edema, Respiratory: Negative for shortness of breath, cough, wheezing, and pleuritic chest pain, Abdomen/GI: Negative for abdominal pain, nausea, vomiting, diarrhea, and constipation, Skin: Negative for injury, rash, and discoloration, Neuro: Negative for headache, weakness, numbness, tingling, and seizure, 07:16 MS/extremity: Positive for decreased range of motion, pain, Exam: 07:16 Constitutional: This is a well developed, well nourished patient who is awake, alert, rt and in no acute distress. Head/Face: Normocephalic, atraumatic. Chest/axilla: Normal chest wall appearance and motion. Nontender with no deformity. No lesions are appreciated. Cardiovascular: Regular rate and rhythm with a normal S1 and S2. No gallops, murmurs, or rubs. Normal PMI, no JVD. No pulse deficits. Respiratory: Lungs have equal breath sounds bilaterally, clear to auscultation and percussion. No rales, rhonchi or wheezes noted. No increased work of breathing, no retractions or nasal flaring. Abdomen/GI: Soft, non-tender, with normal bowel sounds. No distension or tympany. No guarding or rebound. No evidence of tenderness throughout. Skin: Warm, dry with normal turgor. Normal color with no rashes, no lesions, and no evidence of cellulitis. Neuro: Awake and alert, GCS 15, oriented to person, place, time, and situation. Cranial nerves II-XII grossly intact. Motor strength 5/5 in all extremities. Sensory grossly intact. Cerebellar exam normal. Normal gait. 07:16 Musculoskeletal/extremity: Tenderness with swelling to the right shoulder, no other focal areas of tenderness to the right arm, pulses, motor, sensation are intact. Vital Signs: 06:56 BP 125 / 70; Pulse 68; Resp 17; Temp 97.8; Pulse Ox 100% ; Weight 77.11 kg; Height 5 bm8 ft. 3 in. ; Pain 9/10; 09:26 BP 131 / 65; Pulse 71; Resp 16; Pulse Ox 100% ; bp 06:56 Body Mass Index 30.11 (77.11 kg, 160.02 cm) bm8 06:56 Pain Scale: Adult bm8 MDM: 07:03 Medical Screening Exam initiated rt 08:22 Differential diagnosis: Fracture, contusion. Data reviewed: vital signs, nurses notes, rt radiologic studies. Management of patient was discussed with the following: Gold Reclaimer: Discussed with Dr. Charles, will follow-up patient in clinic.. I considered the following discharge prescriptions or medication management in the emergency department Medications were administered in the Emergency Department. See MAR. Independent interpretation of the following test(s) in the Emergency Department X-Ray: My interpretation is Proximal humerus fracture seen on interpretation of x-ray image. Test considered but Not performed: CT: Denies head trauma, CT scan of the head is not indicated. Care significantly affected by the following chronic conditions: Diabetes. Counseling: I had a detailed discussion with the patient and/or guardian regarding the historical points, exam findings, and any diagnostic results supporting the discharge/admit diagnosis, radiology results, the need for outpatient follow up, to return to the emergency department if symptoms worsen or persist or if there are any questions or concerns that arise at home. Response to treatment: the patient's symptoms have mildly improved after treatment. 01/24 07:23 Order name: Humerus Right; Complete Time: 07:51 EDMS Administered Medications: 07:40 Drug: fentaNYL (PF) IM 75 mcg IM once Route: IM; Site: left gluteus; bp 09:30 Follow up: Response: No adverse reaction bp Disposition Summary: 01/24/25 08:03 Discharge Ordered Notes: Location: Home rt Problem: new rt Symptoms: are unchanged rt Condition: Stable rt Diagnosis - Fracture to right proximal humerus rt Followup: rt - With: Levi Charles MD - When: 5 - 6 days - Reason: Discharge Instructions: - Discharge Summary Sheet rt - Humerus Fracture Treated With Immobilization rt Forms: - Medication Reconciliation Form rt - Antibiotic Education rt - Prescription Opioid Use rt - Patient Portal Instructions rt - Leadership Thank You Letter rt Prescriptions: - Tylenol-Codeine #3 300mg-30mg Oral tablet - take 1 tablet ORAL route every 4 hours As needed; 18 tablet; Refills: 0, rt Product Selection Permitted Signatures: Dispatcher [employer] Willi Dixon RN RN bp Mahin Lassiter MD MD rt Sedrick Charles RN RN bm8
--- NOTE | 2025-01-24 08:05 | ER ---
Nurse's Notes [facility] Name: Priscila Draper Age: 69 yrs Sex: Female : 1955 Arrival Date: 01/24/2025 Time: 06:44 Bed 5 Private MD: Diagnosis: Fracture to right proximal humerus Presentation: 01/24 06:56 Chief complaint: Patient states: I got up to go to the restroom and tripped over my bm8 black cat falling on my right shoulder and i think I broke my arm. Coronavirus screen: Vaccine status: At this time, the client does not indicate any symptoms associated with coronavirus-19. Ebola Screen: Patient negative for fever greater than or equal to 101.5 degrees Fahrenheit, and additional compatible Ebola Virus Disease symptoms Patient denies exposure to infectious person. Patient denies travel to an Ebola-affected area in the 21 days before illness onset. No symptoms or risks identified at this time. Initial Sepsis Screen: Does the patient meet any 2 criteria? No. Patient's initial sepsis screen is negative. Does the patient have a suspected source of infection? No. Patient's initial sepsis screen is negative. Risk Assessment: Do you want to hurt yourself or someone else? Patient reports no desire to harm self or others. Onset of symptoms was January 24, 2025 at 05:00. 06:56 Method Of Arrival: Ambulatory 8 06:56 Acuity: SHIRA 3 bm8 Triage Assessment: 06:58 General: Appears in no apparent distress. comfortable, Behavior is calm, cooperative, bm8 appropriate for age. Pain: Complains of pain in right arm Pain currently is 9 out of 10 on a pain scale. Quality of pain is described as aching, crampy. EENT: No deficits noted. No signs and/or symptoms were reported regarding the EENT system. Neuro: No deficits noted. Level of Consciousness is awake, alert, obeys commands, Oriented to person, place, time, situation, Appropriate for age. Cardiovascular: Denies chest pain, Heart tones S1 S2 present Capillary refill < 3 seconds in bilateral fingers Patient's skin is warm and dry. Respiratory: Airway is patent Respiratory effort is even, unlabored, Respiratory pattern is regular, symmetrical, Breath sounds are clear bilaterally. GI: No signs and/or symptoms were reported involving the gastrointestinal system. : No signs and/or symptoms were reported regarding the genitourinary system. Derm: No signs and/or symptoms reported regarding the dermatologic system. Musculoskeletal: Capillary refill < 3 seconds, in bilateral fingers. Range of motion: limited in right shoulder and right elbow Swelling present in right arm Tenderness present in right arm Reports pain in right arm since this morning after the fall. Historical: - Allergies: 06:58 Augmentin; bm8 06:58 Bactrim; bm8 06:58 Demerol; bm8 06:58 Morphine; bm8 06:58 NSAIDS; bm8 06:58 Toradol; bm8 - Home Meds: 06:58 Fioricet 50-325-40 mg Oral tab [Active]; lisinopril 10 mg Oral tab 1 tab once daily bm8 [Active]; metformin 500 mg Oral tab 2 tabs 2 times per day [Active]; metoprolol tartrate 100 mg Oral tab 1 tab 2 times per day [Active]; Wellbutrin Oral [Active]; Zomig Oral [Active]; - PMHx: 06:58 Crohn's; Depression; Diabetes - NIDDM; Hypertension; Migraines; bm8 - PSHx: 06:58 Appendectomy; hysterectomy; Cholecystectomy; knee sx; Tonsillectomy; bm8 - Immunization history:: Adult Immunizations up to date. - Infectious Disease History:: Denies. - Social history:: Smoking status: Patient denies any tobacco usage or history of. - Family history:: not pertinent. Screenin:26 [facility] ED Fall Risk Assessment (Adult) History of falling in the last 3 months, bp including since admission Yes- single mechanical fall (1 pt) Confusion or Disorientation No (0 pts) Intoxicated or Sedated No (0 pts) Impaired Gait No (0 pts) Mobility Assist Device Used No (0 pt) Altered Elimination No (0 pt) Score/Fall Risk Level 0 - 2 = Low Risk Oriented to surroundings. Abuse screen: Denies threats or abuse. Denies injuries from another. Nutritional screening: No deficits noted. Tuberculosis screening: No symptoms or risk factors identified. Assessment: 07:00 General: Appears in no apparent distress. uncomfortable, Behavior is calm, cooperative, bp appropriate for age. 09:26 Reassessment: DC HOME VIA WHEELCHAIR. bp Vital Signs: 06:56 BP 125 / 70; Pulse 68; Resp 17; Temp 97.8; Pulse Ox 100% ; Weight 77.11 kg; Height 5 bm8 ft. 3 in. ; Pain 9/10; 09:26 BP 131 / 65; Pulse 71; Resp 16; Pulse Ox 100% ; bp 06:56 Body Mass Index 30.11 (77.11 kg, 160.02 cm) bm8 06:56 Pain Scale: Adult bm8 ED Course: 06:44 Patient arrived in ED. [id number] 06:58 Mahni Lassiter MD is Attending Physician. rt 06:58 Triage completed. bm8 06:58 Arm band placed on left wrist. bm8 07:14 Willi Keen, RN is Primary Nurse. bp 07:45 Humerus Right In Process Unspecified. EDMS 08:03 Levi Charles MD is Referral Physician. rt 09:26 Patient has correct armband on for positive identification. Provided Education on: NA. bp 09:26 No provider procedures requiring assistance completed. Patient did not have IV access bp during this emergency room visit. Sling applied to right arm. Administered Medications: 07:40 Drug: fentaNYL (PF) IM 75 mcg IM once Route: IM; Site: left gluteus; bp 09:30 Follow up: Response: No adverse reaction bp Medication: 09:26 VIS not applicable for this client. bp Outcome: 08:03 Discharge ordered by . rt 09:26 Discharged to home via wheelchair, with family, bp 09:26 Condition: stable 09:26 Discharge instructions given to patient, Instructed on discharge instructions, follow up and referral plans. medication usage, Demonstrated understanding of instructions, follow-up care, medications, Prescriptions given X 1, 09:31 Patient left the ED. bp Signatures: Dispatcher [employer] EDMS Willi Keen, RN RN bp Tova Christie [email or web address] Mahin Lassiter MD MD rt Sedrick Charles, RN RN bm8
[2025-01-24 09:35] VITALS: TEMP 97.8; O2SAT 100
[2025-01-24 09:36] VITALS: BP 131/65
== END 2025-01-24 09:31 | disposition home or self-care (01) ==
LOC: ER 06:44
DX: S42.201A Unspecified fracture of upper end of right humerus, initial encounter for closed fracture (principal); W01.0XXA Fall on same level from slipping, tripping and stumbling without subsequent striking against object, initial encounter
CPT/HCPCS: 73060; 96372; 99284; J3010

== ENCOUNTER 2025-02-19 15:54 | Inpatient (IN) | payer OTHER ==
[2025-02-19 17:10] LABS: Protime INR 1.24
[2025-02-19 17:11] LABS: PTT, Activated Partial Thromb 22.2 SECONDS (27.2-37.4)
[2025-02-19 17:22] LABS: Absolute Lymphocytes (CBC) 0.9 K/uL (0.7-4.9); Absolute Monocytes 1.1 K/uL (0.1-1.3); Absolute Neutrophil 16.4 K/uL (1.8-8.0); Basophils % 0.2 % (0-1.3); MCH 23.2 pg (27.0-35.0); MCHC 31.9 g/dL (32.0-36.0); MCV 72.8 fL (80-100); MPV 7.3 fL (7.6-11.3); Monocytes % 5.8 % (3.3-12.3); Nucleated RBC Absolute Count 0.1 (0-0); Nucleated Red Blood Cells % 0.4 % (0-0); Platelets 310 thou/uL (152-406); RBC Red Blood Cell Count 3.43 M/uL (3.86-4.86); Red Cell Distribution Width 17.2 % (12.1-15.2)
[2025-02-19 17:29] LABS: Albumin 3.7 g/dL (3.4-5.0); Anion Gap 15.3 mEq/L (5.0-15.0); Bilirubin Total 0.4 mg/dL (0.2-1.0); Globulin 3.8 g/dL (2.3-3.5); Potassium 3.3 mEq/L (3.5-5.1); Protein, Total 7.5 g/dL (6.4-8.2)
--- NOTE | 2025-02-19 17:54 | RAD REPORT ---
EXAMINATION: ONE VIEW CHEST XR CLINICAL INDICATION: Female, 69 years old.,FEVER TECHNIQUE: Frontal chest projection is submitted. Examination is limited by patient positioning and t echnique. COMPARISON: 08/04/2022 FINDINGS: The lungs are well inflated and clear. No pneumothorax or sizable effusion. The heart is normal in s ize. Mediastinal contours are unremarkable. IMPRESSION: No acute intrathoracic abnormalities.
--- NOTE | 2025-02-19 17:54 | RAD REPORT ---
EXAM: CT Head Brain Wo Cont HISTORY: CONFUSED COMPARISON: 12/22/2024 TECHNIQUE: Multiple contiguous axial images were obtained for a CT of the brain without contrast. Sag ittal and coronal reformats were performed. One or more of the following dose reduction techniques were used: Automated exposure control, adjus tment of the mA and kV according to patient size, and iterative reconstruction. Unless otherwise specified, incidental findings do not require dedicated imaging follow-up. FINDINGS: No evidence of hydrocephalus, intracranial hemorrhage, or extra-axial fluid collection. The brain is normal in morphology. The calvarium is intact. The visualized paranasal sinuses and mastoid air cells are essentially clear . IMPRESSION: No evidence of acute intracranial abnormality.
[2025-02-19] MEDS ORDERED: METOPROLOL TARTRATE 5 MG/5 ML INJ IV ONE (18:37)
[2025-02-19] MEDS ORDERED: ONDANSETRON 4 MG/2 ML VIAL ONE ×2 (18:37→22:39)
[2025-02-19] MEDS ORDERED: CEFTRIAXONE 1000 MG/VIAL ONE (18:37)
[2025-02-19] MEDS ORDERED: NA CHLORIDE 0.9% 2,000 ML ONE (18:38)
[2025-02-19] MEDS ORDERED: NA CHLORIDE 0.9% 50 ML ONE (18:38)
[2025-02-19 19:42] LABS: Blood Morphology Comment NOTED (NOT SEEN); Differential Total Cells Count 100; Lymphocytes 6 % (15-42); Monocytes 4 % (0-10); Platelet Estimate ADEQ; Segmented Neutrophils 90 % (40-80)
[2025-02-19 19:43] LABS: Anisocytosis 1+; Microcytosis 1+; Ovalocytes SLIGHT; Poikilocytosis SLIGHT; Polychromasia 1+
--- NOTE | 2025-02-19 19:48 | RAD REPORT ---
EXAMINATION: CT Abdomen Pelvis W Contrast CLINICAL INDICATION: Female, 69 years old. ABD PAIN TECHNIQUE: CT abdomen and pelvis was performed, after the administration of IV contrast, as per [facility] protocol. Axial, sagittal and coronal reconstructions were obtained. One or more of the following dose reduction techniques were used: Automated exposure control, adjustment of the mA and k V according to patient size, and iterative reconstruction. Unless otherwise specified, incidental findings do not require dedicated imaging follow-up. COMPARISON: 12/22/2024 FINDINGS: LOWER CHEST: The visualized lung bases are clear. LIVER: Normal in size and contour. No suspicious focal lesion. Hypoattenuating foci less than 1 cm, a long the peripheral right lobe, not well characterized but may represent small cysts. BILIARY SYSTEM: Status post cholecystectomy. SPLEEN: Normal size. No focal lesion. PANCREAS: Diffuse edematous changes with peripancreatic fat stranding. No appreciable fluid collectio ns No focal mass, or ductal dilation. ADRENALS: Normal; no mass. KIDNEYS: Normal size and contour. No hydronephrosis. Bilateral cortical cysts including left interpol ar 3.4 cm cyst, and right lower pole cysts up to 1.5 cm, stable, and benign in appearance. URINARY BLADDER: Unremarkable. GASTROINTESTINAL TRACT: No evidence of free air, significant intra-abdominal free fluid, bowel obstru ction or abscess. APPENDIX: Normal appendix. LYMPH NODES: No lymphadenopathy. MUSCULOSKELETAL: No acute or suspicious osseous abnormality. ADDITIONAL FINDINGS: None. IMPRESSION: Findings of acute interstitial diffuse pancreatitis, without evidence of complications. Stable incidental findings as above. THIS REPORT CONTAINS FINDINGS THAT MAY BE CRITICAL TO PATIENT CARE. The findings were verbally commun icated via telephone to PIEDAD Gonzalez on 02/19/2025 7:43 PM.
[2025-02-19 21:42] LABS: Specific Gravity > 1.030 (1.005-1.030); Sqamous Epithelial None Seen /HPF (None Seen); Urine Bacteria None Seen /HPF (<20); Urine Bilirubin NEGATIVE (Negative); Urine Blood 3+ (Negative); Urine Clarity Clear (Clear); Urine Color Colorless (Yellow); Urine Culture Reflex Order NOT NEEDED; Urine Glucose 2+ (Negative); Urine Ketones NEGATIVE (Negative); Urine Microscopic Reflex YN ORDER UMIC; Urine Nitrite 2+ (Negative); Urine Protein 1+ (Negative); Urine RBC <5 /HPF (None Seen); Urine Urobilinogen Normal (Normal); Urine WBC <5 /HPF (<5)
--- NOTE | 2025-02-19 21:51 | ER ---
Nurse's Notes [facility] Name: Priscila Draper Age: 69 yrs Sex: Female : 1955 Arrival Date: 02/19/2025 Time: 15:54 Bed 15 Private MD: Diagnosis: Severe sepsis with septic shock;Other acute pancreatitis without necrosis or infection;Altered mental status, unspecified Presentation: 02/19 16:13 Chief complaint: EMS states: Toned out for AMS, pt lives at home with 2 roommates, jl7 unable to provide LKW, reports pt is normally A\T\Ox4 and independent and was behaving normally yesterday unknown what time yesterday, BP elevated at 180 SBP, HR elevated at 140s, BGL 356, 99.6 temp. Coronavirus screen: At this time, the client does not indicate any symptoms associated with coronavirus-19. Ebola Screen: No symptoms or risks identified at this time. Initial Sepsis Screen: Does the patient meet any 2 criteria? HR > 90 bpm. No. Patient's initial sepsis screen is negative. Does the patient have a suspected source of infection? No. Patient's initial sepsis screen is negative. Risk Assessment: Do you want to hurt yourself or someone else? Patient reports no desire to harm self or others. Onset of symptoms is unknown. Care prior to arrival: Medication(s) given: Normal saline infusion, 500 mL, IV initiated. 22 GA, in the right wrist, Glucose check: 356. 16:13 Method Of Arrival: EMS: [facility] jl7 16:13 Acuity: SHIRA 2 jl7 Triage Assessment: 16:18 General: Appears in no apparent distress. uncomfortable, Behavior is calm, cooperative. jl7 Pain: Denies pain. Neuro: Level of Consciousness is awake, alert, confused, Oriented to person, place. Historical: - Allergies: 16:18 Augmentin; jl7 16:18 Bactrim; jl7 16:18 Demerol; jl7 16:18 Morphine; jl7 16:18 NSAIDS; jl7 16:18 Toradol; jl7 - PMHx: 16:18 Crohn's; Depression; Diabetes - NIDDM; Hypertension; Migraines; jl7 - PSHx: 16:18 Appendectomy; Cholecystectomy; hysterectomy; knee sx; Tonsillectomy; jl7 - Immunization history:: Adult Immunizations unknown. - Infectious Disease History:: unable to obtain. - Social history:: Smoking status: unknown. Screenin:00 [facility] ED Fall Risk Assessment (Adult) History of falling in the last 3 months, db including since admission Yes- single mechanical fall (1 pt) Confusion or Disorientation Yes (5 pts) Intoxicated or Sedated No (0 pts) Impaired Gait Yes (1 pt) Mobility Assist Device Used Yes (1 pt) Altered Elimination No (0 pt) Score/Fall Risk Level 3 or more points = High Risk Oriented to surroundings, Maintained a safe environment, Hourly rounding (assess needs \T\ fall precautionary measures) done. Abuse screen: Denies threats or abuse. Denies injuries from another. Nutritional screening: No deficits noted. Tuberculosis screening: No symptoms or risk factors identified. Assessment: 17:00 Reassessment: Patient appears in no apparent distress at this time. Patient and/or db family updated on plan of care and expected duration. Pain level reassessed. General: Appears in no apparent distress. comfortable, Behavior is calm, cooperative, appropriate for age. Neuro: Level of Consciousness is awake, alert, obeys commands, Oriented to person, place, time, situation. Respiratory: Airway is patent Respiratory effort is even, unlabored, Respiratory pattern is regular, symmetrical. 18:00 Reassessment: Patient appears in no apparent distress at this time. Patient and/or db family updated on plan of care and expected duration. Pain level reassessed. Patient is alert, oriented x 3, equal unlabored respirations, skin warm/dry/pink. General: Appears in no apparent distress. comfortable. 19:00 General: Appears in no apparent distress. comfortable, Behavior is cooperative. Pain: al5 Denies pain. Neuro: Level of Consciousness is awake, alert, obeys commands, confused, Oriented to person, place, time, situation, slow to response, answers questions appropriately, but is not acting like normal self.. Cardiovascular: Capillary refill < 3 seconds Patient's skin is warm and dry. Rhythm is sinus tachycardia. Respiratory: Airway is patent Respiratory effort is even, unlabored, Respiratory pattern is regular, symmetrical. GI: No signs and/or symptoms were reported involving the gastrointestinal system. : No signs and/or symptoms were reported regarding the genitourinary system. EENT: No signs and/or symptoms were reported regarding the EENT system. Derm: wound dressing to R shoulder, patient post shoulder surgery. Musculoskeletal: generalized weakness. 19:30 Reassessment: patient self removed both IV access along with monitor and clothes, vc1 exited the bed with both bed rails up and urinated on the floor. patient escorted back to bed. patient redressed and placed back on the monitor and educated the patient that she cannot get up without assistance due to being a fall risk. patient educated on purewick purpose. notified charge nurse of situation. 21:04 Reassessment: Patient appears in no apparent distress at this time. No changes from al5 previously documented assessment. Patient and/or family updated on plan of care and expected duration. Pain level reassessed. Patient is alert, oriented x 3, equal unlabored respirations, skin warm/dry/pink. 22:15 Reassessment: Patient appears in no apparent distress at this time. No changes from al5 previously documented assessment. Patient and/or family updated on plan of care and expected duration. Pain level reassessed. Patient is alert, oriented x 3, equal unlabored respirations, skin warm/dry/pink. patient attempted to remove vital signs machine and clothes, attempted to get out of bed. educated patient that she is not allowed out of the bed due to being a fall risk. 23:20 Reassessment: Patient appears in no apparent distress at this time. No changes from vc1 previously documented assessment. Patient and/or family updated on plan of care and expected duration. Pain level reassessed. Patient is alert, oriented x 3, equal unlabored respirations, skin warm/dry/pink. patient got out of bed, tore self off of monitor and took of clothes along with urinated on the floor. patient cleaned up, redressed, and placed in bed. moved patient from room 2 to room 3. educated on fall risk precautions. notified charge nurse, charge nurse aware. Vital Signs: 16:13 BP 190 / 93; Pulse 140; Resp 17; Temp 98.9(O); Pulse Ox 96% ; jl7 17:00 BP 198 / 104; Pulse 145; Resp 20; Pulse Ox 96% ; db 18:00 BP 200 / 91; Pulse 150; Resp 22; Pulse Ox 97% ; db 18:47 Weight 77.11 kg; Height 5 ft. 3 in. ; db 19:00 BP 211 / 88; Pulse 139; Resp 20; Pulse Ox 95% ; db 19:05 BP 188 / 87; Pulse 137; Pulse Ox 96% ; db 19:05 BP 188 / 87; Pulse 137; db 19:10 BP 179 / 81; Pulse 107; Resp 18; Pulse Ox 100% ; db 19:30 BP 180 / 94; Pulse 95; Resp 18; Pulse Ox 99% ; al5 20:00 BP 183 / 95; Pulse 116; Resp 16; Pulse Ox 98% ; al5 20:30 BP 177 / 92; Pulse 122; Resp 13; Pulse Ox 98% ; al5 21:00 BP 173 / 89; Pulse 121; Resp 16; Pulse Ox 100% ; al5 21:30 BP 140 / 96; Pulse 108; Resp 16; Pulse Ox 100% ; al5 22:00 BP 158 / 105; Pulse 112; Resp 16; Pulse Ox 98% ; al5 22:15 BP 166 / 87; Pulse 115; Resp 20; Pulse Ox 100% ; al5 22:50 BP 161 / 87; Pulse 116; Resp 19; Pulse Ox 100% ; vc1 23:00 BP 174 / 83; Pulse 113; Resp 16; Pulse Ox 97% ; vc1 23:30 BP 176 / 86; Pulse 111; Resp 18; Pulse Ox 97% ; vc1 18:47 Body Mass Index 30.11 (77.11 kg, 160.02 cm) db ED Course: 15:56 Patient arrived in ED. kb 15:56 [facility]C [facility] kb 15:56 Cory Alex DO is Attending Physician. kb 16:18 Triage completed. jl7 16:18 Arm band placed on right wrist. jl7 16:25 CT Head Brain wo Cont In Process Unspecified. EDMS 16:45 Initial lab(s) drawn, by me, sent to lab. EKG done, by ED staff. Inserted saline lock: db 20 gauge in right forearm, using aseptic technique. Blood collected. Flushed with 10 mL NS. 17:00 Patient has correct armband on for positive identification. Bed in low position. Call db light in reach. Side rails up X2. Client placed on continuous cardiac and pulse oximetry monitoring. NIBP monitoring applied. eyeglass frames polisher on. Pulse ox on. NIBP on. Warm blanket given. 17:23 Chest Single View XRAY In Process Unspecified. EDMS 18:30 Lizeth Rueda, RN is Primary Nurse. db 18:[address] via stretcher. db 18:53 CT Abd/Pelvis - IV Contrast Only In Process Unspecified. EDMS 19:[address] Patient moved back from CT. db 19:04 Primary Nurse role handed off by Lizeth Rueda, RN rv1 19:14 Report given to MICHELLE. db 19:35 No provider procedures requiring assistance completed. patient self removed both IV al5 accesses. charge nurse notified. 19:51 Missed attempt(s): 20 gauge in left forearm. Bleeding controlled, band aid applied, al5 catheter tip intact. 20:08 Missed attempt(s): 22 gauge in right forearm. Bleeding controlled, band aid applied, al5 catheter tip intact. 20:30 Michelle Arita, [place] is Primary Nurse. al5 20:38 Missed attempt(s): 22 gauge in right forearm. Bleeding controlled, band aid applied, vc1 catheter tip intact. 20:38 Missed attempt(s): 22 gauge in left forearm. Bleeding controlled, band aid applied, vc1 catheter tip intact. 21:27 Chest Single View XRAY In Process Unspecified. EDMS 21:50 Dong Arizmendi MD is Hospitalizing Provider. kb 22:21 Provided Education on: need for admission, fall risk education . al5 Administered Medications: 18:15 Drug: NS 0.9% IV (30 ml/kg) 30 ml/kg IV at bolus once; Sepsis Protocol; to be given as db a bolus over 90 minutes Route: IV; Rate: bolus; Site: right antecubital; 19:30 Follow up: IV Pause: 02/19/2025 19:30; IV Pause Reason: Limited IV access/Medication al5 interaction; patient self removed IV, attempting to obtain new IV access 21:30 Follow up: Response: No adverse reaction; IV Status: Completed infusion; IV Intake: al5 2313ml 19:00 Drug: Rocephin IV 1 grams IV at calculated rate once; Given slow IV push per pharmacy db instructions Route: IV; Rate: calculated rate; Site: right wrist; 19:30 Follow up: Response: No adverse reaction; IV Status: Completed infusion; IV Intake: al5 100ml 19:00 Drug: Ondansetron IVP 4 mg IVP once; over 2 minutes Route: IVP; Site: right forearm; db 22:18 Follow up: Response: No adverse reaction al5 19:00 Drug: Metoprolol IVP 5 mg IVP every 5 minutes; Hold for SBP < 100 or HR < 60. x3 Route: db IVP; Site: right forearm; 19:10 Drug: Metoprolol IVP 5 mg IVP every 5 minutes; Hold for SBP < 100 or HR < 60. x3 Route: db IVP; Site: right forearm; 21:10 Drug: Metoprolol IVP 5 mg IVP every 5 minutes; Hold for SBP < 100 or HR < 60. x3 Route: al5 IVP; Site: right jugular; 22:18 Follow up: Response: No adverse reaction; No adverse reaction, HR decreased but still al5 above 100. BP still elevated 22:49 Drug: Ondansetron IVP 4 mg IVP once; over 2 minutes Route: IVP; Site: right jugular; al5 23:39 Follow up: Response: No adverse reaction; Nausea is decreased vc1 22:49 Drug: Diazepam PO 5 mg PO once Route: PO; al5 23:39 Follow up: Response: No adverse reaction; No change in condition; RASS: Restless (+1) vc1 23:39 Drug: Geodon IM 20 mg IM once Route: IM; Site: left deltoid; vc1 02/20 00:41 Follow up: Response: No adverse reaction rg5 Medication: 02/19 22:20 VIS not applicable for this client. al5 Intake: 19:30 IV: 100ml; Total: 100ml. al5 21:30 IV: 2313ml; Total: 2413ml. al5 Outcome: 21:50 Decision to Hospitalize by Provider. kb 02/20 00:00 Admitted to ER Hold. Please see [facility] for further documentation. rg5 Condition: stable 00:00 Instructed on the need for admit, rg5 13:20 Patient left the ED. iw Signatures: Dispatcher [employer] EDJanice Ho, DRIVER'S LICENSE REVIEWING OFFICER-C DRIVER'S LICENSE REVIEWING OFFICER-CkKatya Chun RN RN iw Antonietta Coon RN RN jl7 Vidhya Fisher RN RN vc1 Lizeth Rueda RN RN Alfreda Dozier1 Mitzy Dos Santos RN RN cm10 Vik Marie RN RN rg5 Michelle Arita RN RN al5 Corrections: (The following items were deleted from the chart) 02/19 16:18 16:12 Chief complaint: cm10 jl7 23:41 23:20 Reassessment: Patient appears in no apparent distress at this time. No changes vc1 from previously documented assessment. Patient and/or family updated on plan of care and expected duration. Pain level reassessed. Patient is alert, oriented x 3, equal unlabored respirations, skin warm/dry/pink. patient got out of bed, tore self off of monitor and took of clothes along with urinated on the floor. patient cleaned up, redressed, and placed in bed. moved patient from room 2 to room 3. educated on fall risk precautions. vc1 23:42 19:30 Reassessment: patient self removed both IV access along with monitor and clothes, vc1 exited the bed with both bed rails up. patient escorted back to bed. patient redressed and placed back on the monitor and educated the patient that she cannot get up without assistance due to being a fall risk. notified charge nurse of situation al5
--- NOTE | 2025-02-19 21:51 | EDPHYS ---
Physician Documentation [facility] Name: Priscila Draper Age: 69 yrs Sex: Female : 1955 Arrival Date: 02/19/2025 Time: 15:54 Bed 15 Private MD: ED Physician Cory Alex HPI: 02/19 21:30 This 69 yrs old Female presents to ER via EMS with complaints of Altered Mental Status. kb 21:30 Patient is a 69-year-old female who was brought in for altered mental status, vomiting, kb abdominal pain, tachycardia. Symptoms began sometime last night per . Patient has not been able to tolerate anything by mouth today. Patient complains of diffuse abdominal pain. Oriented to self and place. Patient lives in an assisted living facility.. Historical: - Allergies: 16:18 Augmentin; jl7 16:18 Bactrim; jl7 16:18 Demerol; jl7 16:18 Morphine; jl7 16:18 NSAIDS; jl7 16:18 Toradol; jl7 - PMHx: 16:18 Crohn's; Depression; Diabetes - NIDDM; Hypertension; Migraines; jl7 - PSHx: 16:18 Appendectomy; Cholecystectomy; hysterectomy; knee sx; Tonsillectomy; jl7 - Immunization history:: Adult Immunizations unknown. - Infectious Disease History:: unable to obtain. - Social history:: Smoking status: unknown. ROS: 17:41 Constitutional: As per HPI kb Exam: 21:28 Constitutional: This is a well developed, well nourished patient who is awake, alert, kb and in no acute distress. Head/Face: Normocephalic, atraumatic. ENT: Moist Mucous membranes Cardiovascular: Regular rate Respiratory: Respirations even and unlabored. No increased work of breathing. Talking in full sentences Back: No spinal tenderness. No costovertebral tenderness. Full range of motion. Skin: Warm, dry with normal turgor. Normal color. MS/ Extremity: Pulses equal, no cyanosis. Neurovascular intact. Full, normal range of motion. 21:28 Abdomen/GI: Inspection: abdomen appears normal, Bowel sounds: normal, Palpation: soft, in all quadrants, moderate abdominal tenderness, in all quadrants, 21:28 Skin: Surgical incision with margarita intact to right shoulder, healing well without erythema, swelling, warmth, drainage. 21:28 Neuro: Orientation: to person, place, Mentation: is normal, Vital Signs: 16:13 BP 190 / 93; Pulse 140; Resp 17; Temp 98.9(O); Pulse Ox 96% ; jl7 17:00 BP 198 / 104; Pulse 145; Resp 20; Pulse Ox 96% ; db 18:00 BP 200 / 91; Pulse 150; Resp 22; Pulse Ox 97% ; db 18:47 Weight 77.11 kg; Height 5 ft. 3 in. ; db 19:00 BP 211 / 88; Pulse 139; Resp 20; Pulse Ox 95% ; db 19:05 BP 188 / 87; Pulse 137; Pulse Ox 96% ; db 19:05 BP 188 / 87; Pulse 137; db 19:10 BP 179 / 81; Pulse 107; Resp 18; Pulse Ox 100% ; db 19:30 BP 180 / 94; Pulse 95; Resp 18; Pulse Ox 99% ; al5 20:00 BP 183 / 95; Pulse 116; Resp 16; Pulse Ox 98% ; al5 20:30 BP 177 / 92; Pulse 122; Resp 13; Pulse Ox 98% ; al5 21:00 BP 173 / 89; Pulse 121; Resp 16; Pulse Ox 100% ; al5 21:30 BP 140 / 96; Pulse 108; Resp 16; Pulse Ox 100% ; al5 22:00 BP 158 / 105; Pulse 112; Resp 16; Pulse Ox 98% ; al5 22:15 BP 166 / 87; Pulse 115; Resp 20; Pulse Ox 100% ; al5 22:50 BP 161 / 87; Pulse 116; Resp 19; Pulse Ox 100% ; vc1 23:00 BP 174 / 83; Pulse 113; Resp 16; Pulse Ox 97% ; vc1 23:30 BP 176 / 86; Pulse 111; Resp 18; Pulse Ox 97% ; vc1 18:47 Body Mass Index 30.11 (77.11 kg, 160.02 cm) db Procedures: 20:38 Central Line: the site was prepped with Betadine, in sterile fashion, a triple lumen sp4 catheter was inserted, in the right internal jugular vein, in 1 attempts. placement was verified, by CXR, by blood return, the site was dressed with 4X4s, Tegaderm, foam tape, using sterile technique, the patient tolerated the procedure, well, Ultrasound guided central line. MDM: 15:56 Medical Screening Exam initiated kb 19:09 ED course: sepsis reevaluation complete. kb 21:29 Differential Diagnosis: electrolyte abnormality, intracranial bleed, sepsis, UTI, kb volume depletion. Data reviewed: vital signs, nurses notes. Consideration of Admission/Observation Patient was admitted/placed on observation. Escalation of care including admission/observation considered. Historians other than the Patient: EMS: [facility]. Counseling: I had a detailed discussion with the patient and/or guardian regarding the historical points, exam findings, and any diagnostic results supporting the discharge/admit diagnosis, lab results, radiology results, the need for further work-up and treatment in the hospital. 21:42 ED course: 1 view chest after central line -right internal jugular CVL appears to be in sp4 proper position at the level of the superior vena cava versus right atrium. 21:50 Management of patient was discussed with the following: Hospitalist: Dr Arizmendi accepts pt kb for admission. 02/19 15:59 Order name: Blood Culture Adult (2) kb 02/19 15:59 Order name: CBC with Diff; Complete Time: 19:44 kb 02/19 15:59 Order name: CMP; Complete Time: 17:31 kb 02/19 15:59 Order name: Lactate w/ 2H reflex if indic.; Complete Time: 17:28 kb 02/19 15:59 Order name: Protime (+inr); Complete Time: 17:12 kb 02/19 15:59 Order name: Ptt, Activated; Complete Time: 17:12 kb 02/19 15:59 Order name: Urinalysis w/ reflexes; Complete Time: 21:44 kb 02/19 17:30 Order name: Ghost Lactate-NO COLLECT Timer; Complete Time: 19:27 EDMS 02/19 19:43 Order name: Manual Differential; Complete Time: 19:44 EDMS 02/19 19:44 Order name: Lipase; Complete Time: 21:26 kb 02/19 21:55 Order name: Lactate Sepsis 2 HR Follow-up; Complete Time: 21:56 EDMS 02/19 22:24 Order name: Basic Metabolic Panel EDMS 02/19 22:24 Order name: Basic Metabolic Panel; Complete Time: 10:24 EDMS 02/19 22:24 Order name: CBC with Automated Diff EDMS 02/19 22:24 Order name: CBC with Automated Diff; Complete Time: 10:24 EDMS 02/19 22:24 Order name: Lipid Profile EDMS 02/19 22:24 Order name: Lipid Profile; Complete Time: 10:24 EDMS 02/20 01:57 Order name: Lactate w/ 2H reflex if indic.; Complete Time: 10:24 EDMS 02/20 02:30 Order name: Glucose, Ancillary Testing; Complete Time: 10:24 EDMS 02/20 03:57 Order name: Ghost Lactate-NO COLLECT Timer; Complete Time: 10:24 EDMS 02/20 09:37 Order name: Lactate Sepsis 2 HR Follow-up; Complete Time: 10:24 EDMS 02/20 12:13 Order name: Glucose, Ancillary Testing EDMS 02/19 15:59 Order name: Chest Single View XRAY; Complete Time: 17:56 kb 02/19 16:04 Order name: CT Head Brain wo Cont; Complete Time: 17:56 kb 02/19 17:28 Order name: CT Abd/Pelvis - IV Contrast Only; Complete Time: 19:54 kb 02/19 21:09 Order name: Chest Single View XRAY; Complete Time: 21:59 sp4 02/19 15:59 Order name: Accucheck; Complete Time: 18:48 kb 02/19 15:59 Order name: Cardiac monitoring; Complete Time: 18:48 kb 02/19 15:59 Order name: EKG - Nurse/Tech; Complete Time: 18:48 kb 02/19 15:59 Order name: IV Saline Lock - Large Bore; Complete Time: 18:48 kb 02/19 15:59 Order name: Labs collected and sent; Complete Time: 18:48 kb 02/19 15:59 Order name: O2 Per Protocol; Complete Time: 18:48 kb 02/19 15:59 Order name: O2 Sat Monitoring; Complete Time: 18:48 kb 02/19 15:59 Order name: Vital Signs; Complete Time: 18:48 kb 02/19 19:27 Order name: Misc. Order: please collect repeat lactate; Complete Time: 21:22 kb 02/19 20:40 Order name: Central Line Dressing Kit; Complete Time: 21:21 sp4 02/19 20:40 Order name: Central Line Kit; Complete Time: 21:21 sp4 02/19 20:40 Order name: Chlorhexidine prep; Complete Time: 21: sp4 02/19 20:40 Order name: Consent for central line completed; Complete Time: : sp4 02/19 20:40 Order name: Line Caps x3; Complete Time: : sp4 02/19 20:40 Order name: NS Flushes x3; Complete Time: 21: sp4 02/19 20:40 Order name: Sterile Gloves; Complete Time: : sp4 02/19 20:40 Order name: Sterile Probe Cover; Complete Time: : sp4 02/19 21:45 Order name: Vital Signs; Complete Time: 22:23 kb Administered Medications: 18:15 Drug: NS 0.9% IV (30 ml/kg) 30 ml/kg IV at bolus once; Sepsis Protocol; to be given as db a bolus over 90 minutes Route: IV; Rate: bolus; Site: right antecubital; 19:30 Follow up: IV Pause: 02/19/2025 19:30; IV Pause Reason: Limited IV access/Medication al5 interaction; patient self removed IV, attempting to obtain new IV access 21:30 Follow up: Response: No adverse reaction; IV Status: Completed infusion; IV Intake: al5 2313ml 19:00 Drug: Rocephin IV 1 grams IV at calculated rate once; Given slow IV push per pharmacy db instructions Route: IV; Rate: calculated rate; Site: right wrist; 19:30 Follow up: Response: No adverse reaction; IV Status: Completed infusion; IV Intake: al5 100ml 19:00 Drug: Ondansetron IVP 4 mg IVP once; over 2 minutes Route: IVP; Site: right forearm; db 22:18 Follow up: Response: No adverse reaction al5 19:00 Drug: Metoprolol IVP 5 mg IVP every 5 minutes; Hold for SBP < 100 or HR < 60. x3 Route: db IVP; Site: right forearm; 19:10 Drug: Metoprolol IVP 5 mg IVP every 5 minutes; Hold for SBP < 100 or HR < 60. x3 Route: db IVP; Site: right forearm; 21:10 Drug: Metoprolol IVP 5 mg IVP every 5 minutes; Hold for SBP < 100 or HR < 60. x3 Route: al5 IVP; Site: right jugular; 22:18 Follow up: Response: No adverse reaction; No adverse reaction, HR decreased but still al5 above 100. BP still elevated 22:49 Drug: Ondansetron IVP 4 mg IVP once; over 2 minutes Route: IVP; Site: right jugular; al5 23:39 Follow up: Response: No adverse reaction; Nausea is decreased vc1 22:49 Drug: Diazepam PO 5 mg PO once Route: PO; al5 23:39 Follow up: Response: No adverse reaction; No change in condition; RASS: Restless (+1) vc1 23:39 Drug: Geodon IM 20 mg IM once Route: IM; Site: left deltoid; vc1 02/20 00:41 Follow up: Response: No adverse reaction rg5 Disposition: 02/19 21:51 Critical Care:. kb 22:13 I was immediately available on-site in the Emergency Department for consultation in the ms3 care of the patient. Disposition Summary: 02/19/25 21:50 Hospitalization Ordered Notes: Hospitalization Status: Inpatient Admission kb Provider: Dong Arizmendi Condition: Stable kb Problem: new kb Symptoms: are unchanged kb Bed/Room Type: Standard kb Location: Intensive Care Unit(02/20/25 12:25) 6 Room Assignment: 2-(02/20/25 12:25) [facility] Diagnosis - Severe sepsis with septic shock kb - Other acute pancreatitis without necrosis or infection kb - Altered mental status, unspecified kb Forms: - Medication Reconciliation Form kb - SBAR form kb - Leadership Thank You Letter kb Critical care time excluding procedures: 21:51 Critical care time: Bedside Care: 10 minutes, Consultation: 10 minutes, Family kb Intervention: 10 minutes. Total time: 30 minutes Signatures: Dispatcher [employer] EDJanice Ho, RETAIL DISTRICT MANAGER-C RETAIL DISTRICT MANAGER-Ckb Antonietta Coon RN RN jl7 Cory Alex DO DO ms3 Vidhya Fisher RN RN vc1 Lizeth Rueda, RN RN db Yissel Sarmiento bc6 Evan Gray MD MD sp4 Kelly Arita RN RN al5 Vik Marie RN rg5 Corrections: (The following items were deleted from the chart) 16:00 16:00 BLOOD CULTURE*+BA.LAB.BRZ ordered. EDMS EDMS 16:00 16:00 CBC+H.LAB.BRZ ordered. EDMS EDMS 16:00 16:00 COMPREHENSIVE METABOLIC PANEL+C.LAB.BRZ ordered. EDMS EDMS 16:00 16:00 LACTATE+C.LAB.BRZ ordered. EDMS EDMS 16:00 16:00 PROTIME (+INR)+COAG.LAB.BRZ ordered. EDMS EDMS 16:00 16:00 PTT, ACTIVATED+COAG.LAB.BRZ ordered. EDMS EDMS 16:00 16:00 Urinalysis+U.LAB.BRZ ordered. EDMS EDMS 16:00 16:00 Chest Single View+RAD.RAD.BRZ ordered. EDMS EDMS 22:11 21:50 Telemetry/MedSurg (Inpatient) kb 1 22:11 21:50 kb vc1 02/20 01:02 01:02 LACTATE+C.LAB.BRZ ordered. EDMS EDMS 12:25 02/19 22:11 [facility] ER HOLD 1 bc6 02/20 12:25 02/19 22:11 ERHOLD- vc1 bc6
--- NOTE | 2025-02-19 21:56 | RAD REPORT ---
EXAMINATION: ONE VIEW CHEST XR CLINICAL INDICATION: Female, 69 years old.,check CVL placement TECHNIQUE: Frontal chest projection is submitted. Examination is limited by patient positioning and t echnique. COMPARISON: 02/19/2025 FINDINGS: Right IJ CVC with catheter tip reaching the upper right atrium. The lungs are well inflated and clear apart from mild left basilar atelectasis. No pneumothorax or sizable effusion. The heart is normal in size. Mediastinal contours are unremarkable. IMPRESSION: Right IJ CVC as above.
[2025-02-19] MEDS ORDERED: MORPHINE 2 MG/ML SYR IV PRN (22:21)
[2025-02-19] MEDS ORDERED: ONDANSETRON 4 MG/2 ML VIAL IV PRN (22:21)
--- NOTE | 2025-02-19 22:23 | P.HP ---
Patient History Date of Service: 02/19/25 Reason for admission: Septic shock History of Present Illness: 69-year-old female with a past medical history of Crohn's disease, diabetes, hypertension, depression presenting with altered mental status secondary to septic shock alongside acute pancreatitis. There is no family members at bedside. Per chart review her states that her symptoms began last night. Associated symptoms include lack of appetite and abdominal pain. She lives in an assisted living facility. Allergies cephalexin [From Keflex] Allergy (Verified 07/22/21 20:49) unknown ketorolac tromethamine [From Toradol] Allergy (Verified 07/22/21 20:31) Hives meperidine HCl [From Demerol] Allergy (Verified 07/22/21 20:31) Nausea/Vomiting morphine Allergy (Verified 07/22/21 20:31) Unknown NSAIDS (Non-Steroidal Anti-Inflamma Allergy (Verified 07/22/21 20:31) Shortness of breath Sulfa (Sulfonamide Antibiotics) Allergy (Verified 07/22/21 20:31) Unknown sulfamethoxazole [From Bactrim] Allergy (Verified 07/22/21 20:31) Hives/Rash trimethoprim [From Bactrim] Allergy (Verified 07/22/21 20:31) Hives/Rash Home Medications: Metformin HCl 1,000 mg PO BID 07/23/21 Metoprolol Tartrate [Lopressor] 100 mg PO BID 07/23/21 ZOLMitriptan [Zolmitriptan Odt] 5 mg PO BIDP PRN 07/23/21 clonazePAM [Clonazepam] 0.5 mg PO BIDP PRN 07/23/21 Bupropion *Xl* [Wellbutrin XL*] 300 mg PO DAILY 07/24/21 lisinopriL [Zestril] 10 mg PO DAILY 07/24/21 Hyoscyamine Sulfate 0.125 mg PO Q4H PRN 12/25/24 Pantoprazole [Protonix Tab*] 40 mg PO BIDAC #60 tab 12/25/24 - Past Medical/Surgical History Diabetic: Yes -: HTN -: DEPRESSION -: PREVIOUS OD/DRUG ABUSE/POISONING -: MIGRAINES -: DM -: CROHNS -: TONSILLECTOMY -: HYSTERECTOMY -: APPY -: LEFT KNEE SX - Social History Alcohol use: No CD- Drugs: No Caffeine use: Yes Review of Systems is unable to be obtained Physical Examination - Physical Exam General: Alert, Oriented x1, Confused HEENT: Normocephalic Neck: Supple Respiratory: Clear to auscultation bilaterally Cardiovascular: No edema Capillary refill: <2 Seconds Gastrointestinal: Normal bowel sounds Musculoskeletal: Other (Right shoulder dressing) Integumentary: No rashes Neurological: Other (Confused) Lymphatics: No axilla or inguinal lymphadenopathy - Studies Laboratory Data (last 24 hrs) 02/19/25 02/19/25 02/19/25 16:50 16:50 16:50 WBC Hgb Hct Plt Count PT 14.0 H INR 1.24 APTT 22.2 L Sodium 137 Potassium 3.3 L BUN 25 H Creatinine 1.47 H Glucose 257 H Total Bilirubin 0.4 AST 55 H ALT 25 Alkaline Phosphatase 151 H Lipase 504 H 02/19/25 16:50 WBC 18.40 H Hgb 8.0 L Hct 25.0 L Plt Count 310 PT INR APTT Sodium Potassium BUN Creatinine Glucose Total Bilirubin AST ALT Alkaline Phosphatase Lipase Assessment and Plan - Plan Septic shock Acute pancreatitis Acute metabolic encephalopathy Anemia Hypokalemia Acute kidney injury Type 2 diabetes with hyperglycemia Hypertension History of Crohn's disease Central line placed, continue fluids, IV antibiotics Blood cultures pending, trend lactic acid Replace potassium per protocol Clear liquid diet and advance as tolerated Monitor kidney function and avoid nephrotoxic Start sliding scale insulin Obtain lipid panel DVT prophylaxis with heparin - Advance Directives Does patient have a Living Will: Yes Does patient have a Durable POA for Healthcare: No
[2025-02-19] MEDS ORDERED: DIAZEPAM 5 MG TABLET ONE (22:39)
[2025-02-19] MEDS ORDERED: ZIPRASIDONE MESYLA 20 MG/VIAL IM ONE (23:30)
[2025-02-19] MEDS ORDERED: WATER FOR INJ,STERILE 10 ML ONE (23:31)
[2025-02-20] MEDS: KCL 20 MEQ/100 mL IVPB 20 MEQ/100 ML BAG IV SCH
[2025-02-20] MEDS ORDERED: NA CHLORIDE 0.9% 1,000 ML ONE ×2 (00:46→10:13)
[2025-02-20] MEDS ORDERED: KCL 20 MEQ/100 mL IVPB 100 ML IV ONE ×2 (00:47→02:45)
[2025-02-20] MEDS ORDERED: TRAZODONE 50 MG TABLET ONE (02:41)
[2025-02-20] MEDS: TRAZODONE 50 MG TABLET PO PRN (02:52)
[2025-02-20 05:18] LABS: Absolute Monocytes 0.9 K/uL (0.1-1.3); Absolute Neutrophil 13.5 K/uL (1.8-8.0); Basophils % 0.1 % (0-1.3); Hematocrit 22.8 % (36.0-45.0); Lymphocytes % 6.3 % (15.3-44.8); MCH 22.6 pg (27.0-35.0); MCHC 30.7 g/dL (32.0-36.0); MCV 73.4 fL (80-100); MPV 6.9 fL (7.6-11.3); Monocytes % 5.7 % (3.3-12.3); Nucleated Red Blood Cells % 0.3 % (0-0); Platelets 225 thou/uL (152-406); RBC Red Blood Cell Count 3.11 M/uL (3.86-4.86); Red Cell Distribution Width 17.6 % (12.1-15.2)
[2025-02-20 05:28] LABS: Neutrophils % 87.9 % (41.7-73.7)
[2025-02-20] MEDS: NA CHLORIDE 0.9% 1,000 ML IV SCH ×3 (07:32→09:38)
[2025-02-20] MEDS ORDERED: CEFTRIAXONE 2,000 MG in NA CHLORIDE 0.9% 100 ML IV SCH (09:00)
[2025-02-20] MEDS: PIPER TAZO 3.375 GM in NA CHLORIDE 0.9% 100 ML IV SCH (10:05)
[2025-02-20] MEDS ORDERED: PIPERACIL/TAZO 3.375 GM VIAL IV ONE (10:13)
[2025-02-20] MEDS ORDERED: NA CHLORIDE 0.9% 100 ML ONE (10:13)
--- NOTE | 2025-02-20 10:59 | P.PN ---
Subjective Date of Service: 02/20/25 Chief Complaint: Septic shock No complaints Review of Systems 10-point ROS is otherwise unremarkable General: Unremarkable Eyes: Unremarkable ENT: Unremarkable Respiratory: Unremarkable Cardiovascular: Unremarkable Gastrointestinal: Unremarkable Integumentary: Unremarkable Neurological: Unremarkable Physical Examination - Vital Signs Temperature: 98.8 F Blood Pressure: 168/75 Pulse: 124 Respirations: 18 Pulse Ox (%): 100 - Physical Exam General: Alert, Oriented x3 HEENT: Atraumatic, Normocephalic Neck: Supple Respiratory: Clear to auscultation bilaterally Cardiovascular: Regular rate/rhythm Gastrointestinal: Normal bowel sounds, Soft and benign Musculoskeletal: No clubbing, No contractures, No erythema, No tenderness Integumentary: No cyanosis Neurological: Normal speech, Normal strength at 5/5 x4 extr - Studies Laboratory Data (last 24 hrs) 02/19/25 02/19/25 02/19/25 16:50 16:50 16:50 WBC Hgb Hct Plt Count PT 14.0 H INR 1.24 APTT 22.2 L Sodium 137 Potassium 3.3 L BUN 25 H Creatinine 1.47 H Glucose 257 H Total Bilirubin 0.4 AST 55 H ALT 25 Alkaline Phosphatase 151 H Lipase 504 H 02/19/25 16:50 WBC 18.40 H Hgb 8.0 L Hct 25.0 L Plt Count 310 PT INR APTT Sodium Potassium BUN Creatinine Glucose Total Bilirubin AST ALT Alkaline Phosphatase Lipase Assessment And Plan - Plan 1. Acute metabolic encephalopathy, generalized weakness secondary to acute pancreatitis -Clinically improved, currently oriented x 3 - CT of abdomen/pelvis positive for acute pancreatitis - Continue IV fluids - Held clonazepam and bupropion - On empiric antibiotics 2. Lactic acidosis secondary to acute pancreatitis - Overall trending down - Continue IV fluids 3. Type 2 diabetes - Sliding scale insulin 4. DVT prophylaxis - Subcu Lovenox
[2025-02-20] MEDS: INSULIN REGULAR (HUMAN) 100 UNIT/ML SQ SCH (11:30)
--- NOTE | 2025-02-20 11:47 | EKG ---
Test Date: 2025-02-19 Test Time: 16:12:37 Crib Clerk: JACK MEASUREMENT RESULTS: Intervals: Rate: 136 NE: QRSD: 72 QT: 366 QTc: 550 [place]: P: NE: QRS: -14 T: 43 INTERPRETIVE STATEMENTS: Supraventricular tachycardia Low voltage QRS Cannot rule out Anterior infarct, age undetermined Abnormal ECG Compared to ECG 12/22/2024 15:47:14 Myocardial infarct finding now present Sinus tachycardia no longer present Short NE interval no longer present ST (T wave) deviation no longer present Electronically Signed On 02-20-25 11:47:30 CDT by Omega White
[2025-02-20] MEDS ORDERED: INSULIN REGULAR (HUMAN) 100 UNIT/ML ONE (12:13)
[2025-02-20] MEDS ORDERED: HYDROMORPHONE HCL 0.5 MG/0.5 ML INJ IV PRN (14:20)
[2025-02-20] MEDS ORDERED: GLUCAGON 1 MG/VIAL IM PRN (14:39)
[2025-02-20] MEDS ORDERED: D10W 125 ML IV PRN (14:39)
[2025-02-20] MEDS: ENOXAPARIN 40 MG/0.4 ML SQ SCH (16:24)
[2025-02-20] MEDS: LABETALOL 20 MG/4ML SYRINGE IV ONE (22:45)
--- NOTE | 2025-02-20 23:08 | RAD REPORT ---
EXAMINATION: US Abdomen Exam Limited CLINICAL HISTORY: [facility] MAIN EVALUATE FOR GALLBLADDER STONES COMPARISON: None. TECHNIQUE: Limited upper abdominal grayscale and color flow sonographic images. FINDINGS: Gallbladder: Surgically removed. Bile ducts: No intrahepatic biliary dilatation. Common bile duct measures 9 mm. Liver: Visualized portions of the liver demonstrate normal echogenicity with no suspicious findings. Fluid: No ascites. IMPRESSION: Status post cholecystectomy. Prominent caliber of the common bile duct which could relate to reservoi r effect, please correlate clinically and with serum bilirubin profile.
[2025-02-21 06:37] LABS: Sqamous Epithelial <5 /HPF (None Seen); Urine Bacteria None Seen /HPF (<20); Urine Bilirubin NEGATIVE (Negative); Urine Blood 3+ (Negative); Urine Clarity Extremely Turbid (Clear); Urine Color Light-Yellow (Yellow); Urine Culture Reflex Order REFLEXED; Urine Glucose 2+ (Negative); Urine Ketones NEGATIVE (Negative); Urine Microscopic Reflex YN ORDER UMIC; Urine Mucus Slight /HPF (None Seen); Urine Nitrite 2+ (Negative); Urine Protein 1+ (Negative); Urine RBC 21-50 /HPF (None Seen); Urine Urobilinogen Normal (Normal); Urine WBC 20-50 /HPF (<5); Urine Yeast (Budding) Occasional /HPF (None Seen)
[2025-02-21 07:34] LABS: Absolute Basophils 0.1 K/uL (0-0.5); Absolute Lymphocytes (CBC) 1.6 K/uL (0.7-4.9); Absolute Monocytes 0.9 K/uL (0.1-1.3); Absolute Neutrophil 11.3 K/uL (1.8-8.0); Basophils % 0.4 % (0-1.3); Hematocrit 21.6 % (36.0-45.0); Hemoglobin 6.6 g/dL (12.0-15.0); Lymphocytes % 11.7 % (15.3-44.8); MCH 22.8 pg (27.0-35.0); MCHC 30.6 g/dL (32.0-36.0); MCV 74.4 fL (80-100); MPV 7.7 fL (7.6-11.3); Monocytes % 6.6 % (3.3-12.3); Neutrophils % 81.3 % (41.7-73.7); Nucleated Red Blood Cells % 0.1 % (0-0); Platelets 178 thou/uL (152-406); RBC Red Blood Cell Count 2.91 M/uL (3.86-4.86); Red Cell Distribution Width 17.7 % (12.1-15.2)
[2025-02-21 07:49] LABS: Anion Gap 10.6 mEq/L (5.0-15.0); Potassium 3.6 mEq/L (3.5-5.1)
[2025-02-21] MEDS: CEFTRIAXONE 1,000 MG in NA CHLORIDE 0.9% 50 ML IVPB SCH (08:10)
[2025-02-21] MEDS: METOPROLOL TAR 50 MG TAB PO SCH (08:10)
--- NOTE | 2025-02-21 12:29 | P.PN ---
Subjective Date of Service: 02/21/25 Chief Complaint: Septic shock No complaints. Patient oriented to person but not to place or time Review of Systems 10-point ROS is otherwise unremarkable Physical Examination - Vital Signs Temperature: 98.2 F Blood Pressure: 160/79 Pulse: 112 Respirations: 23 Pulse Ox (%): 100 - Physical Exam General: Alert, Oriented x3 HEENT: Atraumatic Neck: Supple Respiratory: Clear to auscultation bilaterally Cardiovascular: No edema Musculoskeletal: No clubbing, No swelling, No erythema Neurological: Normal gait, Normal speech Assessment And Plan - Plan 1. Acute metabolic encephalopathy, generalized weakness secondary to acute pancreatitis versus UTI -Clinically improved, currently oriented to person only, confused but follows commands - CT of abdomen/pelvis positive for acute pancreatitis -Will continue IV fluids - Held clonazepam and bupropion 2. UTI -Continue antibiotics 3. Lactic acidosis secondary to acute pancreatitis -Resolved 4. Type 2 diabetes - Sliding scale insulin 5. DVT prophylaxis - Subcu Lovenox
--- NOTE | 2025-02-21 14:14 | EKG ---
Test Date: 2025-02-20 Test Time: 20:59:33 [employer]: MCGA MEASUREMENT RESULTS: Intervals: Rate: 115 TX: 158 QRSD: 70 QT: 346 QTc: 478 [place]: P: 58 TX: 158 QRS: 3 T: 5 INTERPRETIVE STATEMENTS: Sinus tachycardia Septal infarct, age undetermined Abnormal ECG Compared to ECG 02/19/2025 16:12:37 Supraventricular tachycardia no longer present Myocardial infarct finding still present Electronically Signed On 02-21-25 14:12:36 CDT by Omega White
[2025-02-22 04:53] LABS: Barbiturates POSITIVE (NEGATIVE); Benzodiazepines POSITIVE (NEGATIVE); Cocaine NEGATIVE (NEGATIVE); METHAMPHETAM NEGATIVE (NEGATIVE); Methadone NEGATIVE (NEGATIVE); Opiates NEGATIVE (NEGATIVE); Phencyclidine NEGATIVE (NEGATIVE); THC Cannibis NEGATIVE (NEGATIVE)
[2025-02-22] MEDS: BUPROPION HCL XL 150 MG TAB PO SCH (08:33)
--- NOTE | 2025-02-22 10:51 | P.PN ---
Subjective Date of Service: 02/22/25 Chief Complaint: Septic shock No complaints. Patient oriented to person but not to place or time Review of Systems 10-point ROS is otherwise unremarkable Physical Examination - Vital Signs Temperature: 97.6 F Blood Pressure: 157/60 Pulse: 89 Respirations: 18 Pulse Ox (%): 100 - Physical Exam General: Alert, Oriented x3 HEENT: Atraumatic Neck: Supple Respiratory: Clear to auscultation bilaterally, Normal air movement Cardiovascular: No edema, Normal pulses, Regular rate/rhythm Gastrointestinal: Normal bowel sounds Musculoskeletal: No clubbing, No swelling Neurological: Normal gait Assessment And Plan - Plan 1. Acute metabolic encephalopathy, generalized weakness secondary to acute pancreatitis versus UTI -Clinically improved, currently oriented to person only, confused but follows commands - CT of abdomen/pelvis positive for acute pancreatitis -Clinically improved tolerating regular diet 2. UTI -Continue ceftriaxone -Urine culture negative to date 3. Lactic acidosis secondary to acute pancreatitis -Resolved 4. Type 2 diabetes - Sliding scale insulin 5. History of anxiety/depression - Resumed bupropion 6. DVT prophylaxis - Subcu Lovenox 7. Disposition: Pending PT/OT eval
[2025-02-22 23:28] VITALS: BMI 31.6
[2025-02-23] MEDS: ACETAMINOPHEN 500 MG TAB PO PRN (02:18)
[2025-02-23] MEDS: METOPROLOL TAR 50 MG TAB PO SCH ×2 (08:17→20:42)
[2025-02-23 08:58] LABS: Hematocrit 28.2 % (36.0-45.0); Hemoglobin 8.8 g/dL (12.0-15.0); RBC Red Blood Cell Count 3.82 M/uL (3.86-4.86)
[2025-02-23 08:59] LABS: Absolute Eosinophils 0.1 K/uL (0-0.5); Absolute Lymphocytes (CBC) 1.7 K/uL (0.7-4.9); Absolute Monocytes 0.7 K/uL (0.1-1.3); Absolute Neutrophil 8.1 K/uL (1.8-8.0); Basophils % 0.2 % (0-1.3); Eosinophils % 0.8 % (0-4.4); Lymphocytes % 16.1 % (15.3-44.8); MCH 22.9 pg (27.0-35.0); MCHC 31.1 g/dL (32.0-36.0); MCV 73.7 fL (80-100); MPV 7.7 fL (7.6-11.3); Monocytes % 6.4 % (3.3-12.3); Neutrophils % 76.5 % (41.7-73.7); Nucleated Red Blood Cells % 0.1 % (0-0); Platelets 241 thou/uL (152-406); Red Cell Distribution Width 17.6 % (12.1-15.2)
[2025-02-23 09:13] LABS: Anion Gap 10.3 mEq/L (5.0-15.0); Magnesium 1.4 mg/dL (1.6-2.4); Potassium 3.3 mEq/L (3.5-5.1)
--- NOTE | 2025-02-23 11:46 | P.PN ---
Subjective Date of Service: 02/23/25 Chief Complaint: Septic shock No complaints. Patient oriented to person but not to place or time Review of Systems 10-point ROS is otherwise unremarkable Physical Examination - Vital Signs Temperature: 98.3 F Blood Pressure: 147/66 Pulse: 66 Respirations: 18 Pulse Ox (%): 100 - Physical Exam General: Alert, Oriented x3 HEENT: Atraumatic Neck: Supple Respiratory: Clear to auscultation bilaterally Cardiovascular: No edema Gastrointestinal: Normal bowel sounds Musculoskeletal: No clubbing, No swelling, No contractures, No erythema Neurological: Normal gait, Normal speech, Normal strength at 5/5 x4 extr Assessment And Plan - Plan 1. Acute metabolic encephalopathy, generalized weakness secondary to acute pancreatitis versus UTI -Clinically improved, currently oriented to person only, confused but follows commands - CT of abdomen/pelvis positive for acute pancreatitis -Clinically improved; tolerating regular diet 2. UTI -Continue ceftriaxone -Urine culture negative to date 3. Lactic acidosis secondary to acute pancreatitis -Resolved 4. Type 2 diabetes - Sliding scale insulin 5. History of anxiety/depression - Resumed bupropion 6. DVT prophylaxis - Subcu Lovenox 7. Disposition: Pending PT/OT eval
[2025-02-23] MEDS: MAGNES/ALUMIN/SIMET 30ML UCUP PO PRN (18:06)
[2025-02-23] MEDS: POTASSIUM CL SA 10 MEQ TAB PO ONE (20:42)
[2025-02-23] MEDS: Magnesium Sulfate 2gm IVPB 2 G/50 ML BAG IV ONE (20:42)
[2025-02-23] MEDS: ESZOPICLONE 1 MG TAB PO PRN (21:09)
[2025-02-24] MEDS: PANTOPRAZOLE 40MG TABLET PO SCH (06:34)
[2025-02-24 08:12] LABS: Absolute Basophils 0.1 K/uL (0-0.5); Absolute Eosinophils 0.5 K/uL (0-0.5); Absolute Lymphocytes (CBC) 2.1 K/uL (0.7-4.9); Absolute Monocytes 1.2 K/uL (0.1-1.3); Basophils % 0.5 % (0-1.3); Eosinophils % 3.5 % (0-4.4); Hemoglobin 6.8 g/dL (12.0-15.0); Lymphocytes % 16.6 % (15.3-44.8); MCH 22.8 pg (27.0-35.0); MCV 73.5 fL (80-100); MPV 8.8 fL (7.6-11.3); Monocytes % 9.4 % (3.3-12.3); Nucleated Red Blood Cells % 0.2 % (0-0); Platelets 202 thou/uL (152-406); RBC Red Blood Cell Count 2.99 M/uL (3.86-4.86); Red Cell Distribution Width 17.5 % (12.1-15.2)
[2025-02-24 08:14] LABS: Anion Gap 11.1 mEq/L (5.0-15.0); Magnesium 1.9 mg/dL (1.6-2.4); Potassium 4.1 mEq/L (3.5-5.1)
[2025-02-24 09:41] LABS: Anisocytosis 1+; Blood Morphology Comment NOTED (NOT SEEN); Hypochromasia 1+; Platelet Estimate ADEQ; Polychromasia 1+; White Blood Cell Scan OK (OK)
[2025-02-24 10:26] LABS: Absolute Basophils 0.1 K/uL (0-0.5); Absolute Eosinophils 0.5 K/uL (0-0.5); Absolute Lymphocytes (CBC) 1.9 K/uL (0.7-4.9); Absolute Monocytes 1.3 K/uL (0.1-1.3); Absolute Neutrophil 10.6 K/uL (1.8-8.0); Basophils % 0.5 % (0-1.3); Eosinophils % 3.7 % (0-4.4); Hematocrit 22.4 % (36.0-45.0); Hemoglobin 6.9 g/dL (12.0-15.0); Lymphocytes % 13.2 % (15.3-44.8); MCH 22.7 pg (27.0-35.0); MCV 73.2 fL (80-100); MPV 8.5 fL (7.6-11.3); Monocytes % 9.1 % (3.3-12.3); Neutrophils % 73.5 % (41.7-73.7); Nucleated RBC Absolute Count 0.1 (0-0); Nucleated Red Blood Cells % 0.4 % (0-0); Platelets 204 thou/uL (152-406); RBC Red Blood Cell Count 3.06 M/uL (3.86-4.86); Red Cell Distribution Width 17.5 % (12.1-15.2)
[2025-02-24 10:49] LABS: Blood Morphology Comment NOT SEEN (NOT SEEN); Platelet Estimate ADEQ; White Blood Cell Scan OK (OK)
--- NOTE | 2025-02-24 13:17 | P.PN ---
Subjective Date of Service: 02/24/25 Chief Complaint: Septic shock Subjective: No chest pain or shortness of breath. No nausea or vomiting. No abdominal pain. No obvious bleeding. Looks comfortable in the bed. Objective: General appearance: Alert and comfortable CVS: Normal S1 and S2 Lungs: Clear to auscultation bilaterally Abdomen: Soft, bowel sounds present, no tenderness Extremities: No lower extremity edema Physical Examination - Vital Signs Temperature: 97.7 F Blood Pressure: 133/61 Pulse: 78 Respirations: 15 Pulse Ox (%): 100 Assessment And Plan - Plan 1. Acute metabolic encephalopathy, generalized weakness secondary to acute pancreatitis versus UTI -Clinically improved - CT of abdomen/pelvis positive for acute pancreatitis - Ultrasound abdomen negative, CT abdomen pelvis showed pancreatitis, CT head negative, chest x-ray negative 2. UTI -Continue ceftriaxone -Urine culture negative to date, WBC still high - Blood cultures negative 3. Lactic acidosis secondary to acute pancreatitis -Resolved 4. Type 2 diabetes - Sliding scale insulin 5. History of anxiety/depression - Resumed bupropion 6. Acute on chronic anemia: Transfuse 1 unit of blood, will get CT chest abdomen pelvis to evaluate for internal bleeding, check iron level, she may need to be transferred to another hospital for GI evaluation depending on CT results. Plan discussed with the patient, nursing staff and case management team.
[2025-02-24] MEDS ORDERED: NA CHLORIDE 0.9% 250 ML IV SCH (14:00)
[2025-02-24 16:50] LABS: Ferritin 32.4 ng/mL (8-252)
[2025-02-24] MEDS: NA CHLORIDE 0.9% 250 ML ONE (22:35)
[2025-02-24] MEDS ORDERED: clonazePAM 0.5 MG TAB PO PRN (22:38)
--- NOTE | 2025-02-24 23:38 | RAD REPORT ---
EXAM: CT CHEST, ABDOMEN AND PELVIS WITH CONTRAST CLINICAL INDICATION: Female, 69 years old. anemia, rule out internal bleed TECHNIQUE: CT chest, abdomen, and pelvis was performed, following the administration of contrast, as per department protocol. Axial, sagittal and coronal reconstructions were obtained. One or more of the following dose reduction techniques were used: Automated exposure control, adjustment of the mA a nd/or kV according to patient size, and/or iterative reconstruction. Unless otherwise specified, incidental findings do not require dedicated imaging follow-up. COMPARISON: CT abdomen and pelvis 02/19/2025 FINDINGS: LUNGS AND AIRWAYS: No evidence of airspace or interstitial process except as below. No suspicious nod ules. PLEURA: Small layering pleural effusions. Subsegmental atelectatic dependent changes more pronounced on the left.. No pneumothorax. MEDIASTINUM AND LYMPH NODES: No mediastinal mass or fluid collection. Normal size mediastinal, hilar, and axillary lymph nodes. THORACIC AORTA: Normal caliber and configuration. PULMONARY ARTERIES: Normal caliber. OSSEOUS STRUCTURES AND CHEST WALL: Intact. LIVER: Normal in size and contour. No focal lesion or biliary dilitation. BILIARY SYSTEM: Status post cholecystectomy. PANCREAS: Stable findings of acute interstitial pancreatitis. Trace fluid again seen tracking along t he left paracolic gutter. No segmental or regional hypoenhancement or fluid collections. No mass, ductal dilation, or kelly-pancreatic fluid. SPLEEN: Normal size. No focal lesion. ADRENALS: Normal; no mass. Stable cortical cysts largest at the left interpolar region measuring 3.7 cm KIDNEYS AND URETERS: Normal size and contour. No hydronephrosis. URINARY BLADDER: Normal contour. GASTROINTESTINAL TRACT: No bowel obstruction, free air, significant free fluid or abscess. APPENDIX: No inflammatory changes in region of appendix. LYMPH NODES: No lymphadenopathy. ABDOMINAL AORTA AND OTHER VESSELS: Filling partial defects along the upper abdominal aorta, suggestin g mural thrombi or ulcerated plaque, stable. MUSCULOSKELETAL: No acute or suspicious osseous abnormality. IMPRESSION: Stable findings of uncomplicated acute interstitial pancreatitis. Small layering pleural effusions, mildly progressive since the prior exam. Other stable findings as above.
[2025-02-25] MEDS: SUMATRIPTAN SUCCI 50 MG TAB PO ONE ×2 (05:47→14:55)
[2025-02-25 08:19] LABS: Anion Gap 8.7 mEq/L (5.0-15.0); Potassium 3.7 mEq/L (3.5-5.1)
[2025-02-25 08:27] LABS: Absolute Basophils 0.1 K/uL (0-0.5); Absolute Eosinophils 0.6 K/uL (0-0.5); Absolute Lymphocytes (CBC) 2.4 K/uL (0.7-4.9); Absolute Monocytes 0.9 K/uL (0.1-1.3); Absolute Neutrophil 7.1 K/uL (1.8-8.0); Basophils % 0.7 % (0-1.3); Eosinophils % 5.6 % (0-4.4); Hematocrit 32.1 % (36.0-45.0); Hemoglobin 10.3 g/dL (12.0-15.0); Lymphocytes % 21.4 % (15.3-44.8); MCH 24.5 pg (27.0-35.0); MCV 76.4 fL (80-100); MPV 8.2 fL (7.6-11.3); Monocytes % 8.4 % (3.3-12.3); Neutrophils % 63.9 % (41.7-73.7); Nucleated Red Blood Cells % 0.3 % (0-0); Platelets 181 thou/uL (152-406); Red Cell Distribution Width 18.6 % (12.1-15.2)
[2025-02-25 10:28] LABS: Anisocytosis 1+; Blood Morphology Comment NOTED (NOT SEEN); Platelet Estimate ADEQ; Polychromasia 1+; White Blood Cell Scan OK (OK)
[2025-02-25 14:19] LABS: Absolute Eosinophils 0.5 K/uL (0-0.5); Absolute Lymphocytes (CBC) 1.4 K/uL (0.7-4.9); Absolute Monocytes 0.9 K/uL (0.1-1.3); Absolute Neutrophil 6.6 K/uL (1.8-8.0); Basophils % 0.4 % (0-1.3); Eosinophils % 5.4 % (0-4.4); Hematocrit 28.7 % (36.0-45.0); Hemoglobin 9.3 g/dL (12.0-15.0); Lymphocytes % 14.9 % (15.3-44.8); MCHC 32.6 g/dL (32.0-36.0); MCV 76.6 fL (80-100); MPV 7.7 fL (7.6-11.3); Monocytes % 9.2 % (3.3-12.3); Neutrophils % 70.1 % (41.7-73.7); Nucleated Red Blood Cells % 0.2 % (0-0); Platelets 264 thou/uL (152-406); RBC Red Blood Cell Count 3.75 M/uL (3.86-4.86); Red Cell Distribution Width 17.8 % (12.1-15.2)
[2025-02-25 14:20] LABS: Percent Reticulocyte Count 1.54 % (0.4-2.05); RBC Red Blood Cell Count 3.75 M/uL (3.86-4.86)
[2025-02-25 14:35] LABS: Albumin 2.4 g/dL (3.4-5.0); Albumin/Globulin Ratio 0.6 (1.1-1.8); Bilirubin Total 0.2 mg/dL (0.2-1.0); Globulin 4.2 g/dL (2.3-3.5); Protein, Total 6.6 g/dL (6.4-8.2)
--- NOTE | 2025-02-25 16:26 | P.PN ---
Subjective Date of Service: 02/25/25 Patient seen globin is stable. Clinically patient continues to improve. Working with physical therapy and tolerating diet. Working on discharge planning. As long as hemoglobin remains stable then anticipate discharge home. Review of Systems 10-point ROS is otherwise unremarkable Physical Examination - Vital Signs Temperature: 97.9 F Blood Pressure: 155/68 Pulse: 78 Respirations: 18 Pulse Ox (%): 98 - Physical Exam General: Alert, In no apparent distress HEENT: Atraumatic, PERRLA, EOMI Neck: Supple, JVD not distended Respiratory: Clear to auscultation bilaterally, Normal air movement Cardiovascular: Regular rate/rhythm, Normal S1 S2 Gastrointestinal: Normal bowel sounds, No tenderness Musculoskeletal: No tenderness Integumentary: No rashes Neurological: Normal speech, Normal tone, Normal affect Lymphatics: No axilla or inguinal lymphadenopathy - Studies Microbiology Data (last 24 hrs): 02/19/25 16:38 Blood - Blood Aerobic Blood Culture - Final No growth in 5 days. 02/19/25 16:38 Blood - Blood Anaerobic Blood Culture - Final No growth in 5 days. 02/19/25 16:50 Blood - Blood Aerobic Blood Culture - Final No growth in 5 days. 02/19/25 16:50 Blood - Blood Anaerobic Blood Culture - Final No growth in 5 days. Medications List Reviewed: Yes Assessment & Plan - Problems (Diagnosis) (1) Pancreatitis Current Visit: Yes Status: Acute (2) Acute blood loss anemia Current Visit: Yes Status: Acute (3) Diabetes Current Visit: No Status: Acute (4) Generalized weakness Current Visit: Yes Status: Acute - Advance Directives Does patient have a Living Will: Yes Does patient have a Durable POA for Healthcare: No
[2025-02-25 22:40] VITALS: O2SAT 100
[2025-02-25] MEDS: LOPERAMIDE HCL 2 MG CAPSULE PO PRN (23:04)
[2025-02-26 08:30] LABS: Absolute Basophils 0.1 K/uL (0-0.5); Absolute Eosinophils 0.6 K/uL (0-0.5); Absolute Lymphocytes (CBC) 2.1 K/uL (0.7-4.9); Absolute Monocytes 0.7 K/uL (0.1-1.3); Absolute Neutrophil 5.3 K/uL (1.8-8.0); Basophils % 0.6 % (0-1.3); Eosinophils % 6.5 % (0-4.4); Hematocrit 29.9 % (36.0-45.0); Hemoglobin 9.4 g/dL (12.0-15.0); Lymphocytes % 24.3 % (15.3-44.8); MCH 24.4 pg (27.0-35.0); MCHC 31.6 g/dL (32.0-36.0); MCV 77.1 fL (80-100); MPV 8.1 fL (7.6-11.3); Monocytes % 7.8 % (3.3-12.3); Neutrophils % 60.8 % (41.7-73.7); Platelets 276 thou/uL (152-406); RBC Red Blood Cell Count 3.88 M/uL (3.86-4.86); Red Cell Distribution Width 18.4 % (12.1-15.2)
[2025-02-26 08:48] LABS: Albumin 2.5 g/dL (3.4-5.0); Albumin/Globulin Ratio 0.6 (1.1-1.8); Anion Gap 10.7 mEq/L (5.0-15.0); Bilirubin Total 0.3 mg/dL (0.2-1.0); Globulin 4.2 g/dL (2.3-3.5); Potassium 3.7 mEq/L (3.5-5.1); Protein, Total 6.7 g/dL (6.4-8.2)
[2025-02-26] MEDS: SOD FERRIC GLUC COMPLX/SUCROSE 125 MG in NA CHLORIDE 0.9% 100 ML IV SCH (09:02)
[2025-02-26] MEDS: NA CHLORIDE 0.9% 250 ML ONE (09:13)
[2025-02-26 12:11] VITALS: BP 155/70; TEMP 98
== END 2025-02-26 13:00 | disposition home health service (06) | DRG 871 ==
LOC: ER 15:54 → ERHOLD 22:18 → 3RD-ICU 02-20 12:52 → 4TH 02-23 02:17
PROVIDERS: ADMIT Family Medicine; ATTEND Hospitalist
PROC: 02H633Z Insertion of Infusion Device into Right Atrium, Percutaneous Approach (ICD-10-PCS; 2025-02-19)
PROC: 30233N1 Transfusion of Nonautologous Red Blood Cells into Peripheral Vein, Percutaneous Approach (ICD-10-PCS; principal; 2025-02-24)
DX: A41.9 Sepsis, unspecified organism (principal); G93.41 Metabolic encephalopathy; K85.90 Acute pancreatitis without necrosis or infection, unspecified; R65.21 Severe sepsis with septic shock; K50.90 Crohn's disease, unspecified, without complications; N17.9 Acute kidney failure, unspecified; N39.0 Urinary tract infection, site not specified; E87.20 Acidosis, unspecified; D62 Acute posthemorrhagic anemia; I10 Essential (primary) hypertension; E87.6 Hypokalemia; F41.9 Anxiety disorder, unspecified; F32.A Depression, unspecified; E11.65 Type 2 diabetes mellitus with hyperglycemia; Z88.5 Allergy status to narcotic agent; Z88.2 Allergy status to sulfonamides; Z88.1 Allergy status to other antibiotic agents; Z88.8 Allergy status to other drugs, medicaments and biological substances; Z79.84 Long term (current) use of oral hypoglycemic drugs; Z90.49 Acquired absence of other specified parts of digestive tract; Z79.899 Other long term (current) drug therapy
CPT/HCPCS: 36415; 36430; 36556; 70450; 71045; 71260; 74177; 76705; 80048; 80053; 80061; 80307; 81001; 82728; 82947; 83540; 83605; 83690; 83735; 84466; 85025; 85044; 85610; 85730; 86850; 86900; 86901; 86920; 86922; 87040; 87086; 87088; 93005; 96372; 97110; 97116; 97124; 97161; 97165; 97530; 99285; J0696; J1650; J1815; J2405; J2543; J2916; J3475; J3480; J3486; J7030; J7050; P9016; Q9967